=== PATIENT | female | born 1935 | race Caucasian/White ===

== ENCOUNTER 2016-08-22 17:13 | Inpatient (IN) | payer MEDICARE, OTHER ==
[~2016-08-22] VITALS: Ht 157.5 cm; Wt 75.3 kg
[~2016-08-22 17:13] MED LIST: ALBUTEROL SULF8.5 GM INH; ASPIRIN-LOW81 MG ORAL; AZITHROMYCIN250 MG ORAL; AZITHROMYCIN250 MG PO; BETAPACE80 MG PO; CORTISPORIN EAR10 ML RIGHT EAR; DILTIAZEM HCL90 MG PO; DIPHENHYDRAMINE25 M1 ORAL; GLUCOPHAGE500 MG PO; LEVAQUIN500 MG ORAL; LISINOPRIL5 MG ORAL; NEXIUM20 M1 ORAL; NEXIUM40 MG ORAL; NKM; NORCO 5-325 TA1 EACH ORAL; PLAVIX75 MG ORAL; PRAVASTATIN SOD20 M1 ORAL; PREDNISONE20 MG ORAL; TYLENOL325 MG ORAL; WARFARIN SODIUM5 MG PO; XARELTO10 MG ORAL
[2016-08-22 17:30] VITALS: BP 154/99
[2016-08-22] MEDS ORDERED: Morphine Sulfate 2mg/ml Inj IVP ONE (17:45)
[2016-08-22 17:58] LABS: BASOPHILS % (AUTO) 1.1 % (0.0-2.0); EOSINOPHILS % (AUTO) 2.5 % (0.0-3.0); LYMPHOCYTES % (AUTO) 25.2 % (20.0-45.0); MEAN CORPUSCULAR HGB CONC 31.9 G/DL (32.0-36.0); MEAN CORPUSCULAR VOLUME 85 FL (80-99); MEAN PLATELET VOLUME 9.3 FL (6.5-10.1); MONOCYTES % (AUTO) 7.1 % (1.0-10.0); NEUTROPHILS % (AUTO) 64.1 % (45.0-75.0); PLATELET COUNT 188 K/UL (150-450); RED BLOOD COUNT 4.68 M/UL (4.20-5.40); WHITE BLOOD COUNT 9.5 K/UL (4.8-10.8)
[2016-08-22] MEDS ORDERED: Diltiazem 25mg/5ml IV ONE (18:00)
--- NOTE | 2016-08-22 18:08 | Emergency Room Report ---
History of Present Illness General Chief Complaint: Chest Pain Source: Patient, Medical Record Present Illness HPI 80YOF with 1 week of right sided numbness and now with a few days of left sided chest pain, non radiating, sharp, 6/10, no assoc nausea/vomiting, diaphoresis, SOB. Known Atrial Fib - didnt take her meds because "the meds make it go fast. " Denies fever/chills, abd pain, urinary complaints. Denies facial droop. Allergies: Coded Allergies: CODEINE (Verified Allergy, Unknown, 10/23/11) DIAZEPAM (Unverified Allergy, Unknown, 06/20/14) c/o rash after given valium in ED PENICILLINS (Verified Allergy, Unknown, RASH/ITCH, 10/23/11) Patient History Past Medical History: HTN, AFib Past Surgical History: none Pertinent Family History: none Social History: Denies: alcohol use, drug use, smoking Now: No Immunizations: UTD Reviewed Nursing Documentation: PMH: Agreed, PSxH: Agreed Nursing Documentation-PMH Past Medical History: No History, Except For Hx Cardiac Problems: Yes - Unspecified Hx Hypertension: Yes Hx Diabetes: Yes Hx Cancer: No Hx Gastrointestinal Problems: No Hx Neurological Problems: No Review of Systems All Other Systems: negative except mentioned in HPI Physical Exam Vital Signs Date Time Temp Pulse Resp B/P Pulse Ox O2 Delivery O2 Flow Rate FiO2 08/22/16 17:21 98.2 123 20 179/109 98 Room Air Sp02 EP Interpretation: reviewed, abnormal General Appearance: normal inspection, well appearing, no apparent distress, alert, GCS 15, non-toxic, other - Walked into ER. Sitting upright in stretcher Head: normocephalic, atraumatic Eyes: bilateral eye EOMI, bilateral eye PERRL ENT: normal ENT inspection, hearing grossly normal, normal voice Neck: normal inspection, full range of motion, supple, no bony tend Respiratory: normal inspection, lungs clear, normal breath sounds, no respiratory distress, no retraction, no wheezing Cardiovascular #1: no edema, no gallop, no JVD, tachycardia, irregularly irregular Gastrointestinal: normal inspection, normal bowel sounds, non tender, soft, no guarding, no hernia Genitourinary: no CVA tenderness Musculoskeletal: normal inspection, back normal, normal range of motion, Michael' s Sign negative Neurologic: normal inspection, alert, oriented x3, responsive, 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 I attest that this information is true, accurate and complete to the best of my knowledge. I understand that any falsification, omission, or concealment of material fact may subject me to administrative, civil, or criminal liability. This patient warrants hospital admission for extreme of age and has a condition that cannot be treated as outpatient. Diagnostic Impression: Primary Impression: Atrial fibrillation Qualified Codes: I48.2 - Chronic atrial fibrillation Additional Impressions: Atrial fibrillation with RVR Numbness ER Course 80YO F with right sided numbness and chest pain found to be in Afib with RVR to [address] head: no acute CVA Labs: No leuks. H&h stable. Troponin 0. CXR: No acute PNA, pulm congestion Hr down to 120 after IV cardizem Was given her 90mg PO dose as well Asymptomatic Admitted to tele with Dr Medina at 711pm EKG Diagnostic Results Rate: tachycardiac ST Segments: no acute changes ASA given to the pt in ED: No Rhythm Strip Diag. Results EP Interpretation: yes Rate: 168 Rhythm: NSR, no PVC's, no ectopy Chest X-Ray Diagnostic Results EP Interpretation: Yes Findings: no consolidation, no effusion, no pneumothorax, no acute cardiopulmonary disease Number of Views: 1 Last Vital Signs Date Time Temp Pulse Resp B/P Pulse Ox O2 Delivery O2 Flow Rate FiO2 08/22/16 17:30 98.0 154 22 154/99 98 Room Air Status: improved Disposition: ADMITTED INPATIENT Condition: Serious DAYA BENTLEY M.D. Aug 22, 2016 18:08
[2016-08-22 18:23] LABS: ALANINE AMINOTRANSFERASE 14 U/L (3-33); ALBUMIN/GLOBULIN RATIO 1.3 (1.0-2.7); ANION GAP 16 (5-15); ASPARTATE AMINO TRANSFERASE 21 U/L (5-40); CALCIUM 9.3 mg/dL (8.6-10.2); CARBON DIOXIDE 26 mEQ/L (20-30); CHLORIDE 94 mEQ/L (98-107); CREATININE 0.9 mg/dL (0.5-0.9); HEMOLYSIS 16; POTASSIUM 3.7 mEQ/L (3.4-4.9); SODIUM 136 mEQ/L (135-145); TOTAL PROTEIN 7.1 g/dL (6.6-8.7); TROPONIN I < 0.30 ng/mL (<=0.30)
[2016-08-22] MEDS ORDERED: Diltiazem 90mg tab ORAL ONE (18:30)
[2016-08-22 18:34] LABS: CKMB < 1.5 ng/mL (< 3.8)
[2016-08-22 19:00] VITALS: BP 135/88
[2016-08-22 21:00] VITALS: BP 136/72
[2016-08-22 23:13] VITALS: BP 124/64
[2016-08-23 00:33] VITALS: BP 138/84
[2016-08-23 00:56] VITALS: BP 138/84
[2016-08-23] MEDS: Diltiazem 90mg tab ORAL SCH ×4 (01:18→17:43)
--- NOTE | 2016-08-23 02:07 | History & Physical ---
History and Physical History & Physicial H&P dictated [id number] MARIA E GONZALEZ M.D. Aug 23, 2016 02:07
[2016-08-23 04:00] VITALS: BP 112/68
[2016-08-23] MEDS: NovoLOG Insulin Flexpen SUBQ SCH ×4 (06:45→20:48)
[2016-08-23 08:00] VITALS: BP 127/75
[2016-08-23 08:14] LABS: BASOPHILS % (AUTO) 0.9 % (0.0-2.0); EOSINOPHILS % (AUTO) 2.2 % (0.0-3.0); MEAN CORPUSCULAR HGB CONC 31.5 G/DL (32.0-36.0); MEAN CORPUSCULAR VOLUME 86 FL (80-99); MEAN PLATELET VOLUME 9.1 FL (6.5-10.1); MONOCYTES % (AUTO) 7.7 % (1.0-10.0); NEUTROPHILS % (AUTO) 65.3 % (45.0-75.0); PLATELET COUNT 181 K/UL (150-450); RED BLOOD COUNT 4.62 M/UL (4.20-5.40); RED CELL DISTRIBUTION WIDTH 13.2 % (11.6-14.8); WHITE BLOOD COUNT 7.8 K/UL (4.8-10.8)
--- NOTE | 2016-08-23 08:29 | History and Physical Report ---
DATE OF ADMISSION: 08/22/2016 CHIEF COMPLAINT: Chest pain and tachycardia. HISTORY OF PRESENT ILLNESS: This is a 80-year-old female, presents to the emergency room because of tachycardia and chest pain. She states that she had tachycardia last night associated with left-sided chest pain. She could not sleep because of palpitations and tachycardia. She then reports right-sided numbness at the same time along her face and right side of her body, which may have started days ago. She denies any weakness. She does have chest pain, shortness of breath, palpitations, gotten now better. The patient states she takes diltiazem for her atrial fibrillation, however, it is unclear if she took her medications today. She states the pain has resolved since. She denies any focal deficits, facial droop, difficulty speaking, or vision changes. PAST MEDICAL HISTORY: Includes atrial fibrillation, diabetes, and hypertension. PAST SURGICAL HISTORY: None. ALLERGIES: To penicillin and codeine. SOCIAL HISTORY: The patient does not smoke, drink alcohol, or use any drugs. MEDICATIONS: Reviewed in [employer]. FAMILY HISTORY: Noncontributory. REVIEW OF SYSTEMS: The 12-point review of systems is negative except for pertinent positives as mentioned above. PHYSICAL EXAMINATION: VITAL SIGNS: Vital signs emergency room, temperature 98.2 degrees, pulse is 122, respiratory rate 20, blood pressure 179/109, and pulse oximetry is 98% on room air. GENERAL: The patient is in no acute distress. The patient is alert, awake, and oriented. HEENT: Normocephalic and atraumatic. NECK: Supple. No JVD. LUNGS: Clear to auscultation bilaterally. No crackles, rhonchi, or rales. CARDIOVASCULAR: Irregular rhythm and tachycardic. ABDOMEN: Soft, nontender, and nondistended. EXTREMITIES: No clubbing, cyanosis, or edema. PSYCHIATRIC: Appropriate mood and affect. NEUROLOGIC: The patient has no focal deficits on my exam. She has motor 5/5 in all extremities. There is no numbness or sensory loss. LABORATORY AND DIAGNOSTIC DATA: CBC, white count 5.5, hemoglobin 12.6, and platelet count 188,000. BMP with sodium 136, potassium 3.7, chloride is 94, CO2 26, BUN 14, creatinine 0.9, glucose 203, troponin less than 0.30. EKG shows atrial fibrillation with tachycardia 127, no ST changes. Chest x-ray shows no consolidation, effusion, no pneumothorax. CT head shows no acute CVA. ASSESSMENT: 1. Atrial fibrillation with rapid ventricular rate. 2. Chest pain and shortness of breath likely secondary to atrial fibrillation with rapid ventricular rate. 3. Numbness of the left side of the body - unclear etiology. The CT head did not show acute cerebrovascular accident. If this continues, will order MRI of the brain in the morning. 4. History of diabetes. 5. Hypertension. PLAN: 1. Admit patient to telemetry. 2. Diltiazem 90 mg every 6 hours. 3. Home medications including Xarelto, . Cardiology consult in the morning. 4. DVT prophylaxis with heparin. 5. Continue sotalol for atrial fibrillation. 6. Counseled the patient on compliance. Tyson Medina MD DR: MESFIN/new JOB#: [id number] CC:
[2016-08-23 08:30] LABS: ANION GAP 16 (5-15); CARBON DIOXIDE 26 mEQ/L (20-30); CHLORIDE 98 mEQ/L (98-107); CREATININE 0.9 mg/dL (0.5-0.9); HEMOLYSIS 0; POTASSIUM 3.7 mEQ/L (3.4-4.9); SODIUM 140 mEQ/L (135-145)
[2016-08-23] MEDS: Xarelto 10mg tab ORAL SCH (08:51)
[2016-08-23] MEDS: PredniSONE 20mg tab ORAL SCH (08:52)
[2016-08-23] MEDS: metFORMIN 500mg tab ORAL SCH ×2 (08:52→17:43)
[2016-08-23] MEDS: Sotalol 80mg tab ORAL SCH ×2 (08:52→17:44)
[2016-08-23] MEDS ORDERED: Lisinopril 2.5mg tab ORAL SCH (09:00)
[2016-08-23 09:22] LABS: TROPONIN I < 0.30 ng/mL (<=0.30)
--- NOTE | 2016-08-23 12:29 | Diagnostic Imaging Report ---
Indications: Headache and right-sided weakness Technique: Continuous helical CT imaging of the brain was performed with automatic exposure control on a Siemens sensation [address] scanner. Axial and coronal images were reconstructed at 5 mm slice thickness and interval. CTDI volume(s): 70 mGy Total DLP: 1330 mGy-cm Findings: Comparison: 05/14/2015 Chronic microvascular ischemic changes throughout the bilateral cerebral periventricular and deep white matter, diffuse atrophy are unchanged.. No evidence of mass or hemorrhage, other attenuation abnormality, mass effect, midline shift, hydrocephalus or increased intracranial pressure. Bone window images are unremarkable. Visualized paranasal sinuses and mastoid air cells are clear. IMPRESSION: No evidence of acute intracranial pathology, unchanged Stable chronic age-related changes as described. Written preliminary report placed in PACS 08/22/[address] scanner at [facility] is accredited by the [employer] and the scans are performed using protocols designed to limit radiation exposure to as low as reasonably achievable to attain images of sufficient resolution adequate for diagnostic evaluation.
--- NOTE | 2016-08-23 12:29 | Diagnostic Imaging Report ---
Indication: Chest pain Technique: Single portable AP view of the chest. Findings: Comparison: 05/14/2015 Cardiac silhouette remains enlarged. Osteophytes again noted in the thoracic spine. Mild calcification of the aortic arch unchanged. The extra pulmonary soft tissues, remainder of the cardiomediastinal silhouette, pulmonary vasculature and parenchyma, and pleural surfaces remain unremarkable. IMPRESSION: No evidence of acute cardiopulmonary disease, unchanged Stable chronic changes as described.
--- NOTE | 2016-08-23 13:04 | Internal Med Progress Note ---
Subjective Date of Service: Aug 23, 2016 Physician Name Bishnu Clarke Attending Physician Tyson Medina M.D. Current Medications Medications (Trade) Dose Ordered Sig/[place] Route PRN Reason Start Time Stop Time Status Last Admin Dose Admin Clonidine HCl (Catapres) 0.1 mg EVERY 6 HOURS PRN ORAL sbp>160 08/23/16 02:15 09/22/16 02:14 Clopidogrel Bisulfate (Plavix) 75 mg DAILY ORAL 08/23/16 09:00 09/22/16 08:59 08/23/16 08:56 Dextrose (Dextrose 50%) STAT PRN IV Hypoglycemia 08/23/16 02:30 09/22/16 02:29 Dextrose (Dextrose 50%) STAT PRN IV Hypoglycemia 08/22/16 22:15 09/21/16 22:14 Diltiazem HCl (Cardizem) 90 mg Q6HR ORAL 08/23/16 00:00 09/22/16 00:00 08/23/16 12:09 Diphenhydramine HCl (Benadryl) 25 mg Q6H PRN ORAL Itching 08/22/16 22:15 09/21/16 22:14 Insulin Aspart (NovoLOG) BEFORE MEALS AND HS SUBQ 08/23/16 06:30 09/22/16 06:29 08/23/16 12:11 Lisinopril (Zestril) 10 mg DAILY ORAL 08/24/16 09:00 09/22/16 08:59 Metformin HCl (Glucophage) 500 mg BID ORAL 08/23/16 09:00 09/22/16 08:59 08/23/16 08:52 Ondansetron HCl (Zofran) 4 mg Q6H PRN IVP Nausea & Vomiting 08/22/16 22:15 09/21/16 22:14 Pravastatin Sodium (Pravachol) 20 mg BEDTIME ORAL 08/23/16 21:00 09/22/16 20:59 Prednisone (predniSONE) 40 mg DAILY ORAL 08/23/16 09:00 09/22/16 08:59 08/23/16 08:52 Rivaroxaban (Xarelto) 10 mg DAILY ORAL 08/23/16 09:00 09/22/16 08:59 08/23/16 08:51 Sotalol HCl (Betapace) 80 mg BID ORAL 08/23/16 09:00 09/22/16 08:59 08/23/16 08:52 Allergies: Coded Allergies: CODEINE (Verified Allergy, Unknown, 10/23/11) DIAZEPAM (Unverified Allergy, Unknown, 06/20/14) c/o rash after given valium in ED PENICILLINS (Verified Allergy, Unknown, RASH/ITCH, 10/23/11) ROS Limited/Unobtainable: No Constitutional: Reports: no symptoms HEENT: Reports: no symptoms Cardiovascular: Reports: chest pain, palpitations Respiratory: Reports: no symptoms Gastrointestinal/Abdominal: Reports: no symptoms Genitourinary: Reports: no symptoms Neurologic/Psychiatric: Reports: no symptoms Subjective 80 YO F admitted with chest pain and atrial fibrillation with rapid ventricular rate. Cover for Int Med-Dr Flores. Await cardiology consult. Objective Last Vital Signs Date Time Temp Pulse Resp B/P Pulse Ox O2 Delivery O2 Flow Rate FiO2 08/23/16 12:09 79 118/72 08/23/16 08:00 97.2 17 96 Room Air Laboratory Tests Test 08/22/16 17:46 08/23/16 07:25 White Blood Count 9.5 K/UL (4.8-10.8) 7.8 K/UL (4.8-10.8) Red Blood Count 4.68 M/UL (4.20-5.40) 4.62 M/UL (4.20-5.40) Hemoglobin 12.6 G/DL (12.0-16.0) 12.5 G/DL (12.0-16.0) Hematocrit 39.6 % (37.0-47.0) 39.7 % (37.0-47.0) Mean Corpuscular Volume 85 FL (80-99) 86 FL (80-99) Mean Corpuscular Hemoglobin 27.0 PG (27.0-31.0) 27.0 PG (27.0-31.0) Mean Corpuscular Hemoglobin Concent 31.9 G/DL (32.0-36.0) L 31.5 G/DL (32.0-36.0) L Red Cell Distribution Width 13.0 % (11.6-14.8) 13.2 % (11.6-14.8) Platelet Count 188 K/UL (150-450) 181 K/UL (150-450) Mean Platelet Volume 9.3 FL (6.5-10.1) 9.1 FL (6.5-10.1) Neutrophils (%) (Auto) 64.1 % (45.0-75.0) 65.3 % (45.0-75.0) Lymphocytes (%) (Auto) 25.2 % (20.0-45.0) 24.0 % (20.0-45.0) Monocytes (%) (Auto) 7.1 % (1.0-10.0) 7.7 % (1.0-10.0) Eosinophils (%) (Auto) 2.5 % (0.0-3.0) 2.2 % (0.0-3.0) Basophils (%) (Auto) 1.1 % (0.0-2.0) 0.9 % (0.0-2.0) Sodium Level 136 mEQ/L (135-145) 140 mEQ/L (135-145) Potassium Level 3.7 mEQ/L (3.4-4.9) 3.7 mEQ/L (3.4-4.9) Chloride Level 94 mEQ/L (98-107) L 98 mEQ/L (98-107) Carbon Dioxide Level 26 mEQ/L (20-30) 26 mEQ/L (20-30) Anion Gap 16 (5-15) H 16 (5-15) H Blood Urea Nitrogen 14 mg/dL (7-23) 16 mg/dL (7-23) Creatinine 0.9 mg/dL (0.5-0.9) 0.9 mg/dL (0.5-0.9) Estimat Glomerular Filtration Rate mL/min (>60) mL/min (>60) Glucose Level 303 mg/dL (74-106) H 202 mg/dL (74-106) #H Calcium Level 9.3 mg/dL (8.6-10.2) 9.0 mg/dL (8.6-10.2) Total Bilirubin 0.3 mg/dL (0.0-1.2) Aspartate Amino Transf (AST/SGOT) 21 U/L (5-40) Alanine Aminotransferase (ALT/SGPT) 14 U/L (3-33) Alkaline Phosphatase 104 U/L (35-104) Total Creatine Kinase 64 U/L (26-140) Creatine Kinase MB < 1.5 ng/mL (< 3.8) Creatine Kinase MB Relative Index Troponin I < 0.30 ng/mL (<=0.30) < 0.30 ng/mL (<=0.30) Total Protein 7.1 g/dL (6.6-8.7) Albumin 4.1 g/dL (3.5-5.2) Globulin 3.0 g/dL Albumin/Globulin Ratio 1.3 (1.0-2.7) Intake and Output 08/22/16 08/23/16 19:00 07:00 Intake Total 0 ml Balance 0 ml Intake Oral 0 ml # Voids 1 Objective General: alert, cooperative, no distress, appears stated age Head: normocephalic, without obvious abnormality, atraumatic Eyes: conjunctivae/corneas clear. PERRL, EOM's intact Throat: lips, mucosa, and tongue normal. MMM Neck: supple, symmetrical, trachea midline, and no JVD Lungs: clear to auscultation bilaterally Heart: regular rate and rhythm, S1, S2 normal, no murmur, click, rub or gallop Abdomen: soft, non-tender, non-distended, bowel sounds normal; no masses or organomegaly Extremities: extremities normal, atraumatic, no cyanosis or edema Pulses: 2+ and symmetric Skin: skin color, texture, turgor normal; no rashes or lesions Neurologic: grossly normal, no focal deficits Assessment/Plan Problem List: (1) Diabetes mellitus, type II Assessment & Plan: Cont metformin and novolog sliding scale. (2) Chest pain Assessment & Plan: Serial troponin to rule out acute coronary syndrome. Await cardiology consult. (3) Atrial fibrillation with RVR Assessment & Plan: Await caridology consult. Cont xarelto (4) Hypertension Assessment & Plan: Continue lisinopril Status: not improved BISHNU CLARKE Aug 23, 2016 13:04
[2016-08-23] MEDS ORDERED: HydrALAZINE 50mg tab ORAL SCH (17:30)
--- NOTE | 2016-08-23 17:39 | Cardiology Progress Note ---
Subjective Subjective [id number] Objective Last 24 Hour Vital Signs Date Time Temp Pulse Resp B/P Pulse Ox O2 Delivery O2 Flow Rate FiO2 08/23/16 12:09 79 118/72 08/23/16 12:00 68 08/23/16 08:53 127/75 08/23/16 08:52 79 127/75 08/23/16 08:00 97.2 79 17 127/75 96 Room Air 08/23/16 08:00 79 08/23/16 05:50 94 139/88 08/23/16 04:00 84 08/23/16 04:00 97.7 87 21 112/68 99 Room Air 08/23/16 01:18 130 124/81 08/23/16 00:56 98.2 136 20 138/84 94 Room Air 08/23/16 00:15 98.0 125 20 124/64 98 Room Air 08/22/16 23:13 98.0 125 20 124/64 98 Room Air 08/22/16 21:00 98.0 120 20 136/72 98 Room Air 08/22/16 19:00 98.0 154 22 135/88 98 Room Air 08/22/16 19:00 98.0 08/22/16 18:39 120 173/99 08/22/16 18:19 156 193/115 Intake and Output 08/22/16 08/23/16 19:00 07:00 Intake Total 0 ml Balance 0 ml Intake Oral 0 ml # Voids 1 Laboratory Tests Test 08/22/16 17:46 08/23/16 07:25 White Blood Count 9.5 K/UL (4.8-10.8) 7.8 K/UL (4.8-10.8) Red Blood Count 4.68 M/UL (4.20-5.40) 4.62 M/UL (4.20-5.40) Hemoglobin 12.6 G/DL (12.0-16.0) 12.5 G/DL (12.0-16.0) Hematocrit 39.6 % (37.0-47.0) 39.7 % (37.0-47.0) Mean Corpuscular Volume 85 FL (80-99) 86 FL (80-99) Mean Corpuscular Hemoglobin 27.0 PG (27.0-31.0) 27.0 PG (27.0-31.0) Mean Corpuscular Hemoglobin Concent 31.9 G/DL (32.0-36.0) L 31.5 G/DL (32.0-36.0) L Red Cell Distribution Width 13.0 % (11.6-14.8) 13.2 % (11.6-14.8) Platelet Count 188 K/UL (150-450) 181 K/UL (150-450) Mean Platelet Volume 9.3 FL (6.5-10.1) 9.1 FL (6.5-10.1) Neutrophils (%) (Auto) 64.1 % (45.0-75.0) 65.3 % (45.0-75.0) Lymphocytes (%) (Auto) 25.2 % (20.0-45.0) 24.0 % (20.0-45.0) Monocytes (%) (Auto) 7.1 % (1.0-10.0) 7.7 % (1.0-10.0) Eosinophils (%) (Auto) 2.5 % (0.0-3.0) 2.2 % (0.0-3.0) Basophils (%) (Auto) 1.1 % (0.0-2.0) 0.9 % (0.0-2.0) Sodium Level 136 mEQ/L (135-145) 140 mEQ/L (135-145) Potassium Level 3.7 mEQ/L (3.4-4.9) 3.7 mEQ/L (3.4-4.9) Chloride Level 94 mEQ/L (98-107) L 98 mEQ/L (98-107) Carbon Dioxide Level 26 mEQ/L (20-30) 26 mEQ/L (20-30) Anion Gap 16 (5-15) H 16 (5-15) H Blood Urea Nitrogen 14 mg/dL (7-23) 16 mg/dL (7-23) Creatinine 0.9 mg/dL (0.5-0.9) 0.9 mg/dL (0.5-0.9) Estimat Glomerular Filtration Rate mL/min (>60) mL/min (>60) Glucose Level 303 mg/dL (74-106) H 202 mg/dL (74-106) #H Calcium Level 9.3 mg/dL (8.6-10.2) 9.0 mg/dL (8.6-10.2) Total Bilirubin 0.3 mg/dL (0.0-1.2) Aspartate Amino Transf (AST/SGOT) 21 U/L (5-40) Alanine Aminotransferase (ALT/SGPT) 14 U/L (3-33) Alkaline Phosphatase 104 U/L (35-104) Total Creatine Kinase 64 U/L (26-140) Creatine Kinase MB < 1.5 ng/mL (< 3.8) Creatine Kinase MB Relative Index Troponin I < 0.30 ng/mL (<=0.30) < 0.30 ng/mL (<=0.30) Total Protein 7.1 g/dL (6.6-8.7) Albumin 4.1 g/dL (3.5-5.2) Globulin 3.0 g/dL Albumin/Globulin Ratio 1.3 (1.0-2.7) DANIELA MCNEILL Aug 23, 2016 17:39
[2016-08-23] MEDS ORDERED: HydrALAZINE 50mg tab ORAL PRN (17:45)
[2016-08-23 20:00] VITALS: BP 122/71
[2016-08-23] MEDS ORDERED: Norco 5mg/325mg tab ORAL PRN (21:30)
--- NOTE | 2016-08-23 21:48 | Consultation ---
DATE OF CONSULTATION: 08/23/2016 REFERRING PHYSICIAN: Tyson Medina M.D. HISTORY OF PRESENT ILLNESS: The patient came to the emergency department because of palpitation and left-sided discomfort. She has a history of paroxysmal atrial fibrillation in the past. She is taking sotalol and Xarelto, but she did not take sotalol for the last day or maybe two days because she had numbness of the right side of her arm and her face so she decided to skip sotalol. She woke up with palpitations and left-sided discomfort and she came to [facility]. She was here in 2014, but she usually goes to [facility] for cardiac care, but at this time she decided to come here. Right now, she feels totally fine. Her palpitations resolved and she does not have any chest pain. She still has the right-sided face and arm numbness, which she is concerned about that seems it might be a pinched nerve. PAST MEDICAL HISTORY: Significant for diabetes, hypertension, hyperlipidemia, paroxysmal atrial fibrillation and she has a history of colposcopy for abnormal Pap smear and cholecystectomy. ALLERGIES: Not documented. She is allergic to codeine, diazepam and penicillin. HABITS: No history of drinking, smoking, or drug abuse. SOCIAL HISTORY: She lives at home. She is independent. MEDICATIONS: Home medications are all reviewed. She is on albuterol, aspirin, erythromycin, clopidogrel, diltiazem, omeprazole, hydrocodone, levofloxacin, Xarelto and actually pravastatin. This list of medications is not the list what she has in her bag because I reviewed all the medication in her back and there she had only sotalol, metformin, Xarelto, and hydralazine. She is not taking the rest of the medications. REVIEW OF SYSTEMS: Review of systems was done in detail significant for moderate dyspnea and moderate knee pain. Otherwise unremarkable. PHYSICAL EXAMINATION: GENERAL: This is a pleasant female, not in acute distress. VITAL SIGNS: Blood pressure 130/70, heart rate 80, oxygen saturation 96% on room air, and temperature 97.2 degrees. HEENT: PERRLA. EOMI. NECK: Supple. She has good carotid upstroke bilaterally normal without bruit. No thyromegaly. LUNGS: She has few crackles only scattered posteriorly at the bases. Otherwise clear. BREASTS: No masses. HEART: Regular. PMI is not palpable. There is slightly diminished S1 and accented A2. ABDOMEN: Soft, distended, and nontender. Bowel sounds are present. There is no bruit. EXTREMITIES: Lower extremity, no edema. Distal pulses palpable. NEUROLOGICAL: She has numbness in the right arm, but good muscle tone. LABORATORY AND DIAGNOSTIC DATA: EKG upon admission shows atrial fibrillation with rate of 168 beats per minute and LVH with some mild ST changes. Her subsequent EKG is pending, but the rhythm strip now shows sinus rhythm. Chest x-ray is unremarkable. Her laboratories that were reviewed, troponin was negative. CBC was negative. Glucose was elevated at 202. Chest x-ray unremarkable. IMPRESSION AND RECOMMENDATION: Paroxysmal atrial fibrillation. The patient converted spontaneously. She said that yesterday she was not taking sotalol and that I think what caused paroxysmal atrial fibrillation. I would recommend just to continue this regimen for her and hopefully she is going to stay in sinus rhythm and be compliant with anticoagulation as well and blood pressure control. She is currently taking hydralazine according to review I did for her medications in her bag. I discussed this with her and patient understands and agrees and I would suggest also to consider Neurology consult, although her neurologic symptoms are not compatible of what stroke but it is still of concern. Thank you very much for your consultation and from cardiac standpoint, this patient can be discharged. I do not believe she needs to have ischemia workup as inpatient. We need to get the records from [facility] and it was recently done that will be sufficient. I am pretty sure her symptoms most likely are due to her atrial fibrillation and not angina. Nissa Lara M.D. DR: MARGO JOB#: [id number] CC:
[2016-08-24] VITALS: BP 111/71
[2016-08-24] MEDS: Diltiazem 90mg tab ORAL SCH ×5 (00:11→23:52)
[2016-08-24 04:00] VITALS: BP 106/66
[2016-08-24] MEDS: NovoLOG Insulin Flexpen SUBQ SCH ×4 (06:21→20:55)
[2016-08-24 08:06] LABS: BASOPHILS % (AUTO) 0.4 % (0.0-2.0); EOSINOPHILS % (AUTO) 0.2 % (0.0-3.0); LYMPHOCYTES % (AUTO) 17.3 % (20.0-45.0); MEAN CORPUSCULAR HEMOGLOBIN 27.5 PG (27.0-31.0); MEAN CORPUSCULAR HGB CONC 32.3 G/DL (32.0-36.0); MEAN CORPUSCULAR VOLUME 85 FL (80-99); MEAN PLATELET VOLUME 10.3 FL (6.5-10.1); MONOCYTES % (AUTO) 6.4 % (1.0-10.0); NEUTROPHILS % (AUTO) 75.6 % (45.0-75.0); PLATELET COUNT 180 K/UL (150-450); RED BLOOD COUNT 4.16 M/UL (4.20-5.40); RED CELL DISTRIBUTION WIDTH 12.7 % (11.6-14.8); WHITE BLOOD COUNT 12.5 K/UL (4.8-10.8)
[2016-08-24 08:12] LABS: TROPONIN I < 0.30 ng/mL (<=0.30)
[2016-08-24 08:36] VITALS: BP 121/96
[2016-08-24 08:44] LABS: ANION GAP 14 (5-15); CALCIUM 9.1 mg/dL (8.6-10.2); CARBON DIOXIDE 25 mEQ/L (20-30); CHLORIDE 97 mEQ/L (98-107); CREATININE 0.8 mg/dL (0.5-0.9); HEMOLYSIS 6; POTASSIUM 3.8 mEQ/L (3.4-4.9); SODIUM 136 mEQ/L (135-145)
[2016-08-24] MEDS: Lisinopril 10mg tab ORAL SCH (09:10)
[2016-08-24] MEDS: Xarelto 10mg tab ORAL SCH (09:10)
[2016-08-24] MEDS: metFORMIN 500mg tab ORAL SCH ×2 (09:10→18:00)
[2016-08-24] MEDS: Sotalol 80mg tab ORAL SCH ×2 (09:11→18:00)
[2016-08-24] MEDS: PredniSONE 20mg tab ORAL SCH (09:11)
--- NOTE | 2016-08-24 10:45 | Cardiology Progress Note ---
Assessment/Plan Assessment/Plan 1. Atrial fibrillation with rapid ventricular rate.\ proxysmal 2. Chest pain and shortness of breath likely secondary to atrial fibrillation with rapid ventricular rate. 3. Numbness of the right side of the body 4. History of diabetes. 5. Hypertension. 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 all trop neg it is likely that she has had myocardial perfusion with her franchise sales manager in [facility] further non cardai chamorro as per dr b[place] Subjective Cardiovascular: Denies: chest pain, lightheadedness, palpitations Respiratory: Reports: SOB with excertion - chronic Gastrointestinal/Abdominal: Denies: abdominal pain Genitourinary: Denies: burning Objective Last 24 Hour Vital Signs Date Time Temp Pulse Resp B/P Pulse Ox O2 Delivery O2 Flow Rate FiO2 08/24/16 09:11 70 121/96 08/24/16 09:10 121/96 08/24/16 08:36 98.4 70 18 121/96 98 Room Air 08/24/16 06:00 66 106/66 08/24/16 04:00 97.5 70 19 106/66 99 Room Air 08/24/16 04:00 66 08/24/16 00:11 70 111/71 08/24/16 00:00 97.9 70 20 111/71 96 Room Air 08/24/16 00:00 80 08/23/16 20:00 97.9 71 20 122/71 97 Room Air 08/23/16 20:00 80 08/23/16 17:44 77 127/58 08/23/16 17:43 77 127/58 08/23/16 16:00 77 08/23/16 12:09 79 118/72 08/23/16 12:00 68 General Appearance: no apparent distress, alert Cardiovascular: normal rate, regular rhythm Respiratory/Chest: lungs clear, normal breath sounds Abdomen: normal bowel sounds, non tender, soft Extremities: no swelling Intake and Output 08/23/16 08/24/16 19:00 07:00 Intake Total 240 ml Balance 240 ml Intake Oral 240 ml # Voids 3 2 Laboratory Tests Test 08/24/16 07:15 White Blood Count 12.5 K/UL (4.8-10.8) #H Red Blood Count 4.16 M/UL (4.20-5.40) L Hemoglobin 11.4 G/DL (12.0-16.0) L Hematocrit 35.4 % (37.0-47.0) L Mean Corpuscular Volume 85 FL (80-99) Mean Corpuscular Hemoglobin 27.5 PG (27.0-31.0) Mean Corpuscular Hemoglobin Concent 32.3 G/DL (32.0-36.0) Red Cell Distribution Width 12.7 % (11.6-14.8) Platelet Count 180 K/UL (150-450) Mean Platelet Volume 10.3 FL (6.5-10.1) H Neutrophils (%) (Auto) 75.6 % (45.0-75.0) H Lymphocytes (%) (Auto) 17.3 % (20.0-45.0) L Monocytes (%) (Auto) 6.4 % (1.0-10.0) Eosinophils (%) (Auto) 0.2 % (0.0-3.0) Basophils (%) (Auto) 0.4 % (0.0-2.0) Sodium Level 136 mEQ/L (135-145) Potassium Level 3.8 mEQ/L (3.4-4.9) Chloride Level 97 mEQ/L (98-107) L Carbon Dioxide Level 25 mEQ/L (20-30) Anion Gap 14 (5-15) Blood Urea Nitrogen 18 mg/dL (7-23) Creatinine 0.8 mg/dL (0.5-0.9) Estimat Glomerular Filtration Rate mL/min (>60) Glucose Level 160 mg/dL (74-106) H Calcium Level 9.1 mg/dL (8.6-10.2) Troponin I < 0.30 ng/mL (<=0.30) ANDREW YANEZ Aug 24, 2016 10:45
[2016-08-24 12:10] VITALS: BP 134/81
--- NOTE | 2016-08-24 14:49 | Internal Med Progress Note ---
Subjective Date of Service: Aug 24, 2016 Physician Name Bishnu Clarke Attending Physician Tyson Medina M.D. Current Medications Medications (Trade) Dose Ordered Sig/[place] Route PRN Reason Start Time Stop Time Status Last Admin Dose Admin Acetaminophen/ Hydrocodone Bitart ([place] 5/325) 1 tab Q6H PRN ORAL Moderate Pain (Pain Scale 4-6) 08/23/16 21:30 08/30/16 21:29 08/23/16 22:07 Dextrose (Dextrose 50%) STAT PRN IV Hypoglycemia 08/23/16 02:30 09/22/16 02:29 Diltiazem HCl (Cardizem) 90 mg Q6HR ORAL 08/23/16 00:00 09/22/16 00:00 08/24/16 12:27 Diphenhydramine HCl (Benadryl) 25 mg Q6H PRN ORAL Itching 08/22/16 22:15 09/21/16 22:14 Hydralazine HCl (Apresoline) 100 mg EVERY 8 HOURS PRN ORAL SBP above 160 08/23/16 17:45 09/22/16 17:44 Insulin Aspart (NovoLOG) BEFORE MEALS AND HS SUBQ 08/23/16 06:30 09/22/16 06:29 08/24/16 12:34 Lisinopril (Zestril) 10 mg DAILY ORAL 08/24/16 09:00 09/22/16 08:59 08/24/16 09:10 Metformin HCl (Glucophage) 500 mg BID ORAL 08/23/16 09:00 09/22/16 08:59 08/24/16 09:10 Ondansetron HCl (Zofran) 4 mg Q6H PRN IVP Nausea & Vomiting 08/22/16 22:15 09/21/16 22:14 Pravastatin Sodium (Pravachol) 20 mg BEDTIME ORAL 08/23/16 21:00 09/22/16 20:59 08/23/16 20:43 Prednisone (predniSONE) 40 mg DAILY ORAL 08/23/16 09:00 09/22/16 08:59 08/24/16 09:11 Rivaroxaban (Xarelto) 10 mg DAILY ORAL 08/23/16 09:00 09/22/16 08:59 08/24/16 09:10 Sotalol HCl (Betapace) 80 mg BID ORAL 08/23/16 09:00 09/22/16 08:59 08/24/16 09:11 Allergies: Coded Allergies: CODEINE (Verified Allergy, Unknown, 10/23/11) DIAZEPAM (Unverified Allergy, Unknown, c/o rash after given valium in ED, 08/23/16) PENICILLINS (Verified Allergy, Unknown, RASH/ITCH, 10/23/11) ROS Limited/Unobtainable: No Constitutional: Reports: no symptoms HEENT: Reports: no symptoms Cardiovascular: Reports: chest pain, palpitations Respiratory: Reports: no symptoms Gastrointestinal/Abdominal: Reports: no symptoms Genitourinary: Reports: no symptoms Neurologic/Psychiatric: Reports: no symptoms Subjective 80 YO F admitted with chest pain and atrial fibrillation with rapid ventricular rate. Cover for Int Med-Dr Medina. Now Sinus rhythm. Objective Last Vital Signs Date Time Temp Pulse Resp B/P Pulse Ox O2 Delivery O2 Flow Rate FiO2 08/24/16 12:27 88 134/81 08/24/16 12:10 98.1 18 97 Room Air Laboratory Tests Test 08/24/16 07:15 White Blood Count 12.5 K/UL (4.8-10.8) #H Red Blood Count 4.16 M/UL (4.20-5.40) L Hemoglobin 11.4 G/DL (12.0-16.0) L Hematocrit 35.4 % (37.0-47.0) L Mean Corpuscular Volume 85 FL (80-99) Mean Corpuscular Hemoglobin 27.5 PG (27.0-31.0) Mean Corpuscular Hemoglobin Concent 32.3 G/DL (32.0-36.0) Red Cell Distribution Width 12.7 % (11.6-14.8) Platelet Count 180 K/UL (150-450) Mean Platelet Volume 10.3 FL (6.5-10.1) H Neutrophils (%) (Auto) 75.6 % (45.0-75.0) H Lymphocytes (%) (Auto) 17.3 % (20.0-45.0) L Monocytes (%) (Auto) 6.4 % (1.0-10.0) Eosinophils (%) (Auto) 0.2 % (0.0-3.0) Basophils (%) (Auto) 0.4 % (0.0-2.0) Sodium Level 136 mEQ/L (135-145) Potassium Level 3.8 mEQ/L (3.4-4.9) Chloride Level 97 mEQ/L (98-107) L Carbon Dioxide Level 25 mEQ/L (20-30) Anion Gap 14 (5-15) Blood Urea Nitrogen 18 mg/dL (7-23) Creatinine 0.8 mg/dL (0.5-0.9) Estimat Glomerular Filtration Rate mL/min (>60) Glucose Level 160 mg/dL (74-106) H Calcium Level 9.1 mg/dL (8.6-10.2) Troponin I < 0.30 ng/mL (<=0.30) Intake and Output 08/23/16 08/24/16 19:00 07:00 Intake Total 240 ml Balance 240 ml Intake Oral 240 ml # Voids 3 2 Objective General: alert, cooperative, no distress, appears stated age Head: normocephalic, without obvious abnormality, atraumatic Eyes: conjunctivae/corneas clear. PERRL, EOM's intact Throat: lips, mucosa, and tongue normal. MMM Neck: supple, symmetrical, trachea midline, and no JVD Lungs: clear to auscultation bilaterally Heart: regular rate and rhythm, S1, S2 normal, no murmur, click, rub or gallop Abdomen: soft, non-tender, non-distended, bowel sounds normal; no masses or organomegaly Extremities: extremities normal, atraumatic, no cyanosis or edema Pulses: 2+ and symmetric Skin: skin color, texture, turgor normal; no rashes or lesions Neurologic: grossly normal, no focal deficits Assessment/Plan Problem List: (1) Diabetes mellitus, type II Assessment & Plan: Cont metformin and novolog sliding scale. (2) Chest pain Assessment & Plan: Serial troponin to rule out acute coronary syndrome. See cardiology consult. (3) Atrial fibrillation with RVR Assessment & Plan: See caridology consult. Cont xarelto (4) Hypertension Assessment & Plan: Continue lisinopril Status: unchanged Assessment/Plan Discharge planning. BISHNU CLARKE Aug 24, 2016 14:49
[2016-08-24 16:03] VITALS: BP 113/67
--- NOTE | 2016-08-24 16:26 | Cardiology Report ---
APPROVED REPORT EXAM: Two-dimensional and M-mode echocardiogram with Doppler and color Doppler. INDICATION Atrial Fibrillation M-Mode DIMENSIONS IVSd1.0 (0.7-1.1cm)Left Atrium (MM)3.1 (1.6-4.0cm) LVDd5.4 (3.5-5.6cm)Aortic Root2.5 (2.0-3.7cm) PWd0.9 (0.7-1.1cm)Aortic Cusp Exc.1.6 (1.5-2.0cm) LVDs3.3 (2.5-4.0cm) PWs1.4 cm Technically difficult study due to poor acoustic windows Normal left ventricular chamber size, systolic function and wall motion. Left ventricular ejection fraction estimated to be 60-65 %. Moderate left ventricular hypertrophy by 2-D. Anterior Echo-free space, may be due to pericardial fat or effusion. Mild left atrial enlargement. Right cardiac chamber sizes are within normal limits. Mild focal aortic valve sclerosis with adequate cusp excursion Mild thickened mitral valve leaflets with normal excursion. Mild mitral annulus and aortic root calcification. Pulmonic valve not well visualized. Normal tricuspid valve structure. IVC dilated at 2.2cm with slight physiologic collapse. A color flow and spectral Doppler study was performed and revealed: Trace aortic regurgitation. Moderate mitral regurgitation. diastolic dysfunction. Mild to moderate tricuspid regurgitation. Tricuspid systolic velocities suggests peak right ventricular systolic pressure of 44 mmHg, consistent with mild to moderate pulmonary hypertension. Mild pulmonic regurgitation present.
[2016-08-24 20:00] VITALS: BP 115/70
[2016-08-25] VITALS (8 sets, daily range): BP systolic 101–157; BP diastolic 51–86
[2016-08-25] MEDS: Diltiazem 90mg tab ORAL SCH ×4 (06:01→23:53)
[2016-08-25] MEDS: NovoLOG Insulin Flexpen SUBQ SCH ×4 (06:02→20:37)
[2016-08-25 07:20] LABS: TROPONIN I < 0.30 ng/mL (<=0.30)
[2016-08-25 07:23] LABS: BASOPHILS % (AUTO) 0.2 % (0.0-2.0); EOSINOPHILS % (AUTO) 0.1 % (0.0-3.0); LYMPHOCYTES % (AUTO) 18.3 % (20.0-45.0); MEAN CORPUSCULAR HGB CONC 31.5 G/DL (32.0-36.0); MEAN CORPUSCULAR VOLUME 86 FL (80-99); MEAN PLATELET VOLUME 9.3 FL (6.5-10.1); MONOCYTES % (AUTO) 5.7 % (1.0-10.0); NEUTROPHILS % (AUTO) 75.6 % (45.0-75.0); PLATELET COUNT 177 K/UL (150-450); RED BLOOD COUNT 4.41 M/UL (4.20-5.40); RED CELL DISTRIBUTION WIDTH 13.2 % (11.6-14.8); WHITE BLOOD COUNT 11.5 K/UL (4.8-10.8)
[2016-08-25 07:25] LABS: ANION GAP 12 (5-15); CALCIUM 9.3 mg/dL (8.6-10.2); CARBON DIOXIDE 27 mEQ/L (20-30); CHLORIDE 101 mEQ/L (98-107); CREATININE 0.8 mg/dL (0.5-0.9); HEMOLYSIS 1; POTASSIUM 3.9 mEQ/L (3.4-4.9); SODIUM 140 mEQ/L (135-145)
[2016-08-25] MEDS: metFORMIN 500mg tab ORAL SCH ×2 (08:36→17:39)
[2016-08-25] MEDS: Xarelto 10mg tab ORAL SCH (08:36)
[2016-08-25] MEDS: PredniSONE 20mg tab ORAL SCH (08:37)
[2016-08-25] MEDS: Lisinopril 10mg tab ORAL SCH (08:37)
[2016-08-25] MEDS: Sotalol 80mg tab ORAL SCH ×2 (08:37→21:47)
--- NOTE | 2016-08-25 11:21 | Internal Med Progress Note ---
Subjective Date of Service: Aug 25, 2016 Physician Name Bishnu Clarke Attending Physician Tyson Medina M.D. Current Medications Medications (Trade) Dose Ordered Sig/[place] Route PRN Reason Start Time Stop Time Status Last Admin Dose Admin Acetaminophen/ Hydrocodone Bitart ([place] 5/325) 1 tab Q6H PRN ORAL Moderate Pain (Pain Scale 4-6) 08/23/16 21:30 08/30/16 21:29 08/23/16 22:07 Dextrose (Dextrose 50%) STAT PRN IV Hypoglycemia 08/23/16 02:30 09/22/16 02:29 Diltiazem HCl (Cardizem) 90 mg Q6HR ORAL 08/23/16 00:00 09/22/16 00:00 08/25/16 06:01 Diphenhydramine HCl (Benadryl) 25 mg Q6H PRN ORAL Itching 08/22/16 22:15 09/21/16 22:14 Hydralazine HCl (Apresoline) 100 mg EVERY 8 HOURS PRN ORAL SBP above 160 08/23/16 17:45 09/22/16 17:44 Insulin Aspart (NovoLOG) BEFORE MEALS AND HS SUBQ 08/23/16 06:30 09/22/16 06:29 08/25/16 06:02 Lisinopril (Zestril) 10 mg DAILY ORAL 08/24/16 09:00 09/22/16 08:59 08/25/16 08:37 Metformin HCl (Glucophage) 500 mg BID ORAL 08/23/16 09:00 09/22/16 08:59 08/25/16 08:36 Ondansetron HCl (Zofran) 4 mg Q6H PRN IVP Nausea & Vomiting 08/22/16 22:15 09/21/16 22:14 Pravastatin Sodium (Pravachol) 20 mg BEDTIME ORAL 08/23/16 21:00 09/22/16 20:59 08/24/16 20:53 Prednisone (predniSONE) 40 mg DAILY ORAL 08/23/16 09:00 09/22/16 08:59 08/25/16 08:37 Rivaroxaban (Xarelto) 10 mg DAILY ORAL 08/23/16 09:00 09/22/16 08:59 08/25/16 08:36 Sotalol HCl (Betapace) 80 mg BID ORAL 08/23/16 09:00 09/22/16 08:59 08/25/16 08:37 Allergies: Coded Allergies: CODEINE (Verified Allergy, Unknown, 10/23/11) DIAZEPAM (Unverified Allergy, Unknown, c/o rash after given valium in ED, 08/23/16) PENICILLINS (Verified Allergy, Unknown, RASH/ITCH, 10/23/11) ROS Limited/Unobtainable: No Constitutional: Reports: no symptoms HEENT: Reports: no symptoms Cardiovascular: Reports: no symptoms Respiratory: Reports: no symptoms Gastrointestinal/Abdominal: Reports: diarrhea Genitourinary: Reports: hematuria Neurologic/Psychiatric: Reports: no symptoms Subjective 80 YO F admitted with chest pain and atrial fibrillation with rapid ventricular rate. Cover for Int Med-Dr Medina. Now Sinus rhythm. C/O Diarrhea X5 this am. C/O hematuria. Objective Last Vital Signs Date Time Temp Pulse Resp B/P Pulse Ox O2 Delivery O2 Flow Rate FiO2 08/25/16 08:37 116/66 08/25/16 08:37 68 08/25/16 07:54 97.9 18 96 Room Air Laboratory Tests Test 08/25/16 05:40 White Blood Count 11.5 K/UL (4.8-10.8) H Red Blood Count 4.41 M/UL (4.20-5.40) Hemoglobin 11.9 G/DL (12.0-16.0) L Hematocrit 37.8 % (37.0-47.0) Mean Corpuscular Volume 86 FL (80-99) Mean Corpuscular Hemoglobin 27.0 PG (27.0-31.0) Mean Corpuscular Hemoglobin Concent 31.5 G/DL (32.0-36.0) L Red Cell Distribution Width 13.2 % (11.6-14.8) Platelet Count 177 K/UL (150-450) Mean Platelet Volume 9.3 FL (6.5-10.1) Neutrophils (%) (Auto) 75.6 % (45.0-75.0) H Lymphocytes (%) (Auto) 18.3 % (20.0-45.0) L Monocytes (%) (Auto) 5.7 % (1.0-10.0) Eosinophils (%) (Auto) 0.1 % (0.0-3.0) Basophils (%) (Auto) 0.2 % (0.0-2.0) Sodium Level 140 mEQ/L (135-145) Potassium Level 3.9 mEQ/L (3.4-4.9) Chloride Level 101 mEQ/L (98-107) Carbon Dioxide Level 27 mEQ/L (20-30) Anion Gap 12 (5-15) Blood Urea Nitrogen 18 mg/dL (7-23) Creatinine 0.8 mg/dL (0.5-0.9) Estimat Glomerular Filtration Rate mL/min (>60) Glucose Level 144 mg/dL (74-106) H Calcium Level 9.3 mg/dL (8.6-10.2) Troponin I < 0.30 ng/mL (<=0.30) Intake and Output 08/24/16 08/25/16 18:59 06:59 Intake Total 840 ml 220 ml Balance 840 ml 220 ml Intake Oral 840 ml 220 ml # Voids 5 2 # Bowel Movements 1 Objective General: alert, cooperative, no distress, appears stated age Head: normocephalic, without obvious abnormality, atraumatic Eyes: conjunctivae/corneas clear. PERRL, EOM's intact Throat: lips, mucosa, and tongue normal. MMM Neck: supple, symmetrical, trachea midline, and no JVD Lungs: clear to auscultation bilaterally Heart: regular rate and rhythm, S1, S2 normal, no murmur, click, rub or gallop Abdomen: soft, non-tender, non-distended, bowel sounds normal; no masses or organomegaly Extremities: extremities normal, atraumatic, no cyanosis or edema Pulses: 2+ and symmetric Skin: skin color, texture, turgor normal; no rashes or lesions Neurologic: grossly normal, no focal deficits Assessment/Plan Problem List: (1) Diabetes mellitus, type II Assessment & Plan: Cont metformin and novolog sliding scale. (2) Chest pain Assessment & Plan: Serial troponin to rule out acute coronary syndrome. See cardiology consult. (3) Atrial fibrillation with RVR Assessment & Plan: See caridology consult. Cont xarelto (4) Hypertension Assessment & Plan: Continue lisinopril (5) Hematuria Assessment & Plan: Send urine for culture. (6) Diarrhea Assessment & Plan: Send stool for C. Diff and culture. Assessment/Plan Discharge planning: Home with home health BISHNU CLARKE Aug 25, 2016 11:21
--- NOTE | 2016-08-25 15:48 | Cardiology Report ---
APPROVED REPORT EKG Measurement Heart [id number] Normal sinus rhythm Nonspecific T wave abnormality Abnormal ECG
[2016-08-25] MEDS ORDERED: Pneumococcal Vaccine 25mcg/0.5ml IM ONE ×2 (17:00)
[2016-08-25] MEDS ORDERED: Norco 5mg/325mg tab ORAL PRN (17:00)
--- NOTE | 2016-08-25 20:31 | Cardiology Progress Note ---
Assessment/Plan Assessment/Plan 1. Atrial fibrillation with rapid ventricular rate.\ proxysmal 2. Chest pain and shortness of breath likely secondary to atrial fibrillation with rapid ventricular rate. 3. Numbness of the right side of the body 4. History of diabetes. 5. Hypertension. 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 all trop neg it is likely that she has had myocardial perfusion with her strategic business development in [facility] [place] Subjective Cardiovascular: Denies: chest pain Respiratory: Denies: shortness of breath Gastrointestinal/Abdominal: Reports: diarrhea, Denies: abdominal pain Genitourinary: Denies: burning Objective Last 24 Hour Vital Signs Date Time Temp Pulse Resp B/P Pulse Ox O2 Delivery O2 Flow Rate FiO2 08/25/16 17:39 73 145/74 08/25/16 16:42 97.6 73 20 145/74 97 Room Air 08/25/16 15:24 98.1 76 18 119/58 97 Room Air 08/25/16 15:04 72 08/25/16 11:44 70 148/86 08/25/16 11:29 97.7 70 18 148/86 97 Room Air 08/25/16 11:28 71 08/25/16 08:37 116/66 08/25/16 08:37 68 116/66 08/25/16 07:54 97.9 68 18 116/66 96 Room Air 08/25/16 07:23 66 08/25/16 06:01 81 135/81 08/25/16 04:00 97.8 74 18 135/81 97 Room Air 08/25/16 04:00 81 08/25/16 00:00 98.1 74 18 114/79 96 Room Air 71 08/25/16 00:00 79 08/24/16 23:52 76 114/79 General Appearance: no apparent distress, alert Neck: supple Cardiovascular: normal rate, regular rhythm Respiratory/Chest: lungs clear, normal breath sounds Abdomen: non tender, soft Extremities: no swelling Intake and Output 08/24/16 08/25/16 19:00 07:00 Intake Total 840 ml 220 ml Balance 840 ml 220 ml Intake Oral 840 ml 220 ml # Voids 5 2 # Bowel Movements 1 Laboratory Tests Test 08/25/16 05:40 White Blood Count 11.5 K/UL (4.8-10.8) H Red Blood Count 4.41 M/UL (4.20-5.40) Hemoglobin 11.9 G/DL (12.0-16.0) L Hematocrit 37.8 % (37.0-47.0) Mean Corpuscular Volume 86 FL (80-99) Mean Corpuscular Hemoglobin 27.0 PG (27.0-31.0) Mean Corpuscular Hemoglobin Concent 31.5 G/DL (32.0-36.0) L Red Cell Distribution Width 13.2 % (11.6-14.8) Platelet Count 177 K/UL (150-450) Mean Platelet Volume 9.3 FL (6.5-10.1) Neutrophils (%) (Auto) 75.6 % (45.0-75.0) H Lymphocytes (%) (Auto) 18.3 % (20.0-45.0) L Monocytes (%) (Auto) 5.7 % (1.0-10.0) Eosinophils (%) (Auto) 0.1 % (0.0-3.0) Basophils (%) (Auto) 0.2 % (0.0-2.0) Sodium Level 140 mEQ/L (135-145) Potassium Level 3.9 mEQ/L (3.4-4.9) Chloride Level 101 mEQ/L (98-107) Carbon Dioxide Level 27 mEQ/L (20-30) Anion Gap 12 (5-15) Blood Urea Nitrogen 18 mg/dL (7-23) Creatinine 0.8 mg/dL (0.5-0.9) Estimat Glomerular Filtration Rate mL/min (>60) Glucose Level 144 mg/dL (74-106) H Calcium Level 9.3 mg/dL (8.6-10.2) Troponin I < 0.30 ng/mL (<=0.30) ANDREW YANEZ Aug 25, 2016 20:31
[2016-08-25] MEDS ORDERED: HydrALAZINE 50mg tab ORAL PRN (22:00)
[2016-08-26] VITALS: BP 101/51
[2016-08-26 04:00] VITALS: BP 127/81
[2016-08-26] MEDS: Diltiazem 90mg tab ORAL SCH ×3 (06:09→17:51)
[2016-08-26] MEDS: NovoLOG Insulin Flexpen SUBQ SCH ×3 (06:19→17:12)
[2016-08-26 07:19] LABS: BASOPHILS % (AUTO) 0.5 % (0.0-2.0); EOSINOPHILS % (AUTO) 0.1 % (0.0-3.0); LYMPHOCYTES % (AUTO) 22.1 % (20.0-45.0); MEAN CORPUSCULAR HEMOGLOBIN 26.9 PG (27.0-31.0); MEAN CORPUSCULAR HGB CONC 31.6 G/DL (32.0-36.0); MEAN CORPUSCULAR VOLUME 85 FL (80-99); MEAN PLATELET VOLUME 9.6 FL (6.5-10.1); NEUTROPHILS % (AUTO) 70.4 % (45.0-75.0); PLATELET COUNT 194 K/UL (150-450); RED BLOOD COUNT 4.31 M/UL (4.20-5.40); RED CELL DISTRIBUTION WIDTH 13.3 % (11.6-14.8); WHITE BLOOD COUNT 12.2 K/UL (4.8-10.8)
[2016-08-26 07:27] LABS: ANION GAP 13 (5-15); CALCIUM 9.3 mg/dL (8.6-10.2); CARBON DIOXIDE 26 mEQ/L (20-30); CHLORIDE 101 mEQ/L (98-107); CREATININE 0.9 mg/dL (0.5-0.9); HEMOLYSIS 2; POTASSIUM 3.7 mEQ/L (3.4-4.9); SODIUM 140 mEQ/L (135-145)
[2016-08-26 07:50] VITALS: BP 133/75
[2016-08-26] MEDS ORDERED: Lisinopril 10mg tab ORAL SCH (09:00)
[2016-08-26] MEDS ORDERED: Xarelto 10mg tab ORAL SCH (09:00)
[2016-08-26] MEDS ORDERED: PredniSONE 20mg tab ORAL SCH (09:00)
[2016-08-26] MEDS: Sotalol 80mg tab ORAL SCH (09:14)
[2016-08-26] MEDS: metFORMIN 500mg tab ORAL SCH ×2 (09:14→17:51)
[2016-08-26 12:00] VITALS: BP 140/75
[2016-08-26 16:00] VITALS: BP 132/73
--- NOTE | 2016-08-26 16:56 | Internal Med Progress Note ---
Subjective Date of Service: Aug 26, 2016 Physician Name Bishnu Clarke Attending Physician Tyson Medina M.D. Current Medications Medications (Trade) Dose Ordered Sig/[place] Route PRN Reason Start Time Stop Time Status Last Admin Dose Admin Acetaminophen/ Hydrocodone Bitart ([place] 5/325) 1 tab Q6H PRN ORAL Moderate Pain (Pain Scale 4-6) 08/25/16 17:00 09/01/16 16:59 08/25/16 20:31 Dextrose (Dextrose 50%) STAT PRN IV Hypoglycemia 08/25/16 17:00 09/24/16 16:59 Diltiazem HCl (Cardizem) 90 mg Q6HR ORAL 08/25/16 18:00 09/24/16 17:59 08/26/16 13:14 Diphenhydramine HCl (Benadryl) 25 mg Q6H PRN ORAL Itching 08/25/16 17:00 09/24/16 16:59 Hydralazine HCl (Apresoline) 100 mg EVERY 8 HOURS PRN ORAL SBP above 160 08/25/16 22:00 09/24/16 21:59 08/25/16 20:31 Insulin Aspart (NovoLOG) BEFORE MEALS AND HS SUBQ 08/25/16 21:00 09/24/16 20:59 08/26/16 12:08 Lisinopril (Zestril) 10 mg DAILY ORAL 08/26/16 09:00 09/25/16 08:59 08/26/16 09:15 Metformin HCl (Glucophage) 500 mg BID ORAL 08/25/16 18:00 09/24/16 17:59 08/26/16 09:14 Ondansetron HCl (Zofran) 4 mg Q6H PRN IVP Nausea & Vomiting 08/25/16 17:00 09/24/16 16:59 Pravastatin Sodium (Pravachol) 20 mg BEDTIME ORAL 08/25/16 21:00 09/24/16 20:59 08/25/16 20:32 Prednisone (predniSONE) 40 mg DAILY ORAL 08/26/16 09:00 09/25/16 08:59 08/26/16 09:15 Rivaroxaban (Xarelto) 10 mg DAILY ORAL 08/26/16 09:00 09/25/16 08:59 08/26/16 09:15 Sotalol HCl (Betapace) 80 mg Q12HR ORAL 08/25/16 21:00 09/24/16 20:59 08/26/16 09:14 Allergies: Coded Allergies: CODEINE (Verified Allergy, Unknown, 10/23/11) DIAZEPAM (Unverified Allergy, Unknown, c/o rash after given valium in ED, 08/23/16) PENICILLINS (Verified Allergy, Unknown, RASH/ITCH, 10/23/11) Subjective 80 YO F admitted with chest pain and atrial fibrillation with rapid ventricular rate. Cover for Int Med-Dr Medina. Now Sinus rhythm. C/O Diarrhea X5 this am. C/O hematuria. Await discharge home today with home health. Objective Last Vital Signs Date Time Temp Pulse Resp B/P Pulse Ox O2 Delivery O2 Flow Rate FiO2 08/26/16 16:00 97.7 78 20 132/73 96 Room Air Laboratory Tests Test 08/26/16 04:50 White Blood Count 12.2 K/UL (4.8-10.8) H Red Blood Count 4.31 M/UL (4.20-5.40) Hemoglobin 11.6 G/DL (12.0-16.0) L Hematocrit 36.6 % (37.0-47.0) L Mean Corpuscular Volume 85 FL (80-99) Mean Corpuscular Hemoglobin 26.9 PG (27.0-31.0) L Mean Corpuscular Hemoglobin Concent 31.6 G/DL (32.0-36.0) L Red Cell Distribution Width 13.3 % (11.6-14.8) Platelet Count 194 K/UL (150-450) Mean Platelet Volume 9.6 FL (6.5-10.1) Neutrophils (%) (Auto) 70.4 % (45.0-75.0) Lymphocytes (%) (Auto) 22.1 % (20.0-45.0) Monocytes (%) (Auto) 7.0 % (1.0-10.0) Eosinophils (%) (Auto) 0.1 % (0.0-3.0) Basophils (%) (Auto) 0.5 % (0.0-2.0) Sodium Level 140 mEQ/L (135-145) Potassium Level 3.7 mEQ/L (3.4-4.9) Chloride Level 101 mEQ/L (98-107) Carbon Dioxide Level 26 mEQ/L (20-30) Anion Gap 13 (5-15) Blood Urea Nitrogen 20 mg/dL (7-23) Creatinine 0.9 mg/dL (0.5-0.9) Estimat Glomerular Filtration Rate mL/min (>60) Glucose Level 120 mg/dL (74-106) H Calcium Level 9.3 mg/dL (8.6-10.2) Microbiology Date/Time Source Procedure Growth Status 08/25/16 16:40 Stool Clostridium difficile Toxin Assay - Final Complete 08/25/16 21:49 Urine,Clean Catch Urine Culture - Preliminary NO GROWTH Resulted Intake and Output 08/25/16 08/26/16 19:00 07:00 Intake Total 730 ml Balance 730 ml Intake Oral 730 ml # Voids 8 # Bowel Movements 9 5 Objective General: alert, cooperative, no distress, appears stated age Head: normocephalic, without obvious abnormality, atraumatic Eyes: conjunctivae/corneas clear. PERRL, EOM's intact Throat: lips, mucosa, and tongue normal. MMM Neck: supple, symmetrical, trachea midline, and no JVD Lungs: clear to auscultation bilaterally Heart: regular rate and rhythm, S1, S2 normal, no murmur, click, rub or gallop Abdomen: soft, non-tender, non-distended, bowel sounds normal; no masses or organomegaly Extremities: extremities normal, atraumatic, no cyanosis or edema Pulses: 2+ and symmetric Skin: skin color, texture, turgor normal; no rashes or lesions Neurologic: grossly normal, no focal deficits Assessment/Plan Problem List: (1) Diabetes mellitus, type II Assessment & Plan: Cont metformin and novolog sliding scale. (2) Chest pain Assessment & Plan: Serial troponin to rule out acute coronary syndrome. See cardiology consult. (3) Atrial fibrillation with RVR Assessment & Plan: See caridology consult. Cont xarelto (4) Hypertension Assessment & Plan: Continue lisinopril (5) Hematuria Assessment & Plan: Urine culture neg. (6) Diarrhea Assessment & Plan: Stool for C. Diff and culture neg. Status: stable Assessment/Plan Discharge home with Home with home health today. BISHNU CLARKE Aug 26, 2016 16:56
[2016-08-26] MEDS ORDERED: Loperamide 2mg cap ORAL PRN (17:00)
[2016-08-26 17:51] VITALS: BP 132/73
[2016-08-26] MEDS ORDERED: Tubing IV Secondary IV ONE (19:44)
--- NOTE | 2016-08-27 22:48 | Discharge Summary 2 SIG ---
DATE OF ADMISSION: 08/22/2016 DATE OF DISCHARGE: 08/26/2016 ATTENDING DOCTOR: Tyson Medina M.D. AUTOMOTIVE PRODUCT SPECIALIST: Elías Morton M.D. BRIEF HOSPITAL COURSE: The patient is a 80-year-old female, who presented to emergency room because of tachycardia and chest pain and reported right-sided numbness on the right face and right side of the body that started two days ago. She complained of chest pain, shortness of breath, palpitations, and has atrial fibrillation for which she takes xarelto. On evaluation at ED, CT of the head was negative for acute CVA. Troponin was negative. Chest x-ray showed no acute pneumonia or pulmonary congestion. She came in with atrial fibrillation with rapid ventricular rate of 180s and was given IV push of Cardizem. She was admitted to telemetry and was followed by Cardiology service. The patient has paroxysmal atrial fibrillation and admitted not taking sotalol, hich might have caused paroxysmal atrial fibrillation. She converted spontaneously. Stressed the importance of taking medications, compliance was discussed. Echocardiogram done showed normal wall motion with moderate mitral regurgitation and tricuspid regurgitation. All troponins have been negative. She presented with diarrhea. Stool C. difficile and culture were negative. Urine culture was likewise negative. She was eventually discharged home with home health. FINAL DIAGNOSES: 1. Atrial fibrillation with rapid ventricular response. 2. Paroxysmal atrial fibrillation. 3. Chest pain and shortness of breath likely secondary to atrial fibrillation with rapid ventricular response. 4. Diabetes mellitus type 2. 5. Hypertension. 6. Diarrhea, stool Clostridium difficile and culture negative. Bishnu Ferrera M.D. I have been assigned to dictate discharge summary on this account and I was not involved in the patient's management. Agustina Petty N.P. DR: HILDA JOB#: [id number] CC: [email or web address]
== END 2016-08-26 19:45 | disposition home health service (06) | DRG 310 ==
LOC: ENRESERVTM → ENRESERVDT → EMR 17:52 → 2E 18:35 → EDBEDREQ 23:40 → 4E 08-25 16:38
DX: I48.0 Paroxysmal atrial fibrillation (principal); E11.8 Type 2 diabetes mellitus with unspecified complications; I10 Essential (primary) hypertension; R07.89 Other chest pain; Z79.01 Long term (current) use of anticoagulants; Z88.6 Allergy status to analgesic agent; Z88.0 Allergy status to penicillin; R20.0 Anesthesia of skin; R19.7 Diarrhea, unspecified; I08.1 Rheumatic disorders of both mitral and tricuspid valves; E78.5 Hyperlipidemia, unspecified; Z23 Encounter for immunization
CPT/HCPCS: 36415; 70450; 71010; 80048; 80053; 82550; 82553; 82962; 84484; 85025; 87086; 87324; 90732; 93005; 93306; J1815

== ENCOUNTER 2016-09-28 19:07 | Inpatient (IN) | payer MEDICARE, OTHER ==
[~2016-09-28] VITALS: Ht 157.5 cm; Wt 77.6 kg
[2016-09-28 19:31] VITALS: BP 138/78
[2016-09-28] MEDS ORDERED: Diltiazem 25mg/5ml IV ONE ×2 (20:15→21:00)
[2016-09-28 20:22] LABS: BASOPHILS % (AUTO) 1.1 % (0.0-2.0); EOSINOPHILS % (AUTO) 2.2 % (0.0-3.0); MEAN CORPUSCULAR HEMOGLOBIN 29.6 PG (27.0-31.0); MEAN CORPUSCULAR HGB CONC 34.2 G/DL (32.0-36.0); MEAN CORPUSCULAR VOLUME 87 FL (80-99); MEAN PLATELET VOLUME 9.6 FL (6.5-10.1); MONOCYTES % (AUTO) 8.2 % (1.0-10.0); NEUTROPHILS % (AUTO) 61.5 % (45.0-75.0); PLATELET COUNT 196 K/UL (150-450); RED CELL DISTRIBUTION WIDTH 13.9 % (11.6-14.8); WHITE BLOOD COUNT 8.9 K/UL (4.8-10.8)
[2016-09-28 20:24] LABS: INR 1.1 (0.9-1.1); PROTHROMBIN TIME 10.7 SEC (9.30-11.50)
[2016-09-28 20:37] LABS: TROPONIN I < 0.30 ng/mL (<=0.30)
[2016-09-28 20:39] LABS: ANION GAP 14 (5-15); CALCIUM 9.7 mg/dL (8.6-10.2); CARBON DIOXIDE 27 mEQ/L (20-30); CHLORIDE 93 mEQ/L (98-107); CREATININE 1.2 mg/dL (0.5-0.9); HEMOLYSIS 80; LIPASE 41 U/L (< 60); POTASSIUM 4.6 mEQ/L (3.4-4.9); SODIUM 134 mEQ/L (135-145); TOTAL PROTEIN 7.5 g/dL (6.6-8.7)
[2016-09-28 20:50] LABS: CKMB 3.6 ng/mL (< 3.8)
--- NOTE | 2016-09-28 20:50 | Emergency Room Report ---
History of Present Illness General Chief Complaint: Skin Rash/Abscess Source: Patient Present Illness HPI Patient initially presented for complaints of rash to both of her feet However upon further discussion the patient reports that she's had exertional dyspnea over the past several days She also feels palpitations and tachycardia Denies any chest pain denies any back or flank pain denies any dysuria frequency She has been putting in ointment on her feet for the past 2 days However it does not seem to be working Allergies: Coded Allergies: CODEINE (Verified Allergy, Unknown, 10/23/11) DIAZEPAM (Unverified Allergy, Unknown, c/o rash after given valium in ED, 08/23/16) PENICILLINS (Verified Allergy, Unknown, RASH/ITCH, 10/23/11) Patient History Past Medical History: see triage record Pertinent Family History: none Reviewed Nursing Documentation: PMH: Agreed, PSxH: Agreed Nursing Documentation-PMH Hx Cardiac Problems: Yes Hx Hypertension: Yes Hx Diabetes: Yes Hx Cancer: No Hx Gastrointestinal Problems: No Hx Neurological Problems: No Review of Systems All Other Systems: negative except mentioned in HPI Physical Exam Vital Signs Date Time Temp Pulse Resp B/P Pulse Ox O2 Delivery O2 Flow Rate FiO2 09/28/16 19:21 98.1 124 16 132/71 97 Room Air Sp02 EP Interpretation: reviewed, normal General Appearance: well appearing, no apparent distress Head: normocephalic, atraumatic Eyes: bilateral eye EOMI, bilateral eye PERRL ENT: hearing grossly normal, normal pharynx, TMs + canals normal, uvula midline Neck: full range of motion, supple, no meningismus, no bony tend Respiratory: lungs clear, normal breath sounds, no rhonchi, no respiratory distress, no retraction, no accessory muscle use Cardiovascular #1: no edema, no gallop, no JVD, no murmur, tachycardia, irregularly irregular Gastrointestinal: normal bowel sounds, non tender, soft, no mass, no organomegaly, non-distended, no guarding, no hernia, no pulsatile mass, no rebound Musculoskeletal: normal inspection Neurologic: oriented x3, responsive, catering assistant III-XII nml as tested, motor strength/ tone normal, sensory intact Psychiatric: mood/affect normal Skin: other - Fine erythematous margret with plaque on both feet, there are several areas of petechiae appearance as well Lymphatic: normal inspection, no adenopathy Medical Decision Making Diagnostic Impression: Primary Impression: Atrial fibrillation with RVR Additional Impressions: Dyspnea Rash and other nonspecific skin eruption ER Course Patient is a fairly complex patient with multiple differential to consideration including but not limited to cardiac cardiopulmonary and vascular emergencies Patient initially presents for concerns of rash However patient was found to be tachycardic atrial fibrillation with RVR This required acute intervention intravenously Patient also provides input of exertional dyspnea And requires admission for further care Labs Test 09/28/16 19:40 09/28/16 21:26 09/29/16 05:40 White Blood Count 8.9 K/UL (4.8-10.8) 7.1 K/UL (4.8-10.8) Red Blood Count 4.70 M/UL (4.20-5.40) 4.27 M/UL (4.20-5.40) Hemoglobin 13.9 G/DL (12.0-16.0) 11.6 G/DL (12.0-16.0) Hematocrit 40.7 % (37.0-47.0) 36.9 % (37.0-47.0) Mean Corpuscular Volume 87 FL (80-99) 86 FL (80-99) Mean Corpuscular Hemoglobin 29.6 PG (27.0-31.0) 27.2 PG (27.0-31.0) Mean Corpuscular Hemoglobin Concent 34.2 G/DL (32.0-36.0) 31.5 G/DL (32.0-36.0) Red Cell Distribution Width 13.9 % (11.6-14.8) 13.7 % (11.6-14.8) Platelet Count 196 K/UL (150-450) 168 K/UL (150-450) Mean Platelet Volume 9.6 FL (6.5-10.1) 10.0 FL (6.5-10.1) Neutrophils (%) (Auto) 61.5 % (45.0-75.0) 55.3 % (45.0-75.0) Lymphocytes (%) (Auto) 27.0 % (20.0-45.0) 31.5 % (20.0-45.0) Monocytes (%) (Auto) 8.2 % (1.0-10.0) 9.4 % (1.0-10.0) Eosinophils (%) (Auto) 2.2 % (0.0-3.0) 2.8 % (0.0-3.0) Basophils (%) (Auto) 1.1 % (0.0-2.0) 1.1 % (0.0-2.0) Prothrombin Time 10.7 SEC (9.30-11.50) Prothromb Time International Ratio 1.1 (0.9-1.1) Activated Partial Thromboplast Time 30 SEC (23-33) Sodium Level 134 mEQ/L (135-145) 137 mEQ/L (135-145) Potassium Level 4.6 mEQ/L (3.4-4.9) 4.4 mEQ/L (3.4-4.9) Chloride Level 93 mEQ/L (98-107) 99 mEQ/L (98-107) Carbon Dioxide Level 27 mEQ/L (20-30) 26 mEQ/L (20-30) Anion Gap 14 (5-15) 12 (5-15) Blood Urea Nitrogen 14 mg/dL (7-23) 20 mg/dL (7-23) Creatinine 1.2 mg/dL (0.5-0.9) 0.9 mg/dL (0.5-0.9) Estimat Glomerular Filtration Rate mL/min (>60) mL/min (>60) Glucose Level 366 mg/dL (74-106) 227 mg/dL (74-106) Calcium Level 9.7 mg/dL (8.6-10.2) 9.2 mg/dL (8.6-10.2) Total Bilirubin 0.3 mg/dL (0.0-1.2) Aspartate Amino Transf (AST/SGOT) < 5 U/L (5-40) Alanine Aminotransferase (ALT/SGPT) U/L (3-33) Alkaline Phosphatase 122 U/L (35-104) Total Creatine Kinase 152 U/L (26-140) Creatine Kinase MB 3.6 ng/mL (< 3.8) Creatine Kinase MB Relative Index 2.3 Troponin I < 0.30 ng/mL (<=0.30) Pro-B-Type Natriuretic Peptide 69 pg/mL (0-450) Total Protein 7.5 g/dL (6.6-8.7) Albumin 3.9 g/dL (3.5-5.2) Globulin 3.6 g/dL Albumin/Globulin Ratio 1.0 (1.0-2.7) Lipase 41 U/L (< 60) Urine Color Pale yellow Urine Appearance Clear Urine pH 7 (4.5-8.0) Urine Specific [place] 1.010 (1.005-1.035) Urine Protein Negative (NEGATIVE) Urine Glucose (UA) 4+ (NEGATIVE) Urine Ketones Negative (NEGATIVE) Urine Occult Blood 1+ (NEGATIVE) Urine Nitrite Negative (NEGATIVE) Urine Bilirubin Negative (NEGATIVE) Urine Urobilinogen Normal MG/DL (0.0-1.0) Urine Leukocyte Esterase Negative (NEGATIVE) Urine RBC 0-2 /HPF (0 - 2) Urine WBC 0-2 /HPF (0 - 2) Urine Squamous Epithelial Cells Few /LPF (NONE/OCC) Urine Bacteria Few /HPF (NONE) Thyroid Stimulating Hormone (TSH) 2.200 uIU/mL (0.300-4.500) EKG Diagnostic Results Rate: tachycardiac Rhythm: other - a fib ST Segments: other - Nonspecific ST and T-wave changes Rhythm Strip Diag. Results EP Interpretation: yes Rate: 115 Rhythm: no PVC's, no ectopy, other - Irregularly irregular tachycardic Chest X-Ray Diagnostic Results EP Interpretation: Yes Findings: no consolidation, no effusion, no pneumothorax Number of Views: 1 Last Vital Signs Date Time Temp Pulse Resp B/P Pulse Ox O2 Delivery O2 Flow Rate FiO2 09/28/16 20:28 117 138/78 09/28/16 19:31 98.1 16 97 Room Air Status: improved Disposition: ADMITTED INPATIENT Condition: Serious Referrals: NON PHYSICIAN (PCP) MONTSERRAT GR D.O. September 28, 2016 20:50
[2016-09-28 21:01] LABS: ASPARTATE AMINO TRANSFERASE < 5 U/L (5-40)
[2016-09-28] MEDS ORDERED: ADVIL PM CAPLE1 EAC1 ORAL (21:52)
[2016-09-28] MEDS ORDERED: TYLENOL PO (21:52)
[2016-09-28] MEDS ORDERED: SYSTANE LIQUID15 ML OP (21:52)
[2016-09-28 21:58] LABS: APPEARANCE,URINE CLEAR; KETONES,URINE NEGATIVE (NEGATIVE); LEUKOCYTE ESTERASE ,URINE NEGATIVE (NEGATIVE); NITRITE,URINE NEGATIVE (NEGATIVE); PH,URINE 7 (4.5-8.0); PROTEIN,URINE NEGATIVE (NEGATIVE); UROBILINOGEN,URINE NORMAL MG/DL (0.0-1.0)
[2016-09-28 22:04] VITALS: BP 123/77
[2016-09-28 22:11] LABS: BACTERIA,URINE FEW /HPF; RBC,URINE 0-2 /HPF (0 - 2); SQUAMOUS EPITHELIAL CELL,UR FEW /LPF (NONE/OCC); WBC,URINE 0-2 /HPF (0 - 2)
[2016-09-29] VITALS: BP 154/86
[2016-09-29] MEDS ORDERED: Metoprolol 5mg/5ml Inj IVP PRN (00:30)
[2016-09-29] MEDS ORDERED: Norco 5mg/325mg tab ORAL PRN (00:45)
[2016-09-29 04:00] VITALS: BP 145/93
[2016-09-29 06:30] LABS: BASOPHILS % (AUTO) 1.1 % (0.0-2.0); EOSINOPHILS % (AUTO) 2.8 % (0.0-3.0); LYMPHOCYTES % (AUTO) 31.5 % (20.0-45.0); MEAN CORPUSCULAR HEMOGLOBIN 27.2 PG (27.0-31.0); MEAN CORPUSCULAR HGB CONC 31.5 G/DL (32.0-36.0); MEAN CORPUSCULAR VOLUME 86 FL (80-99); MONOCYTES % (AUTO) 9.4 % (1.0-10.0); NEUTROPHILS % (AUTO) 55.3 % (45.0-75.0); PLATELET COUNT 168 K/UL (150-450); RED BLOOD COUNT 4.27 M/UL (4.20-5.40); RED CELL DISTRIBUTION WIDTH 13.7 % (11.6-14.8); WHITE BLOOD COUNT 7.1 K/UL (4.8-10.8)
[2016-09-29] MEDS: Norco 5mg/325mg tab ORAL PRN ×2 (06:37→20:38)
[2016-09-29 06:44] LABS: ANION GAP 12 (5-15); CALCIUM 9.2 mg/dL (8.6-10.2); CARBON DIOXIDE 26 mEQ/L (20-30); CHLORIDE 99 mEQ/L (98-107); CREATININE 0.9 mg/dL (0.5-0.9); HEMOLYSIS 2; POTASSIUM 4.4 mEQ/L (3.4-4.9); SODIUM 137 mEQ/L (135-145)
[2016-09-29] MEDS: NovoLOG Insulin Flexpen SUBQ SCH ×4 (07:34→21:32)
[2016-09-29 08:05] VITALS: BP 139/83
[2016-09-29] MEDS ORDERED: Artificial Tears 1.4% Op Soln BOTH EYES PRN (08:15)
--- NOTE | 2016-09-29 09:17 | History and Physical ---
History of Present Illness General Date patient seen: September 29, 2016 Time patient seen: 09:17 Reason for Hospitalization: PARHAM, palpitations, Afib with RVR Present Illness HPI 81y/o female with pmh of HTN, HLD, Afib who presents with BLE rash and PARHAM. Pt noted pruritic rash to BLE which is not painful. Pt also noted to be c/o dyspnea on exertion for the past few weeks as well as palpitations. Denies f/c, n/v, d/c, chest pain, dysuria. C/o some dizziness/lightheadedness on standing. Denies syncope, LOC. In ED, pt noted to be in Afib w/ RVR. Pt was given diltiazem IV w/ some improvement in rate. Allergies: Coded Allergies: CODEINE (Verified Allergy, Unknown, 10/23/11) DIAZEPAM (Unverified Allergy, Unknown, c/o rash after given valium in ED, 08/23/16) PENICILLINS (Verified Allergy, Unknown, RASH/ITCH, 10/23/11) Medication History Scheduled Aspirin (Aspirin EC), 81 MG ORAL DAILY, (Reported) Clopidogrel Bisulfate* (Plavix*), 75 MG ORAL DAILY, (Reported) Clotrimazole* (Lotrimin*), 1 APPLIC TOPIC EVERY 12 HOURS Diltiazem Hcl (Diltiazem Hcl), 90 MG PO DAILY, (Reported) Esomeprazole Magnesium (Nexium), 40 MG ORAL DAILY, (Reported) Furosemide* (Lasix*), 20 MG ORAL THREE TIMES A WEEK Lisinopril (Lisinopril*), 10 MG ORAL DAILY, (Reported) Pravastatin Sod* (Pravastatin Sod*), 20 MG ORAL BEDTIME, (Reported) Rivaroxaban (Xarelto*), 20 MG ORAL DAILY, (Reported) Sotalol Hcl* (Betapace*), 80 MG PO TID, (Reported) Scheduled PRN Propylene Glycol/Peg 400 (Systane Liquid Gel Eye Drops), 15 ML OP EVERY 8 HOURS PRN for Dry Eyes, (Reported) [Tylenol], 650 MG PO EVERY 4 HOURS PRN for For Pain, (Reported) Patient History History Provided By: Patient, Medical Record Healthcare decision maker Resuscitation status Full Code Advanced Directive on File Past Medical/Surgical History Past Medical/Surgical History: (1) Atrial fibrillation (2) Hypertension (3) Diabetes mellitus, type II Family History Family History: Patient reports no known family medical history. Social History Social History: (1) No significant social history Review of Systems Constitutional: Reports: no symptoms Eye: Reports: no symptoms ENT: Reports: no symptoms Respiratory: Reports: shortness of breath Cardiovascular: Reports: palpitations Gastrointestinal: Reports: no symptoms Genitourinary: Reports: no symptoms Musculoskeletal: Reports: no symptoms Skin: Reports: rash Psychiatric: Reports: no symptoms Neurological: Reports: no symptoms Endocrine: Reports: no symptoms Hematologic/Lymphatic: Reports: no symptoms Physical Exam Physical Exam Narrative General: alert, cooperative, no distress, appears stated age Head: normocephalic, without obvious abnormality, atraumatic Eyes: conjunctivae/corneas clear. PERRL, EOM's intact Throat: lips, mucosa, and tongue normal. MMM Neck: supple, symmetrical, trachea midline, and no JVD Lungs: clear to auscultation bilaterally Heart: irregularly irregular rhythm, S1, S2 normal, no murmur, click, rub or gallop Abdomen: soft, non-tender, non-distended, bowel sounds normal; no masses or organomegaly Extremities: extremities normal, atraumatic, no cyanosis or edema Pulses: 2+ and symmetric Skin: skin color, texture, turgor normal; no rashes or lesions Neurologic: grossly normal, no focal deficits Last 24 Hour Vital Signs Date Time Temp Pulse Resp B/P Pulse Ox O2 Delivery O2 Flow Rate FiO2 09/29/16 08:05 98.2 84 20 139/83 96 Room Air 09/29/16 04:00 115 09/29/16 04:00 97.9 110 21 145/93 97 Room Air 09/29/16 00:00 115 09/29/16 00:00 97.7 111 20 154/86 97 Room Air 09/28/16 23:01 98.1 110 16 123/77 97 Room Air 09/28/16 22:04 98.1 110 16 123/77 97 Room Air 09/28/16 21:04 116 135/85 09/28/16 20:28 117 138/78 09/28/16 19:31 98.1 117 16 138/78 97 Room Air 09/28/16 19:21 98.1 124 16 132/71 97 Room Air Intake and Output 09/28/16 09/29/16 19:00 07:00 Intake Total 510 ml Balance 510 ml Intake Oral 10 ml IV Total 500 ml # Voids 1 Laboratory Tests Test 09/28/16 19:40 09/28/16 21:26 09/29/16 05:40 White Blood Count 8.9 K/UL (4.8-10.8) 7.1 K/UL (4.8-10.8) Red Blood Count 4.70 M/UL (4.20-5.40) 4.27 M/UL (4.20-5.40) Hemoglobin 13.9 G/DL (12.0-16.0) 11.6 G/DL (12.0-16.0) L Hematocrit 40.7 % (37.0-47.0) 36.9 % (37.0-47.0) L Mean Corpuscular Volume 87 FL (80-99) 86 FL (80-99) Mean Corpuscular Hemoglobin 29.6 PG (27.0-31.0) 27.2 PG (27.0-31.0) Mean Corpuscular Hemoglobin Concent 34.2 G/DL (32.0-36.0) 31.5 G/DL (32.0-36.0) L Red Cell Distribution Width 13.9 % (11.6-14.8) 13.7 % (11.6-14.8) Platelet Count 196 K/UL (150-450) 168 K/UL (150-450) Mean Platelet Volume 9.6 FL (6.5-10.1) 10.0 FL (6.5-10.1) Neutrophils (%) (Auto) 61.5 % (45.0-75.0) 55.3 % (45.0-75.0) Lymphocytes (%) (Auto) 27.0 % (20.0-45.0) 31.5 % (20.0-45.0) Monocytes (%) (Auto) 8.2 % (1.0-10.0) 9.4 % (1.0-10.0) Eosinophils (%) (Auto) 2.2 % (0.0-3.0) 2.8 % (0.0-3.0) Basophils (%) (Auto) 1.1 % (0.0-2.0) 1.1 % (0.0-2.0) Prothrombin Time 10.7 SEC (9.30-11.50) Prothromb Time International Ratio 1.1 (0.9-1.1) Activated Partial Thromboplast Time 30 SEC (23-33) Sodium Level 134 mEQ/L (135-145) L 137 mEQ/L (135-145) Potassium Level 4.6 mEQ/L (3.4-4.9) 4.4 mEQ/L (3.4-4.9) Chloride Level 93 mEQ/L (98-107) L 99 mEQ/L (98-107) Carbon Dioxide Level 27 mEQ/L (20-30) 26 mEQ/L (20-30) Anion Gap 14 (5-15) 12 (5-15) Blood Urea Nitrogen 14 mg/dL (7-23) 20 mg/dL (7-23) Creatinine 1.2 mg/dL (0.5-0.9) H 0.9 mg/dL (0.5-0.9) Estimat Glomerular Filtration Rate mL/min (>60) mL/min (>60) Glucose Level 366 mg/dL (74-106) H 227 mg/dL (74-106) #H Calcium Level 9.7 mg/dL (8.6-10.2) 9.2 mg/dL (8.6-10.2) Total Bilirubin 0.3 mg/dL (0.0-1.2) Aspartate Amino Transf (AST/SGOT) < 5 U/L (5-40) L Alanine Aminotransferase (ALT/SGPT) U/L (3-33) Alkaline Phosphatase 122 U/L (35-104) H Total Creatine Kinase 152 U/L (26-140) H Creatine Kinase MB 3.6 ng/mL (< 3.8) Creatine Kinase MB Relative Index 2.3 Troponin I < 0.30 ng/mL (<=0.30) Pro-B-Type Natriuretic Peptide 69 pg/mL (0-450) Total Protein 7.5 g/dL (6.6-8.7) Albumin 3.9 g/dL (3.5-5.2) Globulin 3.6 g/dL Albumin/Globulin Ratio 1.0 (1.0-2.7) Lipase 41 U/L (< 60) Urine Color Pale yellow Urine Appearance Clear Urine pH 7 (4.5-8.0) Urine Specific [place] 1.010 (1.005-1.035) Urine Protein Negative (NEGATIVE) Urine Glucose (UA) 4+ (NEGATIVE) H Urine Ketones Negative (NEGATIVE) Urine Occult Blood 1+ (NEGATIVE) H Urine Nitrite Negative (NEGATIVE) Urine Bilirubin Negative (NEGATIVE) Urine Urobilinogen Normal MG/DL (0.0-1.0) Urine Leukocyte Esterase Negative (NEGATIVE) Urine RBC 0-2 /HPF (0 - 2) Urine WBC 0-2 /HPF (0 - 2) Urine Squamous Epithelial Cells Few /LPF (NONE/OCC) Urine Bacteria Few /HPF (NONE) Thyroid Stimulating Hormone (TSH) 2.200 uIU/mL (0.300-4.500) Height (Feet): 5 Height (Inches): 2.00 Weight (Pounds): 171 Medications Current Medications Medications (Trade) Dose Ordered Sig/[place] Route PRN Reason Start Time Stop Time Status Last Admin Dose Admin Acetaminophen (Tylenol) 650 mg Q6H PRN ORAL Mild Pain/Temp > 100.5 09/29/16 00:30 10/29/16 00:29 Acetaminophen/ Hydrocodone Bitart ([place] 5/325) 1 tab Q6H PRN ORAL For Pain 09/29/16 06:45 10/06/16 06:44 09/29/16 06:37 Artificial Tears ([place]-Tears) 1 drop Q8H PRN BOTH EYES DRY EYES 09/29/16 08:15 10/29/16 08:14 Aspirin (Ecotrin) 81 mg DAILY ORAL 09/29/16 09:00 10/29/16 08:59 Clopidogrel Bisulfate (Plavix) 75 mg DAILY ORAL 09/29/16 09:00 10/29/16 08:59 Dextrose (Dextrose 50%) STAT PRN IV Hypoglycemia 09/29/16 00:30 10/29/16 00:29 Diltiazem HCl (Cardizem) 90 mg DAILY ORAL 09/29/16 09:00 10/29/16 08:59 Insulin Aspart (NovoLOG) BEFORE MEALS AND HS SUBQ 09/29/16 06:30 10/29/16 06:29 09/29/16 07:34 Lisinopril (Zestril) 10 mg DAILY ORAL 09/29/16 09:00 10/29/16 08:59 Metoprolol Tartrate (Lopressor) 5 mg Q5MIN X 3 PRN IVP HR > 130 09/29/16 00:30 10/29/16 00:29 Pantoprazole (Protonix) 40 mg DAILY ORAL 09/29/16 09:00 10/29/16 08:59 Pneumococcal Polyvalent Vaccine (Pneumovax) 0.5 ml ONCE ONCE IM 09/29/16 10:00 09/29/16 10:01 Pravastatin Sodium (Pravachol) 20 mg BEDTIME ORAL 09/29/16 21:00 10/29/16 20:59 Sotalol HCl (Betapace) 80 mg TID ORAL 09/29/16 09:00 10/29/16 08:59 Assessment/Plan Problem List: (1) Atrial fibrillation with RVR ICD Codes: I48.91 - Unspecified atrial fibrillation SNOMED: 483171651019475 (2) Acute diastolic (congestive) heart failure ICD Codes: I50.31 - Acute diastolic (congestive) heart failure SNOMED: 29619817, 316438051 (3) HTN (hypertension) ICD Codes: I10 - Essential (primary) hypertension SNOMED: 15376398 (4) Rash ICD Codes: R21 - Rash and other nonspecific skin eruption SNOMED: 641465010, 628608344 (5) Diabetes mellitus, type II ICD Codes: E11.9 - Type 2 diabetes mellitus without complications SNOMED: 44547032 Status: stable Assessment/Plan Admit inpt Monitor on tele Trend trop/EKG Cardiology consult Cont sotalol, ASA, xarelot, lisinopril Trial of lasix and assess response Strict I/O's, daily weights Trend lytes, Cr closely Wound care consult for BLE rash DVT Prophylaxis: xarelto Code Status: Full Hospital Classification Declaration: Based on this initial evaluation, and depending on the patient's clinical course, I anticipate that this patient will require hospitalization for 2-3 days for CHF, Afib w/ RVR, and close respiratory /hemodynamic monitoring. Disposition: Once the patient is stable to leave the hospital, I anticipate the patient will likely be discharged to the following environment: home with HH vs SNF I spent 70 minutes on this patient's case, and 39 minutes were dedicated to counseling and/or care coordination. Discussed with patient/family, nursing staff, SW/CM, cardiology regarding clinical status, treatment course, and disposition planning. Time of note may not reflect time of encounter. Jose Daniel Watts M.D. September 29, 2016 09:17
[2016-09-29] MEDS: Aspirin EC 81mg tab ORAL SCH (09:29)
[2016-09-29] MEDS: Sotalol 80mg tab ORAL SCH ×3 (09:29→17:19)
[2016-09-29] MEDS: Diltiazem 90mg tab ORAL SCH (09:29)
[2016-09-29] MEDS: Lisinopril 10mg tab ORAL SCH (09:29)
[2016-09-29] MEDS ORDERED: Pneumococcal Vaccine 25mcg/0.5ml IM ONE (10:00)
--- NOTE | 2016-09-29 11:14 | Diagnostic Imaging Report ---
Indication: Dyspnea Comparison: 08/22/16 A single view chest radiograph was obtained. Findings: No definite infiltrate or pulmonary vascular congestion identified. The heart is enlarged. The aorta is mildly enlarged consistent with atherosclerotic vascular disease. The bones are osteopenic. Impression: No acute disease
[2016-09-29 11:55] VITALS: BP 149/82
[2016-09-29] MEDS ORDERED: HydrOXYzine 25mg tab ORAL PRN (15:15)
[2016-09-29 16:08] VITALS: BP 112/62
--- NOTE | 2016-09-29 18:00 | Cardiology Progress Note ---
Assessment/Plan Assessment/Plan dhf paf htn dm dirutic xarelto sotolol trop in am lasb in am thank you [id number] Objective Last 24 Hour Vital Signs Date Time Temp Pulse Resp B/P Pulse Ox O2 Delivery O2 Flow Rate FiO2 09/29/16 17:19 66 112/62 09/29/16 16:08 97.7 66 20 112/62 97 Room Air 09/29/16 12:31 73 149/82 09/29/16 12:00 70 09/29/16 11:55 98.0 73 20 149/82 98 Room Air 09/29/16 09:29 84 139/83 09/29/16 09:29 139/83 09/29/16 09:29 84 139/83 09/29/16 08:05 98.2 84 20 139/83 96 Room Air 09/29/16 08:00 78 09/29/16 04:00 115 09/29/16 04:00 97.9 110 21 145/93 97 Room Air 09/29/16 00:00 115 09/29/16 00:00 97.7 111 20 154/86 97 Room Air 09/28/16 23:01 98.1 110 16 123/77 97 Room Air 09/28/16 22:04 98.1 110 16 123/77 97 Room Air 09/28/16 21:04 116 135/85 09/28/16 20:28 117 138/78 09/28/16 19:31 98.1 117 16 138/78 97 Room Air 09/28/16 19:21 98.1 124 16 132/71 97 Room Air Intake and Output 09/28/16 09/29/16 19:00 07:00 Intake Total 510 ml Balance 510 ml Intake Oral 10 ml IV Total 500 ml # Voids 1 Laboratory Tests Test 09/28/16 19:40 09/28/16 21:26 09/29/16 05:40 White Blood Count 8.9 K/UL (4.8-10.8) 7.1 K/UL (4.8-10.8) Red Blood Count 4.70 M/UL (4.20-5.40) 4.27 M/UL (4.20-5.40) Hemoglobin 13.9 G/DL (12.0-16.0) 11.6 G/DL (12.0-16.0) L Hematocrit 40.7 % (37.0-47.0) 36.9 % (37.0-47.0) L Mean Corpuscular Volume 87 FL (80-99) 86 FL (80-99) Mean Corpuscular Hemoglobin 29.6 PG (27.0-31.0) 27.2 PG (27.0-31.0) Mean Corpuscular Hemoglobin Concent 34.2 G/DL (32.0-36.0) 31.5 G/DL (32.0-36.0) L Red Cell Distribution Width 13.9 % (11.6-14.8) 13.7 % (11.6-14.8) Platelet Count 196 K/UL (150-450) 168 K/UL (150-450) Mean Platelet Volume 9.6 FL (6.5-10.1) 10.0 FL (6.5-10.1) Neutrophils (%) (Auto) 61.5 % (45.0-75.0) 55.3 % (45.0-75.0) Lymphocytes (%) (Auto) 27.0 % (20.0-45.0) 31.5 % (20.0-45.0) Monocytes (%) (Auto) 8.2 % (1.0-10.0) 9.4 % (1.0-10.0) Eosinophils (%) (Auto) 2.2 % (0.0-3.0) 2.8 % (0.0-3.0) Basophils (%) (Auto) 1.1 % (0.0-2.0) 1.1 % (0.0-2.0) Prothrombin Time 10.7 SEC (9.30-11.50) Prothromb Time International Ratio 1.1 (0.9-1.1) Activated Partial Thromboplast Time 30 SEC (23-33) Sodium Level 134 mEQ/L (135-145) L 137 mEQ/L (135-145) Potassium Level 4.6 mEQ/L (3.4-4.9) 4.4 mEQ/L (3.4-4.9) Chloride Level 93 mEQ/L (98-107) L 99 mEQ/L (98-107) Carbon Dioxide Level 27 mEQ/L (20-30) 26 mEQ/L (20-30) Anion Gap 14 (5-15) 12 (5-15) Blood Urea Nitrogen 14 mg/dL (7-23) 20 mg/dL (7-23) Creatinine 1.2 mg/dL (0.5-0.9) H 0.9 mg/dL (0.5-0.9) Estimat Glomerular Filtration Rate mL/min (>60) mL/min (>60) Glucose Level 366 mg/dL (74-106) H 227 mg/dL (74-106) #H Calcium Level 9.7 mg/dL (8.6-10.2) 9.2 mg/dL (8.6-10.2) Total Bilirubin 0.3 mg/dL (0.0-1.2) Aspartate Amino Transf (AST/SGOT) < 5 U/L (5-40) L Alanine Aminotransferase (ALT/SGPT) U/L (3-33) Alkaline Phosphatase 122 U/L (35-104) H Total Creatine Kinase 152 U/L (26-140) H Creatine Kinase MB 3.6 ng/mL (< 3.8) Creatine Kinase MB Relative Index 2.3 Troponin I < 0.30 ng/mL (<=0.30) Pro-B-Type Natriuretic Peptide 69 pg/mL (0-450) Total Protein 7.5 g/dL (6.6-8.7) Albumin 3.9 g/dL (3.5-5.2) Globulin 3.6 g/dL Albumin/Globulin Ratio 1.0 (1.0-2.7) Lipase 41 U/L (< 60) Urine Color Pale yellow Urine Appearance Clear Urine pH 7 (4.5-8.0) Urine Specific [place] 1.010 (1.005-1.035) Urine Protein Negative (NEGATIVE) Urine Glucose (UA) 4+ (NEGATIVE) H Urine Ketones Negative (NEGATIVE) Urine Occult Blood 1+ (NEGATIVE) H Urine Nitrite Negative (NEGATIVE) Urine Bilirubin Negative (NEGATIVE) Urine Urobilinogen Normal MG/DL (0.0-1.0) Urine Leukocyte Esterase Negative (NEGATIVE) Urine RBC 0-2 /HPF (0 - 2) Urine WBC 0-2 /HPF (0 - 2) Urine Squamous Epithelial Cells Few /LPF (NONE/OCC) Urine Bacteria Few /HPF (NONE) Thyroid Stimulating Hormone (TSH) 2.200 uIU/mL (0.300-4.500) ANDREW YANEZ September 29, 2016 18:00
[2016-09-29] MEDS: Xarelto 10mg tab ORAL SCH (18:45)
[2016-09-29 20:09] VITALS: BP 112/73
[2016-09-30] VITALS: BP 111/66
--- NOTE | 2016-09-30 04:21 | Consultation ---
DATE OF CONSULTATION: 09/29/2016 CARDIOLOGY CONSULTATION: REFERRING PHYSICIAN: Nicole Jose M.D. REASON FOR REFERRAL: Shortness of breath and atrial fibrillation with rapid ventricular response. HISTORY OF PRESENT ILLNESS: This is an elderly female, who presented to the hospital because of her rash. On questioning the family, she had complaints of shortness of breath, was noted to be in atrial fibrillation with rapid ventricular response. She was admitted. This consultation had been subsequently requested. 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 She has an irregular heart rhythm for which she is on anticoagulation for. Her boy's adviser [facility] She has had increasing shortness breath for the past two weeks. She is not able to lie down flat because of dizziness and shortness of breath. She has dyspnea on exertion walking around the room and she has no episodes of PND. She had no pain, pressure, tightness, or heaviness in her chest. She does have palpitations and she occasionally has dizziness and lightheadedness on standing. PAST MEDICAL HISTORY: Positive for history of knee pain, cough, depression, incontinence, high blood pressure, arthritis, possible atrial fibrillation, diabetes mellitus, kidney stones and arthritis of the knee. No history of cancer. No stroke. No hepatitis or tuberculosis. No asthma or emphysema. Possibly some ulcers. No kidney or liver problems or thyroid problems. MEDICATIONS: Her medications at home includes Xarelto 20 mg, sotalol 80 mg three times a day, lisinopril 10 mg daily, aspirin 81 mg, metformin 500 mg twice daily, Nexium 40 mg, Advair Diskus, and Systane eye drops on a p.r.n. basis. ALLERGIES: She is allergic to penicillin as well as codeine. SOCIAL HISTORY: She never smoked. Does not drink alcoholic beverages. She lives at home with her . She is . REVIEW OF SYSTEMS: Gastrointestinal: She has constipation and diarrhea intermittently. No nausea or vomiting. No bloody or black stool. Genitourinary: She denies. Pulmonary: She does have some coughing. Constitutional: She denies. Neurologic: She denies at this time. PHYSICAL EXAMINATION: GENERAL: Shows to be an obese and elderly female, in no apparent distress. She is lying down approximately with 20-30 degrees head of bed elevation. NECK: Supple. No jugular venous distention. LUNGS: Appear to be clear to auscultation and percussion for the most part. CARDIAC: Regular rate and rhythm at this time. ABDOMEN: Soft and nontender. Positive bowel sounds. EXTREMITIES: There is no clubbing, cyanosis, nor is there any edema. NEUROLOGIC: She is awake, alert, responsive, and she moves all four extremities. LABORATORY AND DIAGNOSTIC DATA: Her telemetry data shows atrial fibrillation, ventricular response appears to be controlled at least with the strips that are available here. Her labs, white count 7.1, hemoglobin 11.6, and platelet count of 168,000. Sodium is 137, potassium 4.4, chloride 99, bicarbonate 26, BUN 20, creatinine 0.9, and glucose of 227. Calcium is 9.2. Troponin first set negative at less than 0.3. TSH of 2.2. Coags, INR 1.1 and PTT of 30. Urinalysis is 4+ glucose. A chest x-ray performed in the emergency room shows no acute disease and her venous duplex of the lower extremities shows no evidence of thrombus within the femoral, popliteal and tibial segments and her EKG again shows sinus rhythm with sinus tachycardia. No significant ST abnormalities. She does have some T-wave inversions. An echocardiogram has been performed, the preliminary report shows ejection fraction 50%, technically difficult study and no significant valvular regurgitations, grade 1 diastolic dysfunction. Pulmonary systolic pressures in the 40s. ASSESSMENT AND PLAN: 1. Paroxysmal episodes of atrial fibrillation. 2. Possibility of diastolic failure. 3. Obesity. 4. Diabetes mellitus. 5. Hypertension. 6. Possible hyperlipidemia. Dr. Jose, this patient was seen in cardiac consultation. The patient does report some shortness of breath over the past two weeks. I think she should probably be treated for possibility of congestive heart failure diastolic in origin. Low-dose diuretics to be administered. She is on sotalol, to be continued. She is on anticoagulation, this is also to be continued, and as her blood pressure allows, she should be on antihypertensive lisinopril. I will follow the patient along with you as long as she needs to be in the hospital and if she wishes afterwards. Elías Morton M.D. DR: Stewart JOB#: [id number] CC:
[2016-09-30 05:24] VITALS: BP 103/66
[2016-09-30] MEDS: NovoLOG Insulin Flexpen SUBQ SCH ×4 (06:42→20:51)
[2016-09-30 07:40] VITALS: BP 126/76
[2016-09-30 08:16] LABS: TROPONIN I < 0.30 ng/mL (<=0.30)
[2016-09-30 08:21] LABS: ANION GAP 15 (5-15); CALCIUM 9.4 mg/dL (8.6-10.2); CARBON DIOXIDE 26 mEQ/L (20-30); CHLORIDE 96 mEQ/L (98-107); CREATININE 0.9 mg/dL (0.5-0.9); HEMOLYSIS 4; MAGNESIUM 1.9 mg/dL (1.7-2.5); POTASSIUM 4.1 mEQ/L (3.4-4.9); SODIUM 137 mEQ/L (135-145)
[2016-09-30] MEDS: Aspirin EC 81mg tab ORAL SCH (08:49)
[2016-09-30] MEDS: Sotalol 80mg tab ORAL SCH ×3 (08:50→17:11)
[2016-09-30] MEDS: Lisinopril 10mg tab ORAL SCH (08:50)
[2016-09-30] MEDS: Diltiazem 90mg tab ORAL SCH (08:50)
--- NOTE | 2016-09-30 11:02 | Wound Care Consultation ---
Wound Assessment Wound Assessment : Wound Present on Admission: Yes New Wound: No Status Change of Wound: No Wound Location Body Site Modif: left, right, lower Wound Location Body Site: leg - and feet Wound Type: rash Suze Test: Does not Suze Percent of Wound [place]/Red: 100 Wound Drainage Amount: None Wound Drainage Odor: None/Absent Tissue Surrounding Wound: Intact Wound General Appearance: Reddened Wound Comment #1 Both lower leg and feet rashes Recommendation -Keep clean and dry -Turn and reposition -Local treatment for rash per protocol -Assess and f/u accordingly for any changes YOUSIF SIMMS RN September 30, 2016 11:02
[2016-09-30 11:16] VITALS: BP 113/86
[2016-09-30] MEDS: DiphenhydrAMINE & Zinc 28g Cream TOPIC PRN ×2 (12:48→13:17)
[2016-09-30 15:48] VITALS: BP 120/49
--- NOTE | 2016-09-30 17:04 | General Progress Note ---
Assessment/Plan Problem List: (1) Acute diastolic (congestive) heart failure ICD Codes: I50.31 - Acute diastolic (congestive) heart failure SNOMED: 63141842, 339321022 (2) Atrial fibrillation with RVR ICD Codes: I48.91 - Unspecified atrial fibrillation SNOMED: 529426218158431 (3) HTN (hypertension) ICD Codes: I10 - Essential (primary) hypertension SNOMED: 86564660 (4) Diabetes mellitus, type II ICD Codes: E11.9 - Type 2 diabetes mellitus without complications SNOMED: 11379332 (5) Rash ICD Codes: R21 - Rash and other nonspecific skin eruption SNOMED: 476575503, 062172985 Status: stable Assessment/Plan Monitor on tele Appreciate cardiology rec's Cont sotalol, ASA, xarelto, lisinopril Trial of lasix and assess response Strict I/O's, daily weights Trend lytes, Cr closely Wound care consult for BLE rash--ointment ordered Ambulate DVT Prophylaxis: xarelto Code Status: Full Hospital Classification Declaration: Based on this initial evaluation, and depending on the patient's clinical course, I anticipate that this patient will require hospitalization for 1-2 days for CHF, Afib w/ RVR, and close respiratory /hemodynamic monitoring. Disposition: Once the patient is stable to leave the hospital, I anticipate the patient will likely be discharged to the following environment: home with HH vs SNF I spent 40 minutes on this patient's case, and 22 minutes were dedicated to counseling and/or care coordination. Discussed with patient/family, nursing staff, SW/CM, cardiology regarding clinical status, treatment course, and disposition planning. Time of note may not reflect time of encounter. Subjective Date patient seen: September 30, 2016 Time patient seen: 17:04 ROS Limited/Unobtainable: No Constitutional: Reports: no symptoms HEENT: Reports: no symptoms Cardiovascular: Reports: palpitations Respiratory: Reports: shortness of breath Gastrointestinal/Abdominal: Reports: no symptoms Genitourinary: Reports: no symptoms Neurologic/Psychiatric: Reports: no symptoms Endocrine: Reports: no symptoms Hematologic/Lymphatic: Reports: no symptoms Allergies: Coded Allergies: CODEINE (Verified Allergy, Unknown, 10/23/11) DIAZEPAM (Unverified Allergy, Unknown, c/o rash after given valium in ED, 08/23/16) PENICILLINS (Verified Allergy, Unknown, RASH/ITCH, 10/23/11) All Systems: reviewed and negative except above Subjective Doing well Still w/ some SOB Has not ambulated much yet Rash improving w/ ointment Denies f/c, n/v, d/c, chest pain Objective Last 24 Hour Vital Signs Date Time Temp Pulse Resp B/P Pulse Ox O2 Delivery O2 Flow Rate FiO2 09/30/16 15:48 98.1 68 18 120/49 97 Room Air 09/30/16 12:48 74 113/86 09/30/16 11:43 68 09/30/16 11:16 97.7 73 18 113/86 96 Room Air 09/30/16 08:50 77 126/76 09/30/16 08:50 126/76 09/30/16 08:50 77 126/76 09/30/16 07:40 97.7 76 18 126/76 97 Room Air 09/30/16 07:34 81 09/30/16 05:24 97.9 71 20 103/66 95 Room Air 09/30/16 04:00 75 09/30/16 00:00 98.4 80 20 111/66 95 Room Air 09/30/16 00:00 78 09/29/16 20:09 97.9 70 20 112/73 98 Room Air 09/29/16 20:00 71 09/29/16 17:19 66 112/62 Intake and Output 09/29/16 09/30/16 19:00 07:00 Intake Total 360 ml Balance 360 ml Intake Oral 360 ml # Voids 5 Laboratory Tests 09/30/16 06:50: Sodium Level 137, Potassium Level 4.1, Chloride Level 96L, Carbon Dioxide Level 26, Anion Gap 15, Blood Urea Nitrogen 20, Creatinine 0.9, Estimat Glomerular Filtration Rate , Glucose Level 214H, Calcium Level 9.4, Magnesium Level 1.9, Troponin I < 0.30, Pro-B-Type Natriuretic Peptide 61 Height (Feet): 5 Height (Inches): 2.00 Weight (Pounds): 171 Objective General: alert, cooperative, no distress, appears stated age Head: normocephalic, without obvious abnormality, atraumatic Eyes: conjunctivae/corneas clear. PERRL, EOM's intact Throat: lips, mucosa, and tongue normal. MMM Neck: supple, symmetrical, trachea midline, and no JVD Lungs: clear to auscultation bilaterally Heart: irregularly irregular rate and rhythm, S1, S2 normal, no murmur, click, rub or gallop Abdomen: soft, non-tender, non-distended, bowel sounds normal; no masses or organomegaly Extremities: extremities normal, atraumatic, no cyanosis or edema Pulses: 2+ and symmetric Skin: skin color, texture, turgor normal; no rashes or lesions Neurologic: grossly normal, no focal deficits Jose Daniel Watts M.D. September 30, 2016 17:04
[2016-09-30] MEDS: Xarelto 10mg tab ORAL SCH (17:11)
[2016-09-30] MEDS ORDERED: CLOTRIMAZOLE15 GM TOPIC (17:12)
--- NOTE | 2016-09-30 17:35 | Cardiology Report ---
APPROVED REPORT EKG Measurement Heart [id number] SD 158P17 [id number] Sinus tachycardia Low voltage QRS Cannot rule out Anterior infarct, age undetermined Abnormal ECG
[2016-09-30] MEDS ORDERED: FUROSEMIDE40 MG ORAL (18:41)
[2016-09-30 20:00] VITALS: BP 111/65
[2016-09-30] MEDS: Norco 5mg/325mg tab ORAL PRN (20:48)
[2016-10-01 00:08] VITALS: BP 101/61
[2016-10-01 04:29] VITALS: BP 112/60
[2016-10-01] MEDS: NovoLOG Insulin Flexpen SUBQ SCH ×2 (05:59→12:16)
[2016-10-01 08:00] VITALS: BP 114/67
[2016-10-01] MEDS: Lisinopril 10mg tab ORAL SCH (08:35)
[2016-10-01] MEDS: Diltiazem 90mg tab ORAL SCH (08:35)
[2016-10-01] MEDS: Aspirin EC 81mg tab ORAL SCH (08:36)
[2016-10-01] MEDS: Sotalol 80mg tab ORAL SCH ×2 (08:36→12:18)
[2016-10-01] MEDS: Norco 5mg/325mg tab ORAL PRN (08:45)
[2016-10-01] MEDS ORDERED: Tubing IV Secondary IV ONE (09:30)
[2016-10-01] MEDS ORDERED: NS 275ml ONE (09:30)
--- NOTE | 2016-10-01 11:28 | Cardiology Report ---
APPROVED REPORT EXAM: Two-dimensional and M-mode echocardiogram with Doppler and color Doppler. INDICATION Atrial Fibrillation M-Mode DIMENSIONS IVSd0.9 (0.7-1.1cm)Left Atrium (MM)3.7 (1.6-4.0cm) LVDd4.1 (3.5-5.6cm)Aortic Root2.2 (2.0-3.7cm) PWd0.9 (0.7-1.1cm)Aortic Cusp Exc.1.5 (1.5-2.0cm) LVDs2.5 (2.5-4.0cm) PWs1.2 cm Technically difficult study due to poor acoustic windows. Study quality precludes accurate assessment of regional wall motion. Normal left ventricular chamber size, systolic function and wall motion. Left ventricular ejection fraction estimated to be 55 %. No evidence of ventricular hypertrophy. Anterior Echo-free space, may be due to pericardial fat or effusion. All other cardiac chamber sizes are within normal limits. Mild focal aortic valve sclerosis with adequate cusp excursion. Mildly thickened mitral valve leaflets with normal excursion. Mild mitral annulus and aortic root calcification. Pulmonic valve not well visualized. Normal tricuspid valve structure. IVC dilated at 2.4 cm without physiologic collapse, estimated RAP is 15 mmHg. A color flow and spectral Doppler study was performed and revealed: No aortic regurgitation. Trace mitral regurgitation. Mitral diastolic velocities suggest reduced left ventricular relaxation (Grade I). Mild tricuspid regurgitation. Tricuspid systolic velocities suggests peak right ventricular systolic pressure of 47 mmHg, consistent with moderate pulmonary hypertension. Mild pulmonic regurgitation present.
[2016-10-01 12:10] VITALS: BP 118/64
[2016-10-01 12:18] VITALS: BP 118/64
--- NOTE | 2016-10-01 12:42 | Cardiology Progress Note ---
Assessment/Plan Assessment/Plan dhf paf htn dm xarelto sotolol tele sinus personlly reviewed diuretic 3 tiem per weeks hodl if dizzy pt under stook d/w dr zaman yest Subjective Cardiovascular: Denies: chest pain, lightheadedness Respiratory: Denies: shortness of breath Gastrointestinal/Abdominal: Denies: abdominal pain Genitourinary: Denies: burning Objective Last 24 Hour Vital Signs Date Time Temp Pulse Resp B/P Pulse Ox O2 Delivery O2 Flow Rate FiO2 10/01/16 12:18 62 118/64 10/01/16 12:10 97.4 62 20 118/64 95 Room Air 10/01/16 09:44 97.7 10/01/16 08:36 68 114/67 10/01/16 08:35 114/67 10/01/16 08:35 68 114/67 10/01/16 08:02 67 10/01/16 08:00 97.7 68 20 114/67 98 Room Air 10/01/16 04:29 98.4 62 18 112/60 95 Room Air 10/01/16 04:00 63 10/01/16 00:08 98.6 64 19 101/61 97 Room Air 10/01/16 00:00 63 09/30/16 20:00 61 09/30/16 20:00 98.1 62 18 111/65 97 Room Air 09/30/16 17:11 65 126/57 09/30/16 15:48 98.1 68 18 120/49 97 Room Air 09/30/16 15:42 70 09/30/16 12:48 74 113/86 General Appearance: no apparent distress, alert Neck: supple Cardiovascular: normal rate, regular rhythm Respiratory/Chest: lungs clear Abdomen: normal bowel sounds, non tender, soft Extremities: no swelling Intake and Output 09/30/16 10/01/16 19:00 07:00 Intake Total 700 ml 600 ml Balance 700 ml 600 ml Intake Oral 600 ml IV Total 100 ml Other 600 ml # Voids 3 2 # Bowel Movements 1 ANDREW YANEZ October 01, 2016 12:42
--- NOTE | 2016-10-04 19:11 | Cardiology Report ---
APPROVED REPORT EKG Measurement Heart [id number] IL 152P26 [id number] Normal sinus rhythm Low voltage QRS Cannot rule out Anterior infarct, age undetermined Abnormal ECG
--- NOTE | 2016-10-06 18:29 | Diagnostic Imaging Report ---
APPROVED REPORT CPT Code: 02420 Present Symptoms Comments: R/O DVT BILATERAL: Imaging reveals a patent deep venous system bilaterally. There is no evidence of thrombus within the femoral, popliteal or tibial segments. The greater saphenous veins are also within normal limits. Doppler indicates normal spontaneous flow within these segments.
--- NOTE | 2016-10-08 19:40 | Discharge Summary ---
Discharge Summary Hospital Course Date of Admission September 28, 2016 at 21:09 Date of Discharge October 01, 2016 at 15:35 Admitting Diagnosis afib RVR Reason for Hospitalization: Afib with RVR, PARHAM HPI 81y/o female with pmh of HTN, HLD, Afib who presents with BLE rash and PARHAM. Pt noted pruritic rash to BLE which is not painful. Pt also noted to be c/o dyspnea on exertion for the past few weeks as well as palpitations. Denies f/c, n/v, d/c, chest pain, dysuria. C/o some dizziness/lightheadedness on standing. Denies syncope, LOC. In ED, pt noted to be in Afib w/ RVR. Pt was given diltiazem IV w/ some improvement in rate. Consultations Cardiology Hospital Course Pt was admitted and monitor on tele. She was ruled out for ACS with serial trop/ EKG. TTE done showed normal EF but diastolic dysfunction with evidence of elevated right atrial pressures. Pt was seen by cardiology. She was started on low dose lasix with good response. Prior to d/c pt was HD stable, tolerating PO and ambulating w/o assistance. Discharge Medications New Medications: Furosemide* (Lasix*) 40 Mg Tablet 20 MG ORAL THREE TIMES A WEEK, #30 TAB Clotrimazole* (Lotrimin*) 15 Gm Cream..g. 1 APPLIC TOPIC EVERY 12 HOURS for 30 Days, GM Continued Medications: Aspirin (Aspirin EC) 81 Mg Tabec 81 MG ORAL DAILY, TAB Clopidogrel Bisulfate* (Plavix*) 75 Mg Tablet 75 MG ORAL DAILY, TAB Diltiazem Hcl (Diltiazem Hcl) 90 Mg Tablet 90 MG PO DAILY Esomeprazole Magnesium (Nexium) 40 Mg Capsule.dr 40 MG ORAL DAILY, CAP Lisinopril (Lisinopril*) 5 Mg Tablet 10 MG ORAL DAILY, TAB Pravastatin Sod* (Pravastatin Sod*) 20 Mg Tablet 20 MG ORAL BEDTIME, TAB Propylene Glycol/Peg 400 (Systane Liquid Gel Eye Drops) 15 Ml Drp.lq.gel 15 ML OP EVERY 8 HOURS PRN for Dry Eyes Rivaroxaban (Xarelto*) 10 Mg Tablet 20 MG ORAL DAILY, #30 TAB 0 Refills Sotalol Hcl* (Betapace*) 80 Mg Tablet 80 MG PO TID [Tylenol] () 650 MG PO EVERY 4 HOURS PRN for For Pain Discharge Condition Upon Discharge: stable Discharge Disposition Patient was discharged to Home (01) Discharge Diagnoses: (1) Atrial fibrillation with RVR (2) Acute diastolic (congestive) heart failure Jose Daniel Watts M.D. October 08, 2016 19:40
== END 2016-10-01 15:35 | disposition home or self-care (01) | DRG 308 ==
LOC: EMR 19:42 → 2E 21:09 → EDBEDREQ 22:16
DX: I48.0 Paroxysmal atrial fibrillation (principal); I50.31 Acute diastolic (congestive) heart failure; E11.9 Type 2 diabetes mellitus without complications; I10 Essential (primary) hypertension; E66.9 Obesity, unspecified; E78.5 Hyperlipidemia, unspecified; R21 Rash and other nonspecific skin eruption; Z88.6 Allergy status to analgesic agent; Z88.0 Allergy status to penicillin; Z88.8 Allergy status to other drugs, medicaments and biological substances; Z79.01 Long term (current) use of anticoagulants
CPT/HCPCS: 36415; 71010; 80048; 80053; 81003; 82550; 82553; 82962; 83690; 83735; 83880; 84443; 84484; 85025; 85610; 85730; 90732; 93005; 93306; 93970; J1815; J2405

== ENCOUNTER 2016-11-11 17:21 | Inpatient (IN) | payer MEDICARE, OTHER ==
[~2016-11-11] VITALS: Ht 162.6 cm; Wt 74.4 kg
[~2016-11-11 17:21] MED LIST changes: +ADVIL PM CAPLE1 EAC1 ORAL; +CLOTRIMAZOLE15 GM TOPIC; +FUROSEMIDE40 MG ORAL; +SYSTANE LIQUID15 ML OP; +TYLENOL PO
[2016-11-11 17:34] VITALS: BP 154/90
--- NOTE | 2016-11-11 17:37 | Emergency Room Report ---
History of Present Illness General Chief Complaint: Palpitations Source: Patient, Medical Record Present Illness HPI 81YOF walk-in with palpitations and SOB today. Denies javier chest pain, fever/ chills, cough History of PAF on AC, diastolic CHF, HTN, DM EF on last admission was 60% Compliant with meds. Allergies: Coded Allergies: CODEINE (Verified Allergy, Unknown, 10/23/11) DIAZEPAM (Unverified Allergy, Unknown, c/o rash after given valium in ED, 08/23/16) PENICILLINS (Verified Allergy, Unknown, RASH/ITCH, 10/23/11) Patient History Past Medical History: DM, HTN, AFib Past Surgical History: none Pertinent Family History: none Social History: Denies: alcohol use, drug use, smoking Now: No Immunizations: UTD Reviewed Nursing Documentation: PMH: Agreed, PSxH: Agreed Nursing Documentation-PMH Past Medical History: No History, Except For Hx Cardiac Problems: Yes Hx Hypertension: Yes Hx Diabetes: Yes Hx Cancer: No Hx Gastrointestinal Problems: No Hx Neurological Problems: No Hx Vertigo: Yes Hx Dizziness: Yes Hx Weakness: Yes Review of Systems All Other Systems: negative except mentioned in HPI Physical Exam Vital Signs Date Time Temp Pulse Resp B/P Pulse Ox O2 Delivery O2 Flow Rate FiO2 11/11/16 17:25 97.9 78 18 154/90 98 Room Air Sp02 EP Interpretation: reviewed, normal General Appearance: normal inspection, well appearing, no apparent distress, alert, GCS 15, non-toxic Head: normocephalic, atraumatic Eyes: bilateral eye EOMI, bilateral eye PERRL ENT: normal ENT inspection, hearing grossly normal, normal voice Neck: normal inspection, full range of motion, supple, no bony tend Respiratory: normal inspection, lungs clear, normal breath sounds, no respiratory distress, no retraction, no wheezing Cardiovascular #1: regular rate, rhythm, no edema Gastrointestinal: normal inspection, normal bowel sounds, non tender, soft, no guarding, no hernia Genitourinary: no CVA tenderness Musculoskeletal: normal inspection, back normal, normal range of motion, Imchael' s Sign negative Neurologic: normal inspection, alert, oriented x3, responsive, tank refinisher III-XII nml as tested, motor strength/tone normal, speech normal Psychiatric: normal inspection, judgement/insight normal, mood/affect normal Skin: normal inspection, normal color, no rash Medical Decision Making Medicare Attestation I Wilian Bentley MD hereby attest that the medical record entry for date of service, 04/19/16 accurately reflects signatures/notations that I made in my capacity as MD when I treated/diagnosed the above listed Medicare beneficiary. I attest that this information is true, accurate and complete to the best of my knowledge. I understand that any falsification, omission, or concealment of material fact may subject me to administrative, civil, or criminal liability. This patient warrants hospital admission for extreme of age and has a condition that cannot be treated as outpatient. Diagnostic Impression: Primary Impression: Palpitations Additional Impressions: ANDRES (acute kidney injury) Acute diastolic (congestive) heart failure ER Course Palpitations and SOB - VSS. Afebrile - Not in PAF currently - Leuks normal. H&h stable. Troponin 0. Mild acute ANDERS. BNP 1100. Not in florrid CHF currently. - CXR: Cardiomegaly. No CHF or PNA. - ECG is NSR. TWI in V4-6. Not reported on previous September admission ECGs. Assume new. - ASA given in ED - Endorsed to Dr Jose at 712pm for tele admit for ACS rule out EKG Diagnostic Results Rate: normal Rhythm: NSR ST Segments: other - TWI in V4-5 ASA given to the pt in ED: No Rhythm Strip Diag. Results EP Interpretation: yes Rate: 76 Rhythm: NSR, no PVC's, no ectopy Chest X-Ray Diagnostic Results Chest X-Ray Diagnostic Results : Chest X-Ray Ordered: Yes # of Views/Limited/Complete: 1 View EP Interpretation: Yes Interpretation: no consolidation, no effusion, no pneumothorax, no acute cardiopulmonary disease Indication: Chest Pain Impression: No acute disease Interpreting ER Provider: Electronic interpretation by Dr Bentley Last Vital Signs Date Time Temp Pulse Resp B/P Pulse Ox O2 Delivery O2 Flow Rate FiO2 11/11/16 17:34 97.9 18 154/90 98 Room Air 11/11/16 17:25 78 Status: improved Disposition: ADMITTED INPATIENT Condition: Serious WILIAN BENTLEY M.D. Nov 11, 2016 17:37
[2016-11-11 18:12] LABS: BASOPHILS % (AUTO) 1.4 % (0.0-2.0); EOSINOPHILS % (AUTO) 3.8 % (0.0-3.0); LYMPHOCYTES % (AUTO) 34.2 % (20.0-45.0); MEAN CORPUSCULAR HEMOGLOBIN 27.7 PG (27.0-31.0); MEAN CORPUSCULAR HGB CONC 32.5 G/DL (32.0-36.0); MEAN CORPUSCULAR VOLUME 85 FL (80-99); MEAN PLATELET VOLUME 9.3 FL (6.5-10.1); MONOCYTES % (AUTO) 8.1 % (1.0-10.0); NEUTROPHILS % (AUTO) 52.5 % (45.0-75.0); PLATELET COUNT 219 K/UL (150-450); RED BLOOD COUNT 4.97 M/UL (4.20-5.40); RED CELL DISTRIBUTION WIDTH 13.3 % (11.6-14.8); WHITE BLOOD COUNT 8.3 K/UL (4.8-10.8)
[2016-11-11 18:19] LABS: ALANINE AMINOTRANSFERASE 11 U/L (3-33); ALBUMIN/GLOBULIN RATIO 1.2 (1.0-2.7); ANION GAP 15 (5-15); ASPARTATE AMINO TRANSFERASE 17 U/L (5-40); CALCIUM 9.7 mg/dL (8.6-10.2); CARBON DIOXIDE 27 mEQ/L (20-30); CHLORIDE 95 mEQ/L (98-107); HEMOLYSIS 15; POTASSIUM 4.1 mEQ/L (3.4-4.9); SODIUM 137 mEQ/L (135-145); TOTAL PROTEIN 7.1 g/dL (6.6-8.7)
[2016-11-11 18:25] LABS: TROPONIN I < 0.30 ng/mL (<=0.30)
[2016-11-11 18:46] LABS: CKMB < 1.5 ng/mL (< 3.8)
[2016-11-11 19:04] VITALS: BP 120/88
[2016-11-11] MEDS ORDERED: GABAPENTIN100 MG PO (19:42)
[2016-11-11] MEDS ORDERED: HYDRALAZINE HC100 MG ORAL (19:42)
[2016-11-11] MEDS ORDERED: METFORMIN HCL500 M1 ORAL (19:42)
[2016-11-11] MEDS ORDERED: BREO ELLIPTA 11 EACH IH (19:44)
[2016-11-11 20:00] VITALS: BP 153/82
[2016-11-11 23:33] LABS: TROPONIN I < 0.30 ng/mL (<=0.30)
[2016-11-12] VITALS (7 sets, daily range): BP systolic 108–137; BP diastolic 64–90
[2016-11-12] MEDS: HydrALAZINE 50mg tab ORAL SCH ×3 (07:14→21:24)
[2016-11-12 08:33] LABS: BASOPHILS % (AUTO) 1.3 % (0.0-2.0); EOSINOPHILS % (AUTO) 4.2 % (0.0-3.0); LYMPHOCYTES % (AUTO) 33.6 % (20.0-45.0); MEAN CORPUSCULAR HEMOGLOBIN 27.6 PG (27.0-31.0); MEAN CORPUSCULAR HGB CONC 31.6 G/DL (32.0-36.0); MEAN CORPUSCULAR VOLUME 87 FL (80-99); MEAN PLATELET VOLUME 9.8 FL (6.5-10.1); MONOCYTES % (AUTO) 7.8 % (1.0-10.0); NEUTROPHILS % (AUTO) 53.1 % (45.0-75.0); PLATELET COUNT 193 K/UL (150-450); RED CELL DISTRIBUTION WIDTH 12.9 % (11.6-14.8); WHITE BLOOD COUNT 6.3 K/UL (4.8-10.8)
[2016-11-12 08:45] LABS: TROPONIN I < 0.30 ng/mL (<=0.30)
[2016-11-12 08:58] LABS: ANION GAP 16 (5-15); CALCIUM 9.1 mg/dL (8.6-10.2); CARBON DIOXIDE 25 mEQ/L (20-30); CHLORIDE 98 mEQ/L (98-107); CREATININE 0.9 mg/dL (0.5-0.9); HEMOLYSIS 4; POTASSIUM 3.9 mEQ/L (3.4-4.9); SODIUM 139 mEQ/L (135-145)
[2016-11-12] MEDS: Sotalol 80mg tab ORAL SCH ×3 (09:10→18:17)
[2016-11-12] MEDS: metFORMIN 500mg tab ORAL SCH ×2 (09:10→18:17)
--- NOTE | 2016-11-12 10:27 | Diagnostic Imaging Report ---
Indication: Chest pain Technique: One view of the chest Comparison: 09/28/2016 Findings: The heart is mildly enlarged. The lungs and pleural spaces remain clear. There are degenerative changes of the thoracic spine. No significant change Impression: No acute process
--- NOTE | 2016-11-12 11:15 | Cardiology Progress Note ---
Assessment/Plan Assessment/Plan dhf paf dm autmunueami castilloto keep on sotalol diurertic iv no abn on torp ekg leticia lbe repeated denies any cp only sob whcih is recurrent i donto see nancy on her meds not sure if she is takign as she says she is!! [id number] Objective Last 24 Hour Vital Signs Date Time Temp Pulse Resp B/P Pulse Ox O2 Delivery O2 Flow Rate FiO2 11/12/16 09:10 75 130/68 11/12/16 08:00 97.8 75 18 130/68 95 Room Air 11/12/16 07:14 126/76 11/12/16 04:00 97.9 73 20 126/76 95 11/12/16 04:00 75 11/12/16 00:00 97.7 78 20 121/69 Room Air 11/12/16 00:00 76 11/11/16 20:00 97.7 75 24 153/82 98 Room Air 11/11/16 19:23 97.9 78 22 120/88 98 Room Air 11/11/16 19:04 97.9 78 22 120/88 98 Room Air 11/11/16 17:34 97.9 18 154/90 98 Room Air 11/11/16 17:25 97.9 78 18 154/90 98 Room Air Intake and Output 11/11/16 11/12/16 19:00 07:00 Intake Total 0 ml 0 ml Balance 0 ml 0 ml Intake Oral 0 ml 0 ml # Bowel Movements 1 Laboratory Tests Test 11/11/16 17:40 11/11/16 23:00 11/12/16 08:00 White Blood Count 8.3 K/UL (4.8-10.8) 6.3 K/UL (4.8-10.8) Red Blood Count 4.97 M/UL (4.20-5.40) 4.50 M/UL (4.20-5.40) Hemoglobin 13.8 G/DL (12.0-16.0) 12.4 G/DL (12.0-16.0) Hematocrit 42.5 % (37.0-47.0) 39.3 % (37.0-47.0) Mean Corpuscular Volume 85 FL (80-99) 87 FL (80-99) Mean Corpuscular Hemoglobin 27.7 PG (27.0-31.0) 27.6 PG (27.0-31.0) Mean Corpuscular Hemoglobin Concent 32.5 G/DL (32.0-36.0) 31.6 G/DL (32.0-36.0) L Red Cell Distribution Width 13.3 % (11.6-14.8) 12.9 % (11.6-14.8) Platelet Count 219 K/UL (150-450) 193 K/UL (150-450) Mean Platelet Volume 9.3 FL (6.5-10.1) 9.8 FL (6.5-10.1) Neutrophils (%) (Auto) 52.5 % (45.0-75.0) 53.1 % (45.0-75.0) Lymphocytes (%) (Auto) 34.2 % (20.0-45.0) 33.6 % (20.0-45.0) Monocytes (%) (Auto) 8.1 % (1.0-10.0) 7.8 % (1.0-10.0) Eosinophils (%) (Auto) 3.8 % (0.0-3.0) H 4.2 % (0.0-3.0) H Basophils (%) (Auto) 1.4 % (0.0-2.0) 1.3 % (0.0-2.0) Sodium Level 137 mEQ/L (135-145) 139 mEQ/L (135-145) Potassium Level 4.1 mEQ/L (3.4-4.9) 3.9 mEQ/L (3.4-4.9) Chloride Level 95 mEQ/L (98-107) L 98 mEQ/L (98-107) Carbon Dioxide Level 27 mEQ/L (20-30) 25 mEQ/L (20-30) Anion Gap 15 (5-15) 16 (5-15) H Blood Urea Nitrogen 13 mg/dL (7-23) 15 mg/dL (7-23) Creatinine 1.0 mg/dL (0.5-0.9) H 0.9 mg/dL (0.5-0.9) Estimat Glomerular Filtration Rate mL/min (>60) mL/min (>60) Glucose Level 219 mg/dL (74-106) H 231 mg/dL (74-106) H Calcium Level 9.7 mg/dL (8.6-10.2) 9.1 mg/dL (8.6-10.2) Total Bilirubin 0.4 mg/dL (0.0-1.2) Aspartate Amino Transf (AST/SGOT) 17 U/L (5-40) Alanine Aminotransferase (ALT/SGPT) 11 U/L (3-33) Alkaline Phosphatase 116 U/L (35-104) H Total Creatine Kinase 56 U/L (26-140) Creatine Kinase MB < 1.5 ng/mL (< 3.8) Creatine Kinase MB Relative Index Troponin I < 0.30 ng/mL (<=0.30) < 0.30 ng/mL (<=0.30) < 0.30 ng/mL (<=0.30) Pro-B-Type Natriuretic Peptide 1198 pg/mL (0-450) H Total Protein 7.1 g/dL (6.6-8.7) Albumin 3.9 g/dL (3.5-5.2) Globulin 3.2 g/dL Albumin/Globulin Ratio 1.2 (1.0-2.7) ANDREW YANEZ Nov 12, 2016 11:15
[2016-11-12] MEDS: Xarelto 10mg tab ORAL SCH (12:57)
--- NOTE | 2016-11-12 14:01 | Consultation ---
DATE OF CONSULTATION: 11/12/2016 CARDIOLOGY CONSULTATION CONSULTING PHYSICIAN: Elías Morton M.D. REFERRING PHYSICIAN: 1. Nicole Jose M.D. 2. Jose Daniel Watts M.D. REASON FOR EVALUATION: Shortness of breath. HISTORY OF PRESENT ILLNESS: This is an 81-year-old female, who is known to me from prior evaluation here approximately one and half month ago. She presented to the hospital indicating that she went for breathing test with a doctor and her breathing tests fast. She has had intermittent palpitations, but she has been more short of breath than usual. She has shortness of breath with activities. There is no PND, uses two pillows. There is no pain, pressure, tightness, heaviness or chest discomfort of any kind she states. At this time, just shortness of breath. When she sits up or stands up, she does not have any dizziness or lightheadedness. PAST MEDICAL HISTORY: Hospitalization here for diastolic heart failure back in september 2018. Paroxysmal episodes of atrial fibrillation, history of diabetes mellitus, and hypertension. She sotalol from prior evaluations. She also has history of depression, incontinence, high blood pressure, arthritis, and kidney stones as well. ALLERGIES: She is allergic to penicillin and codeine. SOCIAL HISTORY: Never smoked. Does not drink alcoholic beverages. She lives at home with her . REVIEW OF SYSTEMS: Gastrointestinal: She has diarrhea almost every day she says. Genitourinary: She does not have any discomfort. Pulmonary: Does not have any coughing or wheezing. Constitutional: Negative. Neurologic: Left arm tingling sensation for some time now as well. PHYSICAL EXAMINATION: GENERAL: Shows to be elderly female in no respiratory distress. VITAL SIGNS: Temperature 97.8, heart rate 75, and blood pressure 130/68. HEENT: Unremarkable. NECK: Supple. No jugular venous distention. No abdominojugular reflux noted. LUNGS: Appear to be clear to auscultation and percussion. CARDIAC: S1 is normal. S2 is normal. Regular rate and rhythm. No heaves, thrills, gallops, or rubs are noted. ABDOMEN: Soft and obese. Positive bowel sounds. EXTREMITIES: There is no clubbing, cyanosis, nor is there any edema. NEUROLOGICAL: She is awake, alert, responsive, in no apparent respiratory distress. LABORATORY AND DIAGNOSTIC DATA: White count 6.3, hemoglobin 12.4, and a platelet count of 193,000. Sodium is 139, potassium 3.9, chloride 98, bicarbonate 25, BUN of 15, creatinine 0.9, and glucose of 231. Calcium is 9.1. Troponin is less than 0.03 on three separate occasions. Her proBNP was 1198. Direct comparison with the prior level at the time of discharge was only 61 and a chest x-ray, done 20 minute yesterday shows no acute processes. Her prior testing includes an echocardiogram that was performed on 09/29/2016 showed technically difficult study. Ejection fraction 55%. IVC was dilated at 2.4. At that time, mild diastolic relaxation abnormalities, moderate pulmonary hypertension at 47. During last hospitalization she also has a venous duplex study before that was negative. EKG shows a normal sinus rhythm, normal QRS axis, no ST or T-wave abnormalities of significant degree as of EKG that was performed yesterday. ASSESSMENT AND PLAN: 1. Diastolic heart failure. 2. Paroxysmal episodes of atrial fibrillation. 3. Diabetes mellitus. 4. Hypertension. This patient was seen in cardiac consultation. The patient does not have any pain or pressure at this time. Her electrocardiograms at least the first one was on multiple cardiac enzymes are negative. She does have some evidence of diastolic heart failure. She should be on some diuretics and that she says she has been taking at home. Although it is not clear to me that she has any on the list of medications. She should also be on Xarelto which she admits to being taking, but not appearing on list of medications for that is provided by the nursing staff in the hospital. Although start her on some diuretics at this time intravenously for one or 2 doses and I have switch her back to the oral dosage and started back on her Xarelto as well. creatinine seems to be normal. Therefore two doses altered. She should be continued on sotalol and EKG will be ordered. Her last echocardiogram was don one and half months ago. I do not think that needs to be repeated. Hopefully, she will be ready to go hospital later soon, in the next one or two days. Elías Morton M.D. DR: KAY JOB#: [id number] CC:
[2016-11-12] MEDS ORDERED: Acetaminophen 500mg (ES) tab ORAL PRN (14:15)
--- NOTE | 2016-11-12 15:16 | History and Physical ---
History of Present Illness General Date patient seen: Nov 12, 2016 Time patient seen: 15:15 Reason for Hospitalization: SOB, palpitations Present Illness HPI 81y/o female with pmh of DM2, HTN, HLD, pAfib, diastolic heart faiure, cLBP who presents with SOB and palpitations. Pt c/o SOB with exertion for the past few days. Also w/ intermittent palpitations. Denies f/c, n/v, d/c, chest pain, dysuria, lightheadedness, orthopnea, PND, BLE swelling. States she is compliant with medications including lasix. Allergies: Coded Allergies: CODEINE (Verified Allergy, Unknown, 10/23/11) DIAZEPAM (Unverified Allergy, Unknown, c/o rash after given valium in ED, 08/23/16) PENICILLINS (Verified Allergy, Unknown, RASH/ITCH, 10/23/11) Medication History Scheduled Gabapentin* (Gabapentin*), 100 MG PO BEDTIME, (Reported) Hydralazine Hcl* (Hydralazine Hcl*), 100 MG ORAL EVERY 8 HOURS, (Reported) Metformin Hcl* (Metformin Hcl*), 500 MG ORAL TWICE A DAY, (Reported) Pravastatin Sod* (Pravastatin Sod*), 20 MG ORAL BEDTIME, (Reported) Sotalol Hcl* (Betapace*), 80 MG PO TID, (Reported) Discontinued Medications Aspirin (Aspirin EC), 81 MG ORAL DAILY, (Reported) Discontinued Reason: Pt stopped taking med Clopidogrel Bisulfate* (Plavix*), 75 MG ORAL DAILY, (Reported) Discontinued Reason: Pt stopped taking med Clotrimazole* (Lotrimin*), 1 APPLIC TOPIC EVERY 12 HOURS Discontinued Reason: Pt stopped taking med Diltiazem Hcl (Diltiazem Hcl), 90 MG PO DAILY, (Reported) Discontinued Reason: MD discontinued med Esomeprazole Magnesium (Nexium), 40 MG ORAL DAILY, (Reported) Discontinued Reason: Pt stopped taking med Fluticasone/Vilanterol (Breo Ellipta 100-25 Mcg INH), 1 EACH IH, (Reported) Discontinued Reason: Pt stopped taking med Furosemide* (Lasix*), 20 MG ORAL THREE TIMES A WEEK Discontinued Reason: Pt stopped taking med Lisinopril (Lisinopril*), 10 MG ORAL DAILY, (Reported) Discontinued Reason: Pt stopped taking med Propylene Glycol/Peg 400 (Systane Liquid Gel Eye Drops), 15 ML OP EVERY 8 HOURS PRN for Dry Eyes, (Reported) Discontinued Reason: Pt stopped taking med Rivaroxaban (Xarelto*), 20 MG ORAL DAILY, (Reported) Discontinued Reason: Pt stopped taking med [Tylenol], 650 MG PO EVERY 4 HOURS PRN for For Pain, (Reported) Discontinued Reason: Pt stopped taking med Patient History History Provided By: Patient, Medical Record, PMD Healthcare decision maker UNKNOWN Resuscitation status Full Code Advanced Directive on File No Family History Family History: Patient reports no known family medical history. Social History Social History: (1) No significant social history Review of Systems Constitutional: Reports: no symptoms Eye: Reports: no symptoms ENT: Reports: no symptoms Respiratory: Reports: shortness of breath Cardiovascular: Reports: palpitations Gastrointestinal: Reports: no symptoms Genitourinary: Reports: no symptoms Musculoskeletal: Reports: no symptoms Skin: Reports: no symptoms Neurological: Reports: no symptoms Endocrine: Reports: no symptoms Hematologic/Lymphatic: Reports: no symptoms Physical Exam Physical Exam Narrative General: alert, cooperative, no distress, appears stated age Head: normocephalic, without obvious abnormality, atraumatic Eyes: conjunctivae/corneas clear. PERRL, EOM's intact Throat: lips, mucosa, and tongue normal. MMM Neck: supple, symmetrical, trachea midline, and +JVD Lungs: +bibasilar cracles Heart: regular rate and rhythm, S1, S2 normal, no murmur, click, rub or gallop Abdomen: soft, non-tender, non-distended, bowel sounds normal; no masses or organomegaly Extremities: extremities normal, atraumatic, no cyanosis or edema Pulses: 2+ and symmetric Skin: skin color, texture, turgor normal; no rashes or lesions Neurologic: grossly normal, no focal deficits Last 24 Hour Vital Signs Date Time Temp Pulse Resp B/P Pulse Ox O2 Delivery O2 Flow Rate FiO2 11/12/16 14:00 108/64 11/12/16 13:00 80 108/64 11/12/16 12:03 98.1 80 17 108/64 99 Room Air 11/12/16 12:00 74 11/12/16 09:10 75 130/68 11/12/16 08:00 97.8 75 18 130/68 95 Room Air 11/12/16 08:00 84 11/12/16 07:14 126/76 11/12/16 04:00 97.9 73 20 126/76 95 11/12/16 04:00 75 11/12/16 00:00 97.7 78 20 121/69 Room Air 11/12/16 00:00 76 11/11/16 20:00 97.7 75 24 153/82 98 Room Air 11/11/16 19:23 97.9 78 22 120/88 98 Room Air 11/11/16 19:04 97.9 78 22 120/88 98 Room Air 11/11/16 17:34 97.9 18 154/90 98 Room Air 11/11/16 17:25 97.9 78 18 154/90 98 Room Air Intake and Output 11/11/16 11/12/16 19:00 07:00 Intake Total 0 ml 0 ml Balance 0 ml 0 ml Intake Oral 0 ml 0 ml # Bowel Movements 1 Laboratory Tests Test 11/11/16 17:40 11/11/16 23:00 11/12/16 08:00 White Blood Count 8.3 K/UL (4.8-10.8) 6.3 K/UL (4.8-10.8) Red Blood Count 4.97 M/UL (4.20-5.40) 4.50 M/UL (4.20-5.40) Hemoglobin 13.8 G/DL (12.0-16.0) 12.4 G/DL (12.0-16.0) Hematocrit 42.5 % (37.0-47.0) 39.3 % (37.0-47.0) Mean Corpuscular Volume 85 FL (80-99) 87 FL (80-99) Mean Corpuscular Hemoglobin 27.7 PG (27.0-31.0) 27.6 PG (27.0-31.0) Mean Corpuscular Hemoglobin Concent 32.5 G/DL (32.0-36.0) 31.6 G/DL (32.0-36.0) L Red Cell Distribution Width 13.3 % (11.6-14.8) 12.9 % (11.6-14.8) Platelet Count 219 K/UL (150-450) 193 K/UL (150-450) Mean Platelet Volume 9.3 FL (6.5-10.1) 9.8 FL (6.5-10.1) Neutrophils (%) (Auto) 52.5 % (45.0-75.0) 53.1 % (45.0-75.0) Lymphocytes (%) (Auto) 34.2 % (20.0-45.0) 33.6 % (20.0-45.0) Monocytes (%) (Auto) 8.1 % (1.0-10.0) 7.8 % (1.0-10.0) Eosinophils (%) (Auto) 3.8 % (0.0-3.0) H 4.2 % (0.0-3.0) H Basophils (%) (Auto) 1.4 % (0.0-2.0) 1.3 % (0.0-2.0) Sodium Level 137 mEQ/L (135-145) 139 mEQ/L (135-145) Potassium Level 4.1 mEQ/L (3.4-4.9) 3.9 mEQ/L (3.4-4.9) Chloride Level 95 mEQ/L (98-107) L 98 mEQ/L (98-107) Carbon Dioxide Level 27 mEQ/L (20-30) 25 mEQ/L (20-30) Anion Gap 15 (5-15) 16 (5-15) H Blood Urea Nitrogen 13 mg/dL (7-23) 15 mg/dL (7-23) Creatinine 1.0 mg/dL (0.5-0.9) H 0.9 mg/dL (0.5-0.9) Estimat Glomerular Filtration Rate mL/min (>60) mL/min (>60) Glucose Level 219 mg/dL (74-106) H 231 mg/dL (74-106) H Calcium Level 9.7 mg/dL (8.6-10.2) 9.1 mg/dL (8.6-10.2) Total Bilirubin 0.4 mg/dL (0.0-1.2) Aspartate Amino Transf (AST/SGOT) 17 U/L (5-40) Alanine Aminotransferase (ALT/SGPT) 11 U/L (3-33) Alkaline Phosphatase 116 U/L (35-104) H Total Creatine Kinase 56 U/L (26-140) Creatine Kinase MB < 1.5 ng/mL (< 3.8) Creatine Kinase MB Relative Index Troponin I < 0.30 ng/mL (<=0.30) < 0.30 ng/mL (<=0.30) < 0.30 ng/mL (<=0.30) Pro-B-Type Natriuretic Peptide 1198 pg/mL (0-450) H Total Protein 7.1 g/dL (6.6-8.7) Albumin 3.9 g/dL (3.5-5.2) Globulin 3.2 g/dL Albumin/Globulin Ratio 1.2 (1.0-2.7) Height (Feet): 5 Height (Inches): 4.00 Weight (Pounds): 164 Medications Current Medications Medications (Trade) Dose Ordered Sig/[place] Route PRN Reason Start Time Stop Time Status Last Admin Dose Admin Acetaminophen (Tylenol) 1,000 mg Q3H PRN ORAL Mild Pain/Temp > 100.5 11/12/16 14:15 12/12/16 14:14 11/12/16 15:06 Furosemide (Lasix) 20 mg DAILY IV 11/12/16 11:45 12/12/16 11:44 11/12/16 12:57 Gabapentin (Neurontin) 100 mg BEDTIME ORAL 11/12/16 21:00 12/12/16 20:59 Hydralazine HCl (Apresoline) 100 mg Q8HR ORAL 11/12/16 06:00 12/12/16 05:59 11/12/16 07:14 Metformin HCl (Glucophage) 500 mg TWICE A DAY ORAL 11/12/16 09:00 12/12/16 08:59 11/12/16 09:10 Pantoprazole (Protonix) 40 mg ACBREAKFAST ORAL 11/13/16 06:30 12/12/16 13:44 Pravastatin Sodium (Pravachol) 20 mg BEDTIME ORAL 11/12/16 21:00 12/12/16 20:59 Ranitidine HCl (Zantac) 150 mg TWICE A DAY PRN ORAL heart burn 11/12/16 13:45 12/12/16 13:44 11/12/16 14:11 Rivaroxaban (Xarelto) 20 mg DAILY ORAL 11/12/16 11:15 12/12/16 11:14 11/12/16 12:57 Sotalol HCl (Betapace) 80 mg TID ORAL 11/12/16 09:00 12/12/16 08:59 11/12/16 09:10 Assessment/Plan Problem List: (1) Acute on chronic diastolic (congestive) heart failure ICD Codes: I50.33 - Acute on chronic diastolic (congestive) heart failure SNOMED: 06048489, 918775555 (2) Paroxysmal atrial fibrillation ICD Codes: I48.0 - Paroxysmal atrial fibrillation SNOMED: 865340564 (3) HTN (hypertension) ICD Codes: I10 - Essential (primary) hypertension SNOMED: 13307955 (4) Diabetes mellitus, type II ICD Codes: E11.9 - Type 2 diabetes mellitus without complications SNOMED: 08174035 Status: stable Assessment/Plan Admit inpt Cardiology consulted Trend trop/EKG Diurese with lasix 20mg IV Trend BNP, weights Strict I/O's Monitor lyes and SCr closely Cont home meds: Sotalol, Hydralazine, Eliquis, MTF DVT Prophylaxis: SCD, Eliquis Code Status: Full Hospital Classification Declaration: Based on this initial evaluation, and depending on the patient's clinical course, I anticipate that this patient will require hospitalization for 2-3 days for CHF and close respiratory/hemodynamic monitoring. Disposition: Once the patient is stable to leave the hospital, I anticipate the patient will likely be discharged to the following environment: home with HH vs SNF I spent 70 minutes on this patient's case, and 39 minutes were dedicated to counseling and/or care coordination. Discussed with patient/family, nursing staff, SW/ELVA, cardiology regarding clinical status, treatment course, and disposition planning. Time of note may not reflect time of encounter. Jose Daniel Watts M.D. Nov 12, 2016 15:15
--- NOTE | 2016-11-12 18:44 | Cardiology Report ---
APPROVED REPORT EKG Measurement Heart [id number] [place] [id number] Normal sinus rhythm Low voltage QRS Nonspecific T wave abnormality Abnormal ECG
[2016-11-12] MEDS: traMADol 50mg tab ORAL PRN (20:10)
[2016-11-13] VITALS: BP 132/76
[2016-11-13] MEDS: traMADol 50mg tab ORAL PRN (02:58)
[2016-11-13 04:00] VITALS: BP 102/63
[2016-11-13] MEDS: HydrALAZINE 50mg tab ORAL SCH ×3 (06:00→21:36)
[2016-11-13 06:45] LABS: ANION GAP 12 (5-15); CALCIUM 9.1 mg/dL (8.6-10.2); CARBON DIOXIDE 25 mEQ/L (20-30); CHLORIDE 98 mEQ/L (98-107); HEMOLYSIS 3; MAGNESIUM 1.8 mg/dL (1.7-2.5); SODIUM 135 mEQ/L (135-145)
[2016-11-13 07:55] VITALS: BP 142/75
--- NOTE | 2016-11-13 08:49 | Cardiology Progress Note ---
Assessment/Plan Assessment/Plan dhf resolved paf dm on xarelto keep on sotalol diuretic switch to po no abn on torp ekg will be repeated has vomiting when stands up will check orthostatic vitals dc iv lasix d/w rn bnp now normal compared to 2 days ago will resume po lasix by tomorrow if not orthosttic today Subjective Cardiovascular: Reports: lightheadedness, Denies: chest pain, palpitations Respiratory: Denies: shortness of breath Gastrointestinal/Abdominal: Reports: nausea, vomiting, Denies: abdominal pain, diarrhea Genitourinary: Denies: burning Objective Last 24 Hour Vital Signs Date Time Temp Pulse Resp B/P Pulse Ox O2 Delivery O2 Flow Rate FiO2 11/13/16 07:55 97.0 81 18 142/75 97 Room Air 11/13/16 06:00 137/84 11/13/16 04:00 97.3 18 102/63 96 Room Air 11/13/16 04:00 75 11/13/16 00:00 102 11/13/16 00:00 97.3 102 18 132/76 96 Room Air 11/12/16 21:24 137/90 11/12/16 20:00 74 11/12/16 20:00 97.7 73 18 137/90 96 Room Air 11/12/16 18:17 74 127/84 11/12/16 18:15 74 18 127/84 96 Room Air 11/12/16 16:11 98.0 81 17 127/82 98 Room Air 11/12/16 16:00 78 11/12/16 14:00 108/64 11/12/16 13:00 80 108/64 11/12/16 12:03 98.1 80 17 108/64 99 Room Air 11/12/16 12:00 74 11/12/16 09:10 75 130/68 General Appearance: no apparent distress, alert Cardiovascular: normal rate, regular rhythm Respiratory/Chest: lungs clear Abdomen: normal bowel sounds, non tender, soft Extremities: no swelling Intake and Output 11/12/16 11/13/16 19:00 07:00 Intake Total 770 ml 340 ml Output Total 300 ml Balance 770 ml 40 ml Intake Oral 770 ml 340 ml Output Urine Total 300 ml # Voids 2 2 # Bowel Movements 1 Laboratory Tests Test 11/13/16 05:50 Sodium Level 135 mEQ/L (135-145) Potassium Level 4.0 mEQ/L (3.4-4.9) Chloride Level 98 mEQ/L (98-107) Carbon Dioxide Level 25 mEQ/L (20-30) Anion Gap 12 (5-15) Blood Urea Nitrogen 22 mg/dL (7-23) Creatinine 1.0 mg/dL (0.5-0.9) H Estimat Glomerular Filtration Rate mL/min (>60) Glucose Level 239 mg/dL (74-106) H Calcium Level 9.1 mg/dL (8.6-10.2) Magnesium Level 1.8 mg/dL (1.7-2.5) Pro-B-Type Natriuretic Peptide 99 pg/mL (0-450) ANDREW YANEZ Nov 13, 2016 08:49
[2016-11-13] MEDS: Sotalol 80mg tab ORAL SCH ×3 (08:52→17:19)
[2016-11-13] MEDS: Xarelto 10mg tab ORAL SCH (08:52)
[2016-11-13] MEDS: metFORMIN 500mg tab ORAL SCH ×2 (08:52→17:18)
[2016-11-13 10:05] LABS: BASOPHILS % (AUTO) 0.5 % (0.0-2.0); EOSINOPHILS % (AUTO) 1.3 % (0.0-3.0); LYMPHOCYTES % (AUTO) 18.9 % (20.0-45.0); MEAN CORPUSCULAR HEMOGLOBIN 27.4 PG (27.0-31.0); MEAN CORPUSCULAR HGB CONC 31.3 G/DL (32.0-36.0); MEAN CORPUSCULAR VOLUME 87 FL (80-99); MEAN PLATELET VOLUME 8.9 FL (6.5-10.1); MONOCYTES % (AUTO) 3.6 % (1.0-10.0); NEUTROPHILS % (AUTO) 75.7 % (45.0-75.0); PLATELET COUNT 201 K/UL (150-450); RED BLOOD COUNT 4.52 M/UL (4.20-5.40); WHITE BLOOD COUNT 9.5 K/UL (4.8-10.8)
[2016-11-13 10:11] LABS: ANION GAP 14 (5-15); CARBON DIOXIDE 23 mEQ/L (20-30); CHLORIDE 97 mEQ/L (98-107); CREATININE 0.9 mg/dL (0.5-0.9); HEMOLYSIS 3; MAGNESIUM 1.9 mg/dL (1.7-2.5); POTASSIUM 4.1 mEQ/L (3.4-4.9); SODIUM 134 mEQ/L (135-145)
[2016-11-13 11:50] VITALS: BP 133/76
--- NOTE | 2016-11-13 14:30 | General Progress Note ---
Assessment/Plan Problem List: (1) Acute on chronic diastolic (congestive) heart failure ICD Codes: I50.33 - Acute on chronic diastolic (congestive) heart failure SNOMED: 13989172, 790037371 (2) Paroxysmal atrial fibrillation ICD Codes: I48.0 - Paroxysmal atrial fibrillation SNOMED: 043976186 (3) HTN (hypertension) ICD Codes: I10 - Essential (primary) hypertension SNOMED: 45605983 (4) Diabetes mellitus, type II ICD Codes: E11.9 - Type 2 diabetes mellitus without complications SNOMED: 96476503 Status: stable Assessment/Plan Cardiology consulted last TTE 09/2016 showed EF 55%, diastolic dysfuction Trop neg x 3 Diurese with lasix 20mg IV Trend BNP--downtrending Strict I/O's, daily weights Monitor lyes and SCr closely Cont home meds: Sotalol, Hydralazine, Eliquis, MTF CHF education DVT Prophylaxis: SCD, Eliquis Code Status: Full Hospital Classification Declaration: Based on this initial evaluation, and depending on the patient's clinical course, I anticipate that this patient will require hospitalization for 1-2 days for CHF and close respiratory/hemodynamic monitoring. Disposition: Once the patient is stable to leave the hospital, I anticipate the patient will likely be discharged to the following environment: home with HH vs SNF I spent 39 minutes on this patient's case, and 24 minutes were dedicated to counseling and/or care coordination. Discussed with patient/family, nursing staff, SW/CM, cardiology regarding clinical status, treatment course, and disposition planning. D/w cardiology re diuresis Time of note may not reflect time of encounter. Subjective Date patient seen: Nov 13, 2016 Time patient seen: 14:30 ROS Limited/Unobtainable: No Constitutional: Reports: no symptoms HEENT: Reports: no symptoms Cardiovascular: Reports: no symptoms Respiratory: Reports: shortness of breath Gastrointestinal/Abdominal: Reports: no symptoms Genitourinary: Reports: no symptoms Neurologic/Psychiatric: Reports: no symptoms Endocrine: Reports: no symptoms Hematologic/Lymphatic: Reports: no symptoms Allergies: Coded Allergies: CODEINE (Verified Allergy, Unknown, 10/23/11) DIAZEPAM (Unverified Allergy, Unknown, c/o rash after given valium in ED, 08/23/16) PENICILLINS (Verified Allergy, Unknown, RASH/ITCH, 10/23/11) All Systems: reviewed and negative except above Subjective Pt doing well. SOB and palpitations improving. Denies f/c, n/v, d/c, chest pain. Had a headache earlier, but now improved Objective Last 24 Hour Vital Signs Date Time Temp Pulse Resp B/P Pulse Ox O2 Delivery O2 Flow Rate FiO2 11/13/16 13:12 133/76 11/13/16 13:12 85 133/76 11/13/16 12:00 85 11/13/16 11:50 97.3 85 18 133/76 97 Room Air 11/13/16 09:10 99 11/13/16 09:05 88 11/13/16 09:00 85 11/13/16 08:52 81 142/75 11/13/16 08:00 74 11/13/16 07:55 97.0 81 18 142/75 97 Room Air 11/13/16 06:00 137/84 11/13/16 04:00 97.3 18 102/63 96 Room Air 11/13/16 04:00 75 11/13/16 00:00 102 11/13/16 00:00 97.3 102 18 132/76 96 Room Air 11/12/16 21:24 137/90 11/12/16 20:00 74 11/12/16 20:00 97.7 73 18 137/90 96 Room Air 11/12/16 18:17 74 127/84 11/12/16 18:15 74 18 127/84 96 Room Air 11/12/16 16:11 98.0 81 17 127/82 98 Room Air 11/12/16 16:00 78 Intake and Output 11/12/16 11/13/16 19:00 07:00 Intake Total 770 ml 340 ml Output Total 300 ml Balance 770 ml 40 ml Intake Oral 770 ml 340 ml Output Urine Total 300 ml # Voids 2 2 # Bowel Movements 1 Laboratory Tests 11/13/16 05:30: White Blood Count 9.5#, Red Blood Count 4.52, Hemoglobin 12.4, Hematocrit 39.5, Mean Corpuscular Volume 87, Mean Corpuscular Hemoglobin 27.4, Mean Corpuscular Hemoglobin Concent 31.3L, Red Cell Distribution Width 13.0, Platelet Count 201, Mean Platelet Volume 8.9, Neutrophils (%) (Auto) 75.7H, Lymphocytes (%) (Auto) 18.9L, Monocytes (%) (Auto) 3.6, Eosinophils (%) (Auto) 1.3, Basophils (%) (Auto ) 0.5, Sodium Level 134L, Potassium Level 4.1, Chloride Level 97L, Carbon Dioxide Level 23, Anion Gap 14, Blood Urea Nitrogen 22, Creatinine 0.9, Estimat Glomerular Filtration Rate , Glucose Level 235H, Calcium Level 9.0, Magnesium Level 1.9 11/13/16 05:50: Sodium Level 135, Potassium Level 4.0, Chloride Level 98, Carbon Dioxide Level 25, Anion Gap 12, Blood Urea Nitrogen 22, Creatinine 1.0H, Estimat Glomerular Filtration Rate , Glucose Level 239H, Calcium Level 9.1, Magnesium Level 1.8, Pro-B-Type Natriuretic Peptide 99 Height (Feet): 5 Height (Inches): 4.00 Weight (Pounds): 162 Objective General: alert, cooperative, no distress, appears stated age Head: normocephalic, without obvious abnormality, atraumatic Eyes: conjunctivae/corneas clear. PERRL, EOM's intact Throat: lips, mucosa, and tongue normal. MMM Neck: supple, symmetrical, trachea midline, and +JVD Lungs: +mild bibasilar cracles Heart: regular rate and rhythm, S1, S2 normal, no murmur, click, rub or gallop Abdomen: soft, non-tender, non-distended, bowel sounds normal; no masses or organomegaly Extremities: extremities normal, atraumatic, no cyanosis or edema Pulses: 2+ and symmetric Skin: skin color, texture, turgor normal; no rashes or lesions Neurologic: grossly normal, no focal deficits Jose Daniel Watts M.D. Nov 13, 2016 14:30
[2016-11-13 16:02] VITALS: BP 99/62
[2016-11-13] MEDS: Acetaminophen 500mg (ES) tab ORAL SCH (17:18)
[2016-11-13 20:00] VITALS: BP 106/69
[2016-11-14] VITALS (9 sets, daily range): BP systolic 104–125; BP diastolic 55–78
[2016-11-14] MEDS: HydrALAZINE 50mg tab ORAL SCH ×3 (05:58→21:29)
[2016-11-14 07:27] LABS: BASOPHILS % (AUTO) 0.5 % (0.0-2.0); EOSINOPHILS % (AUTO) 0.3 % (0.0-3.0); LYMPHOCYTES % (AUTO) 18.5 % (20.0-45.0); MEAN CORPUSCULAR HEMOGLOBIN 28.4 PG (27.0-31.0); MEAN CORPUSCULAR HGB CONC 32.6 G/DL (32.0-36.0); MEAN CORPUSCULAR VOLUME 87 FL (80-99); MEAN PLATELET VOLUME 9.9 FL (6.5-10.1); MONOCYTES % (AUTO) 5.7 % (1.0-10.0); PLATELET COUNT 220 K/UL (150-450); RED BLOOD COUNT 4.51 M/UL (4.20-5.40); WHITE BLOOD COUNT 9.1 K/UL (4.8-10.8)
[2016-11-14 08:07] LABS: ALANINE AMINOTRANSFERASE 10 U/L (3-33); ALBUMIN/GLOBULIN RATIO 1.3 (1.0-2.7); ANION GAP 14 (5-15); ASPARTATE AMINO TRANSFERASE 14 U/L (5-40); CALCIUM 9.2 mg/dL (8.6-10.2); CARBON DIOXIDE 24 mEQ/L (20-30); CHLORIDE 97 mEQ/L (98-107); CREATININE 1.3 mg/dL (0.5-0.9); HEMOLYSIS 5; POTASSIUM 3.9 mEQ/L (3.4-4.9); SODIUM 135 mEQ/L (135-145); TOTAL PROTEIN 6.9 g/dL (6.6-8.7)
[2016-11-14] MEDS: Sotalol 80mg tab ORAL SCH ×3 (08:35→17:21)
[2016-11-14] MEDS: metFORMIN 500mg tab ORAL SCH ×2 (08:35→17:21)
[2016-11-14] MEDS: Acetaminophen 500mg (ES) tab ORAL SCH ×3 (08:37→17:57)
[2016-11-14] MEDS: Xarelto 10mg tab ORAL SCH (08:39)
[2016-11-14] MEDS: traMADol 50mg tab ORAL PRN (11:52)
--- NOTE | 2016-11-14 12:13 | Cardiology Progress Note ---
Assessment/Plan Assessment/Plan dhf resolved paf dm diarrhea on xarelto keep on sotalol hold diurtic to day in light of diarrhea no abn on torp ekgnoted tele reviewed now has diarrhea neg orthostatic vitals today d/w rn bnp now yest d/w dtr or the phone cr increased will given low dose of ivf Subjective Cardiovascular: Denies: chest pain, lightheadedness Respiratory: Denies: shortness of breath Gastrointestinal/Abdominal: Reports: diarrhea, nausea Genitourinary: Denies: burning Objective Last 24 Hour Vital Signs Date Time Temp Pulse Resp B/P Pulse Ox O2 Delivery O2 Flow Rate FiO2 11/14/16 11:31 97.7 77 18 125/65 96 Room Air 11/14/16 09:36 97.7 11/14/16 09:10 75 11/14/16 09:05 74 11/14/16 09:00 72 11/14/16 08:35 80 120/66 11/14/16 08:00 77 11/14/16 07:54 97.7 81 18 123/65 96 Room Air 11/14/16 05:58 126/74 11/14/16 04:00 97.7 70 20 119/64 96 Room Air 11/14/16 03:43 70 11/14/16 00:00 97.3 76 20 107/71 97 Room Air 11/13/16 23:50 76 11/13/16 21:36 128/71 11/13/16 21:10 97 11/13/16 21:05 85 11/13/16 21:00 80 11/13/16 20:00 71 11/13/16 20:00 97.0 71 20 106/69 97 Room Air 11/13/16 19:38 97 Room Air 11/13/16 19:38 70 18 Room Air 11/13/16 17:19 70 139/75 11/13/16 16:02 97.3 71 18 99/62 95 Room Air 11/13/16 16:00 72 11/13/16 13:12 133/76 11/13/16 13:12 85 133/76 General Appearance: no apparent distress, alert Cardiovascular: normal rate, regular rhythm Respiratory/Chest: lungs clear, normal breath sounds Abdomen: normal bowel sounds, non tender, soft Extremities: no swelling Intake and Output 11/13/16 11/14/16 19:00 07:00 # Voids 1 1 Laboratory Tests Test 11/14/16 05:05 White Blood Count 9.1 K/UL (4.8-10.8) Red Blood Count 4.51 M/UL (4.20-5.40) Hemoglobin 12.8 G/DL (12.0-16.0) Hematocrit 39.3 % (37.0-47.0) Mean Corpuscular Volume 87 FL (80-99) Mean Corpuscular Hemoglobin 28.4 PG (27.0-31.0) Mean Corpuscular Hemoglobin Concent 32.6 G/DL (32.0-36.0) Red Cell Distribution Width 13.0 % (11.6-14.8) Platelet Count 220 K/UL (150-450) Mean Platelet Volume 9.9 FL (6.5-10.1) Neutrophils (%) (Auto) 75.0 % (45.0-75.0) Lymphocytes (%) (Auto) 18.5 % (20.0-45.0) L Monocytes (%) (Auto) 5.7 % (1.0-10.0) Eosinophils (%) (Auto) 0.3 % (0.0-3.0) Basophils (%) (Auto) 0.5 % (0.0-2.0) Sodium Level 135 mEQ/L (135-145) Potassium Level 3.9 mEQ/L (3.4-4.9) Chloride Level 97 mEQ/L (98-107) L Carbon Dioxide Level 24 mEQ/L (20-30) Anion Gap 14 (5-15) Blood Urea Nitrogen 30 mg/dL (7-23) H Creatinine 1.3 mg/dL (0.5-0.9) H Estimat Glomerular Filtration Rate mL/min (>60) Glucose Level 205 mg/dL (74-106) H Calcium Level 9.2 mg/dL (8.6-10.2) Total Bilirubin 0.8 mg/dL (0.0-1.2) Aspartate Amino Transf (AST/SGOT) 14 U/L (5-40) Alanine Aminotransferase (ALT/SGPT) 10 U/L (3-33) Alkaline Phosphatase 108 U/L (35-104) H Total Protein 6.9 g/dL (6.6-8.7) Albumin 3.9 g/dL (3.5-5.2) Globulin 3.0 g/dL Albumin/Globulin Ratio 1.3 (1.0-2.7) ANDREW YANEZ Nov 14, 2016 12:13
[2016-11-14] MEDS ORDERED: traMADol 50mg tab ORAL PRN ×2 (12:30→13:00)
[2016-11-14] MEDS: Sodium Chloride 550 ML IV SCH (13:40)
--- NOTE | 2016-11-14 16:00 | General Progress Note ---
Assessment/Plan Problem List: (1) Acute on chronic diastolic (congestive) heart failure ICD Codes: I50.33 - Acute on chronic diastolic (congestive) heart failure SNOMED: 02960395, 461601970 (2) ANDRES (acute kidney injury) ICD Codes: N17.9 - Acute kidney failure, unspecified SNOMED: 30366274 (3) Paroxysmal atrial fibrillation ICD Codes: I48.0 - Paroxysmal atrial fibrillation SNOMED: 841100835 (4) HTN (hypertension) ICD Codes: I10 - Essential (primary) hypertension SNOMED: 18957168 (5) Diabetes mellitus, type II ICD Codes: E11.9 - Type 2 diabetes mellitus without complications SNOMED: 09734643 (6) Diarrhea ICD Codes: R19.7 - Diarrhea, unspecified SNOMED: 26146797 (7) Nausea & vomiting ICD Codes: R11.2 - Nausea with vomiting, unspecified SNOMED: 08092257 (8) Headache ICD Codes: R51 - Headache SNOMED: 90049731 (9) Atrial fibrillation with RVR ICD Codes: I48.91 - Unspecified atrial fibrillation SNOMED: 917311396443426 Status: stable Assessment/Plan ANDRES likely setting to overdiuresis and in setting of diarrhea Cardiology consulted last TTE 09/2016 showed EF 55%, diastolic dysfuction Trop neg x 3 Hold lasix Cautious IVFs per cardiology give ANDRSE and diarrhea Trend BNP--downtrending Strict I/O's, daily weights Monitor lyes and SCr closely Cont home meds: Sotalol, Hydralazine, Eliquis, MTF CHF education Check C. diff Consider brain imaging given headache DVT Prophylaxis: SCD, Eliquis Code Status: Full Hospital Classification Declaration: Based on this initial evaluation, and depending on the patient's clinical course, I anticipate that this patient will require hospitalization for 1-2 days for CHF and close respiratory/hemodynamic monitoring. Disposition: Once the patient is stable to leave the hospital, I anticipate the patient will likely be discharged to the following environment: home with HH vs SNF I spent 39 minutes on this patient's case, and 24 minutes were dedicated to counseling and/or care coordination. Discussed with patient/family, nursing staff, SW/CM, cardiology regarding clinical status, treatment course, and disposition planning. D/w cardiology re IVFs Time of note may not reflect time of encounter. Subjective Date patient seen: Nov 14, 2016 Time patient seen: 12:00 ROS Limited/Unobtainable: No Constitutional: Reports: no symptoms HEENT: Reports: no symptoms Cardiovascular: Reports: no symptoms Respiratory: Reports: no symptoms Gastrointestinal/Abdominal: Reports: diarrhea, nausea Genitourinary: Reports: no symptoms Neurologic/Psychiatric: Reports: no symptoms Endocrine: Reports: no symptoms Hematologic/Lymphatic: Reports: no symptoms Allergies: Coded Allergies: CODEINE (Verified Allergy, Unknown, 10/23/11) DIAZEPAM (Unverified Allergy, Unknown, c/o rash after given valium in ED, 08/23/16) PENICILLINS (Verified Allergy, Unknown, RASH/ITCH, 10/23/11) Subjective Pt had episode of nausea w/ emesis yesterday. During emesis, pt noted to go into Afib with RVR which spontaneously converted back to sinus. Pt cont to complaint of nausea, poor PO intake. Also w/ diarrhea. SOB and palpitations improved. Also c/o persistent headache, bitemporal. SCr uptrending to 1.3 Objective Last 24 Hour Vital Signs Date Time Temp Pulse Resp B/P Pulse Ox O2 Delivery O2 Flow Rate FiO2 11/14/16 15:42 96.3 69 18 104/55 96 Room Air 11/14/16 14:24 97.7 11/14/16 13:24 124/66 11/14/16 13:24 70 124/66 11/14/16 13:23 124/66 11/14/16 12:00 74 11/14/16 11:31 97.7 77 18 125/65 96 Room Air 11/14/16 09:10 75 11/14/16 09:05 74 11/14/16 09:00 72 11/14/16 08:35 80 120/66 11/14/16 08:00 77 11/14/16 07:54 97.7 81 18 123/65 96 Room Air 11/14/16 05:58 126/74 11/14/16 04:00 97.7 70 20 119/64 96 Room Air 11/14/16 03:43 70 11/14/16 00:00 97.3 76 20 107/71 97 Room Air 11/13/16 23:50 76 11/13/16 21:36 128/71 11/13/16 21:10 97 11/13/16 21:05 85 11/13/16 21:00 80 11/13/16 20:00 71 11/13/16 20:00 97.0 71 20 106/69 97 Room Air 11/13/16 19:38 97 Room Air 11/13/16 19:38 70 18 Room Air 11/13/16 17:19 70 139/75 11/13/16 16:02 97.3 71 18 99/62 95 Room Air 11/13/16 16:00 72 Intake and Output 11/13/16 11/14/16 19:00 07:00 # Voids 1 1 Laboratory Tests 11/14/16 05:05: White Blood Count 9.1, Red Blood Count 4.51, Hemoglobin 12.8, Hematocrit 39.3, Mean Corpuscular Volume 87, Mean Corpuscular Hemoglobin 28.4, Mean Corpuscular Hemoglobin Concent 32.6, Red Cell Distribution Width 13.0, Platelet Count 220, Mean Platelet Volume 9.9, Neutrophils (%) (Auto) 75.0, Lymphocytes (%) (Auto) 18.5L, Monocytes (%) (Auto) 5.7, Eosinophils (%) (Auto) 0.3, Basophils (%) (Auto ) 0.5, Sodium Level 135, Potassium Level 3.9, Chloride Level 97L, Carbon Dioxide Level 24, Anion Gap 14, Blood Urea Nitrogen 30H, Creatinine 1.3H, Estimat Glomerular Filtration Rate , Glucose Level 205H, Calcium Level 9.2, Total Bilirubin 0.8, Aspartate Amino Transf (AST/SGOT) 14, Alanine Aminotransferase (ALT/SGPT) 10, Alkaline Phosphatase 108H, Total Protein 6.9, Albumin 3.9, Globulin 3.0, Albumin/Globulin Ratio 1.3 Height (Feet): 5 Height (Inches): 4.00 Weight (Pounds): 163 Objective General: alert, cooperative, no distress, appears stated age Head: normocephalic, without obvious abnormality, atraumatic Eyes: conjunctivae/corneas clear. PERRL, EOM's intact Throat: lips, mucosa, and tongue normal. MMM Neck: supple, symmetrical, trachea midline, andJVD Lungs: CTAB Heart: regular rate and rhythm, S1, S2 normal, no murmur, click, rub or gallop Abdomen: soft, non-tender, non-distended, bowel sounds normal; no masses or organomegaly Extremities: extremities normal, atraumatic, no cyanosis or edema Pulses: 2+ and symmetric Skin: skin color, texture, turgor normal; no rashes or lesions Neurologic: grossly normal, no focal deficits Jose Daniel Watts M.D. Nov 14, 2016 16:00
[2016-11-14] MEDS: Norco 5mg/325mg tab ORAL PRN ×2 (17:21→21:42)
[2016-11-15] MEDS: Sodium Chloride 550 ML IV SCH (00:24)
[2016-11-15 03:54] VITALS: BP 116/64
[2016-11-15] MEDS: HydrALAZINE 50mg tab ORAL SCH ×3 (06:24→20:58)
[2016-11-15 07:15] LABS: ANION GAP 16 (5-15); CARBON DIOXIDE 24 mEQ/L (20-30); CHLORIDE 96 mEQ/L (98-107); HEMOLYSIS 3; POTASSIUM 3.8 mEQ/L (3.4-4.9); SODIUM 136 mEQ/L (135-145)
[2016-11-15 07:20] LABS: BILIRUBIN,DIRECT 0.2 mg/dL (0.1-0.3); MAGNESIUM 1.9 mg/dL (1.7-2.5)
[2016-11-15 08:03] VITALS: BP 147/94
--- NOTE | 2016-11-15 08:13 | Cardiology Report ---
APPROVED REPORT EXAM: Two-dimensional and M-mode echocardiogram with Doppler and color Doppler. INDICATION Hypertension/HCVD M-Mode DIMENSIONS IVSd1.0 (0.7-1.1cm)Left Atrium (MM)3.4 (1.6-4.0cm) LVDd3.7 (3.5-5.6cm)Aortic Root2.6 (2.0-3.7cm) PWd1.5 (0.7-1.1cm)Aortic Cusp Exc.1.5 (1.5-2.0cm) LVDs2.4 (2.5-4.0cm) PWs1.3 cm Other Information Technically limited study due to poor acoustic windows. Normal left ventricular chamber size, systolic function and wall motion to extent visualized. Left ventricular ejection fraction estimated to be 65 %. Study quality precludes accurate assessment of regional wall motion. No evidence of ventricular hypertrophy. Anterior Echo-free space, may be due to pericardial fat or effusion. All other cardiac chamber sizes are within normal limits. Mild focal aortic valve sclerosis with adequate cusp excursion. Mildly thickened mitral valve leaflets with normal excursion. Mild mitral annulus and aortic root calcification. Pulmonic valve not well visualized. Normal tricuspid valve structure. IVC measured at 2.0 cm with physiologic collapse. A color flow and spectral Doppler study was performed and revealed: No aortic regurgitation. Trace to mild mitral regurgitation. Mitral diastolic velocities suggest normal left ventricular diastolic function. Mild tricuspid regurgitation. Tricuspid systolic velocities suggests peak right ventricular systolic pressure of 48 mmHg, consistent with moderate pulmonary hypertension. Trace pulmonic regurgitation present.
--- NOTE | 2016-11-15 08:29 | Diagnostic Imaging Report ---
Indications: Headache, nausea Technique: Continuous helical CT imaging of the brain was performed with automatic exposure control on a Siemens sensation [address] scanner. Axial and coronal images were reconstructed at 5 mm slice thickness and interval. CTDI volume(s): 70 mGy Total DLP: 1330 mGy-cm Findings: Comparison: 08/22/2016 Motion artifact degrades images. Chronic microvascular ischemic changes throughout the bilateral cerebral periventricular and deep white matter, moderate diffuse atrophy are unchanged.. No evidence of mass or hemorrhage, other attenuation abnormality, mass effect, midline shift, hydrocephalus or increased intracranial pressure. Bone window images are unremarkable. Visualized paranasal sinuses and mastoid air cells are clear. IMPRESSION: No evidence of acute intracranial pathology, limited as described , unchanged. Stable chronic age-related changes as described The CT scanner at [facility] is accredited by the [employer] and the scans are performed using protocols designed to limit radiation exposure to as low as reasonably achievable to attain images of sufficient resolution adequate for diagnostic evaluation.
[2016-11-15] MEDS: Sotalol 80mg tab ORAL SCH ×3 (08:30→17:30)
[2016-11-15] MEDS: metFORMIN 500mg tab ORAL SCH ×2 (08:30→17:30)
[2016-11-15] MEDS: Xarelto 10mg tab ORAL SCH (08:31)
[2016-11-15] MEDS: Acetaminophen 500mg (ES) tab ORAL SCH ×3 (08:33→17:30)
[2016-11-15] MEDS ORDERED: 1/2 NS 1000ml IV ONE (09:13)
[2016-11-15] MEDS ORDERED: Tubing IV Secondary IV ONE (09:13)
[2016-11-15] MEDS ORDERED: NS 550ML IV ONE (09:13)
[2016-11-15] MEDS ORDERED: NS 275ml ONE (09:13)
[2016-11-15] MEDS: Norco 5mg/325mg tab ORAL PRN (09:35)
[2016-11-15] MEDS ORDERED: XARELTO20 MG ORAL (09:57)
[2016-11-15] MEDS ORDERED: FUROSEMIDE20 M1 ORAL (09:57)
[2016-11-15] MEDS ORDERED: Loperamide 2mg cap ORAL PRN (10:45)
[2016-11-15 11:16] VITALS: BP 126/67
--- NOTE | 2016-11-15 11:22 | Cardiology Progress Note ---
Assessment/Plan Assessment/Plan dhf resolved paf dm diarrhea on xarelto keep on sotalol hold diurtic to day in light of diarrhea no abn on torp ekg noted tele reviewed still has diarrhea c diff neg refused but now agrees to have orthos performed today d/w rn cr improved post ivf Subjective Cardiovascular: Reports: lightheadedness, Denies: chest pain Respiratory: Denies: shortness of breath Gastrointestinal/Abdominal: Reports: diarrhea, Denies: abdominal pain Genitourinary: Denies: burning Objective Last 24 Hour Vital Signs Date Time Temp Pulse Resp B/P Pulse Ox O2 Delivery O2 Flow Rate FiO2 11/15/16 11:16 96.7 69 18 126/67 96 Room Air 11/15/16 09:00 0 11/15/16 08:30 76 147/94 11/15/16 08:03 96.5 76 18 147/94 97 Room Air 11/15/16 08:00 77 11/15/16 06:24 131/73 11/15/16 03:54 98.2 73 19 116/64 98 Room Air 11/15/16 03:42 71 11/14/16 23:54 73 11/14/16 23:46 98.6 70 18 119/78 96 Room Air 11/14/16 21:29 117/57 11/14/16 20:16 67 68 78 11/14/16 20:13 98.5 67 19 104/57 93 Room Air 11/14/16 19:50 70 11/14/16 18:20 96.3 11/14/16 17:21 73 120/57 11/14/16 17:14 73 120/57 11/14/16 16:00 70 11/14/16 15:42 96.3 69 18 104/55 96 Room Air 11/14/16 14:24 97.7 11/14/16 13:24 124/66 11/14/16 13:24 70 124/66 11/14/16 13:23 124/66 11/14/16 12:00 74 11/14/16 11:31 97.7 77 18 125/65 96 Room Air General Appearance: no apparent distress, alert Cardiovascular: normal rate, regular rhythm Respiratory/Chest: lungs clear, normal breath sounds Abdomen: normal bowel sounds, non tender, soft Extremities: no swelling Intake and Output 11/14/16 11/15/16 19:00 07:00 Intake Total 450 ml 350 ml Balance 450 ml 350 ml Intake Oral 200 ml IV Total 250 ml 350 ml # Voids 2 2 # Bowel Movements 2 Laboratory Tests Test 11/15/16 05:00 Sodium Level 136 mEQ/L (135-145) Potassium Level 3.8 mEQ/L (3.4-4.9) Chloride Level 96 mEQ/L (98-107) L Carbon Dioxide Level 24 mEQ/L (20-30) Anion Gap 16 (5-15) H Blood Urea Nitrogen 24 mg/dL (7-23) H Creatinine 1.0 mg/dL (0.5-0.9) H Estimat Glomerular Filtration Rate mL/min (>60) Glucose Level 183 mg/dL (74-106) H Hemoglobin A1c 8.7 % (< 6.0) H Calcium Level 9.0 mg/dL (8.6-10.2) Phosphorus Level 3.0 mg/dL (2.5-4.8) Magnesium Level 1.9 mg/dL (1.7-2.5) Total Bilirubin 0.7 mg/dL (0.0-1.2) Direct Bilirubin 0.2 mg/dL (0.1-0.3) Aspartate Amino Transf (AST/SGOT) 15 U/L (5-40) Alanine Aminotransferase (ALT/SGPT) 9 U/L (3-33) Alkaline Phosphatase 98 U/L (35-104) Total Protein 6.0 g/dL (6.6-8.7) L Albumin 3.8 g/dL (3.5-5.2) Microbiology Date/Time Source Procedure Growth Status 11/14/16 14:00 Stool Clostridium difficile Toxin Assay - Final Complete ANDREW YANEZ Nov 15, 2016 11:22
--- NOTE | 2016-11-15 12:18 | Consultation ---
Consult Note Consult Note NEUROLOGY CONSULTATION: Full note dictated #[id number] 81 y/o, RH, F with PH of HTN, DM, DL, A-fib on anticoagulation. Was admitted to the hospital for palpitations. Since then has had diarrhoea, lightheadedness when she stands and headaches. Headaches are B-FT. ON EXAM: Cognitive dysfunction. G 2/4 C/PS and trap spasm Right NLF flat Absent DTRs IMPRESSION: MC headaches Cognitive problems CT with no acute path but old DWM changes. REC: Continue present Rx. Flexeril 10 mg q HS x 5 nights. W/U cognitive problems Mukesh Hernandez M.D., M.S.P.H. MUKESH HERNANDEZ Nov 15, 2016 12:17
[2016-11-15 13:10] LABS: THYROID STIMULATING HORMONE 1.41 uIU/mL (0.300-4.500)
[2016-11-15 15:25] VITALS: BP 126/62
--- NOTE | 2016-11-15 16:25 | General Progress Note ---
Assessment/Plan Problem List: (1) Acute on chronic diastolic (congestive) heart failure ICD Codes: I50.33 - Acute on chronic diastolic (congestive) heart failure SNOMED: 14169774, 082093211 (2) ANDRES (acute kidney injury) ICD Codes: N17.9 - Acute kidney failure, unspecified SNOMED: 10849849 (3) Paroxysmal atrial fibrillation ICD Codes: I48.0 - Paroxysmal atrial fibrillation SNOMED: 584005748 (4) HTN (hypertension) ICD Codes: I10 - Essential (primary) hypertension SNOMED: 27276743 (5) Diabetes mellitus, type II ICD Codes: E11.9 - Type 2 diabetes mellitus without complications SNOMED: 01218969 (6) Diarrhea ICD Codes: R19.7 - Diarrhea, unspecified SNOMED: 83416952 (7) Nausea & vomiting ICD Codes: R11.2 - Nausea with vomiting, unspecified SNOMED: 10480619 (8) Headache ICD Codes: R51 - Headache SNOMED: 87406299 (9) Atrial fibrillation with RVR ICD Codes: I48.91 - Unspecified atrial fibrillation SNOMED: 846030667421488 Assessment/Plan ANDRES likely setting to overdiuresis and in setting of diarrhea Cardiology consulted last TTE 09/2016 showed EF 55%, diastolic dysfuction Trop neg x 3 Hold lasix Cautious IVFs per cardiology give ANDRES and diarrhea Trend BNP--downtrending Strict I/O's, daily weights Monitor lyes and SCr closely Cont home meds: Sotalol, Hydralazine, Eliquis, MTF CHF education Check C. diff Consider brain imaging given headache DVT Prophylaxis: SCD, Eliquis Code Status: Full Hospital Classification Declaration: Based on this initial evaluation, and depending on the patient's clinical course, I anticipate that this patient will require hospitalization for 1-2 days for CHF and close respiratory/hemodynamic monitoring. Disposition: Once the patient is stable to leave the hospital, I anticipate the patient will likely be discharged to the following environment: home with HH vs SNF I spent 39 minutes on this patient's case, and 24 minutes were dedicated to counseling and/or care coordination. Discussed with patient/family, nursing staff, SW/CM, cardiology regarding clinical status, treatment course, and disposition planning. D/w cardiology re IVFs Time of note may not reflect time of encounter. Subjective Date patient seen: Nov 15, 2016 Time patient seen: 16:24 Constitutional: Reports: no symptoms HEENT: Reports: no symptoms Respiratory: Reports: no symptoms Gastrointestinal/Abdominal: Reports: diarrhea, nausea Genitourinary: Reports: no symptoms Neurologic/Psychiatric: Reports: headache Endocrine: Reports: no symptoms Hematologic/Lymphatic: Reports: no symptoms Allergies: Coded Allergies: CODEINE (Verified Allergy, Unknown, 10/23/11) DIAZEPAM (Unverified Allergy, Unknown, c/o rash after given valium in ED, 08/23/16) PENICILLINS (Verified Allergy, Unknown, RASH/ITCH, 10/23/11) Subjective Pt had episode of nausea w/ emesis yesterday. During emesis, pt noted to go into Afib with RVR which spontaneously converted back to sinus. Pt cont to complaint of nausea, poor PO intake. Also w/ diarrhea. SOB and palpitations improved. Also c/o persistent headache, bitemporal. SCr uptrending to 1.3 Objective Last 24 Hour Vital Signs Date Time Temp Pulse Resp B/P Pulse Ox O2 Delivery O2 Flow Rate FiO2 11/15/16 15:25 97.7 72 18 126/62 97 Room Air 11/15/16 13:09 144/77 11/15/16 13:07 69 144/77 11/15/16 12:00 69 11/15/16 11:25 69 68 71 11/15/16 11:16 96.7 69 18 126/67 96 Room Air 11/15/16 09:00 0 11/15/16 08:30 76 147/94 11/15/16 08:03 96.5 76 18 147/94 97 Room Air 11/15/16 08:00 77 11/15/16 06:24 131/73 11/15/16 03:54 98.2 73 19 116/64 98 Room Air 11/15/16 03:42 71 11/14/16 23:54 73 11/14/16 23:46 98.6 70 18 119/78 96 Room Air 11/14/16 21:29 117/57 11/14/16 20:16 67 68 78 11/14/16 20:13 98.5 67 19 104/57 93 Room Air 11/14/16 19:50 70 11/14/16 18:20 96.3 11/14/16 17:21 73 120/57 11/14/16 17:14 73 120/57 Intake and Output 11/14/16 11/15/16 19:00 07:00 Intake Total 450 ml 350 ml Balance 450 ml 350 ml Intake Oral 200 ml IV Total 250 ml 350 ml # Voids 2 2 # Bowel Movements 2 Laboratory Tests 11/15/16 05:00: Erythrocyte Sedimentation Rate 25, Sodium Level 136, Potassium Level 3.8, Chloride Level 96L, Carbon Dioxide Level 24, Anion Gap 16H, Blood Urea Nitrogen 24H, Creatinine 1.0H, Estimat Glomerular Filtration Rate , Glucose Level 183H, Hemoglobin A1c 8.7H, Calcium Level 9.0, Phosphorus Level 3.0, Magnesium Level 1.9, Total Bilirubin 0.7, Direct Bilirubin 0.2, Aspartate Amino Transf (AST/SGOT ) 15, Alanine Aminotransferase (ALT/SGPT) 9, Alkaline Phosphatase 98, Total Protein 6.0L, Albumin 3.8, Vitamin B12 Level 1444H, Vitamin D 25-Hydroxy [ Pending], 25-Hydroxy Vitamin D2 [Pending], 25-Hydroxy Vitamin D3 [Pending], Folate [Pending], Thyroid Stimulating Hormone (TSH) 1.410, Rapid Plasma Reagin [ Pending] Height (Feet): 5 Height (Inches): 4.00 Weight (Pounds): 163 Objective General: alert, cooperative, no distress, appears stated age Head: normocephalic, without obvious abnormality, atraumatic Eyes: conjunctivae/corneas clear. PERRL, EOM's intact Throat: lips, mucosa, and tongue normal. MMM Neck: supple, symmetrical, trachea midline, andJVD Lungs: CTAB Heart: regular rate and rhythm, S1, S2 normal, no murmur, click, rub or gallop Abdomen: soft, non-tender, non-distended, bowel sounds normal; no masses or organomegaly Extremities: extremities normal, atraumatic, no cyanosis or edema Pulses: 2+ and symmetric Skin: skin color, texture, turgor normal; no rashes or lesions Neurologic: grossly normal, no focal deficits Jose Daniel Watts M.D. Nov 15, 2016 16:25
--- NOTE | 2016-11-15 16:45 | Consultation ---
DATE OF CONSULTATION: 11/15/2016 NEUROLOGY CONSULTATION CONSULTING PHYSICIAN: Bird Hernandez M.D. REQUESTING PHYSICIAN: Jose Daniel Watts M.D. HISTORY: Ms. Guillermo Burger is an 81-year-old, right-handed, lady, who does have a past history of hypertension, diabetes mellitus, dyslipidemia, diastolic heart failure, and paroxysmal atrial fibrillation for which she is anticoagulated. She was functioning relatively well until 11/12/2016 when she was hospitalized for shortness of breath and palpitations. Since then her palpitations and shortness of breath have improved. However, since she has felt dizzy and lightheaded at times especially when she stands up, has had diarrhea, and a headache. This consultation was requested to evaluate the patient for her headaches. As per the patient, the headache is present in the frontotemporal areas on both sides and is a constant headache. It, however, gets better or worse and she has noticed that it gets worse whenever she has bouts of diarrhea or when she stands up, and gets a little better when she lays down and relaxes. She denies any associated weakness on one side or the other, numbness on one side or the other, problems with speech, problems with language, problems with vision, or any other neurological symptoms. At this point in time, the headache is a little better than what it has been for the last few days. PAST MEDICAL HISTORY: Significant for hypertension, diabetes mellitus, dyslipidemia, diastolic heart failure, paroxysmal atrial fibrillation, and chronic low back pain. FAMILY HISTORY: Nothing significant as per the patient. PERSONAL HISTORY: Home: She lives with family. 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 Habits: There is no history of alcohol, tobacco, or illicit drug use. PRESENT MEDICATIONS: Includes Imodium, Franklin p.r.n., ranitidine, Tylenol 1000 mg three times a day, Compazine p.r.n., Protonix p.r.n., Zofran p.r.n., Neurontin 100 mg at bedtime, pravastatin, Xarelto, metformin, Betapace, and hydralazine. PHYSICAL EXAMINATION: On general examination, she is a well-developed, well-nourished, slightly obese lady, lying in bed, in no acute distress. VITAL SIGNS: Pulse 70 per minute, blood pressure 126/67 mmHg, respirations 18 per minute, and temperature 96.7 degrees Fahrenheit. HEAD: Normocephalic and atraumatic. EENT: Examination benign. NECK: No neck rigidity was observed. She had grade 2/4 cervical paraspinal muscle and trapezius spasm. NEUROLOGIC EXAMINATION: MENTAL STATUS EXAMINATION: She was alert and awake. She was oriented to self, hospital, and November 2016. She did not know the name of the hospital or the date. She was able to recall 3/3 words immediately, but could only remember 2/3 words in 1 minute and 3 minutes even on the second trial. She was able to remember presidents Trump and Obama with hints, but could not remember presidents prior to that. Her mathematical skills were impaired. Her visuospatial function was also impaired. SPEECH: She had no dysarthria. LANGUAGE: She had an anomia for low-frequency words. CRANIAL NERVE EXAMINATION II: The visual rich were intact to confrontation testing. III, IV & : The external ocular movements were full and the pupils 3 mm in diameter, equal, round, regular, and reactive to light. V: She had normal facial sensations and the temporales, masseters, and pterygoids functioned normally. VII: She has flattening of the right nasolabial fold, however, both sides of the face moved relatively well. VIII: She was able to hear well bilaterally and had no nystagmus. IX: The palate moved symmetrically on phonation. X: She had no hoarseness of voice. XI: The sternocleidomastoids and trapezii functioned normally. XII: The tongue was in the midline without any fasciculations or atrophy. MOTOR SYSTEM: The tone was normal in all four extremities. Examination of muscle mass revealed no focal wasting. Examination of power revealed grade 5/5 power in all muscle groups tested. SENSORY EXAMINATION: She had intact sensations to pinprick, light touch, and graphesthesia. COORDINATION: She performed well on [id number]-[id number] and [id number] testing. REFLEXES: 0 at the biceps, triceps, brachioradialis, knees, and ankles. The plantar responses were flexor bilaterally. STANCE: She stood up with a minimally wide-based, but stable stance. GAIT: She walked with a minimally wide-based, but stable gait. DIAGNOSTIC IMPRESSION: 1. Ms. Guillermo Burger is an 81-year-old, right-handed, lady, who does have a past history of hypertension, diabetes mellitus, dyslipidemia, paroxysmal atrial fibrillation for which she is anticoagulated, and diastolic heart failure, who was admitted to the hospital for palpitations. Since she has been in the hospital, she has had diarrhea and lightheadedness when she stands and headaches. The headaches are predominantly bilateral frontotemporal headaches in the form of a pressure-like sensation, which is there all the time, but gets better or worse depending on whether she has had a recent bout of diarrhea and/or whether she is resting. 2. On neurological examination, at this time, she does have grade 2/4 cervical paraspinal muscle and trapezius spasm. She also has problems with orientation, recent and remote memory, visuospatial function, higher cognitive function, and language. She does have some flattening of right nasolabial fold and the deep tendon reflexes are globally absent. She stands with a wide base and walks with a wide base. 3. The CT scan of the brain without contrast performed on 11/14/2016 reveals mild atrophy and deep white matter changes, but no acute pathology. 4. The patient's history and neurological examination are most compatible with muscle contraction headaches. These headaches may have been brought on by underlying cervical paraspinal muscle and trapezius spasm and superimposed neck strain due to being in a hospital bed with poor posture. RECOMMENDATIONS: 1. Agree with management thus far. 2. The patient should be worked up thoroughly for treatable causes of cognitive problems. 3. She will be started on Flexeril 10 mg at bedtime for the next five nights. 4. Depending on how the patient fares over the next day or so, further recommendations will be given. Thank you for entrusting me with the care of Ms. Burger. I shall follow her with you. Bird Hernandez M.D., M.S.P.H. DR: LIBBY JOB#: [id number] BELKIS
[2016-11-15 20:00] VITALS: BP 136/65
[2016-11-15] MEDS ORDERED: Cyclobenzaprine 10mg Tab ORAL SCH (21:00)
[2016-11-16 00:01] VITALS: BP 125/70
[2016-11-16 04:00] VITALS: BP 127/66
[2016-11-16] MEDS: HydrALAZINE 50mg tab ORAL SCH ×2 (06:02→13:16)
[2016-11-16 08:00] VITALS: BP 132/72
[2016-11-16] MEDS: Xarelto 10mg tab ORAL SCH (08:42)
[2016-11-16] MEDS: metFORMIN 500mg tab ORAL SCH (08:42)
[2016-11-16] MEDS: Acetaminophen 500mg (ES) tab ORAL SCH ×2 (08:43→13:16)
[2016-11-16] MEDS: Sotalol 80mg tab ORAL SCH ×2 (08:43→13:16)
--- NOTE | 2016-11-16 11:34 | Cardiology Progress Note ---
Assessment/Plan Assessment/Plan dhf resolved paf dm diarrhea on xarelto keep on sotalol still hold diurtic as long as has diarrhea no abn on torp ekg noted tele reviewed orthosttic neg yest bp is fine dc plan per pmd Subjective Cardiovascular: Denies: chest pain, lightheadedness, palpitations Respiratory: Denies: shortness of breath Gastrointestinal/Abdominal: Reports: diarrhea, Denies: abdominal pain, nausea Genitourinary: Denies: burning Objective Last 24 Hour Vital Signs Date Time Temp Pulse Resp B/P Pulse Ox O2 Delivery O2 Flow Rate FiO2 11/16/16 09:00 78 82 84 11/16/16 08:43 77 130/72 11/16/16 08:00 97.6 78 17 132/72 98 Room Air 11/16/16 08:00 90 11/16/16 06:02 127/66 11/16/16 04:00 98.3 71 19 127/66 95 Room Air 11/16/16 04:00 70 11/16/16 00:01 98.8 69 19 125/70 96 Room Air 11/16/16 00:00 69 11/15/16 20:58 139/76 11/15/16 20:54 67 65 11/15/16 20:00 67 11/15/16 20:00 98.2 67 18 136/65 98 Room Air 11/15/16 17:30 68 126/62 11/15/16 16:00 68 11/15/16 15:25 97.7 72 18 126/62 97 Room Air 11/15/16 13:09 144/77 11/15/16 13:07 69 144/77 11/15/16 12:00 69 General Appearance: no apparent distress Neck: supple Cardiovascular: normal rate, regular rhythm Respiratory/Chest: lungs clear, normal breath sounds Abdomen: normal bowel sounds, non tender, soft Extremities: no swelling Intake and Output 11/15/16 11/16/16 19:00 07:00 Intake Total 420 ml Balance 420 ml Intake Oral 420 ml # Voids 3 3 # Bowel Movements 2 Microbiology Date/Time Source Procedure Growth Status 11/14/16 14:00 Stool Clostridium difficile Toxin Assay - Final Complete ANDREW YANEZ Nov 16, 2016 11:34
[2016-11-16 12:00] VITALS: BP 138/74
[2016-11-16 13:16] VITALS: BP 138/74
--- NOTE | 2016-11-16 13:27 | Discharge Summary ---
Jose Daniel Watts M.D. 11/16/16 1327: Discharge Summary Hospital Course Date of Admission Nov 11, 2016 at 18:15 Date of Discharge 11/16/16 Admitting Diagnosis chest pain HPI Rosaura Burger is a 81 year old female who was admitted on Nov 11, 2016 at 18: 15 for Chest Pain Discharge Medications New Medications: Furosemide* (Lasix*) 20 Mg Tablet 20 MG ORAL THREE TIMES A WEEK for 30 Days, #30 TAB Rivaroxaban (Xarelto) 20 Mg Tablet 20 MG ORAL DAILY for 30 Days, #30 MG 2 Refills Continued Medications: Gabapentin* (Gabapentin*) 100 Mg Capsule 100 MG PO BEDTIME, #90 1 cap at night increase by 1 cap daily until taking 4 nightly Hydralazine Hcl* (Hydralazine Hcl*) 100 Mg Tablet 100 MG ORAL EVERY 8 HOURS, TAB Metformin Hcl* (Metformin Hcl*) 500 Mg Tablet 500 MG ORAL TWICE A DAY, TAB Pravastatin Sod* (Pravastatin Sod*) 20 Mg Tablet 20 MG ORAL BEDTIME, TAB Sotalol Hcl* (Betapace*) 80 Mg Tablet 80 MG PO TID Discharge Condition Upon Discharge: stable Discharge Disposition Patient was discharged to Home with Home Health() Discharge Diagnoses: Tez (Radha)Estela NP 11/24/16 1227: Discharge Summary Discharge Medications New Medications: Furosemide* (Lasix*) 20 Mg Tablet 20 MG ORAL THREE TIMES A WEEK for 30 Days, #30 TAB Rivaroxaban (Xarelto) 20 Mg Tablet 20 MG ORAL DAILY for 30 Days, #30 MG 2 Refills Continued Medications: Gabapentin* (Gabapentin*) 100 Mg Capsule 100 MG PO BEDTIME, #90 1 cap at night increase by 1 cap daily until taking 4 nightly Hydralazine Hcl* (Hydralazine Hcl*) 100 Mg Tablet 100 MG ORAL EVERY 8 HOURS, TAB Metformin Hcl* (Metformin Hcl*) 500 Mg Tablet 500 MG ORAL TWICE A DAY, TAB Pravastatin Sod* (Pravastatin Sod*) 20 Mg Tablet 20 MG ORAL BEDTIME, TAB Sotalol Hcl* (Betapace*) 80 Mg Tablet 80 MG PO TID Discharge Condition Upon Discharge: stable Discharge Disposition PATIENT WAS DISCHARGED HOME WITH HOME HEALTH SERVICES Discharge Diagnoses: (1) Acute on chronic diastolic (congestive) heart failure (2) Muscle contraction headache (3) Acute kidney injury (4) Atrial fibrillation with RVR (5) Paroxysmal atrial fibrillation (6) Diabetes mellitus, type II (7) Hypertension (8) Diarrhea (9) Nausea & vomiting Jose Daniel Watts M.D. Nov 16, 2016 13:27 Tez ([facility])Estela NP Nov 24, 2016 12:27
--- NOTE | 2016-11-16 14:31 | Neurology Progress Note ---
Interim History Interim History Interim History Ms. Burger feels much better today. The headache has almost gone away completely. The dizziness has resolved. She denies any new neurologic symptoms. She tolerated the Flexeril well. Review of Systems Neuro Review of Systems Benign. Objective Physical Exam Last Vital Signs Date Time Temp Pulse Resp B/P Pulse Ox O2 Delivery O2 Flow Rate FiO2 11/16/16 13:16 138/74 11/16/16 13:16 103 11/16/16 12:00 97.0 18 98 Room Air Neurologic Exam Objective PHYSICAL EXAMINATION: GENERAL: On general examination, she is a well-developed, well-nourished, slightly obese lady, lying in bed, in no acute distress. HEAD: Normocephalic and atraumatic. EENT: Examination benign. NECK: No neck rigidity was observed. She had grade 1/4 cervical paraspinal muscle and trapezius spasm. NEUROLOGIC EXAMINATION: MENTAL STATUS EXAMINATION: She was alert and awake. She was oriented to self, hospital, and November 2016. She did not know the name of the hospital or the date. She was able to recall 3/3 words immediately, but could only remember 2/3 words in 1 minute and 3 minutes even on the second trial. She was able to remember presidents Trump and Obama with hints, but could not remember presidents prior to that. Her mathematical skills were impaired. Her visuospatial function was also impaired. SPEECH: She had no dysarthria. LANGUAGE: She had an anomia for low-frequency words. CRANIAL NERVE EXAMINATION II: The visual rich were intact to confrontation testing. III, IV & : The external ocular movements were full and the pupils 3 mm in diameter, equal, round, regular, and reactive to light. V: She had normal facial sensations and the temporales, masseters, and pterygoids functioned normally. VII: She has flattening of the right nasolabial fold, however, both sides of the face moved relatively well. VIII: She was able to hear well bilaterally and had no nystagmus. IX: The palate moved symmetrically on phonation. X: She had no hoarseness of voice. XI: The sternocleidomastoids and trapezii functioned normally. XII: The tongue was in the midline without any fasciculations or atrophy. MOTOR SYSTEM: The tone was normal in all four extremities. Examination of muscle mass revealed no focal wasting. Examination of power revealed grade 5/5 power in all muscle groups tested. SENSORY EXAMINATION: She had intact sensations to pinprick, light touch, and graphesthesia. COORDINATION: She performed well on [id number] and meym-kq-[id number] testing. REFLEXES: 0 at the biceps, triceps, brachioradialis, knees, and ankles. The plantar responses were flexor bilaterally. STANCE: She stood up with a minimally wide-based, but stable stance. GAIT: She walked with a minimally wide-based, but stable gait. Impression/Recommendations Diagnostic Impression 1. Ms. Guillermo Burger is an 81-year-old, right-handed, lady, who does have a past history of hypertension, diabetes mellitus, dyslipidemia, paroxysmal atrial fibrillation for which she is anticoagulated, and diastolic heart failure , who was admitted to the hospital for palpitations. Since she has been in the hospital, she has had diarrhea and lightheadedness when she stands and headaches. The headaches are predominantly bilateral frontotemporal headaches in the form of a pressure-like sensation, which is there all the time, but gets better or worse depending on whether she has had a recent bout of diarrhea and/ or whether she is resting. 2. She feels much better today. The headache has almos gone away completely and the dizziness is gone. 3. On neurological examination, at this time, she does have reduced, grade 1/4, cervical paraspinal muscle and trapezius spasm. She also has problems with orientation, recent and remote memory, visuospatial function, higher cognitive function, and language. She does have some flattening of right nasolabial fold and the deep tendon reflexes are globally absent. She stands with a wide base and walks with a wide base. 4. The CT scan of the brain without contrast performed on 11/14/2016 reveals mild atrophy and deep white matter changes, but no acute pathology. 5. The patient's history and neurological examination are most compatible with muscle contraction headaches. These headaches may have been brought on by underlying cervical paraspinal muscle and trapezius spasm and superimposed neck strain due to being in a hospital bed with poor posture. The headache has almost completely resolved with the muscle relaxant. Recommendations 1. Continue present management. 2. Continue Flexeril 10 mg at bedtime for a total of 5 nights. 3. If discharged - follow up in office in 6-8 weeks. Mukesh Hernandez M.D., M.S.P.H. MUKESH HERNANDEZ Nov 16, 2016 14:31
[2016-11-16] MEDS ORDERED: NS 550ML IV ONE (15:49)
[2016-11-22 07:08] LABS: VITAMIN D 25-OH TOTAL 27 ng/mL (.)
== END 2016-11-16 15:50 | disposition home health service (06) | DRG 292 ==
LOC: EMR 17:56 → 2E 18:15 → EDBEDREQ 18:26
DX: I11.0 Hypertensive heart disease with heart failure (principal); N17.9 Acute kidney failure, unspecified; I48.0 Paroxysmal atrial fibrillation; E11.9 Type 2 diabetes mellitus without complications; I50.33 Acute on chronic diastolic (congestive) heart failure; R19.7 Diarrhea, unspecified; Z79.01 Long term (current) use of anticoagulants; Z88.0 Allergy status to penicillin
CPT/HCPCS: 36415; 70450; 71010; 80048; 80053; 80076; 82306; 82550; 82553; 82607; 82746; 82962; 83036; 83735; 83880; 84100; 84443; 84484; 85025; 85651; 86592; 87324; 93005; 93306; 94664; 94760; J2405

== ENCOUNTER 2017-05-08 15:13 | Inpatient (IN) | payer MEDICARE, OTHER ==
[~2017-05-08] VITALS: Ht 165.1 cm; Wt 75.7 kg
[~2017-05-08 15:13] MED LIST changes: +BREO ELLIPTA 11 EACH IH; +FUROSEMIDE20 M1 ORAL; +GABAPENTIN100 MG PO; +HYDRALAZINE HC100 MG ORAL; +METFORMIN HCL500 M1 ORAL; +XARELTO20 MG ORAL
[2017-05-08 15:38] VITALS: BP 157/89
--- NOTE | 2017-05-08 15:52 | Emergency Room Report ---
History of Present Illness General Chief Complaint: Headache Source: Patient Present Illness HPI 81-year-old female with pmhx of HTN, DM, atrial fibrillation on xarelto p/w chest pain for 1 day, generalized weakness. Daughter states that patient was fine yesterday, however today felt very weak, unable to get out of bed, also complaining of chest pain Chest pain started while at rest. Localized to substernal area, no radiation to back or other areas, sharp in nature, gradual in onset, constant. + SOB. Denies palpitations, diaphoresis, n/v. also complaining of nonproductive cough x 1 day +fever, chills, no abd pain. Denies trauma. Unknown last stress test or cardiac cath Denies any abdominal pain, no vomiting or diarrhea Allergies: Coded Allergies: CODEINE (Verified Allergy, Unknown, 10/23/11) DIAZEPAM (Unverified Allergy, Unknown, c/o rash after given valium in ED, 08/23/16) PENICILLINS (Verified Allergy, Unknown, RASH/ITCH, 10/23/11) Patient History Past Medical History: see triage record Past Surgical History: none Pertinent Family History: none Reviewed Nursing Documentation: PMH: Agreed, PSxH: Agreed Nursing Documentation-PMH Hx Cardiac Problems: Yes - CHF Hx Hypertension: Yes Hx Pacemaker: No Hx Diabetes: Yes Hx Cancer: No Hx Gastrointestinal Problems: No Hx Neurological Problems: No Hx Vertigo: Yes Hx Dizziness: Yes Hx Weakness: Yes Review of Systems All Other Systems: negative except mentioned in HPI Physical Exam Vital Signs Date Time Temp Pulse Resp B/P (MAP) Pulse Ox O2 Delivery O2 Flow Rate FiO2 05/08/17 15:26 102.0 101 20 94 Room Air 05/08/17 15:38 157/89 Sp02 EP Interpretation: reviewed, normal General Appearance: other - Elderly female, appears fatigued, however, and cooperative, does not appear to be in pain at this time Head: normocephalic, atraumatic Eyes: bilateral eye normal inspection, bilateral eye PERRL, bilateral eye EOMI ENT: normal ENT inspection, normal pharynx, normal voice, moist mucus membranes Neck: normal inspection, full range of motion, supple Respiratory: normal inspection, lungs clear, normal breath sounds, no respiratory distress, no retraction, no wheezing, speaking full sentences, chest symmetrical Cardiovascular #1: regular rate, rhythm, no edema, normal capillary refill, tachycardia Cardiovascular #2: 2+ radial (R), 2+ radial (L) Gastrointestinal: normal inspection, non tender, soft, non-distended, no guarding Musculoskeletal: normal inspection, back normal, normal range of motion, non- tender Neurologic: normal inspection, alert, oriented x3, responsive, motor strength/ tone normal, sensory intact, speech normal Psychiatric: normal inspection, judgement/insight normal, memory normal Skin: normal inspection, normal color, no rash, warm/dry, well hydrated, normal turgor Procedures Critical Care Time Critical Care Time 40 minutes of CC time 81-year-old female, cough, fever, chest pain VS: Tachycardic Airway patent. Not hypoxic. PLAN: IV access, labs, lactate, troponin, Blood/Urine Cx, Abx, IVF Anticipate admission to Tele vs. DANIELLA CC time also includes review of labs, review of EMR, discussion with family and paperwork from SNF, d/w hospitalist CC could include dosing of pressors, additional Abx CC time does not include procedures Medical Decision Making Diagnostic Impression: Primary Impression: Pneumonia Additional Impressions: Sepsis Atrial fibrillation with RVR ER Course 81-year-old female, generalized weakness, chest pain DDX: ACS vs. CHF vs. pneumonia vs. UTI PE on differential however at this time there are other more likely diagnoses. Plan: IV access, obtain labs including troponin, EKG, CXR ASA Anticipate admission ER course: Patient was treated with ASA. has remained CP free febrile, tachycardic. likely source infection is pneumonia given clinical symptoms given ceftriaxone/azithromycin 1L fluids given, not full 30cc/kg bolus as unknown heart function of patient Patient's heart rate came up to 1 5160, atrial fibrillation with RVR, Cardizem IV given followed by by mouth dose Paged Dr Cheng from cardiology Sepsis Re-examination Time: 5:30pm VS: Temp 101 HR 96 BP 159/114 RR 22 CVS: RRR Respiratory: Lungs clear bilaterally Peripheral pulses: 2+ radial Capillary refill: <2 seconds Skin exam: warm, dry, no rash, not mottled Disposition: Patient requires admission for pneumonia, atrial fibrillation with RVR D/W hospitalist Dr Darrius Mars (who is covering for Dr Jose) Please note that this Emergency Department Report was dictated using Dragon apron cleaner technology software, occasionally this can lead to erroneous entry secondary to interpretation by the dictation equipment. EKG Diagnostic Results EP Interpretation: Yes Rate: normal Rhythm: NSR ST Segments: T-wave flattening in V2 ASA given to patient: Yes Rhythm Strip EP Interpretation: Yes Rate: 97 Rhythm: NSR, no PVCs, no ectopy Chest X-ray CXR: Ordered: Yes 1 view Indication: Chest pain EP interpretation: Yes Interpretation: unable to fully eval L lung base, possible L sided infiltrate Impression: possible L sided infiltrate Electronically signed by Mel Johnson MD Laboratory Tests Test 05/08/17 16:00 05/08/17 16:20 White Blood Count 10.8 K/UL (4.8-10.8) Red Blood Count 4.55 M/UL (4.20-5.40) Hemoglobin 12.3 G/DL (12.0-16.0) Hematocrit 38.5 % (37.0-47.0) Mean Corpuscular Volume 85 FL (80-99) Mean Corpuscular Hemoglobin 27.1 PG (27.0-31.0) Mean Corpuscular Hemoglobin Concent 32.0 G/DL (32.0-36.0) Red Cell Distribution Width 13.6 % (11.6-14.8) Platelet Count 201 K/UL (150-450) Mean Platelet Volume 9.3 FL (6.5-10.1) Neutrophils (%) (Auto) 82.1 % (45.0-75.0) H Lymphocytes (%) (Auto) 6.6 % (20.0-45.0) L Monocytes (%) (Auto) 10.0 % (1.0-10.0) Eosinophils (%) (Auto) 0.5 % (0.0-3.0) Basophils (%) (Auto) 0.8 % (0.0-2.0) Prothrombin Time 10.0 SEC (9.30-11.50) Prothrombin Time INR 1.0 (0.9-1.1) PTT 28 SEC (23-33) Urine Color Yellow Urine Appearance Clear Urine pH 5 (4.5-8.0) Urine Specific [place] 1.015 (1.005-1.035) Urine Protein 1+ (NEGATIVE) H Urine Glucose (UA) Negative (NEGATIVE) Urine Ketones Negative (NEGATIVE) Urine Occult Blood 3+ (NEGATIVE) H Urine Nitrite Negative (NEGATIVE) Urine Bilirubin Negative (NEGATIVE) Urine Urobilinogen Normal MG/DL (0.0-1.0) Urine Leukocyte Esterase Negative (NEGATIVE) Urine RBC 2-4 /HPF (0 - 2) H Urine WBC 0-2 /HPF (0 - 2) Urine Squamous Epithelial Cells Occasional /LPF Urine Bacteria Few /HPF (NONE) Urine Mucus Few /LPF (NONE/OCC) H Sodium Level 135 MMOL/L (136-145) L Potassium Level 3.8 MMOL/L (3.5-5.1) Chloride Level 99 MMOL/L (98-107) Carbon Dioxide Level 26 MMOL/L (21-32) Anion Gap 11 mmol/L (5-15) Blood Urea Nitrogen 19 mg/dL (7-18) H Creatinine 1.1 MG/DL (0.55-1.30) Estimate Glomerular Filtration Rate mL/min (>60) Glucose Level 99 MG/DL (74-106) Lactic Acid Level 1.00 mmol/L (0.66-2.22) Calcium Level 8.5 MG/DL (8.5-10.1) Total Bilirubin 0.4 MG/DL (0.2-1.0) Aspartate Amino Transferase (AST) 38 U/L (15-37) H Alanine Aminotransferase (ALT) 32 U/L (12-78) Alkaline Phosphatase 97 U/L (46-116) Troponin I 0.002 ng/mL (0.000-0.056) Pro-B-Type Natriuretic Peptide 650 pg/mL (0-125) H Total Protein 8.2 G/DL (6.4-8.2) Albumin 3.6 G/DL (3.4-5.0) Globulin 4.6 g/dL Albumin/Globulin Ratio 0.8 (1.0-2.7) L Last Vital Signs Date Time Temp Pulse Resp B/P (MAP) Pulse Ox O2 Delivery O2 Flow Rate FiO2 05/08/17 15:38 98 24 157/89 97 Room Air 05/08/17 15:26 102.0 Disposition: ADMITTED INPATIENT Condition: Serious Mel Johnson M.D. May 08, 2017 15:52
[2017-05-08 16:35] LABS: BASOPHILS % (AUTO) 0.8 % (0.0-2.0); EOSINOPHILS % (AUTO) 0.5 % (0.0-3.0); HEMATOCRIT 38.5 % (37.0-47.0); HEMOGLOBIN 12.3 G/DL (12.0-16.0); LYMPHOCYTES % (AUTO) 6.6 % (20.0-45.0); MEAN CORPUSCULAR VOLUME 85 FL (80-99); NEUTROPHILS % (AUTO) 82.1 % (45.0-75.0); PLATELET COUNT 201 K/UL (150-450); RED BLOOD COUNT 4.55 M/UL (4.20-5.40); RED CELL DISTRIBUTION WIDTH 13.6 % (11.6-14.8); WHITE BLOOD COUNT 10.8 K/UL (4.8-10.8)
[2017-05-08 16:43] LABS: ANION GAP 11 mmol/L (5-15); BLOOD UREA NITROGEN 19 mg/dL (7-18); CALCIUM 8.5 MG/DL (8.5-10.1); CARBON DIOXIDE 26 MMOL/L (21-32); CHLORIDE 99 MMOL/L (98-107); CREATININE 1.1 MG/DL (0.55-1.30); POTASSIUM 3.8 MMOL/L (3.5-5.1); SODIUM 135 MMOL/L (136-145)
[2017-05-08 16:49] LABS: APPEARANCE,URINE CLEAR; BILIRUBIN, URINE NEGATIVE (NEGATIVE); GLUCOSE, URINE (UA) NEGATIVE (NEGATIVE); KETONES,URINE NEGATIVE (NEGATIVE); LEUKOCYTE ESTERASE ,URINE NEGATIVE (NEGATIVE); NITRITE,URINE NEGATIVE (NEGATIVE); PH,URINE 5 (4.5-8.0); PROTEIN,URINE 1+ (NEGATIVE); UROBILINOGEN,URINE NORMAL MG/DL (0.0-1.0)
[2017-05-08 16:53] LABS: COLOR,URINE YELLOW
[2017-05-08 16:54] LABS: ALANINE AMINOTRANSFERASE 32 U/L (12-78); ALBUMIN 3.6 G/DL (3.4-5.0); ALBUMIN/GLOBULIN RATIO 0.8 (1.0-2.7); ALKALINE PHOSPHATASE 97 U/L (46-116); ASPARTATE AMINO TRANSFERASE 38 U/L (15-37); BILIRUBIN,TOTAL 0.4 MG/DL (0.2-1.0)
[2017-05-08] MEDS ORDERED: METFORMIN HCL1000 M1 ORAL (17:13)
[2017-05-08] MEDS ORDERED: DYAZIDE1 CAP ORAL (17:13)
[2017-05-08] MEDS ORDERED: NEXIUM40 MG ORAL (17:13)
[2017-05-08] MEDS ORDERED: GABAPENTIN300 MG ORAL (17:13)
[2017-05-08] MEDS ORDERED: GLIMEPIRIDE4 MG ORAL (17:13)
[2017-05-08] MEDS ORDERED: Azithromycin 500 MG in D5W 275 ML IVPB ONE (17:15)
[2017-05-08] MEDS ORDERED: cefTRIAXone 1 GM in NS 55 ML IVPB ONE (17:15)
[2017-05-08 17:48] VITALS: BP 159/114
[2017-05-08] MEDS ORDERED: dilTIAZem HCl 25mg/5ml Inj IVP ONE ×2 (18:00→19:00)
[2017-05-08] MEDS ORDERED: VENTOLIN HFA18 GM INH (18:02)
[2017-05-08] MEDS ORDERED: BREO ELLIPTA 11 EACH IH (18:02)
[2017-05-08] MEDS ORDERED: INCRUSE ELLI62.5 MCG IH (18:02)
[2017-05-08] MEDS ORDERED: dilTIAZem HCl 30mg tab ORAL ONE (18:15)
[2017-05-08] MEDS ORDERED: Azithromycin 500mg Inj IV ONE (19:22)
[2017-05-08 19:48] VITALS: BP 114/57
[2017-05-08] MEDS ORDERED: Albuterol 90mcg Inhaler 8gm INH PRN (21:00)
[2017-05-08 21:19] VITALS: BP 113/67
[2017-05-08 22:00] VITALS: BP 106/65
[2017-05-08] MEDS: NovoLOG Insulin Flexpen SUBQ SCH (23:47)
[2017-05-09] VITALS: BP_SYST 101; BP_SYST 96; BP_DIAS 61; BP_DIAS 67
[2017-05-09 04:52] VITALS: BP 117/65
[2017-05-09] MEDS: NovoLOG Insulin Flexpen SUBQ SCH ×4 (06:30→21:00)
[2017-05-09] MEDS: Glimepiride 4mg tab ORAL SCH ×2 (06:39→16:58)
[2017-05-09 06:51] LABS: BASOPHILS % (AUTO) 0.8 % (0.0-2.0); EOSINOPHILS % (AUTO) 0.1 % (0.0-3.0); HEMATOCRIT 37.4 % (37.0-47.0); HEMOGLOBIN 12.2 G/DL (12.0-16.0); LYMPHOCYTES % (AUTO) 8.4 % (20.0-45.0); MEAN CORPUSCULAR VOLUME 84 FL (80-99); MONOCYTES % (AUTO) 12.4 % (1.0-10.0); NEUTROPHILS % (AUTO) 78.3 % (45.0-75.0); PLATELET COUNT 178 K/UL (150-450); RED BLOOD COUNT 4.45 M/UL (4.20-5.40); RED CELL DISTRIBUTION WIDTH 13.4 % (11.6-14.8); WHITE BLOOD COUNT 8.6 K/UL (4.8-10.8)
[2017-05-09 06:56] LABS: ANION GAP 9 mmol/L (5-15); BLOOD UREA NITROGEN 18 mg/dL (7-18); CARBON DIOXIDE 28 MMOL/L (21-32); CHLORIDE 99 MMOL/L (98-107); CREATININE 1.2 MG/DL (0.55-1.30); POTASSIUM 3.3 MMOL/L (3.5-5.1); SODIUM 136 MMOL/L (136-145)
[2017-05-09 08:00] VITALS: BP 126/84
[2017-05-09] MEDS ORDERED: Pneumococcal Vaccine 25mcg/0.5ml IM ONE (09:00)
[2017-05-09] MEDS ORDERED: Xarelto 10mg tab ORAL SCH (09:00)
[2017-05-09] MEDS: Pantoprazole Inj IVP SCH (09:01)
--- NOTE | 2017-05-09 09:56 | Diagnostic Imaging Report ---
Indication: Reason For Exam: PAIN Technique: XRAY Chest 1v. Comparison: 11/11/2016 Findings: The heart remains enlarged. There are no acute infiltrates. Thoracic osteophytes are present. There has been no change. Impression: No acute abnormality. No change from prior exam. .
--- NOTE | 2017-05-09 11:40 | History and Physical ---
History of Present Illness General Date patient seen: May 09, 2017 Reason for Hospitalization: dizziness Present Illness HPI 81 year old female with a PMH history of HTN, DM, atrial fibrillation on xarelto p/w chest pain, cough, and dizziness x 1 day. She reports that she felt very weak yesterday and was unable to get out of bed. She states that she started feeling dizzy with chest pain at rest. She states that it is localized to substernal area, sharp in nature, constant, with no radiation. Reports associated SOB and palpitations. Also reports fevers (Tmax 101.4), chills, non- productive cough x 1 day. Denies abdominal pain, n/v, trauma. Unknown last stress test or cardiac cath. In the ED, patient was noted to have A. fibb with RVR and was given IV diltiazem and subsequent PO diltiazem. Patient was also given IV ceftriaxone and azithromycin given her symptoms. CXR looks unremarkable but from my read there is a questionable left lower lobe infiltrate. Allergies: Coded Allergies: CODEINE (Verified Allergy, Unknown, 10/23/11) DIAZEPAM (Unverified Allergy, Unknown, c/o rash after given valium in ED, 08/23/16) PENICILLINS (Verified Allergy, Unknown, RASH/ITCH, 10/23/11) Medication History Scheduled Albuterol Sulfate (Ventolin Hfa), 1 PUFF INH EVERY 6 HOURS, (Reported) Esomeprazole Magnesium (Nexium), 40 MG ORAL DAILY, (Reported) Furosemide* (Lasix*), 20 MG ORAL THREE TIMES A WEEK Gabapentin* (Gabapentin*), 300 MG ORAL BEDTIME, (Reported) Glimepiride* (Glimepiride*), 4 MG ORAL BID, (Reported) Hydralazine Hcl* (Hydralazine Hcl*), 100 MG ORAL EVERY 8 HOURS, (Reported) Metformin Hcl* (Metformin Hcl*), 1,000 MG ORAL DAILY, (Reported) Pravastatin Sod* (Pravastatin Sod*), 20 MG ORAL BEDTIME, (Reported) Rivaroxaban (Xarelto), 20 MG ORAL DAILY Sotalol Hcl* (Betapace*), 80 MG PO TID, (Reported) Triamterene/Hctz (Triamterene-Hctz 37.5-25 mg Cp), 1 CAP ORAL DAILY, (Reported) Miscellaneous Medications Fluticasone/Vilanterol (Breo Ellipta 100-25 Mcg INH), 1 EACH IH, (Reported) Umeclidinium [place] (Incruse Ellipta), 62.5 MCG IH, (Reported) Patient History History Provided By: Patient Healthcare decision maker Resuscitation status Full Code Advanced Directive on File Family History Family History: Patient reports no known family medical history. Review of Systems All Other Systems: negative except mentioned in HPI Physical Exam General Appearance: no apparent distress, alert HEENT: normocephalic, atraumatic Neck: non-tender, normal alignment, supple Respiratory/Chest: chest wall non-tender, lungs clear, normal breath sounds Cardiovascular/Chest: regularly irregular Abdomen: normal bowel sounds, non tender, soft Skin Exam: normal pigmentation, warm/dry Neurologic: fountain server II-XII grossly normal, no motor/sensory deficits Last 24 Hour Vital Signs Date Time Temp Pulse Resp B/P (MAP) Pulse Ox O2 Delivery O2 Flow Rate FiO2 05/09/17 08:00 112 05/09/17 04:52 97.2 90 18 117/65 98 Room Air 05/09/17 04:00 124 05/09/17 00:00 97.6 80 20 101/67 99 Room Air 05/09/17 00:00 104 05/08/17 22:00 97.7 80 20 106/65 97 Room Air 05/08/17 21:45 101.2 85 18 113/67 97 Room Air 05/08/17 21:19 101.2 85 18 113/67 97 Room Air 05/08/17 19:48 107 18 114/57 97 Room Air 05/08/17 19:26 145 147/88 05/08/17 18:23 142 103/72 05/08/17 18:01 170 127/82 05/08/17 17:51 101.2 05/08/17 17:48 101.2 98 20 159/114 95 Room Air 05/08/17 16:05 101.0 05/08/17 15:38 98 24 157/89 97 Room Air 05/08/17 15:26 102.0 101 20 157/89 94 Room Air Laboratory Tests Test 05/08/17 16:00 05/08/17 16:20 05/08/17 23:10 05/09/17 06:00 White Blood Count 10.8 K/UL (4.8-10.8) 8.6 K/UL (4.8-10.8) Red Blood Count 4.55 M/UL (4.20-5.40) 4.45 M/UL (4.20-5.40) Hemoglobin 12.3 G/DL (12.0-16.0) 12.2 G/DL (12.0-16.0) Hematocrit 38.5 % (37.0-47.0) 37.4 % (37.0-47.0) Mean Corpuscular Volume 85 FL (80-99) 84 FL (80-99) Mean Corpuscular Hemoglobin 27.1 PG (27.0-31.0) 27.4 PG (27.0-31.0) Mean Corpuscular Hemoglobin Concent 32.0 G/DL (32.0-36.0) 32.6 G/DL (32.0-36.0) Red Cell Distribution Width 13.6 % (11.6-14.8) 13.4 % (11.6-14.8) Platelet Count 201 K/UL (150-450) 178 K/UL (150-450) Mean Platelet Volume 9.3 FL (6.5-10.1) 8.4 FL (6.5-10.1) Neutrophils (%) (Auto) 82.1 % (45.0-75.0) H 78.3 % (45.0-75.0) H Lymphocytes (%) (Auto) 6.6 % (20.0-45.0) L 8.4 % (20.0-45.0) L Monocytes (%) (Auto) 10.0 % (1.0-10.0) 12.4 % (1.0-10.0) H Eosinophils (%) (Auto) 0.5 % (0.0-3.0) 0.1 % (0.0-3.0) Basophils (%) (Auto) 0.8 % (0.0-2.0) 0.8 % (0.0-2.0) Prothrombin Time 10.0 SEC (9.30-11.50) Prothromb Time International Ratio 1.0 (0.9-1.1) Activated Partial Thromboplast Time 28 SEC (23-33) Urine Color Yellow Urine Appearance Clear Urine pH 5 (4.5-8.0) Urine Specific [place] 1.015 (1.005-1.035) Urine Protein 1+ (NEGATIVE) H Urine Glucose (UA) Negative (NEGATIVE) Urine Ketones Negative (NEGATIVE) Urine Occult Blood 3+ (NEGATIVE) H Urine Nitrite Negative (NEGATIVE) Urine Bilirubin Negative (NEGATIVE) Urine Urobilinogen Normal MG/DL (0.0-1.0) Urine Leukocyte Esterase Negative (NEGATIVE) Urine RBC 2-4 /HPF (0 - 2) H Urine WBC 0-2 /HPF (0 - 2) Urine Squamous Epithelial Cells Occasional /LPF Urine Bacteria Few /HPF (NONE) Urine Mucus Few /LPF (NONE/OCC) H Sodium Level 135 MMOL/L (136-145) L 136 MMOL/L (136-145) Potassium Level 3.8 MMOL/L (3.5-5.1) 3.3 MMOL/L (3.5-5.1) L Chloride Level 99 MMOL/L (98-107) 99 MMOL/L (98-107) Carbon Dioxide Level 26 MMOL/L (21-32) 28 MMOL/L (21-32) Anion Gap 11 mmol/L (5-15) 9 mmol/L (5-15) Blood Urea Nitrogen 19 mg/dL (7-18) H 18 mg/dL (7-18) Creatinine 1.1 MG/DL (0.55-1.30) 1.2 MG/DL (0.55-1.30) Estimat Glomerular Filtration Rate mL/min (>60) mL/min (>60) Glucose Level 99 MG/DL (74-106) 118 MG/DL (74-106) H Lactic Acid Level 1.00 mmol/L (0.66-2.22) Calcium Level 8.5 MG/DL (8.5-10.1) 8.0 MG/DL (8.5-10.1) L Total Bilirubin 0.4 MG/DL (0.2-1.0) Aspartate Amino Transf (AST/SGOT) 38 U/L (15-37) H Alanine Aminotransferase (ALT/SGPT) 32 U/L (12-78) Alkaline Phosphatase 97 U/L (46-116) Troponin I 0.002 ng/mL (0.000-0.056) 0.014 ng/mL (0.000-0.056) Pro-B-Type Natriuretic Peptide 650 pg/mL (0-125) H Total Protein 8.2 G/DL (6.4-8.2) Albumin 3.6 G/DL (3.4-5.0) Globulin 4.6 g/dL Albumin/Globulin Ratio 0.8 (1.0-2.7) L Magnesium Level 1.8 MG/DL (1.8-2.4) Height (Feet): 5 Height (Inches): 5.00 Weight (Pounds): 167 Medications Current Medications Medications (Trade) Dose Ordered Sig/[place] Route PRN Reason Start Time Stop Time Status Last Admin Dose Admin Acetaminophen (Tylenol) 650 mg Q6H PRN ORAL Mild Pain/Temp > 100.5 05/09/17 09:30 06/08/17 09:29 05/09/17 10:56 Albuterol Sulfate (Proventil MDI) 1 puff Q6H PRN INH Shortness of Breath 05/08/17 21:00 06/07/17 20:59 Furosemide (Lasix) 40 mg EVERY 12 HOURS IV 05/08/17 23:00 06/07/17 22:59 05/09/17 09:00 Glimepiride (Amaryl) 4 mg BIAC ORAL 05/09/17 06:30 06/08/17 06:29 05/09/17 06:39 Insulin Aspart (NovoLOG) BEFORE MEALS AND HS SUBQ 05/08/17 22:00 06/07/17 21:59 05/08/17 23:47 Pantoprazole (Protonix) 40 mg DAILY IVP 05/09/17 09:00 06/08/17 08:59 05/09/17 09:01 Rivaroxaban (Xarelto) 20 mg DAILY ORAL 05/09/17 09:00 06/08/17 08:59 05/09/17 09:00 Assessment/Plan Problem List: (1) Atrial fibrillation with rapid ventricular response ICD Codes: I48.91 - Unspecified atrial fibrillation SNOMED: 857483165862339 (2) Chest pain ICD Codes: R07.9 - Chest pain, unspecified SNOMED: 14418203 (3) Upper respiratory infection ICD Codes: J06.9 - Acute upper respiratory infection, unspecified SNOMED: 07105113 (4) Diabetes ICD Codes: E11.9 - Type 2 diabetes mellitus without complications SNOMED: 15043563 (5) HTN (hypertension) ICD Codes: I10 - Essential (primary) hypertension SNOMED: 62514221 (6) Hypokalemia ICD Codes: E87.6 - Hypokalemia SNOMED: 43218351 Status: stable Assessment/Plan - Admit to tele - s/p IV diltiazem and PO diltiazem - IVF - continue xarelto - trend troponins - check ECHO - continue IV azithromycin - repeat CXR - check influenza A&B - f/u blood cultures - Cardiology consulted - Replete lytes prn - continue home meds for DM, GERD, and a. 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 Total patient care and coordination time: 56 min Frances Maurice N.P. May 09, 2017 11:40
[2017-05-09 12:00] VITALS: BP 130/74
[2017-05-09 13:11] VITALS: BP 120/80
[2017-05-09] MEDS: Sotalol 80mg tab ORAL SCH ×2 (13:20→21:20)
[2017-05-09] MEDS ORDERED: Metoprolol 5mg/5ml Inj IVPB ONE (13:30)
[2017-05-09] MEDS ORDERED: Ipratropium 0.02% Inh Soln 2.5ml UD HHN PRN (13:30)
[2017-05-09] MEDS: Azithromycin 500 MG in D5W 275 ML IV SCH (14:01)
--- NOTE | 2017-05-09 19:12 | Cardiology Report ---
APPROVED REPORT EKG Measurement Heart [id number] CT 158P36 [id number] Sinus rhythm with premature atrial complexes Low voltage QRS Septal infarct, age undetermined Abnormal ECG
[2017-05-09 20:00] VITALS: BP 120/65
--- NOTE | 2017-05-09 20:45 | Consultation ---
DATE OF CONSULTATION: 05/09/2017 CARDIOLOGY CONSULTATION CONSULTING PHYSICIAN: Tyson Lindquist M.D. ATTENDING/REQUESTING PHYSICIAN: Nicole Jose M.D. REASON FOR CONSULTATION: Rapid atrial fibrillation. HISTORY OF PRESENT ILLNESS: This is an 81-year-old female with history of hypertensive heart disease and paroxysmal atrial fibrillation, who presented to the emergency room with cough, congestion, and chest pain of one day's duration. She felt weak, unable to get out of bed, and dizzy with standing. She had chest pain at rest. It was described as sharp in nature and constant with no radiation. The patient was admitted with fevers as well and started on antibiotic. Today, she had persistent rapid atrial fibrillation prompting this consultation. I felt the patient has not received her usual dose of sotalol. She did receive some doses of diltiazem earlier. PAST MEDICAL HISTORY: Paroxysmal atrial fibrillation, hyperlipidemia, type 2 diabetes mellitus, diabetic neuropathy, and diastolic congestive heart failure. ALLERGIES: Include diazepam, penicillin, and codeine. SOCIAL HISTORY: Negative for smoking, alcohol, or substance abuse. FAMILY HISTORY: Noncontributory. REVIEW OF SYSTEMS: A 10-point review of systems performed. All systems negative other than noted above. PHYSICAL EXAMINATION: GENERAL: She appears to be in mild distress due to congestion. VITAL SIGNS: Blood pressure 117/65, pulse 124, respirations 20, and afebrile. T-max 101.2. HEENT: Oropharynx clear. NECK: Supple. Jugular venous pressure is slightly elevated. LUNGS: Coarse breath sounds. Scattered rhonchi. HEART: Irregularly irregular rhythm. Rapid rate. Normal S1 and S2. No appreciated murmur. ABDOMEN: Soft, nontender. EXTREMITIES: No edema. LABORATORY AND DIAGNOSTIC DATA: Troponins are negative x3. BUN 18, creatinine 1.2, and potassium 3.3. White count 8.6, hemoglobin 12.2. Magnesium 1.8. Chest x-ray with possible left lower lobe infiltrate. EKG, atrial fibrillation, rapid ventricular response, nonspecific ST changes. IMPRESSION: 1. Paroxysmal atrial fibrillation, now with increased ventricular response; likely due to acute infection, recurring episodes of fevers, and withdrawal of beta-blockers. 2. Acute myocardial ischemia. 3. Pleuritic chest pain. 4. Hypertension, controlled. 5. Type 2 diabetes mellitus with neuropathy. 6. Mild hypovolemia, dehydration. 7. Hypokalemia. PLAN: 1. Continue cardiac monitoring. 2. IV metoprolol x1 dose. 3. Resume sotalol at baseline dosing. 4. Potassium replacement orally. 5. Empiric magnesium intravenously. 6. Continue antibiotics, respiratory hygiene, and avoid beta-agonist. 7. Continue rivaroxaban for cardioembolic prophylaxis. Tyson Lindquist M.D. DR: Annika JOB#: [id number] CC:
[2017-05-10] VITALS: BP 145/60
[2017-05-10 04:00] VITALS: BP_SYST 135; BP_SYST 140; BP_DIAS 72; BP_DIAS 75
[2017-05-10] MEDS: NovoLOG Insulin Flexpen SUBQ SCH ×4 (06:30→21:11)
[2017-05-10] MEDS: Glimepiride 4mg tab ORAL SCH ×2 (06:36→16:30)
[2017-05-10] MEDS: Sotalol 80mg tab ORAL SCH ×3 (06:36→21:08)
[2017-05-10 08:00] VITALS: BP 129/58
[2017-05-10 08:11] LABS: BASOPHILS % (AUTO) 0.7 % (0.0-2.0); HEMATOCRIT 41.4 % (37.0-47.0); HEMOGLOBIN 13.2 G/DL (12.0-16.0); LYMPHOCYTES % (AUTO) 16.8 % (20.0-45.0); MEAN CORPUSCULAR VOLUME 85 FL (80-99); MONOCYTES % (AUTO) 9.6 % (1.0-10.0); NEUTROPHILS % (AUTO) 72.9 % (45.0-75.0); PLATELET COUNT 191 K/UL (150-450); RED BLOOD COUNT 4.86 M/UL (4.20-5.40); RED CELL DISTRIBUTION WIDTH 13.6 % (11.6-14.8); WHITE BLOOD COUNT 8.4 K/UL (4.8-10.8)
[2017-05-10 08:27] LABS: ANION GAP 8 mmol/L (5-15); BLOOD UREA NITROGEN 28 mg/dL (7-18); CALCIUM 7.7 MG/DL (8.5-10.1); CARBON DIOXIDE 30 MMOL/L (21-32); CHLORIDE 98 MMOL/L (98-107); CREATININE 1.4 MG/DL (0.55-1.30); POTASSIUM 3.7 MMOL/L (3.5-5.1); SODIUM 136 MMOL/L (136-145)
[2017-05-10] MEDS: Pantoprazole Inj IVP SCH (08:59)
[2017-05-10] MEDS: Xarelto 15mg tab ORAL SCH (08:59)
[2017-05-10 12:00] VITALS: BP 130/60
--- NOTE | 2017-05-10 12:00 | General Progress Note ---
Assessment/Plan Problem List: (1) Atrial fibrillation with rapid ventricular response ICD Codes: I48.91 - Unspecified atrial fibrillation SNOMED: 299702173141267 (2) Chest pain ICD Codes: R07.9 - Chest pain, unspecified SNOMED: 70310346 (3) Upper respiratory infection ICD Codes: J06.9 - Acute upper respiratory infection, unspecified SNOMED: 14756440 (4) Diabetes ICD Codes: E11.9 - Type 2 diabetes mellitus without complications SNOMED: 01023428 (5) HTN (hypertension) ICD Codes: I10 - Essential (primary) hypertension SNOMED: 02367439 (6) Hypokalemia ICD Codes: E87.6 - Hypokalemia SNOMED: 92413722 (7) Influenza A ICD Codes: J10.1 - Influenza due to other identified influenza virus with other respiratory manifestations SNOMED: 550923497 (8) ANDRES (acute kidney injury) ICD Codes: N17.9 - Acute kidney failure, unspecified SNOMED: 97260153 Status: doing well Assessment/Plan - start tamiflu 30mg PO BID x 5 days (renally-dosed) - s/p IV diltiazem x 1 and PO diltiazem x 1. s/p IV metoprolol x 1 - IV lasix 40mg BID per cards. Given ANDRES, will d/w cards for decreasing dose - continue sotalol 80mg PO q8hr - continue xarelto - trend troponins - check ECHO - continue IV azithromycin for possible left lower lobe infiltrate - repeat CXR - f/u blood cultures --> NGTD - Cardiology consulted. appreciate recs - Replete lytes prn - continue home meds for DM, GERD, and a. fibb - continue to monitor on tele D/w RN, patient, and business continuity planner. Total patient care and coordination time: 36 min Subjective Date patient seen: May 10, 2017 Allergies: Coded Allergies: CODEINE (Verified Allergy, Unknown, 10/23/11) DIAZEPAM (Unverified Allergy, Unknown, c/o rash after given valium in ED, 08/23/16) PENICILLINS (Verified Allergy, Unknown, RASH/ITCH, 10/23/11) Subjective - reports feeling better - received IV metoprolol x 1 and was resumed on home sotalol - patient has been in an out of a. fibb with RVR - denies chest pain, fevers, chills. reports mild sob but saturating well - noted to be positive for influenza A Objective Last 24 Hour Vital Signs Date Time Temp Pulse Resp B/P (MAP) Pulse Ox O2 Delivery O2 Flow Rate FiO2 05/10/17 08:00 98.4 104 19 129/58 97 Room Air 05/10/17 07:40 69 05/10/17 06:36 86 135/72 05/10/17 04:00 73 05/10/17 04:00 98.1 68 20 135/72 92 05/10/17 01:06 98.9 05/10/17 00:00 98.4 84 18 145/60 96 05/10/17 00:00 121 05/09/17 21:20 140 120/65 05/09/17 20:00 78 05/09/17 20:00 97.2 97 18 120/65 97 05/09/17 19:46 79 20 Room Air 05/09/17 18:24 98.0 86 18 Room Air 05/09/17 16:00 98.0 86 18 05/09/17 16:00 86 05/09/17 13:25 164 120/80 05/09/17 13:20 164 120/80 05/09/17 13:11 99.3 164 18 120/80 98 Room Air 05/09/17 12:00 98.0 145 19 130/74 98 Room Air 05/09/17 12:00 136 Intake and Output 05/09/17 05/10/17 19:00 07:00 Intake Total 100 ml 900 ml Balance 100 ml 900 ml Intake IV Total 100 ml 900 ml Laboratory Tests 05/10/17 07:10: White Blood Count 8.4, Red Blood Count 4.86, Hemoglobin 13.2, Hematocrit 41.4, Mean Corpuscular Volume 85, Mean Corpuscular Hemoglobin 27.2, Mean Corpuscular Hemoglobin Concent 32.0, Red Cell Distribution Width 13.6, Platelet Count 191, Mean Platelet Volume 8.7, Neutrophils (%) (Auto) 72.9, Lymphocytes (%) (Auto) 16.8L, Monocytes (%) (Auto) 9.6, Eosinophils (%) (Auto) 0.0, Basophils (%) (Auto ) 0.7, Sodium Level 136, Potassium Level 3.7, Chloride Level 98, Carbon Dioxide Level 30, Anion Gap 8, Blood Urea Nitrogen 28H, Creatinine 1.4H, Estimat Glomerular Filtration Rate , Glucose Level 106, Calcium Level 7.7L Height (Feet): 5 Height (Inches): 5.00 Weight (Pounds): 167 General Appearance: no apparent distress, alert EENT: PERRL/EOMI, normal ENT inspection Neck: non-tender, normal alignment, supple Cardiovascular: normal peripheral pulses, regularly irregular Respiratory/Chest: chest wall non-tender, lungs clear, normal breath sounds Abdomen: normal bowel sounds, non tender, soft Neurologic: parlor chaperone II-XII grossly normal, no motor/sensory deficits Skin: normal pigmentation, warm/dry Frances Maurice N.P. May 10, 2017 12:00
[2017-05-10] MEDS: Azithromycin 500 MG in D5W 275 ML IV SCH (14:42)
[2017-05-10 16:00] VITALS: BP 124/72
--- NOTE | 2017-05-10 16:14 | Diagnostic Imaging Report ---
Indication: Dyspnea Comparison: 05/08/2017 A single view chest radiograph was obtained. Findings: Bones are osteopenic. Heart is enlarged. Slightly increasing reticular markings throughout the lungs and prominent vascularity demonstrated relative to the last study. Osteophytes noted throughout the thoracic spine. IMPRESSION: Mild developing interstitial edema/CHF suspected
[2017-05-10] MEDS: guaiFENesin DM 100mg/5ml ORAL PRN (16:30)
[2017-05-10 20:00] VITALS: BP 93/54
[2017-05-11] VITALS: BP 104/58
--- NOTE | 2017-05-11 03:45 | Progress Note ---
DATE: 05/10/2017 CARDIOLOGY PROGRESS NOTE SUBJECTIVE: Case was reviewed with the primary care physician. The patient has less shortness of breath. No chest pain. OBJECTIVE: VITAL SIGNS: Blood pressure 129/58, heart rate 69 to 104, respiratory rate 19, and afebrile. NECK: Supple. LUNGS: With few rhonchi. CARDIAC: Regular rhythm and rate. Normal S1 and S2. A 1/6 systolic murmur at apex. ABDOMEN: Soft. EXTREMITIES: No edema. LABORATORY DATA: Labs reviewed. IMPRESSION: 1. Influenza upper respiratory infection. 2. Dehydration. 3. Hypovolemia, resolving. 4. Pleuritic chest pain. 5. Paroxysmal atrial fibrillation with rapid ventricular response. 6. Acute on chronic diastolic congestive heart failure. 7. Acute on chronic renal insufficiency post diuresis. PLAN: 1. Continue beta-blockade. 2. Continue anti-viral therapy. 3. Decrease diuresis to maintenance dosing soon. 4. Rivaroxaban for cardioembolic prophylaxis. 5. Trend natriuretic peptide assay. Tyson Lindquist M.D. DR: JANIE JOB#: [id number] CC:
[2017-05-11 04:00] VITALS: BP 108/60
[2017-05-11] MEDS: Sotalol 80mg tab ORAL SCH (06:00)
[2017-05-11] MEDS: NovoLOG Insulin Flexpen SUBQ SCH ×2 (06:27→11:30)
[2017-05-11] MEDS: Glimepiride 4mg tab ORAL SCH (06:35)
[2017-05-11 08:00] VITALS: BP 134/73
[2017-05-11 08:49] LABS: BASOPHILS % (AUTO) 0.3 % (0.0-2.0); EOSINOPHILS % (AUTO) 0.1 % (0.0-3.0); HEMATOCRIT 36.4 % (37.0-47.0); HEMOGLOBIN 11.6 G/DL (12.0-16.0); LYMPHOCYTES % (AUTO) 26.8 % (20.0-45.0); MEAN CORPUSCULAR VOLUME 85 FL (80-99); MONOCYTES % (AUTO) 11.1 % (1.0-10.0); NEUTROPHILS % (AUTO) 61.7 % (45.0-75.0); PLATELET COUNT 172 K/UL (150-450); RED BLOOD COUNT 4.26 M/UL (4.20-5.40); RED CELL DISTRIBUTION WIDTH 13.3 % (11.6-14.8); WHITE BLOOD COUNT 4.4 K/UL (4.8-10.8)
[2017-05-11 09:00] LABS: ANION GAP 9 mmol/L (5-15); BLOOD UREA NITROGEN 29 mg/dL (7-18); CALCIUM 7.2 MG/DL (8.5-10.1); CARBON DIOXIDE 26 MMOL/L (21-32); CHLORIDE 103 MMOL/L (98-107); CREATININE 1.1 MG/DL (0.55-1.30); SODIUM 138 MMOL/L (136-145)
[2017-05-11] MEDS: Xarelto 15mg tab ORAL SCH (09:40)
[2017-05-11] MEDS: Pantoprazole Inj IVP SCH (09:40)
[2017-05-11] MEDS: guaiFENesin DM 100mg/5ml ORAL PRN (10:17)
[2017-05-11 12:00] VITALS: BP 125/72
[2017-05-11] MEDS ORDERED: FUROSEMIDE40 MG ORAL (15:04)
[2017-05-11] MEDS ORDERED: TAMIFLU75 MG ORAL (15:04)
--- NOTE | 2017-05-11 15:06 | Discharge Summary ---
Discharge Summary Hospital Course Date of Admission May 08, 2017 at 16:59 Date of Discharge Admitting Diagnosis GENERALIZED WEAKNESS,ACS Reason for Hospitalization: Influenza infection HPI 81 year old female with a PMH history of HTN, DM, atrial fibrillation on xarelto p/w chest pain, cough, and dizziness x 1 day. She reports that she felt very weak yesterday and was unable to get out of bed. She states that she started feeling dizzy with chest pain at rest. She states that it is localized to substernal area, sharp in nature, constant, with no radiation. Reports associated SOB and palpitations. Also reports fevers (Tmax 101.4), chills, non- productive cough x 1 day. Denies abdominal pain, n/v, trauma. Unknown last stress test or cardiac cath. In the ED, patient was noted to have A. fibb with RVR and was given IV diltiazem and subsequent PO diltiazem. Patient was also given IV ceftriaxone and azithromycin given her symptoms. CXR looks unremarkable but from my read there is a questionable left lower lobe infiltrate. Consultations Cardiology Hospital Course Pt was admitted and seen by cardiology. Pt's HR controlled w/ diltiazem. Pt was found to have Influenza A infection. She was started on tamiflu. Pt also w/ CHF treated w/ lasix IV. Pt had ANDRES so lasix dose reduced. Pt with improvement in symptoms. Prior to d/c, pt was HD stable, tolerating PO and ambulating w/o assistance. Discharge physical exam General: alert, cooperative, no distress, appears stated age Head: normocephalic, without obvious abnormality, atraumatic Eyes: conjunctivae/corneas clear. PERRL, EOM's intact Throat: lips, mucosa, and tongue normal. MMM Neck: supple, symmetrical, trachea midline, and no JVD Lungs: clear to auscultation bilaterally Heart: regular rate and rhythm, S1, S2 normal, no murmur, click, rub or gallop Abdomen: soft, non-tender, non-distended, bowel sounds normal; no masses or organomegaly Extremities: extremities normal, atraumatic, no cyanosis or edema Pulses: 2+ and symmetric Skin: skin color, texture, turgor normal; no rashes or lesions Neurologic: grossly normal, no focal deficits Discharge diagnoses (1) Atrial fibrillation with rapid ventricular response ICD Codes: I48.91 - Unspecified atrial fibrillation SNOMED: 254182110592793 (2) Chest pain, atypical ICD Codes: R07.9 - Chest pain, unspecified SNOMED: 79524544 (3) Upper respiratory infection ICD Codes: J06.9 - Acute upper respiratory infection, unspecified SNOMED: 25911386 (4) Diabetes ICD Codes: E11.9 - Type 2 diabetes mellitus without complications SNOMED: 81317020 (5) HTN (hypertension) ICD Codes: I10 - Essential (primary) hypertension SNOMED: 00546977 (6) Hypokalemia ICD Codes: E87.6 - Hypokalemia SNOMED: 59142062 (7) Influenza A infection ICD Codes: J10.1 - Influenza due to other identified influenza virus with other respiratory manifestations SNOMED: 995464392 (8) ANDRES (acute kidney injury) ICD Codes: N17.9 - Acute kidney failure, unspecified SNOMED: 29226133 (9) Acute on chronic diastolic heart failure Discharge Medications New Medications: Furosemide* (Lasix*) 40 Mg Tablet 40 MG ORAL DAILY for 30 Days, #30 TAB Oseltamivir Phosphate (Tamiflu) 75 Mg Capsule 30 MG ORAL Q12HR, #7 CAP Continued Medications: Albuterol Sulfate (Ventolin Hfa) 18 Gm Hfa.aer.ad 1 PUFF INH EVERY 6 HOURS, #18 GM 0 Refills Esomeprazole Magnesium (Nexium) 40 Mg Capsule.dr 40 MG ORAL DAILY, CAP Fluticasone/Vilanterol (Breo Ellipta 100-25 Mcg INH) 1 Each Blst.w.dev 1 EACH IH for 30 Days, #60 EACH Gabapentin* (Gabapentin*) 300 Mg Capsule 300 MG ORAL BEDTIME, CAP Glimepiride* (Glimepiride*) 4 Mg Tablet 4 MG ORAL BID, TAB Hydralazine Hcl* (Hydralazine Hcl*) 100 Mg Tablet 100 MG ORAL EVERY 8 HOURS, TAB Metformin Hcl* (Metformin Hcl*) 1,000 Mg Tablet 1000 MG ORAL DAILY, TAB Pravastatin Sod* (Pravastatin Sod*) 20 Mg Tablet 20 MG ORAL BEDTIME, TAB Rivaroxaban (Xarelto) 20 Mg Tablet 20 MG ORAL DAILY for 30 Days, #30 MG 2 Refills Sotalol Hcl* (Betapace*) 80 Mg Tablet 80 MG PO TID Triamterene/Hctz (Triamterene-Hctz 37.5-25 mg Cp) 1 Each Capsule 1 CAP ORAL DAILY, #10 CAP 0 Refills Umeclidinium [place] (Incruse Ellipta) 62.5 Mcg Blst.w.dev 62.5 MCG IH Discontinued Medications: Furosemide* (Lasix*) 20 Mg Tablet 20 MG ORAL THREE TIMES A WEEK for 30 Days, #30 TAB Discharge Condition Upon Discharge: stable Discharge Disposition Patient was discharged to Home with Home Health() Discharge Diagnoses: Jose Daniel Watts M.D. May 11, 2017 15:06
--- NOTE | 2017-05-11 23:45 | Progress Note ---
DATE: 05/11/2017 CARDIOLOGY PROGRESS NOTE SUBJECTIVE: The patient feels better. No palpitations or shortness of breath. Monitored rhythm, sinus. No recurring atrial fibrillation. OBJECTIVE: VITAL SIGNS: Blood pressure 108/60, pulse 59, and respirations 20. NECK: Supple. LUNGS: Clear. CARDIAC: Regular rhythm and rate. Normal S1 and S2 with a fourth heart sound. ABDOMEN: Soft and nontender. EXTREMITIES: No edema. IMPRESSION: 1. Influenza with upper respiratory infection with secondary dehydration and hypovolemia corrected. 2. Pleuritic chest pain, resolved. 3. Paroxysmal atrial fibrillation with rapid ventricular response, converted and maintained sinus rhythm on prior dose of sotalol. 4. Acute on chronic diastolic congestive heart failure, now clinically compensated. 5. Stabilized renal function. PLAN: 1. Outpatient followup. 2. Stable for discharge from cardiovascular standpoint. 3. Maintain current cardioembolic prophylaxis with rivaroxaban. 4. Continue beta-blockade as is. 5. Maintenance dose diuretic with outpatient titration as needed. Tyson Lindquist M.D. DR: JANIE JOB#: [id number] CC:
--- NOTE | 2017-05-20 09:53 | Discharge Summary ---
Discharge Summary Hospital Course Date of Admission May 08, 2017 at 16:59 Date of Discharge May 11, 2017 at 13:25 Admitting Diagnosis GENERALIZED WEAKNESS,ACS HPI Rosaura Burger is a 81 year old female who was admitted on May 08, 2017 at 16: 59 for Generalized Weakness,Acute Coronary Syndrome Consultations Dr Tyson Lindquist Hospital Course 81 year old female with a PMH history of HTN, DM, atrial fibrillation on xarelto p/w chest pain, cough, and dizziness x 1 day. She reports that she felt very weak yesterday and was unable to get out of bed. She states that she started feeling dizzy with chest pain at rest. She states that it is localized to substernal area, sharp in nature, constant, with no radiation. Reports associated SOB and palpitations. Also reports fevers (Tmax 101.4), chills, non- productive cough x 1 day. Denies abdominal pain, n/v, trauma. Unknown last stress test or cardiac cath. In the ED, patient was noted to have A. fibb with RVR and was given IV diltiazem and subsequent PO diltiazem s/p IV metoprolol x 1. Patient was also given IV ceftriaxone and azithromycin given her symptoms. CXR looks unremarkable but from my read there is a questionable left lower lobe infiltrate. Influenza screen was positive for influenza A, negative influenza B.She was given tamiflu 30mg PO BID x 5 days (renally-dosed). She was given lasix diuresis, continue sotalol 80mg PO q8hr, continue xarelto . Blood cultures --> NGTD She was eventually discharged home with . Assessment/Plan Problem List: (1) Paroxysmal atrial fibrillation with rapid ventricular response ICD Codes: I48.91 - Unspecified atrial fibrillation SNOMED: 484018824363777 (2) Pleuritic chest pain, resolved. ICD Codes: R07.9 - Chest pain, unspecified SNOMED: 26422004 (3) Upper respiratory infection with influenza A ICD Codes: J06.9 - Acute upper respiratory infection, unspecified SNOMED: 35075331 (4) Diabetes ICD Codes: E11.9 - Type 2 diabetes mellitus without complications SNOMED: 04173131 (5) HTN (hypertension) ICD Codes: I10 - Essential (primary) hypertension SNOMED: 87258025 (6) Hypokalemia ICD Codes: E87.6 - Hypokalemia SNOMED: 51517457 (7) Influenza A ICD Codes: J10.1 - Influenza due to other identified influenza virus with other respiratory manifestations SNOMED: 118679819 (8) ANDRES (acute kidney injury) ICD Codes: N17.9 - Acute kidney failure, unspecified (9) Acute on chronic diastolic congestive heart failure, now clinically compensated. -I have been assigned to complete a Dc summary on this account, I was not involved with the patient's management.-DELBERT Vazquez-- Discharge Discharge Disposition Patient was discharged to Home with Home Health(06) Discharge Diagnoses: Agustina Petty NP May 20, 2017 09:53
--- NOTE | 2017-05-24 12:50 | Cardiology Report ---
APPROVED REPORT EXAM: Two-dimensional and M-mode echocardiogram with Doppler and color Doppler. INDICATION Atrial Fibrillation M-Mode DIMENSIONS IVSd1.0 (0.7-1.1cm)Left Atrium (MM)2.5 (1.6-4.0cm) LVDd3.9 (3.5-5.6cm)Aortic Root2.7 (2.0-3.7cm) PWd1.3 (0.7-1.1cm)Aortic Cusp Exc.1.5 (1.5-2.0cm) LVDs2.8 (2.5-4.0cm) PWs1.7 cm Other Information Technically limited study due to poor acoustical windows. Normal left ventricular chamber size, systolic function and wall motion to extent visualized. Left ventricular ejection fraction estimated to be 55 %. Study quality precludes accurate assessment of regional wall motion. Mild left ventricular hypertrophy 2-D. No evidence of pericardial effusion. All other cardiac chamber sizes are within normal limits. Focal aortic valve sclerosis with adequate cusp excursion. Thickened mitral valve leaflets with normal excursion. Mitral annulus and aortic root calcification. Pulmonic valve not well visualized. Normal tricuspid valve structure. IVC at normal size with physiologic collapse. A color flow and spectral Doppler study was performed and revealed: Trace aortic regurgitation. Trace to mild mitral regurgitation. Mitral diastolic velocities suggest reduced left ventricular relaxation c/w mild LV diastolic dysfunction (Grade I ). Mild tricuspid regurgitation. Tricuspid systolic velocities suggests peak right ventricular systolic pressure of 38 mmHg, consistent with mild pulmonary hypertension. Pulmonic regurgitation present.
== END 2017-05-11 13:25 | disposition home health service (06) | DRG 152 ==
LOC: EMR 15:43 → EDBEDREQ 16:21 → 2E 16:59 → EDBEDREQ 18:36 → 2E 05-09 01:44
DX: J11.1 Influenza due to unidentified influenza virus with other respiratory manifestations (principal); I50.33 Acute on chronic diastolic (congestive) heart failure; N17.9 Acute kidney failure, unspecified; E86.0 Dehydration; E11.40 Type 2 diabetes mellitus with diabetic neuropathy, unspecified; I48.0 Paroxysmal atrial fibrillation; E86.1 Hypovolemia; E78.5 Hyperlipidemia, unspecified; E87.6 Hypokalemia; I11.0 Hypertensive heart disease with heart failure; R07.81 Pleurodynia; N28.9 Disorder of kidney and ureter, unspecified; Z88.6 Allergy status to analgesic agent; Z88.0 Allergy status to penicillin; Z88.8 Allergy status to other drugs, medicaments and biological substances; Z79.01 Long term (current) use of anticoagulants; Z23 Encounter for immunization
CPT/HCPCS: 36415; 71010; 80048; 80053; 81003; 82962; 83605; 83735; 83880; 84484; 85025; 85610; 85730; 86710; 87040; 90732; 93005; 93306; 94664; J1815; J8499

== ENCOUNTER 2017-10-05 18:43 | Inpatient (IN) | payer MEDICARE, OTHER ==
[~2017-10-05] VITALS: Ht 157.5 cm; Wt 78.0 kg
[~2017-10-05 18:43] MED LIST changes: +DYAZIDE1 CAP ORAL; +GABAPENTIN300 MG ORAL; +GLIMEPIRIDE4 MG ORAL; +INCRUSE ELLI62.5 MCG IH; +METFORMIN HCL1000 M1 ORAL; +TAMIFLU75 MG ORAL; +VENTOLIN HFA18 GM INH
[2017-10-05 19:49] LABS: EOSINOPHILS % (AUTO) 0.7 % (0.0-3.0); HEMATOCRIT 37.2 % (37.0-47.0); HEMOGLOBIN 11.7 G/DL (12.0-16.0); LYMPHOCYTES % (AUTO) 17.6 % (20.0-45.0); MEAN CORPUSCULAR VOLUME 85 FL (80-99); MONOCYTES % (AUTO) 6.2 % (1.0-10.0); NEUTROPHILS % (AUTO) 74.5 % (45.0-75.0); PLATELET COUNT 222 K/UL (150-450); RED BLOOD COUNT 4.38 M/UL (4.20-5.40); RED CELL DISTRIBUTION WIDTH 12.6 % (11.6-14.8); WHITE BLOOD COUNT 12.4 K/UL (4.8-10.8)
[2017-10-05 19:56] LABS: APPEARANCE,URINE CLEAR; BILIRUBIN, URINE NEGATIVE (NEGATIVE); COLOR,URINE PALE YELLOW; GLUCOSE, URINE (UA) 4+ (NEGATIVE); KETONES,URINE NEGATIVE (NEGATIVE); LEUKOCYTE ESTERASE ,URINE NEGATIVE (NEGATIVE); NITRITE,URINE NEGATIVE (NEGATIVE); PH,URINE 5 (4.5-8.0); PROTEIN,URINE NEGATIVE (NEGATIVE); UROBILINOGEN,URINE NORMAL MG/DL (0.0-1.0)
[2017-10-05 19:57] LABS: INR 1.1 (0.9-1.1)
[2017-10-05 20:03] LABS: ANION GAP 10 mmol/L (5-15); BLOOD UREA NITROGEN 22 mg/dL (7-18); CALCIUM 9.1 MG/DL (8.5-10.1); CARBON DIOXIDE 25 MMOL/L (21-32); CHLORIDE 99 MMOL/L (98-107); CREATININE 1.4 MG/DL (0.55-1.30); POTASSIUM 4.1 MMOL/L (3.5-5.1); SODIUM 134 MMOL/L (136-145)
[2017-10-05 20:15] LABS: ALANINE AMINOTRANSFERASE 29 U/L (12-78); ALBUMIN 3.3 G/DL (3.4-5.0); ALBUMIN/GLOBULIN RATIO 0.7 (1.0-2.7); ALKALINE PHOSPHATASE 96 U/L (46-116); ASPARTATE AMINO TRANSFERASE 20 U/L (15-37); BILIRUBIN,TOTAL 0.2 MG/DL (0.2-1.0)
[2017-10-05 20:35] VITALS: BP 156/92
--- NOTE | 2017-10-05 20:44 | Emergency Room Report ---
History of Present Illness General Chief Complaint: General Complaint Source: Patient, Medical Record Present Illness HPI This patient states that about an hour prior to arrival, she finished a procedure at a urology office. She underwent a functional bladder study. She states that a instrument was inserted into both her rectum and her bladder to obtain this study. She states she has a history of urinary incontinence. The urologist was Dr. Sellers. She states that after the study/procedure was finished she was feeling some palpitations. She states that she was also having some pain and cramping in her lower abdomen. She went home and then developed bleeding from her rectum. She states that she started passing large clots. She did not have any blood in her urine. She has no pain. She has no other complaints. Allergies: Coded Allergies: CODEINE (Verified Allergy, Unknown, 10/23/11) PENICILLINS (Verified Allergy, Unknown, RASH/ITCH, 10/23/11) Patient History Past Medical History: see triage record, DM, HTN, HI, CAD, CHF, AFib Social History: Denies: smoking, alcohol use, drug use Reviewed Nursing Documentation: PMH: Agreed; PSxH: Agreed Nursing Documentation-PMH Past Medical History: No History, Except For Hx Cardiac Problems: Yes - CHF Hx Hypertension: Yes Hx Pacemaker: No Hx Diabetes: Yes Hx Cancer: No Hx Gastrointestinal Problems: No Hx Neurological Problems: No Hx Vertigo: Yes Hx Dizziness: Yes Hx Weakness: Yes Review of Systems All Other Systems: negative except mentioned in HPI Physical Exam Vital Signs Date Time Temp Pulse Resp B/P (MAP) Pulse Ox O2 Delivery O2 Flow Rate FiO2 10/05/17 18:47 98.1 85 18 156/92 97 Room Air 98.1 Sp02 EP Interpretation: reviewed, normal General Appearance: no apparent distress, alert, GCS 15, non-toxic Head: normocephalic, atraumatic Eyes: bilateral eye normal inspection, bilateral eye PERRL ENT: hearing grossly normal, normal pharynx, no angioedema, normal voice Neck: full range of motion, supple/symm/no masses Respiratory: chest non-tender, lungs clear, normal breath sounds, speaking full sentences Cardiovascular #1: regular rate, rhythm, no edema Gastrointestinal: normal bowel sounds, non tender, soft, non-distended, no guarding, no rebound Rectal: other - Large amounts of BRBPR with blood clots Musculoskeletal: back normal, gait/station normal, normal range of motion, non- tender Neurologic: alert, oriented x3, responsive, motor strength/tone normal, sensory intact, speech normal Psychiatric: judgement/insight normal, memory normal, mood/affect normal, no suicidal/homicidal ideation Skin: normal color, no rash, warm/dry, well hydrated Medical Decision Making Diagnostic Impression: Primary Impression: Lower GI bleed ER Course This patient presents with a lower GI bleed. This is likely related to trauma from the instrument that was used in the urologic procedure that she underwent today. The patient has a large amount of bleeding on examination. She does have stable vital signs and a hemoglobin of 11.7. She is on Xeralto. I felt that this patient should be admitted to the ICU for concern that the patient is anticoagulated and having a large amount of bleeding in the lower GI tract. I' m concerned that if this were to continue this patient could decompensate. The patient is admitted to the ICU. This patient is critically ill. This patient required complex medical decision- making, aggressive intervention, extensive laboratory workup and monitoring. Critical care time: 40 minutes. Laboratory Tests Test 10/05/17 19:30 White Blood Count 12.4 K/UL (4.8-10.8) H Red Blood Count 4.38 M/UL (4.20-5.40) Hemoglobin 11.7 G/DL (12.0-16.0) L Hematocrit 37.2 % (37.0-47.0) Mean Corpuscular Volume 85 FL (80-99) Mean Corpuscular Hemoglobin 26.8 PG (27.0-31.0) L Mean Corpuscular Hemoglobin Concent 31.5 G/DL (32.0-36.0) L Red Cell Distribution Width 12.6 % (11.6-14.8) Platelet Count 222 K/UL (150-450) Mean Platelet Volume 8.9 FL (6.5-10.1) Neutrophils (%) (Auto) 74.5 % (45.0-75.0) Lymphocytes (%) (Auto) 17.6 % (20.0-45.0) L Monocytes (%) (Auto) 6.2 % (1.0-10.0) Eosinophils (%) (Auto) 0.7 % (0.0-3.0) Basophils (%) (Auto) 1.0 % (0.0-2.0) Prothrombin Time 11.1 SEC (9.30-11.50) Prothrombin Time INR 1.1 (0.9-1.1) PTT 29 SEC (23-33) Urine Color Pale yellow Urine Appearance Clear Urine pH 5 (4.5-8.0) Urine Specific [place] 1.010 (1.005-1.035) Urine Protein Negative (NEGATIVE) Urine Glucose (UA) 4+ (NEGATIVE) H Urine Ketones Negative (NEGATIVE) Urine Occult Blood 4+ (NEGATIVE) H Urine Nitrite Negative (NEGATIVE) Urine Bilirubin Negative (NEGATIVE) Urine Urobilinogen Normal MG/DL (0.0-1.0) Urine Leukocyte Esterase Negative (NEGATIVE) Urine RBC 2-4 /HPF (0 - 2) H Urine WBC 0-2 /HPF (0 - 2) Urine Squamous Epithelial Cells Few /LPF (NONE/OCC) Urine Bacteria Few /HPF (NONE) Sodium Level 134 MMOL/L (136-145) L Potassium Level 4.1 MMOL/L (3.5-5.1) Chloride Level 99 MMOL/L (98-107) Carbon Dioxide Level 25 MMOL/L (21-32) Anion Gap 10 mmol/L (5-15) Blood Urea Nitrogen 22 mg/dL (7-18) H Creatinine 1.4 MG/DL (0.55-1.30) H Estimate Glomerular Filtration Rate mL/min (>60) Glucose Level 338 MG/DL (74-106) H Calcium Level 9.1 MG/DL (8.5-10.1) Total Bilirubin 0.2 MG/DL (0.2-1.0) Aspartate Amino Transferase (AST) 20 U/L (15-37) Alanine Aminotransferase (ALT) 29 U/L (12-78) Alkaline Phosphatase 96 U/L (46-116) Total Protein 7.8 G/DL (6.4-8.2) Albumin 3.3 G/DL (3.4-5.0) L Globulin 4.5 g/dL Albumin/Globulin Ratio 0.7 (1.0-2.7) L EKG Diagnostic Results Rate: normal Rhythm: NSR ST Segments: no acute changes Rhythm Strip Diag. Results EP Interpretation: yes Rate: 90's Rhythm: NSR, no PVC's, no ectopy Last Vital Signs Date Time Temp Pulse Resp B/P (MAP) Pulse Ox O2 Delivery O2 Flow Rate FiO2 10/05/17 20:35 98.1 18 156/92 97 Room Air 98.1 10/05/17 18:47 85 Disposition: ADMITTED INPATIENT Condition: Critical Referrals: NON PHYSICIAN (PCP) VENTURA HANSON D.O. October 05, 2017 20:44
[2017-10-05] MEDS ORDERED: Mylanta II UD 30ml ORAL PRN (23:15)
[2017-10-05] MEDS ORDERED: Miralax 17gm pkt ORAL PRN (23:15)
[2017-10-05] MEDS ORDERED: Nitroglycerin Subl 0.4mg tab SL PRN (23:15)
[2017-10-05] MEDS ORDERED: Aminocaproic Acid Inj 5,000 MG in NS 110 ML IV ONE (23:15)
[2017-10-06] VITALS (24 sets, daily range): BP systolic 91–149; BP diastolic 54–112
[2017-10-06] MEDS: D5 1/2NS 1,000 ML IV SCH ×2 (00:28→12:28)
[2017-10-06] MEDS: Vancomycin 750mg/NS 250ml IVPB SCH (01:27)
[2017-10-06] MEDS ORDERED: Aztreonam Inj 1 GM in D5W 55 ML IVPB SCH (06:00)
[2017-10-06 06:08] LABS: BASOPHILS % (AUTO) 1.1 % (0.0-2.0); EOSINOPHILS % (AUTO) 1.2 % (0.0-3.0); HEMATOCRIT 32.6 % (37.0-47.0); LYMPHOCYTES % (AUTO) 21.7 % (20.0-45.0); MEAN CORPUSCULAR VOLUME 84 FL (80-99); MONOCYTES % (AUTO) 7.8 % (1.0-10.0); NEUTROPHILS % (AUTO) 68.2 % (45.0-75.0); PLATELET COUNT 211 K/UL (150-450); RED BLOOD COUNT 3.85 M/UL (4.20-5.40); RED CELL DISTRIBUTION WIDTH 12.4 % (11.6-14.8); WHITE BLOOD COUNT 11.8 K/UL (4.8-10.8)
[2017-10-06] MEDS: NovoLOG Insulin Flexpen SUBQ SCH ×4 (06:27→21:05)
[2017-10-06 06:28] LABS: ALANINE AMINOTRANSFERASE 25 U/L (12-78); ALBUMIN 3.2 G/DL (3.4-5.0); ALBUMIN/GLOBULIN RATIO 0.8 (1.0-2.7); ALKALINE PHOSPHATASE 89 U/L (46-116); AMYLASE 67 U/L (25-115); ANION GAP 9 mmol/L (5-15); ASPARTATE AMINO TRANSFERASE 14 U/L (15-37); BILIRUBIN,TOTAL 0.3 MG/DL (0.2-1.0); BLOOD UREA NITROGEN 18 mg/dL (7-18); CALCIUM 8.8 MG/DL (8.5-10.1); CARBON DIOXIDE 28 MMOL/L (21-32); CHLORIDE 104 MMOL/L (98-107); CREATININE 1.2 MG/DL (0.55-1.30); SODIUM 140 MMOL/L (136-145)
--- NOTE | 2017-10-06 10:19 | Pulmonolgy Critical Care Note ---
Critical Care - Asmt/Plan Problems: (1) Lower GI bleed (2) Atrial fibrillation (3) Chronic anticoagulation (4) HTN (hypertension) (5) Diabetes Respiratory: monitor respiratory rate, adjust FIO2 Cardiac: continue to monitor HR/BP Renal: F/U I&O, keep IV fluid, check electrolytes Gastrointestinal: hold feedings Endocrine: monitor blood sugar, continue sliding scale insulin Hematologic: monitor H/H, transfuse if hgb<8.5 Neurologic: PRN Ativan, PRN Morphine, keep patient comfortable Disposition: keep in ICU Notes Reviewed: other - surgeon, Dr. Gordon Discussed with: nurses, consultants, immigration case managercommunity engagement manager - Objective Last 24 Hour Vital Signs Date Time Temp Pulse Resp B/P (MAP) Pulse Ox O2 Delivery O2 Flow Rate FiO2 10/06/17 07:00 72 19 108/89 99 Room Air 10/06/17 06:00 68 19 131/73 99 Room Air 10/06/17 05:00 69 19 149/73 99 Room Air 10/06/17 04:00 70 10/06/17 04:00 98.0 70 19 136/77 99 Room Air 98.0 10/06/17 03:00 69 19 141/84 99 Room Air 10/06/17 02:00 68 19 139/112 99 Room Air 10/06/17 01:00 68 20 136/89 99 Room Air 10/06/17 00:07 98.7 70 20 133/100 99 Room Air 98.7 10/06/17 00:00 70 10/05/17 23:57 98.1 18 143/82 97 Room Air 98.1 10/05/17 20:35 98.1 18 156/92 97 Room Air 98.1 10/05/17 18:47 98.1 85 18 156/92 97 Room Air 98.1 Status: awake Condition: critical HEENT: atraumatic Lungs: chest wall tender Heart: HR/BP stable Abdomen: soft, active bowel sounds, feeding tube Extremities: no C/C/E, edema Accucheck: 155 Critical Care - Subjective ROS Limited/Unobtainable: No ICU Day: 2 Interval Events: pt is admitted to ICU last night because of Bright Blood per rectum. Pt has been on Xarelto for arrhythmias. Condition: critical Fluids: D5 1/2 NS 75 cc.hour I&O: Intake and Output 10/05/17 10/06/17 19:00 07:00 Intake Total 830.000 ml Balance 830.000 ml Intake Oral 0 ml IV Total 830.000 ml # Voids 2 # Bowel Movements 2 Labs: Laboratory Tests Test 10/05/17 19:30 10/06/17 05:00 White Blood Count 12.4 K/UL (4.8-10.8) H 11.8 K/UL (4.8-10.8) H Red Blood Count 4.38 M/UL (4.20-5.40) 3.85 M/UL (4.20-5.40) L Hemoglobin 11.7 G/DL (12.0-16.0) L 11.0 G/DL (12.0-16.0) L Hematocrit 37.2 % (37.0-47.0) 32.6 % (37.0-47.0) L Mean Corpuscular Volume 85 FL (80-99) 84 FL (80-99) Mean Corpuscular Hemoglobin 26.8 PG (27.0-31.0) L 28.5 PG (27.0-31.0) Mean Corpuscular Hemoglobin Concent 31.5 G/DL (32.0-36.0) L 33.7 G/DL (32.0-36.0) Red Cell Distribution Width 12.6 % (11.6-14.8) 12.4 % (11.6-14.8) Platelet Count 222 K/UL (150-450) 211 K/UL (150-450) Mean Platelet Volume 8.9 FL (6.5-10.1) 9.3 FL (6.5-10.1) Neutrophils (%) (Auto) 74.5 % (45.0-75.0) 68.2 % (45.0-75.0) Lymphocytes (%) (Auto) 17.6 % (20.0-45.0) L 21.7 % (20.0-45.0) Monocytes (%) (Auto) 6.2 % (1.0-10.0) 7.8 % (1.0-10.0) Eosinophils (%) (Auto) 0.7 % (0.0-3.0) 1.2 % (0.0-3.0) Basophils (%) (Auto) 1.0 % (0.0-2.0) 1.1 % (0.0-2.0) Prothrombin Time 11.1 SEC (9.30-11.50) 10.2 SEC (9.30-11.50) Prothromb Time International Ratio 1.1 (0.9-1.1) 1.0 (0.9-1.1) Activated Partial Thromboplast Time 29 SEC (23-33) 29 SEC (23-33) Urine Color Pale yellow Urine Appearance Clear Urine pH 5 (4.5-8.0) Urine Specific [place] 1.010 (1.005-1.035) Urine Protein Negative (NEGATIVE) Urine Glucose (UA) 4+ (NEGATIVE) H Urine Ketones Negative (NEGATIVE) Urine Occult Blood 4+ (NEGATIVE) H Urine Nitrite Negative (NEGATIVE) Urine Bilirubin Negative (NEGATIVE) Urine Urobilinogen Normal MG/DL (0.0-1.0) Urine Leukocyte Esterase Negative (NEGATIVE) Urine RBC 2-4 /HPF (0 - 2) H Urine WBC 0-2 /HPF (0 - 2) Urine Squamous Epithelial Cells Few /LPF (NONE/OCC) Urine Bacteria Few /HPF (NONE) Sodium Level 134 MMOL/L (136-145) L 140 MMOL/L (136-145) Potassium Level 4.1 MMOL/L (3.5-5.1) 4.0 MMOL/L (3.5-5.1) Chloride Level 99 MMOL/L (98-107) 104 MMOL/L (98-107) Carbon Dioxide Level 25 MMOL/L (21-32) 28 MMOL/L (21-32) Anion Gap 10 mmol/L (5-15) 9 mmol/L (5-15) Blood Urea Nitrogen 22 mg/dL (7-18) H 18 mg/dL (7-18) Creatinine 1.4 MG/DL (0.55-1.30) H 1.2 MG/DL (0.55-1.30) Estimat Glomerular Filtration Rate mL/min (>60) mL/min (>60) Glucose Level 338 MG/DL (74-106) H 151 MG/DL (74-106) #H Calcium Level 9.1 MG/DL (8.5-10.1) 8.8 MG/DL (8.5-10.1) Total Bilirubin 0.2 MG/DL (0.2-1.0) 0.3 MG/DL (0.2-1.0) Aspartate Amino Transf (AST/SGOT) 20 U/L (15-37) 14 U/L (15-37) L Alanine Aminotransferase (ALT/SGPT) 29 U/L (12-78) 25 U/L (12-78) Alkaline Phosphatase 96 U/L (46-116) 89 U/L (46-116) Total Protein 7.8 G/DL (6.4-8.2) 7.1 G/DL (6.4-8.2) Albumin 3.3 G/DL (3.4-5.0) L 3.2 G/DL (3.4-5.0) L Globulin 4.5 g/dL 3.9 g/dL Albumin/Globulin Ratio 0.7 (1.0-2.7) L 0.8 (1.0-2.7) L Amylase Level 67 U/L (25-115) Lipase 183 U/L (73-393) Beatrice Goodrich MD October 06, 2017 10:19
[2017-10-06] MEDS: Sotalol 80mg tab ORAL SCH ×2 (10:58→14:16)
--- NOTE | 2017-10-06 11:22 | GI Initial Consult Note ---
History of Present Illness General Date patient seen: October 06, 2017 Time patient seen: 14:17 Reason for Hospitalization: General Complaint Referring physician: DEE HASKINS Reason for Consultation: LGIB Present Illness HPI This patient states that about an hour prior to arrival, she finished a procedure at a urology office. She underwent a functional bladder study. She states that a instrument was inserted into both her rectum and her bladder to obtain this study. She states she has a history of urinary incontinence. The urologist was Dr. Sellers. She states that after the study/procedure was finished she was feeling some palpitations. She states that she was also having some pain and cramping in her lower abdomen. She went home and then developed bleeding from her rectum. She states that she started passing large clots. She did not have any blood in her urine. She has no pain. She has no other complaints. GI consult for LGIB. Pt seen, awake A&Ox4 with no active s/sx of N/V. Noted has active rectal bleed, bright red blood with multiple BM's. Had recent bladder study. Presents today with mild anemia. Unknown history of colonoscopy. Home Meds Active Scripts Furosemide* (LASIX*) 40 Mg Tablet, 40 MG ORAL DAILY for 30 Days, #30 TAB Prov:Jose Daniel Watts M.D. 05/11/17 Oseltamivir Phosphate (Tamiflu) 75 Mg Capsule, 30 MG ORAL Q12HR, #7 CAP Prov:Jose Daniel Watts M.D. 05/11/17 Rivaroxaban (XARELTO) 20 Mg Tablet, 20 MG ORAL DAILY for 30 Days, #30 MG 2 Refills Prov:Jose Daniel Watts M.D. 11/15/16 Reported Medications Albuterol Sulfate (VENTOLIN HFA) 18 Gm Hfa.aer.ad, 1 PUFF INH EVERY 6 HOURS, # 18 GM 0 Refills 05/08/17 Umeclidinium Cord (Incruse Ellipta) 62.5 Mcg Blst.w.dev, 62.5 MCG IH 05/08/17 Fluticasone/Vilanterol (Breo Ellipta 100-25 Mcg INH) 1 Each Blst.w.dev, 1 EACH IH for 30 Days, #60 EACH 05/08/17 Glimepiride* (GLIMEPIRIDE*) 4 Mg Tablet, 4 MG ORAL BID, TAB 05/08/17 Metformin Hcl* (METFORMIN HCL*) 1,000 Mg Tablet, 1000 MG ORAL DAILY, TAB 05/08/17 Esomeprazole Magnesium (NEXIUM) 40 Mg Capsule.dr, 40 MG ORAL DAILY, CAP 05/08/17 Triamterene/Hctz (Triamterene-Hctz 37.5-25 mg Cp) 1 Each Capsule, 1 CAP ORAL DAILY, #10 CAP 0 Refills 05/08/17 Gabapentin* (GABAPENTIN*) 300 Mg Capsule, 300 MG ORAL BEDTIME, CAP 05/08/17 Hydralazine Hcl* (HYDRALAZINE HCL*) 100 Mg Tablet, 100 MG ORAL EVERY 8 HOURS, TAB 11/11/16 Pravastatin Sod* (PRAVASTATIN SOD*) 20 Mg Tablet, 20 MG ORAL BEDTIME, TAB 03/02/15 Sotalol Hcl* (BETAPACE*) 80 Mg Tablet, 80 MG PO TID 06/20/12 Med list reviewed/reconciled: Yes Allergies: Coded Allergies: CODEINE (Verified Allergy, Unknown, 10/23/11) PENICILLINS (Verified Allergy, Unknown, RASH/ITCH, 10/23/11) Patient History History Provided By: Patient, Medical Record PMH Narrative Past Medical History: see triage record, DM, HTN, [place], CAD, CHF, AFib Social History: Denies: smoking, alcohol use, drug use Reviewed Nursing Documentation: PMH: Agreed; PSxH: Agreed Nursing Documentation-PMH Past Medical History: No History, Except For Hx Cardiac Problems: Yes - CHF Hx Hypertension: Yes Hx Pacemaker: No Hx Diabetes: Yes Hx Cancer: No Hx Gastrointestinal Problems: No Hx Neurological Problems: No Hx Vertigo: Yes Hx Dizziness: Yes Hx Weakness: Yes Social History: Denies: smoking, alcohol use, drug use, other Review of Systems All Other Systems: negative except mentioned in HPI Physical Exam Vital Signs Date Time Temp Pulse Resp B/P (MAP) Pulse Ox O2 Delivery O2 Flow Rate FiO2 10/05/17 18:47 98.1 85 18 156/92 97 Room Air 98.1 Sp02 EP Interpretation: reviewed, normal Labs Laboratory Tests Test 10/05/17 19:30 10/06/17 05:00 White Blood Count 12.4 K/UL (4.8-10.8) H 11.8 K/UL (4.8-10.8) H Red Blood Count 4.38 M/UL (4.20-5.40) 3.85 M/UL (4.20-5.40) L Hemoglobin 11.7 G/DL (12.0-16.0) L 11.0 G/DL (12.0-16.0) L Hematocrit 37.2 % (37.0-47.0) 32.6 % (37.0-47.0) L Mean Corpuscular Volume 85 FL (80-99) 84 FL (80-99) Mean Corpuscular Hemoglobin 26.8 PG (27.0-31.0) L 28.5 PG (27.0-31.0) Mean Corpuscular Hemoglobin Concent 31.5 G/DL (32.0-36.0) L 33.7 G/DL (32.0-36.0) Red Cell Distribution Width 12.6 % (11.6-14.8) 12.4 % (11.6-14.8) Platelet Count 222 K/UL (150-450) 211 K/UL (150-450) Mean Platelet Volume 8.9 FL (6.5-10.1) 9.3 FL (6.5-10.1) Neutrophils (%) (Auto) 74.5 % (45.0-75.0) 68.2 % (45.0-75.0) Lymphocytes (%) (Auto) 17.6 % (20.0-45.0) L 21.7 % (20.0-45.0) Monocytes (%) (Auto) 6.2 % (1.0-10.0) 7.8 % (1.0-10.0) Eosinophils (%) (Auto) 0.7 % (0.0-3.0) 1.2 % (0.0-3.0) Basophils (%) (Auto) 1.0 % (0.0-2.0) 1.1 % (0.0-2.0) Prothrombin Time 11.1 SEC (9.30-11.50) 10.2 SEC (9.30-11.50) Prothromb Time International Ratio 1.1 (0.9-1.1) 1.0 (0.9-1.1) Activated Partial Thromboplast Time 29 SEC (23-33) 29 SEC (23-33) Urine Color Pale yellow Urine Appearance Clear Urine pH 5 (4.5-8.0) Urine Specific [place] 1.010 (1.005-1.035) Urine Protein Negative (NEGATIVE) Urine Glucose (UA) 4+ (NEGATIVE) H Urine Ketones Negative (NEGATIVE) Urine Occult Blood 4+ (NEGATIVE) H Urine Nitrite Negative (NEGATIVE) Urine Bilirubin Negative (NEGATIVE) Urine Urobilinogen Normal MG/DL (0.0-1.0) Urine Leukocyte Esterase Negative (NEGATIVE) Urine RBC 2-4 /HPF (0 - 2) H Urine WBC 0-2 /HPF (0 - 2) Urine Squamous Epithelial Cells Few /LPF (NONE/OCC) Urine Bacteria Few /HPF (NONE) Sodium Level 134 MMOL/L (136-145) L 140 MMOL/L (136-145) Potassium Level 4.1 MMOL/L (3.5-5.1) 4.0 MMOL/L (3.5-5.1) Chloride Level 99 MMOL/L (98-107) 104 MMOL/L (98-107) Carbon Dioxide Level 25 MMOL/L (21-32) 28 MMOL/L (21-32) Anion Gap 10 mmol/L (5-15) 9 mmol/L (5-15) Blood Urea Nitrogen 22 mg/dL (7-18) H 18 mg/dL (7-18) Creatinine 1.4 MG/DL (0.55-1.30) H 1.2 MG/DL (0.55-1.30) Estimat Glomerular Filtration Rate mL/min (>60) mL/min (>60) Glucose Level 338 MG/DL (74-106) H 151 MG/DL (74-106) #H Calcium Level 9.1 MG/DL (8.5-10.1) 8.8 MG/DL (8.5-10.1) Total Bilirubin 0.2 MG/DL (0.2-1.0) 0.3 MG/DL (0.2-1.0) Aspartate Amino Transf (AST/SGOT) 20 U/L (15-37) 14 U/L (15-37) L Alanine Aminotransferase (ALT/SGPT) 29 U/L (12-78) 25 U/L (12-78) Alkaline Phosphatase 96 U/L (46-116) 89 U/L (46-116) Total Protein 7.8 G/DL (6.4-8.2) 7.1 G/DL (6.4-8.2) Albumin 3.3 G/DL (3.4-5.0) L 3.2 G/DL (3.4-5.0) L Globulin 4.5 g/dL 3.9 g/dL Albumin/Globulin Ratio 0.7 (1.0-2.7) L 0.8 (1.0-2.7) L Amylase Level 67 U/L (25-115) Lipase 183 U/L (73-393) General Appearance: well appearing, no apparent distress, alert Head: normocephalic EENT: PERRL/EOMI, normal ENT inspection Neck: supple Respiratory: normal breath sounds, no respiratory distress Cardiovascular: normal rate Gastrointestinal: normal inspection, non tender, soft, normal bowel sounds, non -distended Rectal: deferred Genitourinary: no CVA tenderness Musculoskeletal: normal inspection, back normal Neurologic: normal inspection, alert, oriented x3, responsive Psychiatric: normal inspection, judgement/insight normal, memory normal Skin: normal inspection, normal color, no rash, warm/dry, palpation normal, well hydrated Lymphatic: normal inspection, no adenopathy Current Medications Current Medications Medications (Trade) Dose Ordered Sig/[place] Route PRN Reason Start Time Stop Time Status Last Admin Dose Admin Acetaminophen (Tylenol) 650 mg Q4H PRN ORAL fever 10/05/17 23:15 11/04/17 23:14 Al Hydroxide/Mg Hydroxide (Mylanta II) 30 ml Q6H PRN ORAL dyspepsia 10/05/17 23:15 11/04/17 23:14 Aztreonam 1 gm/ Dextrose 110 ml @ 220 mls/hr Q8HR IVPB 10/06/17 22:00 10/13/17 05:59 Dextrose (Dextrose 50%) STAT PRN IV Hypoglycemia 10/05/17 23:15 11/04/17 23:14 Dextrose/Sodium Chloride 1,000 ml @ 75 mls/hr [id number] IV 10/05/17 23:08 11/04/17 23:07 10/06/17 00:28 Diphenhydramine HCl (Benadryl) 25 mg Q6H PRN ORAL Itching/Pruritis 10/05/17 23:15 11/04/17 23:14 Gabapentin (Neurontin) 300 mg BEDTIME ORAL 10/06/17 21:00 11/05/17 20:59 Insulin Aspart (NovoLOG) BEFORE MEALS AND HS SUBQ 10/06/17 06:30 11/05/17 06:29 10/06/17 06:27 Nitroglycerin (Ntg) 0.4 mg Q5M X 3 DOSES PRN SL Prn Chest Pain 10/05/17 23:15 11/04/17 23:14 Ondansetron HCl (Zofran) 4 mg Q6H PRN IVP Nausea & Vomiting 10/05/17 23:15 11/04/17 23:14 Polyethylene Glycol (Miralax) 17 gm HSPRN PRN ORAL Constipation 10/05/17 23:15 11/04/17 23:14 Pravastatin Sodium (Pravachol) 20 mg BEDTIME ORAL 10/06/17 21:00 11/05/17 20:59 Sotalol HCl (Betapace) 80 mg TID ORAL 10/06/17 09:00 11/05/17 08:59 10/06/17 10:58 Temazepam (Restoril) 15 mg HSPRN PRN ORAL Insomnia 10/05/17 23:15 10/12/17 23:14 Vancomycin HCl (Vanco rx to dose) 1 ea DAILY PRN MISC Per rx protocol 10/05/17 23:15 11/04/17 23:14 Vancomycin/Sodium Chloride 250 ml @ 166.667 mls/hr Q24H IVPB 10/06/17 01:00 10/11/17 00:59 10/06/17 01:27 GI: Plan Problems: (1) Anemia (2) S/P cholecystectomy (3) Lower GI bleed (4) Nausea & vomiting (5) Diarrhea Plan EGD/colonoscopy scheduled tomorrow. - CLD now, NPO @ [place]. - hold all blood thinners tonight. anemia work up monitor H&H, prn transfusions bowel regime ppi fu labs Discussed with Dr. Maynard. Thank you for this patient referral, we will follow. The patient was seen and examined at bedside and all new and available data was reviewed in the patients chart. I agree with the above findings, impression and plan. (Patient seen earlier today. Signature stamp does not reflect patient encounter time.). - MD [facility]Zoey MANDUJANO October 06, 2017 11:22
--- NOTE | 2017-10-06 12:33 | History and Physical ---
History of Present Illness General Date patient seen: October 06, 2017 Time patient seen: 12:21 Reason for Hospitalization: lower GI bleed Present Illness HPI 82 y/o with a PMH of DM, HTN, and A. fibb on xarelto presented to the ED last night for BRBPR since yesterday. Patient states that she had a urological procedure done yesterday at her urologist's office to diagnose why she has urinary incontinence and had a probe that was inserted into her bladder and rectum. Patient states that she did not hold the xarelto prior to the procedure. She states that after she went home, she started having lower right and left quadrant pain and subsequent bright red blood per rectum. Patient was admitted to the ICU for further monitoring. At this time, patient denies n/v, h/ o hemorrhoids. Denies dizziness, chest pain, sob, f/c, cough, headaches. Allergies: Coded Allergies: CODEINE (Verified Allergy, Unknown, 10/23/11) PENICILLINS (Verified Allergy, Unknown, RASH/ITCH, 10/23/11) Medication History Scheduled Albuterol Sulfate (Ventolin Hfa), 1 PUFF INH EVERY 6 HOURS, (Reported) Esomeprazole Magnesium (Nexium), 40 MG ORAL DAILY, (Reported) Furosemide* (Lasix*), 40 MG ORAL DAILY Gabapentin* (Gabapentin*), 300 MG ORAL BEDTIME, (Reported) Glimepiride* (Glimepiride*), 4 MG ORAL BID, (Reported) Hydralazine Hcl* (Hydralazine Hcl*), 100 MG ORAL EVERY 8 HOURS, (Reported) Metformin Hcl* (Metformin Hcl*), 1,000 MG ORAL DAILY, (Reported) Oseltamivir Phosphate (Tamiflu), 30 MG ORAL Q12HR Pravastatin Sod* (Pravastatin Sod*), 20 MG ORAL BEDTIME, (Reported) Rivaroxaban (Xarelto), 20 MG ORAL DAILY Sotalol Hcl* (Betapace*), 80 MG PO TID, (Reported) Triamterene/Hctz (Triamterene-Hctz 37.5-25 mg Cp), 1 CAP ORAL DAILY, (Reported) Miscellaneous Medications Fluticasone/Vilanterol (Breo Ellipta 100-25 Mcg INH), 1 EACH IH, (Reported) Umeclidinium [place] (Incruse Ellipta), 62.5 MCG IH, (Reported) Medications Narrative HOME MEDS Active Scripts Medications Dose Route/Sig Max Daily Dose Days Date Category Lasix* (Furosemide) 40 Mg Tablet 40 Mg ORAL DAILY 30 05/11/17 Rx Tamiflu (Oseltamivir Phosphate) 75 Mg Capsule 30 Mg ORAL Q12HR 05/11/17 Rx Ventolin Hfa (Albuterol Sulfate) 18 Gm Hfa.aer.ad 1 Puff INH EVERY 6 HOURS 05/08/17 Reported Incruse Ellipta (Umeclidinium [place]) 62.5 Mcg Blst.w.dev 62.5 Mcg IH 05/08/17 Reported Breo Ellipta 100-25 Mcg INH (Fluticasone/Vilanterol) 1 Each Blst.w.dev 1 Each IH 30 05/08/17 Reported Glimepiride* (Glimepiride) 4 Mg Tablet 4 Mg ORAL BID 05/08/17 Reported Metformin Hcl* (Metformin HCl) 1,000 Mg Tablet 1,000 Mg ORAL DAILY 05/08/17 Reported Nexium (Esomeprazole Magnesium) 40 Mg Capsule.dr 40 Mg ORAL DAILY 05/08/17 Reported Triamterene-Hctz 37.5-25 mg Cp (Triamterene/HCTZ) 1 Each Capsule 1 Cap ORAL DAILY 05/08/17 Reported Gabapentin* (Gabapentin) 300 Mg Capsule 300 Mg ORAL BEDTIME 05/08/17 Reported Xarelto (Rivaroxaban) 20 Mg Tablet 20 Mg ORAL DAILY 30 11/15/16 Rx Hydralazine Hcl* (Hydralazine HCl) 100 Mg Tablet 100 Mg ORAL EVERY 8 HOURS 11/11/16 Reported Pravastatin Sod* (Pravastatin Sodium) 20 Mg Tablet 20 Mg ORAL BEDTIME 03/02/15 Reported Betapace* (Sotalol HCl) 80 Mg Tablet 80 Mg PO TID 06/20/12 Reported Patient History History Provided By: Patient, Medical Record Healthcare decision maker self Resuscitation status Full Code Advanced Directive on File No Past Medical/Surgical History Past Medical/Surgical History: (1) S/P cholecystectomy Family History Family History: Patient reports no known family medical history. 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, no motor/sensory deficits, alert, oriented x 3 Last 24 Hour Vital Signs Date Time Temp Pulse Resp B/P (MAP) Pulse Ox O2 Delivery O2 Flow Rate FiO2 10/06/17 12:00 98.0 69 19 136/76 100 Room Air 98.0 10/06/17 11:00 69 19 148/87 100 Room Air 10/06/17 10:58 68 135/84 10/06/17 10:00 68 18 144/77 100 Room Air 10/06/17 09:00 69 20 140/75 99 Room Air 10/06/17 08:00 69 10/06/17 08:00 98.1 69 19 108/89 100 Room Air 98.1 10/06/17 07:00 72 19 108/89 99 Room Air 10/06/17 06:00 68 19 131/73 99 Room Air 10/06/17 05:00 69 19 149/73 99 Room Air 10/06/17 04:00 70 10/06/17 04:00 98.0 70 19 136/77 99 Room Air 98.0 10/06/17 03:00 69 19 141/84 99 Room Air 10/06/17 02:00 68 19 139/112 99 Room Air 10/06/17 01:00 68 20 136/89 99 Room Air 10/06/17 00:07 98.7 70 20 133/100 99 Room Air 98.7 10/06/17 00:00 70 10/05/17 23:57 98.1 18 143/82 97 Room Air 98.1 10/05/17 20:35 98.1 18 156/92 97 Room Air 98.1 10/05/17 18:47 98.1 85 18 156/92 97 Room Air 98.1 Intake and Output 10/05/17 10/06/17 19:00 07:00 Intake Total 830.000 ml Balance 830.000 ml Intake Oral 0 ml IV Total 830.000 ml # Voids 2 # Bowel Movements 2 Laboratory Tests Test 10/05/17 19:30 10/06/17 05:00 White Blood Count 12.4 K/UL (4.8-10.8) H 11.8 K/UL (4.8-10.8) H Red Blood Count 4.38 M/UL (4.20-5.40) 3.85 M/UL (4.20-5.40) L Hemoglobin 11.7 G/DL (12.0-16.0) L 11.0 G/DL (12.0-16.0) L Hematocrit 37.2 % (37.0-47.0) 32.6 % (37.0-47.0) L Mean Corpuscular Volume 85 FL (80-99) 84 FL (80-99) Mean Corpuscular Hemoglobin 26.8 PG (27.0-31.0) L 28.5 PG (27.0-31.0) Mean Corpuscular Hemoglobin Concent 31.5 G/DL (32.0-36.0) L 33.7 G/DL (32.0-36.0) Red Cell Distribution Width 12.6 % (11.6-14.8) 12.4 % (11.6-14.8) Platelet Count 222 K/UL (150-450) 211 K/UL (150-450) Mean Platelet Volume 8.9 FL (6.5-10.1) 9.3 FL (6.5-10.1) Neutrophils (%) (Auto) 74.5 % (45.0-75.0) 68.2 % (45.0-75.0) Lymphocytes (%) (Auto) 17.6 % (20.0-45.0) L 21.7 % (20.0-45.0) Monocytes (%) (Auto) 6.2 % (1.0-10.0) 7.8 % (1.0-10.0) Eosinophils (%) (Auto) 0.7 % (0.0-3.0) 1.2 % (0.0-3.0) Basophils (%) (Auto) 1.0 % (0.0-2.0) 1.1 % (0.0-2.0) Prothrombin Time 11.1 SEC (9.30-11.50) 10.2 SEC (9.30-11.50) Prothromb Time International Ratio 1.1 (0.9-1.1) 1.0 (0.9-1.1) Activated Partial Thromboplast Time 29 SEC (23-33) 29 SEC (23-33) Urine Color Pale yellow Urine Appearance Clear Urine pH 5 (4.5-8.0) Urine Specific [place] 1.010 (1.005-1.035) Urine Protein Negative (NEGATIVE) Urine Glucose (UA) 4+ (NEGATIVE) H Urine Ketones Negative (NEGATIVE) Urine Occult Blood 4+ (NEGATIVE) H Urine Nitrite Negative (NEGATIVE) Urine Bilirubin Negative (NEGATIVE) Urine Urobilinogen Normal MG/DL (0.0-1.0) Urine Leukocyte Esterase Negative (NEGATIVE) Urine RBC 2-4 /HPF (0 - 2) H Urine WBC 0-2 /HPF (0 - 2) Urine Squamous Epithelial Cells Few /LPF (NONE/OCC) Urine Bacteria Few /HPF (NONE) Sodium Level 134 MMOL/L (136-145) L 140 MMOL/L (136-145) Potassium Level 4.1 MMOL/L (3.5-5.1) 4.0 MMOL/L (3.5-5.1) Chloride Level 99 MMOL/L (98-107) 104 MMOL/L (98-107) Carbon Dioxide Level 25 MMOL/L (21-32) 28 MMOL/L (21-32) Anion Gap 10 mmol/L (5-15) 9 mmol/L (5-15) Blood Urea Nitrogen 22 mg/dL (7-18) H 18 mg/dL (7-18) Creatinine 1.4 MG/DL (0.55-1.30) H 1.2 MG/DL (0.55-1.30) Estimat Glomerular Filtration Rate mL/min (>60) mL/min (>60) Glucose Level 338 MG/DL (74-106) H 151 MG/DL (74-106) #H Calcium Level 9.1 MG/DL (8.5-10.1) 8.8 MG/DL (8.5-10.1) Total Bilirubin 0.2 MG/DL (0.2-1.0) 0.3 MG/DL (0.2-1.0) Aspartate Amino Transf (AST/SGOT) 20 U/L (15-37) 14 U/L (15-37) L Alanine Aminotransferase (ALT/SGPT) 29 U/L (12-78) 25 U/L (12-78) Alkaline Phosphatase 96 U/L (46-116) 89 U/L (46-116) Total Protein 7.8 G/DL (6.4-8.2) 7.1 G/DL (6.4-8.2) Albumin 3.3 G/DL (3.4-5.0) L 3.2 G/DL (3.4-5.0) L Globulin 4.5 g/dL 3.9 g/dL Albumin/Globulin Ratio 0.7 (1.0-2.7) L 0.8 (1.0-2.7) L Amylase Level 67 U/L (25-115) Lipase 183 U/L (73-393) Height (Feet): 5 Height (Inches): 2.00 Weight (Pounds): 170 Medications Current Medications Medications (Trade) Dose Ordered Sig/[place] Route PRN Reason Start Time Stop Time Status Last Admin Dose Admin Acetaminophen (Tylenol) 650 mg Q4H PRN ORAL fever 10/05/17 23:15 11/04/17 23:14 Al Hydroxide/Mg Hydroxide (Mylanta II) 30 ml Q6H PRN ORAL dyspepsia 10/05/17 23:15 11/04/17 23:14 Aztreonam 1 gm/ Dextrose 110 ml @ 220 mls/hr Q8HR IVPB 10/06/17 22:00 10/13/17 05:59 Dextrose (Dextrose 50%) STAT PRN IV Hypoglycemia 10/05/17 23:15 11/04/17 23:14 Dextrose/Sodium Chloride 1,000 ml @ 75 mls/hr [id number] IV 10/05/17 23:08 11/04/17 23:07 10/06/17 00:28 Diphenhydramine HCl (Benadryl) 25 mg Q6H PRN ORAL Itching/Pruritis 10/05/17 23:15 11/04/17 23:14 Gabapentin (Neurontin) 300 mg BEDTIME ORAL 10/06/17 21:00 11/05/17 20:59 Insulin Aspart (NovoLOG) BEFORE MEALS AND HS SUBQ 10/06/17 06:30 11/05/17 06:29 10/06/17 06:27 Nitroglycerin (Ntg) 0.4 mg Q5M X 3 DOSES PRN SL Prn Chest Pain 10/05/17 23:15 11/04/17 23:14 Ondansetron HCl (Zofran) 4 mg Q6H PRN IVP Nausea & Vomiting 10/05/17 23:15 11/04/17 23:14 Polyethylene Glycol (Miralax) 17 gm HSPRN PRN ORAL Constipation 10/05/17 23:15 11/04/17 23:14 Pravastatin Sodium (Pravachol) 20 mg BEDTIME ORAL 10/06/17 21:00 11/05/17 20:59 Sotalol HCl (Betapace) 80 mg TID ORAL 10/06/17 09:00 11/05/17 08:59 10/06/17 10:58 Temazepam (Restoril) 15 mg HSPRN PRN ORAL Insomnia 10/05/17 23:15 10/12/17 23:14 Vancomycin HCl (Vanco rx to dose) 1 ea DAILY PRN MISC Per rx protocol 10/05/17 23:15 11/04/17 23:14 Vancomycin/Sodium Chloride 250 ml @ 166.667 mls/hr Q24H IVPB 10/06/17 01:00 10/11/17 00:59 10/06/17 01:27 Assessment/Plan Problem List: (1) S/P cholecystectomy ICD Codes: Z90.49 - Acquired absence of other specified parts of digestive tract SNOMED: 09405624, 58281397, 471681066 (2) Hyponatremia ICD Codes: E87.1 - Hypo-osmolality and hyponatremia SNOMED: 72075704 (3) Leukocytosis ICD Codes: D72.829 - Elevated white blood cell count, unspecified SNOMED: 495623061, 648852470 (4) Diabetes mellitus, type II ICD Codes: E11.9 - Type 2 diabetes mellitus without complications SNOMED: 97987119 (5) Acute kidney injury ICD Codes: N17.9 - Acute kidney failure, unspecified SNOMED: 69513681 (6) HTN (hypertension) ICD Codes: I10 - Essential (primary) hypertension SNOMED: 90723386 (7) Lower GI bleed ICD Codes: K92.2 - Gastrointestinal hemorrhage, unspecified SNOMED: 79824300 (8) Afib ICD Codes: I48.91 - Unspecified atrial fibrillation SNOMED: 68082179 (9) Chronic diastolic (congestive) heart failure ICD Codes: I50.32 - Chronic diastolic (congestive) heart failure SNOMED: 55822427, 137032729 Status: stable, progressing Assessment/Plan - Admit to ICU - Department Clerk, Dr. Goodrich, consulted - GI, Dr. Maynard, consulted - General surgery, Dr. Ward, consulted - Cardiology, Dr. King, consulted for cardiac clearance for EgD - amicar not given as not available in pharmacy - Protonix gtt - IVF - CBC Q12hr - CLD diet today. NPO after midnight - Colonoscopy scheduled for tomorrow. Cardiology consulted for cardiac clearance. - leukocytosis. UA negative. Check CXR, blood cx, lactic acid. On IV vancomycin and aztreonam per funding coordinator for possible rupture/infection during urological procedure - resume home meds. hold xarelto. - check venous duplex. if negative, start SCDs - trend Cr - pain control and supportive care DVT Prophylaxis: SCD Code Status: Full Hospital Classification Declaration: Based on this initial evaluation, and depending on the patient's clinical course, I anticipate that this patient will require hospitalization for 2-3 days for GI bleed and close respiratory/ hemodynamic monitoring. Disposition: Once the patient is stable to leave the hospital, I anticipate the patient will likely be discharged to the following environment: home with HH I spent 72 minutes on this patient's case, and 42 minutes were dedicated to counseling and/or care coordination. Discussed with patient/family, nursing staff, SW/CM, [] regarding clinical status, treatment course, and disposition planning. Time of note may not reflect time of encounter. Frances Maurice NP October 06, 2017 12:33
--- NOTE | 2017-10-06 12:39 | Diagnostic Imaging Report ---
APPROVED REPORT CPT Code: 78840 Present Symptoms Comments: R/O DVT BILATERAL: Imaging reveals a patent deep venous system bilaterally. There is no evidence of thrombus within the femoral, popliteal or tibial segments. The greater saphenous veins are also within normal limits. Doppler indicates normal spontaneous flow within these segments.
--- NOTE | 2017-10-06 13:32 | Diagnostic Imaging Report ---
Indication: Dyspnea Comparison: 05/09/2017 A single view chest radiograph was obtained. Findings: No definite infiltrate or pulmonary vascular congestion identified. The heart is enlarged. The aorta is mildly enlarged consistent with atherosclerotic vascular disease. The bones are osteopenic. Impression: No acute disease
[2017-10-06] MEDS ORDERED: Triamterene/Hctz 37.5/25 cap ORAL SCH (14:00)
[2017-10-06] MEDS ORDERED: Furosemide 40mg tab ORAL SCH (14:00)
[2017-10-06] MEDS ORDERED: Bisacodyl EC 5mg tab ORAL SCH (16:00)
[2017-10-06] MEDS ORDERED: Nulytely 4L ORAL SCH (16:00)
--- NOTE | 2017-10-06 16:49 | Cardiac Electrophysiology PN ---
Subjective Subjective [id number] Objective Last 24 Hour Vital Signs Date Time Temp Pulse Resp B/P (MAP) Pulse Ox O2 Delivery O2 Flow Rate FiO2 10/06/17 16:00 63 10/06/17 16:00 98.0 63 17 125/70 98 Room Air 98.0 10/06/17 15:00 67 18 91/60 99 Room Air 10/06/17 14:16 66 128/68 10/06/17 14:00 68 17 128/68 99 Room Air 10/06/17 13:00 67 17 138/81 100 Room Air 10/06/17 12:00 98.0 69 19 136/76 100 Room Air 98.0 10/06/17 11:00 69 19 148/87 100 Room Air 10/06/17 10:58 68 135/84 10/06/17 10:00 68 18 144/77 100 Room Air 10/06/17 09:00 69 20 140/75 99 Room Air 10/06/17 08:00 69 10/06/17 08:00 98.1 69 19 108/89 100 Room Air 98.1 10/06/17 07:00 72 19 108/89 99 Room Air 10/06/17 06:00 68 19 131/73 99 Room Air 10/06/17 05:00 69 19 149/73 99 Room Air 10/06/17 04:00 70 10/06/17 04:00 98.0 70 19 136/77 99 Room Air 98.0 10/06/17 03:00 69 19 141/84 99 Room Air 10/06/17 02:00 68 19 139/112 99 Room Air 10/06/17 01:00 68 20 136/89 99 Room Air 10/06/17 00:07 98.7 70 20 133/100 99 Room Air 98.7 10/06/17 00:00 70 10/05/17 23:57 98.1 18 143/82 97 Room Air 98.1 10/05/17 20:35 98.1 18 156/92 97 Room Air 98.1 10/05/17 18:47 98.1 85 18 156/92 97 Room Air 98.1 Intake and Output 10/05/17 10/06/17 19:00 07:00 Intake Total 830.000 ml Balance 830.000 ml Intake Oral 0 ml IV Total 830.000 ml # Voids 2 # Bowel Movements 2 Laboratory Tests Test 10/05/17 19:30 10/06/17 05:00 White Blood Count 12.4 K/UL (4.8-10.8) H 11.8 K/UL (4.8-10.8) H Red Blood Count 4.38 M/UL (4.20-5.40) 3.85 M/UL (4.20-5.40) L Hemoglobin 11.7 G/DL (12.0-16.0) L 11.0 G/DL (12.0-16.0) L Hematocrit 37.2 % (37.0-47.0) 32.6 % (37.0-47.0) L Mean Corpuscular Volume 85 FL (80-99) 84 FL (80-99) Mean Corpuscular Hemoglobin 26.8 PG (27.0-31.0) L 28.5 PG (27.0-31.0) Mean Corpuscular Hemoglobin Concent 31.5 G/DL (32.0-36.0) L 33.7 G/DL (32.0-36.0) Red Cell Distribution Width 12.6 % (11.6-14.8) 12.4 % (11.6-14.8) Platelet Count 222 K/UL (150-450) 211 K/UL (150-450) Mean Platelet Volume 8.9 FL (6.5-10.1) 9.3 FL (6.5-10.1) Neutrophils (%) (Auto) 74.5 % (45.0-75.0) 68.2 % (45.0-75.0) Lymphocytes (%) (Auto) 17.6 % (20.0-45.0) L 21.7 % (20.0-45.0) Monocytes (%) (Auto) 6.2 % (1.0-10.0) 7.8 % (1.0-10.0) Eosinophils (%) (Auto) 0.7 % (0.0-3.0) 1.2 % (0.0-3.0) Basophils (%) (Auto) 1.0 % (0.0-2.0) 1.1 % (0.0-2.0) Prothrombin Time 11.1 SEC (9.30-11.50) 10.2 SEC (9.30-11.50) Prothromb Time International Ratio 1.1 (0.9-1.1) 1.0 (0.9-1.1) Activated Partial Thromboplast Time 29 SEC (23-33) 29 SEC (23-33) Urine Color Pale yellow Urine Appearance Clear Urine pH 5 (4.5-8.0) Urine Specific [place] 1.010 (1.005-1.035) Urine Protein Negative (NEGATIVE) Urine Glucose (UA) 4+ (NEGATIVE) H Urine Ketones Negative (NEGATIVE) Urine Occult Blood 4+ (NEGATIVE) H Urine Nitrite Negative (NEGATIVE) Urine Bilirubin Negative (NEGATIVE) Urine Urobilinogen Normal MG/DL (0.0-1.0) Urine Leukocyte Esterase Negative (NEGATIVE) Urine RBC 2-4 /HPF (0 - 2) H Urine WBC 0-2 /HPF (0 - 2) Urine Squamous Epithelial Cells Few /LPF (NONE/OCC) Urine Bacteria Few /HPF (NONE) Sodium Level 134 MMOL/L (136-145) L 140 MMOL/L (136-145) Potassium Level 4.1 MMOL/L (3.5-5.1) 4.0 MMOL/L (3.5-5.1) Chloride Level 99 MMOL/L (98-107) 104 MMOL/L (98-107) Carbon Dioxide Level 25 MMOL/L (21-32) 28 MMOL/L (21-32) Anion Gap 10 mmol/L (5-15) 9 mmol/L (5-15) Blood Urea Nitrogen 22 mg/dL (7-18) H 18 mg/dL (7-18) Creatinine 1.4 MG/DL (0.55-1.30) H 1.2 MG/DL (0.55-1.30) Estimat Glomerular Filtration Rate mL/min (>60) mL/min (>60) Glucose Level 338 MG/DL (74-106) H 151 MG/DL (74-106) #H Calcium Level 9.1 MG/DL (8.5-10.1) 8.8 MG/DL (8.5-10.1) Total Bilirubin 0.2 MG/DL (0.2-1.0) 0.3 MG/DL (0.2-1.0) Aspartate Amino Transf (AST/SGOT) 20 U/L (15-37) 14 U/L (15-37) L Alanine Aminotransferase (ALT/SGPT) 29 U/L (12-78) 25 U/L (12-78) Alkaline Phosphatase 96 U/L (46-116) 89 U/L (46-116) Total Protein 7.8 G/DL (6.4-8.2) 7.1 G/DL (6.4-8.2) Albumin 3.3 G/DL (3.4-5.0) L 3.2 G/DL (3.4-5.0) L Globulin 4.5 g/dL 3.9 g/dL Albumin/Globulin Ratio 0.7 (1.0-2.7) L 0.8 (1.0-2.7) L Amylase Level 67 U/L (25-115) Lipase 183 U/L (73-393) Manolo Thompson MD October 06, 2017 16:49
[2017-10-06 17:22] LABS: EOSINOPHILS % (AUTO) 3.9 % (0.0-3.0); HEMATOCRIT 29.8 % (37.0-47.0); HEMOGLOBIN 10.1 G/DL (12.0-16.0); LYMPHOCYTES % (AUTO) 22.4 % (20.0-45.0); MEAN CORPUSCULAR VOLUME 83 FL (80-99); MONOCYTES % (AUTO) 7.2 % (1.0-10.0); NEUTROPHILS % (AUTO) 65.5 % (45.0-75.0); PLATELET COUNT 193 K/UL (150-450); RED CELL DISTRIBUTION WIDTH 12.6 % (11.6-14.8); WHITE BLOOD COUNT 9.7 K/UL (4.8-10.8)
--- NOTE | 2017-10-06 18:45 | Consultation ---
DATE OF CONSULTATION: 10/06/2017 CONSULTING PHYSICIAN: Manolo Thompson M.D. REFERRING PHYSICIAN: Nicole Jose M.D. REASON FOR CONSULTATION: Hypertension, paroxysmal atrial fibrillation, and the patient with GI bleed. HISTORY OF PRESENT ILLNESS: The patient is an 82-year-old lady with history of hypertension, diabetes, history of paroxysmal atrial fibrillation, on Xarelto, who presented to the emergency room for bright red blood per rectum. The patient had urological procedure yesterday, but they also had to manager intern her rectum. She had not had Xarelto prior to the procedure. The patient went home and started having lower right and left quadrant pain with bright red blood per rectum. The patient was admitted to intensive care unit. Cardiology consultation was obtained for further evaluation and management. At the time of my evaluation, the patient denies any chest pain, palpitation, or shortness of breath. Denies nausea, vomiting. The patient also has history of hemorrhoids. REVIEW OF SYSTEMS: Performed and was negative other than what was mentioned in the history of present illness. PAST MEDICAL HISTORY: 1. Hypertension. 2. Diabetes. 3. Hyperlipidemia. 4. Paroxysmal atrial fibrillation. MEDICATIONS: At home include Lasix 40 mg daily, hydralazine 100 mg every 8 hours, metformin, Pravachol 20 mg at bedtime, Xarelto 20 mg daily, sotalol 80 mg t.i.d., and triamterene/hydrochlorothiazide. FAMILY HISTORY: Noncontributory. SOCIAL HISTORY: She lives at home. Does not smoke or drink alcohol. PHYSICAL EXAMINATION: VITAL SIGNS: Blood pressure is 110/70, pulse 62, respirations 18, and she is afebrile. HEAD AND NECK: Shows no JVD or carotid bruits. LUNGS: Clear. CARDIOVASCULAR: Shows regular S1 and S2 with no gallop or murmur. ABDOMEN: Soft and nontender. EXTREMITIES: No pitting edema. DIAGNOSTIC DATA: Her EKG shows sinus rhythm with no acute ST or T-wave abnormality. LABORATORY DATA: White count 11.8, hemoglobin 11, hematocrit 32.6, and platelet count of 211,000. Sodium 140, potassium 4.0, BUN of 18, creatinine 1.2, and glucose of 151. ASSESSMENT AND PLAN: 1. Paroxysmal atrial fibrillation. INR is 1 and currently in sinus rhythm. The patient is on sotalol 80 mg t.i.d., that I would reduce the dose to b.i.d. We will get an EKG to evaluate for prolonged QT. The patient also is off anticoagulation for GI bleed. 2. Hypertension, on Lasix 40 mg daily, Dyazide, and sotalol. The patient was on hydralazine. We will add p.r.n. clonidine at this time. 3. GI procedure. Further evaluation by Dr. Maynard. 4. Status post urological procedure. 5. Diabetes. Thank you very much, Dr. Jose, for allowing me to participate in the care of this patient. Please do not hesitate to contact for any questions regarding my evaluation. Manolo Thompson M.D. DR: José Manuel JOB#: [id number] CC:
--- NOTE | 2017-10-06 18:52 | Consultation ---
History of Present Illness General Date patient seen: October 05, 2017 Chief Complaint: General Complaint Referring physician: DEE HASKINS Reason for Consultation: LGIB Present Illness HPI 82 year old female who had urology procedure performed in urology office just prior to coming to ED. states that she underwent a functional bladder study. She states that a instrument was inserted into both her rectum and her bladder to obtain this study. She states she has a history of urinary incontinence. She states that after the study/procedure was finished she was feeling some palpitations. She states that she was also having some pain and cramping in her lower abdomen. She went home and then developed bleeding from her rectum. She states that she started passing large clots. She did not have any blood in her urine. She has no pain. She has no other complaints. Surgery called to help with hemostasis and evaluate for possible injury in rectum or bleeding vessel from procedure. Pt seen, awake A&Ox4 with no active s/sx of N/V. Noted has active rectal bleed, bright red blood with multiple BM's. Patient initially seen in ED and noted to have venous oozing from rectum. possibly injury in rectal vault and visualization difficult at bedside. venous oozing noted and not arterial. clots seen on bed. Allergies: Coded Allergies: CODEINE (Verified Allergy, Unknown, 10/23/11) PENICILLINS (Verified Allergy, Unknown, RASH/ITCH, 10/23/11) Medication History Scheduled Albuterol Sulfate (Ventolin Hfa), 1 PUFF INH EVERY 6 HOURS, (Reported) Esomeprazole Magnesium (Nexium), 40 MG ORAL DAILY, (Reported) Furosemide* (Lasix*), 40 MG ORAL DAILY Gabapentin* (Gabapentin*), 300 MG ORAL BEDTIME, (Reported) Glimepiride* (Glimepiride*), 4 MG ORAL BID, (Reported) Hydralazine Hcl* (Hydralazine Hcl*), 100 MG ORAL EVERY 8 HOURS, (Reported) Metformin Hcl* (Metformin Hcl*), 1,000 MG ORAL DAILY, (Reported) Oseltamivir Phosphate (Tamiflu), 30 MG ORAL Q12HR Pravastatin Sod* (Pravastatin Sod*), 20 MG ORAL BEDTIME, (Reported) Rivaroxaban (Xarelto), 20 MG ORAL DAILY Sotalol Hcl* (Betapace*), 80 MG PO TID, (Reported) Triamterene/Hctz (Triamterene-Hctz 37.5-25 mg Cp), 1 CAP ORAL DAILY, (Reported) Miscellaneous Medications Fluticasone/Vilanterol (Breo Ellipta 100-25 Mcg INH), 1 EACH IH, (Reported) Umeclidinium [place] (Incruse Ellipta), 62.5 MCG IH, (Reported) Patient History History Provided By: Patient, Medical Record, PMD Healthcare decision maker self Resuscitation status Full Code Advanced Directive on File No Past Medical/Surgical History Past Medical/Surgical History: (1) Otitis externa (2) Allergic reaction (3) Allergic reaction (4) Elevated LFTs (5) Cholangitis (6) Choledocholithiasis (7) Arrhythmia (8) Acute cholecystitis (9) Granulomatous lung disease (10) Bronchitis (11) Fever (12) Chest pain (13) Hematuria (14) Rash (15) Acute diastolic (congestive) heart failure (16) Paroxysmal atrial fibrillation (17) Acute on chronic diastolic (congestive) heart failure (18) Headache (19) Hypertension (20) Muscle contraction headache (21) Acute on chronic diastolic (congestive) heart failure (22) Sepsis (23) Atrial fibrillation with RVR (24) ACS (acute coronary syndrome) (25) Upper respiratory infection (26) Hypokalemia (27) Chest pain (28) HTN (hypertension) (29) Atrial fibrillation with rapid ventricular response (30) Influenza A (31) ANDRES (acute kidney injury) (32) Atrial fibrillation (33) Diabetes (34) HTN (hypertension) (35) Lower GI bleed (36) Chronic anticoagulation (37) Diabetes mellitus, type II (38) Hyponatremia (39) Leukocytosis (40) Afib (41) Acute kidney injury (42) Chronic diastolic (congestive) heart failure (43) Anemia (44) Diarrhea (45) Nausea & vomiting Review of Systems All Other Systems: negative except mentioned in HPI Physical Exam General Appearance: no apparent distress, alert Lines, tubes and drains: peripheral HEENT: normocephalic, atraumatic, mucous membranes moist Neck: normal alignment, supple Respiratory/Chest: lungs clear, normal breath sounds, no respiratory distress, no accessory muscle use Cardiovascular/Chest: normal peripheral pulses, normal rate Abdomen: normal bowel sounds, non tender, soft, no organomegaly, no mass Genitourinary/Rectal: heme positive stool Extremities: normal range of motion, non-tender Skin Exam: normal pigmentation Neurologic: alert, oriented x 3 Last 24 Hour Vital Signs Date Time Temp Pulse Resp B/P (MAP) Pulse Ox O2 Delivery O2 Flow Rate FiO2 10/06/17 18:00 70 17 129/76 98 Room Air 10/06/17 17:00 61 17 132/66 98 Room Air 10/06/17 16:00 63 10/06/17 16:00 98.0 63 17 125/70 98 Room Air 98.0 10/06/17 15:00 67 18 91/60 99 Room Air 10/06/17 14:16 66 128/68 10/06/17 14:00 68 17 128/68 99 Room Air 10/06/17 13:00 67 17 138/81 100 Room Air 10/06/17 12:00 98.0 69 19 136/76 100 Room Air 98.0 10/06/17 11:00 69 19 148/87 100 Room Air 10/06/17 10:58 68 135/84 10/06/17 10:00 68 18 144/77 100 Room Air 10/06/17 09:00 69 20 140/75 99 Room Air 10/06/17 08:00 69 10/06/17 08:00 98.1 69 19 108/89 100 Room Air 98.1 10/06/17 07:00 72 19 108/89 99 Room Air 10/06/17 06:00 68 19 131/73 99 Room Air 10/06/17 05:00 69 19 149/73 99 Room Air 10/06/17 04:00 70 10/06/17 04:00 98.0 70 19 136/77 99 Room Air 98.0 10/06/17 03:00 69 19 141/84 99 Room Air 10/06/17 02:00 68 19 139/112 99 Room Air 10/06/17 01:00 68 20 136/89 99 Room Air 10/06/17 00:07 98.7 70 20 133/100 99 Room Air 98.7 10/06/17 00:00 70 10/05/17 23:57 98.1 18 143/82 97 Room Air 98.1 10/05/17 20:35 98.1 18 156/92 97 Room Air 98.1 Intake and Output 10/05/17 10/06/17 19:00 07:00 Intake Total 830.000 ml Balance 830.000 ml Intake Oral 0 ml IV Total 830.000 ml # Voids 2 # Bowel Movements 2 Laboratory Tests Test 10/05/17 19:30 10/06/17 05:00 10/06/17 16:25 White Blood Count 12.4 K/UL (4.8-10.8) H 11.8 K/UL (4.8-10.8) H 9.7 K/UL (4.8-10.8) Red Blood Count 4.38 M/UL (4.20-5.40) 3.85 M/UL (4.20-5.40) L 3.60 M/UL (4.20-5.40) L Hemoglobin 11.7 G/DL (12.0-16.0) L 11.0 G/DL (12.0-16.0) L 10.1 G/DL (12.0-16.0) L Hematocrit 37.2 % (37.0-47.0) 32.6 % (37.0-47.0) L 29.8 % (37.0-47.0) L Mean Corpuscular Volume 85 FL (80-99) 84 FL (80-99) 83 FL (80-99) Mean Corpuscular Hemoglobin 26.8 PG (27.0-31.0) L 28.5 PG (27.0-31.0) 28.0 PG (27.0-31.0) Mean Corpuscular Hemoglobin Concent 31.5 G/DL (32.0-36.0) L 33.7 G/DL (32.0-36.0) 33.8 G/DL (32.0-36.0) Red Cell Distribution Width 12.6 % (11.6-14.8) 12.4 % (11.6-14.8) 12.6 % (11.6-14.8) Platelet Count 222 K/UL (150-450) 211 K/UL (150-450) 193 K/UL (150-450) Mean Platelet Volume 8.9 FL (6.5-10.1) 9.3 FL (6.5-10.1) 8.7 FL (6.5-10.1) Neutrophils (%) (Auto) 74.5 % (45.0-75.0) 68.2 % (45.0-75.0) 65.5 % (45.0-75.0) Lymphocytes (%) (Auto) 17.6 % (20.0-45.0) L 21.7 % (20.0-45.0) 22.4 % (20.0-45.0) Monocytes (%) (Auto) 6.2 % (1.0-10.0) 7.8 % (1.0-10.0) 7.2 % (1.0-10.0) Eosinophils (%) (Auto) 0.7 % (0.0-3.0) 1.2 % (0.0-3.0) 3.9 % (0.0-3.0) H Basophils (%) (Auto) 1.0 % (0.0-2.0) 1.1 % (0.0-2.0) 1.0 % (0.0-2.0) Prothrombin Time 11.1 SEC (9.30-11.50) 10.2 SEC (9.30-11.50) Prothromb Time International Ratio 1.1 (0.9-1.1) 1.0 (0.9-1.1) Activated Partial Thromboplast Time 29 SEC (23-33) 29 SEC (23-33) Urine Color Pale yellow Urine Appearance Clear Urine pH 5 (4.5-8.0) Urine Specific [place] 1.010 (1.005-1.035) Urine Protein Negative (NEGATIVE) Urine Glucose (UA) 4+ (NEGATIVE) H Urine Ketones Negative (NEGATIVE) Urine Occult Blood 4+ (NEGATIVE) H Urine Nitrite Negative (NEGATIVE) Urine Bilirubin Negative (NEGATIVE) Urine Urobilinogen Normal MG/DL (0.0-1.0) Urine Leukocyte Esterase Negative (NEGATIVE) Urine RBC 2-4 /HPF (0 - 2) H Urine WBC 0-2 /HPF (0 - 2) Urine Squamous Epithelial Cells Few /LPF (NONE/OCC) Urine Bacteria Few /HPF (NONE) Sodium Level 134 MMOL/L (136-145) L 140 MMOL/L (136-145) Potassium Level 4.1 MMOL/L (3.5-5.1) 4.0 MMOL/L (3.5-5.1) Chloride Level 99 MMOL/L (98-107) 104 MMOL/L (98-107) Carbon Dioxide Level 25 MMOL/L (21-32) 28 MMOL/L (21-32) Anion Gap 10 mmol/L (5-15) 9 mmol/L (5-15) Blood Urea Nitrogen 22 mg/dL (7-18) H 18 mg/dL (7-18) Creatinine 1.4 MG/DL (0.55-1.30) H 1.2 MG/DL (0.55-1.30) Estimat Glomerular Filtration Rate mL/min (>60) mL/min (>60) Glucose Level 338 MG/DL (74-106) H 151 MG/DL (74-106) #H Calcium Level 9.1 MG/DL (8.5-10.1) 8.8 MG/DL (8.5-10.1) Total Bilirubin 0.2 MG/DL (0.2-1.0) 0.3 MG/DL (0.2-1.0) Aspartate Amino Transf (AST/SGOT) 20 U/L (15-37) 14 U/L (15-37) L Alanine Aminotransferase (ALT/SGPT) 29 U/L (12-78) 25 U/L (12-78) Alkaline Phosphatase 96 U/L (46-116) 89 U/L (46-116) Total Protein 7.8 G/DL (6.4-8.2) 7.1 G/DL (6.4-8.2) Albumin 3.3 G/DL (3.4-5.0) L 3.2 G/DL (3.4-5.0) L Globulin 4.5 g/dL 3.9 g/dL Albumin/Globulin Ratio 0.7 (1.0-2.7) L 0.8 (1.0-2.7) L Amylase Level 67 U/L (25-115) Lipase 183 U/L (73-393) Lactic Acid Level 2.00 mmol/L (0.66-2.22) Height (Feet): 5 Height (Inches): 2.00 Weight (Pounds): 170 Medications Current Medications Medications (Trade) Dose Ordered Sig/[place] Route PRN Reason Start Time Stop Time Status Last Admin Dose Admin Acetaminophen (Tylenol) 650 mg Q4H PRN ORAL fever 10/05/17 23:15 11/04/17 23:14 10/06/17 13:47 Al Hydroxide/Mg Hydroxide (Mylanta II) 30 ml Q6H PRN ORAL dyspepsia 10/05/17 23:15 11/04/17 23:14 Aztreonam 1 gm/ Dextrose 110 ml @ 220 mls/hr Q8HR IVPB 10/06/17 22:00 10/13/17 05:59 Dextrose (Dextrose 50%) STAT PRN IV Hypoglycemia 10/05/17 23:15 11/04/17 23:14 Dextrose/Sodium Chloride 1,000 ml @ 75 mls/hr [id number] IV 10/05/17 23:08 11/04/17 23:07 10/06/17 12:28 Diphenhydramine HCl (Benadryl) 25 mg Q6H PRN ORAL Itching/Pruritis 10/05/17 23:15 11/04/17 23:14 Furosemide (Lasix) 40 mg DAILY ORAL 10/07/17 09:00 11/06/17 08:59 Gabapentin (Neurontin) 300 mg BEDTIME ORAL 10/06/17 21:00 11/05/17 20:59 Insulin Aspart (NovoLOG) BEFORE MEALS AND HS SUBQ 10/06/17 06:30 11/05/17 06:29 10/06/17 17:30 Nitroglycerin (Ntg) 0.4 mg Q5M X 3 DOSES PRN SL Prn Chest Pain 10/05/17 23:15 11/04/17 23:14 Ondansetron HCl (Zofran) 4 mg Q6H PRN IVP Nausea & Vomiting 10/05/17 23:15 11/04/17 23:14 10/06/17 13:09 Polyethylene Glycol (Miralax) 17 gm HSPRN PRN ORAL Constipation 10/05/17 23:15 11/04/17 23:14 Polyethylene Glycol/ Electrolytes (Nulytely) 4,000 ml ONCE ORAL 10/06/17 16:00 10/06/17 23:00 10/06/17 17:30 Pravastatin Sodium (Pravachol) 20 mg BEDTIME ORAL 10/06/17 21:00 11/05/17 20:59 Sodium Phosphate (Fleet's Sodium Phosl Enema) 133 ml ONCE RECTAL 10/06/17 23:00 10/06/17 23:59 Sotalol HCl (Betapace) 80 mg Q12HR ORAL 10/07/17 09:00 11/06/17 08:59 Temazepam (Restoril) 15 mg HSPRN PRN ORAL Insomnia 10/05/17 23:15 10/12/17 23:14 Triamterene/HCTZ (Dyazide) 1 cap DAILY ORAL 10/07/17 09:00 11/06/17 08:59 Vancomycin HCl (Vanco rx to dose) 1 ea DAILY PRN MISC Per rx protocol 10/05/17 23:15 11/04/17 23:14 Vancomycin/Sodium Chloride 250 ml @ 166.667 mls/hr Q24H IVPB 10/06/17 01:00 10/11/17 00:59 10/06/17 01:27 Assessment/Plan Problem List: (1) Lower GI bleed Assessment & Plan: likely iatrogenic from recent procedure with urology. still oozing venous blood and clots. fortunately h/h stable. awaiting GI procedure scope tomorrow by GI no acute surgical intervention planned. if cannot obtain hemostasis with scope will need to take to OR for EUA defer bedside scope/anoscopy for now thank you for this consultation. will follow with recs ICD Codes: K92.2 - Gastrointestinal hemorrhage, unspecified SNOMED: [id number] Status: stable Juan Miguel Ward October 06, 2017 18:52
[2017-10-06] MEDS ORDERED: Sotalol 80mg tab ORAL SCH (21:00)
[2017-10-06] MEDS ORDERED: Metoclopramide 10mg/2ml Inj IVP PRN (21:15)
[2017-10-06] MEDS: Aztreonam Inj 1 GM in D5W 110 ML IVPB SCH (21:49)
[2017-10-06] MEDS ORDERED: Fleet's Enema 133ml RECTAL SCH (23:00)
[2017-10-07] VITALS (16 sets, daily range): BP systolic 83–135; BP diastolic 49–73
[2017-10-07] MEDS: Vancomycin 750mg/NS 250ml IVPB SCH (01:16)
[2017-10-07] MEDS: D5 1/2NS 1,000 ML IV SCH ×4 (01:48→21:43)
[2017-10-07 06:01] LABS: ANION GAP 7 mmol/L (5-15); BLOOD UREA NITROGEN 13 mg/dL (7-18); CALCIUM 8.7 MG/DL (8.5-10.1); CARBON DIOXIDE 26 MMOL/L (21-32); CHLORIDE 105 MMOL/L (98-107); CREATININE 1.2 MG/DL (0.55-1.30); POTASSIUM 3.9 MMOL/L (3.5-5.1); SODIUM 138 MMOL/L (136-145)
[2017-10-07] MEDS: Aztreonam Inj 1 GM in D5W 110 ML IVPB SCH ×2 (06:02→14:07)
[2017-10-07] MEDS: NovoLOG Insulin Flexpen SUBQ SCH ×4 (06:04→21:35)
[2017-10-07 06:28] LABS: BASOPHILS % (AUTO) 0.9 % (0.0-2.0); EOSINOPHILS % (AUTO) 2.8 % (0.0-3.0); HEMATOCRIT 27.9 % (37.0-47.0); LYMPHOCYTES % (AUTO) 28.6 % (20.0-45.0); MEAN CORPUSCULAR VOLUME 85 FL (80-99); MONOCYTES % (AUTO) 7.3 % (1.0-10.0); NEUTROPHILS % (AUTO) 60.4 % (45.0-75.0); PLATELET COUNT 182 K/UL (150-450); RED BLOOD COUNT 3.27 M/UL (4.20-5.40); RED CELL DISTRIBUTION WIDTH 12.7 % (11.6-14.8); WHITE BLOOD COUNT 7.7 K/UL (4.8-10.8)
--- NOTE | 2017-10-07 08:53 | Anethesia Preoperative Eval ---
Anesthesia Pre-op PMH/ROS General Date of Evaluation: October 07, 2017 Anesthesiologist: Arthur ASA Score: ASA 3 Mallampati Score Class I : Soft palate, uvula, fauces, pillars visible Class II: Soft palate, uvula, fauces visible Class III: Soft palate, base of uvula visible Class IV: Only hard plate visible Mallampati Classification: Class II Surgeon: Aleyda Diagnosis: GI bleed Surgical Procedure: EGD and colonoscopy Anesthesia History: none Family History: no anesthesia problems Allergies: Coded Allergies: CODEINE (Verified Allergy, Unknown, 10/23/11) PENICILLINS (Verified Allergy, Unknown, RASH/ITCH, 10/23/11) Medications: see eMAR Past Medical History Cardiovascular: Reports: HTN, CAD, [place], arrhythmia - afib with rvr, other - CHF , HLD; Denies: valve dz Pulmonary: Reports: asthma; Denies: COPD, UMBERTO, other Gastrointestinal/Genitourinary: Reports: GERD; Denies: CRI, ESRD, other Neurologic/Psychiatric: Reports: depression/anxiety, other - vertigo; Denies: dementia, CVA, TIA Endocrine: Reports: DM; Denies: hypothyroidism, steroids, other HEENT: Denies: cataract (L), cataract (R), glaucoma, LYTTON (L), LYTTON (R), other Hematology/Immune: Reports: anemia - acute on chronic; Denies: DVT, bleeding disorder, other Musculoskeletal/Integumentary: Reports: OA; Denies: RA, DJD, DDD, edema, other PSxH Narrative: Denies Anesthesia Pre-op Phys. Exam Physician Exam Last Vital Signs Date Time Temp Pulse Resp B/P (MAP) Pulse Ox O2 Delivery O2 Flow Rate FiO2 10/07/17 08:00 98.5 67 15 133/67 98 Room Air 98.5 Constitutional: NAD Cardiovascular: RRR Respiratory: CTA Airway Exam Mallampati Score: Class II MO: full ROM: full Anesthesia Pre-op A/P Labs Hematology Test 10/06/17 16:25 10/07/17 05:30 White Blood Count 9.7 K/UL (4.8-10.8) 7.7 K/UL (4.8-10.8) Red Blood Count 3.60 M/UL (4.20-5.40) L 3.27 M/UL (4.20-5.40) L Hemoglobin 10.1 G/DL (12.0-16.0) L 9.0 G/DL (12.0-16.0) L Hematocrit 29.8 % (37.0-47.0) L 27.9 % (37.0-47.0) L Mean Corpuscular Volume 83 FL (80-99) 85 FL (80-99) Mean Corpuscular Hemoglobin 28.0 PG (27.0-31.0) 27.6 PG (27.0-31.0) Mean Corpuscular Hemoglobin Concent 33.8 G/DL (32.0-36.0) 32.4 G/DL (32.0-36.0) Red Cell Distribution Width 12.6 % (11.6-14.8) 12.7 % (11.6-14.8) Platelet Count 193 K/UL (150-450) 182 K/UL (150-450) Mean Platelet Volume 8.7 FL (6.5-10.1) 8.9 FL (6.5-10.1) Neutrophils (%) (Auto) 65.5 % (45.0-75.0) 60.4 % (45.0-75.0) Lymphocytes (%) (Auto) 22.4 % (20.0-45.0) 28.6 % (20.0-45.0) Monocytes (%) (Auto) 7.2 % (1.0-10.0) 7.3 % (1.0-10.0) Eosinophils (%) (Auto) 3.9 % (0.0-3.0) H 2.8 % (0.0-3.0) Basophils (%) (Auto) 1.0 % (0.0-2.0) 0.9 % (0.0-2.0) Coagulation Test 10/07/17 05:30 Prothrombin Time 10.1 SEC (9.30-11.50) Prothromb Time International Ratio 1.0 (0.9-1.1) Activated Partial Thromboplast Time 25 SEC (23-33) Chemistry Test 10/06/17 16:25 10/07/17 05:30 Lactic Acid Level 2.00 mmol/L (0.66-2.22) Sodium Level 138 MMOL/L (136-145) Potassium Level 3.9 MMOL/L (3.5-5.1) Chloride Level 105 MMOL/L (98-107) Carbon Dioxide Level 26 MMOL/L (21-32) Anion Gap 7 mmol/L (5-15) Blood Urea Nitrogen 13 mg/dL (7-18) Creatinine 1.2 MG/DL (0.55-1.30) Estimat Glomerular Filtration Rate mL/min (>60) Glucose Level 161 MG/DL (74-106) H Calcium Level 8.7 MG/DL (8.5-10.1) Pro-B-Type Natriuretic Peptide 199 pg/mL (0-125) H Risk Assessment & Plan Assessment: ASA III Plan: MAC Status Change Before Surgery: No Pre-Antibiotics Drug: N/A CHERRY ALBERTS M.D. October 07, 2017 08:53
[2017-10-07] MEDS ORDERED: Furosemide 40mg tab ORAL SCH (09:00)
[2017-10-07] MEDS ORDERED: Triamterene/Hctz 37.5/25 cap ORAL SCH ×2 (09:00)
[2017-10-07] MEDS ORDERED: Pantoprazole Inj IVP SCH (09:00)
[2017-10-07] MEDS ORDERED: Sotalol 80mg tab ORAL SCH (09:00)
--- NOTE | 2017-10-07 09:38 | Immediate Post-Op Evaluation ---
Immediate Post-Op Evalulation Immediate Post-Op Evalulation Procedure: EGD and colonoscopy Date of Evaluation: October 07, 2017 Time of Evaluation: 10:40 IV Fluids: 200 Blood Products: 0 Estimated Blood Loss: 0 Urinary Output: 0 Blood Pressure Systolic: 118 Blood Pressure Diastolic: 72 Pulse Rate: 63 Respiratory Rate: 17 O2 Sat by Pulse Oximetry: 99 Temperature (Fahrenheit): 97.2 Pain Score (1-10): 0 Nausea: No Vomiting: No Complications 0 Patient Status: awake, reacts, patent, none Hydration Status: adequate Drug: N/A CHERRY ALBERTS M.D. October 07, 2017 09:38
--- NOTE | 2017-10-07 09:39 | 48 Hour Post Anesthesia Eval ---
Post Anesthesia Evaluation Procedure: EGD and colonoscopy Date of Evaluation: October 07, 2017 Airway: patent Nausea: No Vomiting: No Pain Intensity: 0 Hydration Status: adequate Cardiopulmonary Status: at baseline Mental Status/LOC: patient returned to baseline Post-Anesthesia Complications: 0 Follow-up care needed: ready to discharge CHERRY ALBERTS M.D. October 07, 2017 09:39
[2017-10-07] MEDS ORDERED: NS 500ML IVPB ONE (09:40)
[2017-10-07] MEDS ORDERED: DiphenhydrAMINE 50mg/ml Inj IVP PRN ×2 (09:45→15:00)
--- NOTE | 2017-10-07 09:47 | Pre-Procedure Note/Attestation ---
Pre-Procedure Note/Attestation Complete Prior to Procedure Planned Procedure: not applicable Procedure Narrative: esophagogastroduodenoscopy and colonoscopy Indications for Procedure Pre-Operative Diagnosis: GIB Attestation I attest that I discussed the nature of the procedure; its benefits; risks and complications; and alternatives (and the risks and benefits of such alternatives ), prior to the procedure, with the patient (or the patient's legal sales representative aircraft). I attest that, if there was a reasonable possibility of needing a blood transfusion, the patient (or the patient's legal sales representative aircraft) was given the [facility] standardized written summary, pursuant to the [place] Blood Safety Act ([place] Health and Safety Code # 1645, as amended). I attest that I re-evaluated the patient just prior to the surgery and that there has been no change in the patient's H&P, except as documented below: Lokesh Maynard MD October 07, 2017 09:47
[2017-10-07] MEDS ORDERED: Propofol 200mg/20ml IV ONE (10:00)
[2017-10-07] MEDS ORDERED: Lidocaine 1% MPF 10mg/ml 5ml ONE (10:00)
--- NOTE | 2017-10-07 10:43 | Endoscopy Procedure Note ---
Endoscopy Procedure Note General Indication for Procedure: gib Procedures Performed: EGD, colonoscopy Operative Findings/Diagnosis: gastritis, colon polyp, colonic deuolafoy lesion Specimen: yes Pt Tolerated Procedure Well: Yes Estimated Blood Loss: none Anesthesia Anesthesiologist: hank Anesthesia: MAC Inserted Devices Implant(s) used?: No Quality Quality of Bowel Preparation: Good Did scope reach the cecum?: Yes Was there any complications?: No GI Core Measures 50 yrs or older w/o bx or poly: Not Applicable 10yrs. F/U not recommended: Not Applicable Lkoesh Maynard MD October 07, 2017 10:43
--- NOTE | 2017-10-07 11:27 | Pulmonolgy Critical Care Note ---
Critical Care - Asmt/Plan Problems: (1) Lower GI bleed (2) Chronic anticoagulation (3) HTN (hypertension) (4) Diabetes (5) Atrial fibrillation Respiratory: monitor respiratory rate, adjust FIO2, CXR Cardiac: continue to monitor HR/BP Renal: F/U I&O Infectious Disease: check cultures Gastrointestinal: start feedings, other - 3 small vessels were clamped during colonocopy Endocrine: monitor blood sugar Neurologic: PRN Ativan, PRN Morphine Prophylaxis: Protonix Time Spent (Minutes): 40 Notes Reviewed: quality associate, GI Discussed with: nurses, consultants Critical Care - Objective Last 24 Hour Vital Signs Date Time Temp Pulse Resp B/P (MAP) Pulse Ox O2 Delivery O2 Flow Rate FiO2 10/07/17 11:00 70 16 122/62 100 Room Air 10/07/17 10:44 207.0 63 17 99 10/07/17 09:00 75 133/68 10/07/17 09:00 66 15 110/50 98 Room Air 10/07/17 08:00 98.5 67 15 133/67 98 Room Air 98.5 10/07/17 08:00 67 10/07/17 07:00 68 15 104/49 98 Room Air 10/07/17 06:00 69 15 109/73 98 Room Air 10/07/17 05:00 71 15 83/55 98 Room Air 10/07/17 04:00 98.1 64 15 106/59 98 Room Air 98.1 10/07/17 04:00 65 10/07/17 03:00 64 15 114/60 98 Room Air 10/07/17 02:00 68 16 118/51 98 Room Air 10/07/17 01:00 63 16 110/63 98 Room Air 10/07/17 00:00 98.3 69 16 102/55 98 Room Air 98.3 10/07/17 00:00 65 10/06/17 23:00 69 16 101/54 98 Room Air 10/06/17 22:00 68 18 122/109 98 Room Air 10/06/17 21:00 70 19 107/76 98 Room Air 10/06/17 20:00 98.1 66 17 129/67 99 Room Air 98.1 10/06/17 20:00 68 10/06/17 19:00 67 17 138/67 99 Room Air 10/06/17 18:00 70 17 129/76 98 Room Air 10/06/17 17:00 61 17 132/66 98 Room Air 10/06/17 16:00 63 10/06/17 16:00 98.0 63 17 125/70 98 Room Air 98.0 10/06/17 15:00 67 18 91/60 99 Room Air 10/06/17 14:16 66 128/68 10/06/17 14:00 68 17 128/68 99 Room Air 10/06/17 13:00 67 17 138/81 100 Room Air 10/06/17 12:00 98.0 69 19 136/76 100 Room Air 98.0 Status: awake Condition: critical HEENT: atraumatic Neck: full ROM Lungs: chest wall tender Heart: HR/BP stable, regular Abdomen: soft, non-tender Extremities: edema Accucheck: 155 Critical Care - Subjective ROS Limited/Unobtainable: No ICU Day: 3 Interval Events: pt had EGD and colonoscopy today Condition: critical, improving EKG Rhythm: Sinus Rhythm Fluids: d5 1/2 NS 75 cc/hour I&O: Intake and Output 10/06/17 10/07/17 19:00 07:00 Intake Total 825 ml 4916.667 ml Output Total 500 ml Balance 825 ml 4416.667 ml IV Total 825 ml 916.667 ml Other 4000 ml Output Urine Total 500 ml # Voids 6 # Bowel Movements 16 14 CXR: JUNIOR Labs: Laboratory Tests Test 10/06/17 16:25 10/07/17 05:30 White Blood Count 9.7 K/UL (4.8-10.8) 7.7 K/UL (4.8-10.8) Red Blood Count 3.60 M/UL (4.20-5.40) L 3.27 M/UL (4.20-5.40) L Hemoglobin 10.1 G/DL (12.0-16.0) L 9.0 G/DL (12.0-16.0) L Hematocrit 29.8 % (37.0-47.0) L 27.9 % (37.0-47.0) L Mean Corpuscular Volume 83 FL (80-99) 85 FL (80-99) Mean Corpuscular Hemoglobin 28.0 PG (27.0-31.0) 27.6 PG (27.0-31.0) Mean Corpuscular Hemoglobin Concent 33.8 G/DL (32.0-36.0) 32.4 G/DL (32.0-36.0) Red Cell Distribution Width 12.6 % (11.6-14.8) 12.7 % (11.6-14.8) Platelet Count 193 K/UL (150-450) 182 K/UL (150-450) Mean Platelet Volume 8.7 FL (6.5-10.1) 8.9 FL (6.5-10.1) Neutrophils (%) (Auto) 65.5 % (45.0-75.0) 60.4 % (45.0-75.0) Lymphocytes (%) (Auto) 22.4 % (20.0-45.0) 28.6 % (20.0-45.0) Monocytes (%) (Auto) 7.2 % (1.0-10.0) 7.3 % (1.0-10.0) Eosinophils (%) (Auto) 3.9 % (0.0-3.0) H 2.8 % (0.0-3.0) Basophils (%) (Auto) 1.0 % (0.0-2.0) 0.9 % (0.0-2.0) Lactic Acid Level 2.00 mmol/L (0.66-2.22) Prothrombin Time 10.1 SEC (9.30-11.50) Prothromb Time International Ratio 1.0 (0.9-1.1) Activated Partial Thromboplast Time 25 SEC (23-33) Sodium Level 138 MMOL/L (136-145) Potassium Level 3.9 MMOL/L (3.5-5.1) Chloride Level 105 MMOL/L (98-107) Carbon Dioxide Level 26 MMOL/L (21-32) Anion Gap 7 mmol/L (5-15) Blood Urea Nitrogen 13 mg/dL (7-18) Creatinine 1.2 MG/DL (0.55-1.30) Estimat Glomerular Filtration Rate mL/min (>60) Glucose Level 161 MG/DL (74-106) H Calcium Level 8.7 MG/DL (8.5-10.1) Pro-B-Type Natriuretic Peptide 199 pg/mL (0-125) H Beatrice Goodrich MD October 07, 2017 11:27
--- NOTE | 2017-10-07 12:45 | Procedure Note ---
DATE OF PROCEDURE: 10/07/2017 SURGEON: Lokesh Maynard M.D. ANESTHESIOLOGIST: Dr. Muir. PROCEDURE: Upper endoscopy with biopsy and colonoscopy with biopsy and hemostasis. ANESTHESIA: Per Dr. Muir. INSTRUMENT: Olympus adult flexible upper endoscope and colonoscope. INDICATION: GI bleeding. The procedure, risks, benefits, and possible consequences, including hemorrhage, aspiration, perforation and infection, and alternative treatments, were explained to the patient/legal guardian by Dr. Lokesh Maynard and the patient/legal guardian understood and accepted these risks. DESCRIPTION OF PROCEDURE: After informed consent was obtained and the patient was adequately sedated, first Olympus upper endoscope was advanced from the mouth into the second portion of duodenum and retroflexion was performed in the stomach. The patient had diffuse gastritis. Random biopsy from antrum and body was obtained to rule out H. pylori infection. At this time, the upper endoscope was retrieved and the patient was turned over for colonoscopy. First, rectal examination was performed, which was normal. Then, the scope was advanced from the rectum into the cecum documented by the appendiceal orifice, ileocecal valve, and right upper quadrant palpation. Quality of prep was good. The patient had one diminutive polyp in the transverse colon, which was removed with the cold biopsy forceps technique. The patient also had evidence of a vessel sitting in the rectum, it looked like a rectal Dieulafoy lesion. This lesion most probably was the source of bleeding. We had to put three clips on it to secure the bleeding. There was no bleeding after the three clips were placed. The patient tolerated the procedure very well without any complication. SUMMARY OF FINDINGS: 1. Gastritis, status post biopsy. 2. One colonic polyp removed, see above for details. 3. A rectal Dieulafoy lesion requiring three clips to stop the bleeding. RECOMMENDATIONS: The patient is okay to be transferred out of ICU. Start diet and advance as tolerated. We will monitor hemoglobin and hematocrit, and transfuse as needed. I want to thank Dr. Jose for this kind referral. Lokesh Maynard M.D. DR: Gayatri JOB#: [id number] CC: Nicole Jose M.D.; Fax#: [phone]
--- NOTE | 2017-10-07 13:17 | General Surgery Progress Note ---
General Surgery-Progress Note Subjective Symptoms: improved Additional Comments no acute events. endoscopy successful Objective Last 24 Hour Vital Signs Date Time Temp Pulse Resp B/P (MAP) Pulse Ox O2 Delivery O2 Flow Rate FiO2 10/07/17 13:00 98.8 76 16 133/65 100 Room Air 98.8 10/07/17 12:00 77 10/07/17 12:00 77 16 135/66 100 Room Air 10/07/17 11:00 70 16 122/62 100 Room Air 10/07/17 10:44 207.0 63 17 99 10/07/17 09:00 75 133/68 10/07/17 09:00 66 15 110/50 98 Room Air 10/07/17 08:00 98.5 67 15 133/67 98 Room Air 98.5 10/07/17 08:00 67 10/07/17 07:00 68 15 104/49 98 Room Air 10/07/17 06:00 69 15 109/73 98 Room Air 10/07/17 05:00 71 15 83/55 98 Room Air 10/07/17 04:00 98.1 64 15 106/59 98 Room Air 98.1 10/07/17 04:00 65 10/07/17 03:00 64 15 114/60 98 Room Air 10/07/17 02:00 68 16 118/51 98 Room Air 10/07/17 01:00 63 16 110/63 98 Room Air 10/07/17 00:00 98.3 69 16 102/55 98 Room Air 98.3 10/07/17 00:00 65 10/06/17 23:00 69 16 101/54 98 Room Air 10/06/17 22:00 68 18 122/109 98 Room Air 10/06/17 21:00 70 19 107/76 98 Room Air 10/06/17 20:00 98.1 66 17 129/67 99 Room Air 98.1 10/06/17 20:00 68 10/06/17 19:00 67 17 138/67 99 Room Air 10/06/17 18:00 70 17 129/76 98 Room Air 10/06/17 17:00 61 17 132/66 98 Room Air 10/06/17 16:00 63 10/06/17 16:00 98.0 63 17 125/70 98 Room Air 98.0 10/06/17 15:00 67 18 91/60 99 Room Air 10/06/17 14:16 66 128/68 10/06/17 14:00 68 17 128/68 99 Room Air I&O Intake and Output 10/06/17 10/07/17 19:00 07:00 Intake Total 825 ml 4916.667 ml Output Total 500 ml Balance 825 ml 4416.667 ml IV Total 825 ml 916.667 ml Other 4000 ml Output Urine Total 500 ml # Voids 6 # Bowel Movements 16 14 Cardiovascular: RSR Respiratory: clear Abdomen: soft, flat, non-tender, present bowel sounds Extremities: no cyanosis Laboratory Tests Test 10/06/17 16:25 10/07/17 05:30 White Blood Count 9.7 K/UL (4.8-10.8) 7.7 K/UL (4.8-10.8) Red Blood Count 3.60 M/UL (4.20-5.40) L 3.27 M/UL (4.20-5.40) L Hemoglobin 10.1 G/DL (12.0-16.0) L 9.0 G/DL (12.0-16.0) L Hematocrit 29.8 % (37.0-47.0) L 27.9 % (37.0-47.0) L Mean Corpuscular Volume 83 FL (80-99) 85 FL (80-99) Mean Corpuscular Hemoglobin 28.0 PG (27.0-31.0) 27.6 PG (27.0-31.0) Mean Corpuscular Hemoglobin Concent 33.8 G/DL (32.0-36.0) 32.4 G/DL (32.0-36.0) Red Cell Distribution Width 12.6 % (11.6-14.8) 12.7 % (11.6-14.8) Platelet Count 193 K/UL (150-450) 182 K/UL (150-450) Mean Platelet Volume 8.7 FL (6.5-10.1) 8.9 FL (6.5-10.1) Neutrophils (%) (Auto) 65.5 % (45.0-75.0) 60.4 % (45.0-75.0) Lymphocytes (%) (Auto) 22.4 % (20.0-45.0) 28.6 % (20.0-45.0) Monocytes (%) (Auto) 7.2 % (1.0-10.0) 7.3 % (1.0-10.0) Eosinophils (%) (Auto) 3.9 % (0.0-3.0) H 2.8 % (0.0-3.0) Basophils (%) (Auto) 1.0 % (0.0-2.0) 0.9 % (0.0-2.0) Lactic Acid Level 2.00 mmol/L (0.66-2.22) Prothrombin Time 10.1 SEC (9.30-11.50) Prothromb Time International Ratio 1.0 (0.9-1.1) Activated Partial Thromboplast Time 25 SEC (23-33) Sodium Level 138 MMOL/L (136-145) Potassium Level 3.9 MMOL/L (3.5-5.1) Chloride Level 105 MMOL/L (98-107) Carbon Dioxide Level 26 MMOL/L (21-32) Anion Gap 7 mmol/L (5-15) Blood Urea Nitrogen 13 mg/dL (7-18) Creatinine 1.2 MG/DL (0.55-1.30) Estimat Glomerular Filtration Rate mL/min (>60) Glucose Level 161 MG/DL (74-106) H Calcium Level 8.7 MG/DL (8.5-10.1) Pro-B-Type Natriuretic Peptide 199 pg/mL (0-125) H Plan Problems: (1) Lower GI bleed Assessment & Plan: likely iatrogenic from recent procedure with urology. oozing venous blood and clots. fortunately h/h stable. Scope performed today and rectal bleeding identified as end vessel which was controlled using clips. no acute surgical intervention planned. successful hemostasis via GI okay for diet from surgical standpoint thank you for this consultation. will follow with Juan Miguel Hudson October 07, 2017 13:17
[2017-10-07] MEDS ORDERED: Nitroglycerin Subl 0.4mg tab SL PRN (15:00)
[2017-10-07] MEDS ORDERED: Mylanta II UD 30ml ORAL PRN (15:00)
[2017-10-07] MEDS ORDERED: Metoclopramide 10mg/2ml Inj IVP PRN (15:00)
--- NOTE | 2017-10-07 15:11 | General Progress Note ---
Assessment/Plan Problem List: (1) S/P cholecystectomy ICD Codes: Z90.49 - Acquired absence of other specified parts of digestive tract SNOMED: 06815751, 06274888, 423123945 (2) Hyponatremia ICD Codes: E87.1 - Hypo-osmolality and hyponatremia SNOMED: 61443843 (3) Leukocytosis ICD Codes: D72.829 - Elevated white blood cell count, unspecified SNOMED: 378824629, 156462651 (4) Diabetes mellitus, type II ICD Codes: E11.9 - Type 2 diabetes mellitus without complications SNOMED: 51258931 (5) Acute kidney injury ICD Codes: N17.9 - Acute kidney failure, unspecified SNOMED: 17385000 (6) HTN (hypertension) ICD Codes: I10 - Essential (primary) hypertension SNOMED: 93084454 (7) Lower GI bleed ICD Codes: K92.2 - Gastrointestinal hemorrhage, unspecified SNOMED: 07051405 (8) Afib ICD Codes: I48.91 - Unspecified atrial fibrillation SNOMED: 08293781 (9) Chronic diastolic (congestive) heart failure ICD Codes: I50.32 - Chronic diastolic (congestive) heart failure SNOMED: 70672549, 300404112 (10) Gastritis Assessment & Plan: s/p biopsies ICD Codes: K29.70 - Gastritis, unspecified, without bleeding SNOMED: 6972803 (11) Colonic polyp Assessment & Plan: s/p removal ICD Codes: K63.5 - Polyp of colon SNOMED: 30740610 (12) Rectal lesion Assessment & Plan: s/p hemoclip x 3 with colonoscopy for active bleeding ICD Codes: K62.9 - Disease of anus and rectum, unspecified SNOMED: 654525405, 916609512 Status: stable, progressing Assessment/Plan - Corset Fitter, Dr. Goodrich, consulted, appreciate rec's - GI, Dr. Maynard, consulted, appreciate rec's - General surgery, Dr. Ward, consulted, appreciate rec's - Cardiology, Dr. King, consulted for cardiac clearance for EgD, appreciate rec's - s/p EgD and colonoscopy showing gastritis, colonic polyp s/p removal, and rectal lesion s/p hemoclip x 3 - f/u biopsy results - Protonix - IVF - monitor H/H. Transfuse prn Hgb < 7 - leukocytosis -- resolved. UA and CXR negative. Will dc abx at this time as no source of infection found. leukocytosis may have been reactive 2/2 urological procedure - resume home meds. hold xarelto. - check venous duplex. if negative, start SCDs - trend Cr 1.4 --> 1.2 - pain control and supportive care PLAN FOR POSSIBLE DC IN AM DVT Prophylaxis: SCD Code Status: Full Hospital Classification Declaration: Based on this initial evaluation, and depending on the patient's clinical course, I anticipate that this patient will require hospitalization for 2-3 days for GI bleed and close respiratory/ hemodynamic monitoring. Disposition: Once the patient is stable to leave the hospital, I anticipate the patient will likely be discharged to the following environment: home with HH I spent 72 minutes on this patient's case, and 42 minutes were dedicated to counseling and/or care coordination. Discussed with patient/family, nursing staff, SW/CM, [] regarding clinical status, treatment course, and disposition planning. Time of note may not reflect time of encounter. Subjective Date patient seen: October 07, 2017 Time patient seen: 13:11 Allergies: Coded Allergies: CODEINE (Verified Allergy, Unknown, 10/23/11) PENICILLINS (Verified Allergy, Unknown, RASH/ITCH, 10/23/11) Subjective - s/p EgD and colonoscopy showing gastritis, colonic polyp s/p removal, and 3 hemoclips to rectal lesion for possible source of rectal bleeding - H/H stable today - AF, HDS - doing well, no chest pain, sob, abdominal pain, n/v. states no more bright red blood per rectum since the procedure Objective Last 24 Hour Vital Signs Date Time Temp Pulse Resp B/P (MAP) Pulse Ox O2 Delivery O2 Flow Rate FiO2 10/07/17 14:00 74 16 125/68 100 Room Air 10/07/17 13:00 98.8 76 16 133/65 100 Room Air 98.8 10/07/17 12:00 77 10/07/17 12:00 77 16 135/66 100 Room Air 10/07/17 11:00 70 16 122/62 100 Room Air 10/07/17 10:44 207.0 63 17 99 10/07/17 09:00 75 133/68 10/07/17 09:00 66 15 110/50 98 Room Air 10/07/17 08:00 98.5 67 15 133/67 98 Room Air 98.5 10/07/17 08:00 67 10/07/17 07:00 68 15 104/49 98 Room Air 10/07/17 06:00 69 15 109/73 98 Room Air 10/07/17 05:00 71 15 83/55 98 Room Air 10/07/17 04:00 98.1 64 15 106/59 98 Room Air 98.1 10/07/17 04:00 65 10/07/17 03:00 64 15 114/60 98 Room Air 10/07/17 02:00 68 16 118/51 98 Room Air 10/07/17 01:00 63 16 110/63 98 Room Air 10/07/17 00:00 98.3 69 16 102/55 98 Room Air 98.3 10/07/17 00:00 65 10/06/17 23:00 69 16 101/54 98 Room Air 10/06/17 22:00 68 18 122/109 98 Room Air 10/06/17 21:00 70 19 107/76 98 Room Air 10/06/17 20:00 98.1 66 17 129/67 99 Room Air 98.1 10/06/17 20:00 68 10/06/17 19:00 67 17 138/67 99 Room Air 10/06/17 18:00 70 17 129/76 98 Room Air 10/06/17 17:00 61 17 132/66 98 Room Air 10/06/17 16:00 63 10/06/17 16:00 98.0 63 17 125/70 98 Room Air 98.0 Intake and Output 10/06/17 10/07/17 19:00 07:00 Intake Total 825 ml 4916.667 ml Output Total 500 ml Balance 825 ml 4416.667 ml IV Total 825 ml 916.667 ml Other 4000 ml Output Urine Total 500 ml # Voids 6 # Bowel Movements 16 14 Laboratory Tests 10/06/17 16:25: White Blood Count 9.7, Red Blood Count 3.60L, Hemoglobin 10.1L, Hematocrit 29.8L , Mean Corpuscular Volume 83, Mean Corpuscular Hemoglobin 28.0, Mean Corpuscular Hemoglobin Concent 33.8, Red Cell Distribution Width 12.6, Platelet Count 193, Mean Platelet Volume 8.7, Neutrophils (%) (Auto) 65.5, Lymphocytes (% ) (Auto) 22.4, Monocytes (%) (Auto) 7.2, Eosinophils (%) (Auto) 3.9H, Basophils (%) (Auto) 1.0, Lactic Acid Level 2.00 10/07/17 05:30: White Blood Count 7.7, Red Blood Count 3.27L, Hemoglobin 9.0L, Hematocrit 27.9L , Mean Corpuscular Volume 85, Mean Corpuscular Hemoglobin 27.6, Mean Corpuscular Hemoglobin Concent 32.4, Red Cell Distribution Width 12.7, Platelet Count 182, Mean Platelet Volume 8.9, Neutrophils (%) (Auto) 60.4, Lymphocytes (% ) (Auto) 28.6, Monocytes (%) (Auto) 7.3, Eosinophils (%) (Auto) 2.8, Basophils ( %) (Auto) 0.9, Prothrombin Time 10.1, Prothromb Time International Ratio 1.0, Activated Partial Thromboplast Time 25, Sodium Level 138, Potassium Level 3.9, Chloride Level 105, Carbon Dioxide Level 26, Anion Gap 7, Blood Urea Nitrogen 13 , Creatinine 1.2, Estimat Glomerular Filtration Rate , Glucose Level 161H, Calcium Level 8.7, Pro-B-Type Natriuretic Peptide 199H Height (Feet): 5 Height (Inches): 2.00 Weight (Pounds): 170 General Appearance: no apparent distress, alert EENT: PERRL/EOMI, normal ENT inspection Neck: non-tender, normal alignment, supple Cardiovascular: normal peripheral pulses, normal rate, regular rhythm Respiratory/Chest: chest wall non-tender, lungs clear, normal breath sounds Abdomen: normal bowel sounds, non tender, soft Extremities: normal range of motion, non-tender Neurologic: computational linguist II-XII grossly normal, no motor/sensory deficits, alert, oriented x 3 Skin: normal pigmentation, warm/dry Frances Maurice NP October 07, 2017 15:11
--- NOTE | 2017-10-07 15:17 | Cardiac Electrophysiology PN ---
Assessment/Plan Assessment/Plan 1. Paroxysmal atrial fibrillation. INR is 1 and currently in sinus rhythm. On sotalol 80 mg b.i.d. She is off anticoagulation for GI bleed. 2. Hypertension, on Lasix 40 mg daily, Dyazide, and sotalol. 3. GI bleed. S/p EGD and colonoscopy by Dr. Maynard. 4. Status post urological procedure. 5. Diabetes. DW RN OK to transfer out of ICU Subjective Subjective Alert in ICU. S/P EGD and colonoscopy Objective Last 24 Hour Vital Signs Date Time Temp Pulse Resp B/P (MAP) Pulse Ox O2 Delivery O2 Flow Rate FiO2 10/07/17 14:00 74 16 125/68 100 Room Air 10/07/17 13:00 98.8 76 16 133/65 100 Room Air 98.8 10/07/17 12:00 77 10/07/17 12:00 77 16 135/66 100 Room Air 10/07/17 11:00 70 16 122/62 100 Room Air 10/07/17 10:44 207.0 63 17 99 10/07/17 09:00 75 133/68 10/07/17 09:00 66 15 110/50 98 Room Air 10/07/17 08:00 98.5 67 15 133/67 98 Room Air 98.5 10/07/17 08:00 67 10/07/17 07:00 68 15 104/49 98 Room Air 10/07/17 06:00 69 15 109/73 98 Room Air 10/07/17 05:00 71 15 83/55 98 Room Air 10/07/17 04:00 98.1 64 15 106/59 98 Room Air 98.1 10/07/17 04:00 65 10/07/17 03:00 64 15 114/60 98 Room Air 10/07/17 02:00 68 16 118/51 98 Room Air 10/07/17 01:00 63 16 110/63 98 Room Air 10/07/17 00:00 98.3 69 16 102/55 98 Room Air 98.3 10/07/17 00:00 65 10/06/17 23:00 69 16 101/54 98 Room Air 10/06/17 22:00 68 18 122/109 98 Room Air 10/06/17 21:00 70 19 107/76 98 Room Air 10/06/17 20:00 98.1 66 17 129/67 99 Room Air 98.1 10/06/17 20:00 68 10/06/17 19:00 67 17 138/67 99 Room Air 10/06/17 18:00 70 17 129/76 98 Room Air 10/06/17 17:00 61 17 132/66 98 Room Air 10/06/17 16:00 63 10/06/17 16:00 98.0 63 17 125/70 98 Room Air 98.0 Intake and Output 10/06/17 10/07/17 19:00 07:00 Intake Total 825 ml 4916.667 ml Output Total 500 ml Balance 825 ml 4416.667 ml IV Total 825 ml 916.667 ml Other 4000 ml Output Urine Total 500 ml # Voids 6 # Bowel Movements 16 14 Laboratory Tests Test 10/06/17 16:25 10/07/17 05:30 White Blood Count 9.7 K/UL (4.8-10.8) 7.7 K/UL (4.8-10.8) Red Blood Count 3.60 M/UL (4.20-5.40) L 3.27 M/UL (4.20-5.40) L Hemoglobin 10.1 G/DL (12.0-16.0) L 9.0 G/DL (12.0-16.0) L Hematocrit 29.8 % (37.0-47.0) L 27.9 % (37.0-47.0) L Mean Corpuscular Volume 83 FL (80-99) 85 FL (80-99) Mean Corpuscular Hemoglobin 28.0 PG (27.0-31.0) 27.6 PG (27.0-31.0) Mean Corpuscular Hemoglobin Concent 33.8 G/DL (32.0-36.0) 32.4 G/DL (32.0-36.0) Red Cell Distribution Width 12.6 % (11.6-14.8) 12.7 % (11.6-14.8) Platelet Count 193 K/UL (150-450) 182 K/UL (150-450) Mean Platelet Volume 8.7 FL (6.5-10.1) 8.9 FL (6.5-10.1) Neutrophils (%) (Auto) 65.5 % (45.0-75.0) 60.4 % (45.0-75.0) Lymphocytes (%) (Auto) 22.4 % (20.0-45.0) 28.6 % (20.0-45.0) Monocytes (%) (Auto) 7.2 % (1.0-10.0) 7.3 % (1.0-10.0) Eosinophils (%) (Auto) 3.9 % (0.0-3.0) H 2.8 % (0.0-3.0) Basophils (%) (Auto) 1.0 % (0.0-2.0) 0.9 % (0.0-2.0) Lactic Acid Level 2.00 mmol/L (0.66-2.22) Prothrombin Time 10.1 SEC (9.30-11.50) Prothromb Time International Ratio 1.0 (0.9-1.1) Activated Partial Thromboplast Time 25 SEC (23-33) Sodium Level 138 MMOL/L (136-145) Potassium Level 3.9 MMOL/L (3.5-5.1) Chloride Level 105 MMOL/L (98-107) Carbon Dioxide Level 26 MMOL/L (21-32) Anion Gap 7 mmol/L (5-15) Blood Urea Nitrogen 13 mg/dL (7-18) Creatinine 1.2 MG/DL (0.55-1.30) Estimat Glomerular Filtration Rate mL/min (>60) Glucose Level 161 MG/DL (74-106) H Calcium Level 8.7 MG/DL (8.5-10.1) Pro-B-Type Natriuretic Peptide 199 pg/mL (0-125) H Objective HEAD AND NECK: No JVD or carotid bruits. LUNGS: Clear. CARDIOVASCULAR: Regular S1 and S2 with no gallop or murmur. ABDOMEN: Soft and nontender. EXTREMITIES: No pitting edema. Manolo Thompson MD October 07, 2017 15:17
[2017-10-07] MEDS ORDERED: Miralax 17gm pkt ORAL PRN (21:00)
[2017-10-07] MEDS: Sotalol 80mg tab ORAL SCH (21:33)
[2017-10-07] MEDS ORDERED: Aztreonam Inj 1 GM in D5W 110 ML IVPB SCH (22:00)
--- NOTE | 2017-10-07 22:45 | Cardiology Report ---
APPROVED REPORT EKG Measurement Heart [id number] Normal sinus rhythm Low voltage QRS Cannot rule out Anterior infarct, age undetermined Abnormal ECG
[2017-10-08] VITALS: BP 124/68
[2017-10-08] MEDS ORDERED: Vancomycin 750mg/NS 250ml 250 ML IVPB SCH (01:00)
[2017-10-08 04:00] VITALS: BP 120/78
[2017-10-08] MEDS: NovoLOG Insulin Flexpen SUBQ SCH ×4 (05:55→21:38)
[2017-10-08 08:00] VITALS: BP 128/79
[2017-10-08 08:09] LABS: BASOPHILS % (AUTO) 1.2 % (0.0-2.0); EOSINOPHILS % (AUTO) 3.5 % (0.0-3.0); HEMATOCRIT 27.5 % (37.0-47.0); HEMOGLOBIN 8.8 G/DL (12.0-16.0); LYMPHOCYTES % (AUTO) 29.3 % (20.0-45.0); MEAN CORPUSCULAR VOLUME 85 FL (80-99); MONOCYTES % (AUTO) 7.5 % (1.0-10.0); NEUTROPHILS % (AUTO) 58.6 % (45.0-75.0); PLATELET COUNT 192 K/UL (150-450); RED BLOOD COUNT 3.24 M/UL (4.20-5.40); RED CELL DISTRIBUTION WIDTH 12.8 % (11.6-14.8); WHITE BLOOD COUNT 7.3 K/UL (4.8-10.8)
[2017-10-08 08:19] LABS: INR 0.9 (0.9-1.1)
[2017-10-08 08:32] LABS: ALANINE AMINOTRANSFERASE 26 U/L (12-78); ALBUMIN 2.8 G/DL (3.4-5.0); ALBUMIN/GLOBULIN RATIO 0.7 (1.0-2.7); ALKALINE PHOSPHATASE 85 U/L (46-116); ANION GAP 8 mmol/L (5-15); ASPARTATE AMINO TRANSFERASE 18 U/L (15-37); BILIRUBIN,TOTAL 0.2 MG/DL (0.2-1.0); BLOOD UREA NITROGEN 12 mg/dL (7-18); CALCIUM 8.7 MG/DL (8.5-10.1); CARBON DIOXIDE 30 MMOL/L (21-32); CHLORIDE 101 MMOL/L (98-107); CREATININE 1.3 MG/DL (0.55-1.30); PHOSPHORUS 3.4 MG/DL (2.5-4.9); POTASSIUM 3.6 MMOL/L (3.5-5.1); SODIUM 139 MMOL/L (136-145)
[2017-10-08] MEDS: Sotalol 80mg tab ORAL SCH ×2 (09:24→21:36)
[2017-10-08] MEDS: Pantoprazole Inj IVP SCH (09:24)
[2017-10-08] MEDS: Triamterene/Hctz 37.5/25 cap ORAL SCH (09:24)
[2017-10-08] MEDS: Furosemide 40mg tab ORAL SCH (09:25)
[2017-10-08] MEDS ORDERED: LR 1000ml ONE (11:09)
[2017-10-08] MEDS ORDERED: D5 1/2NS 1000ml IV ONE ×2 (11:09→15:45)
[2017-10-08 12:00] VITALS: BP 124/76
--- NOTE | 2017-10-08 12:18 | Pulmonology Progress Note ---
Assessment/Plan Problems: (1) Lower GI bleed (2) Chronic anticoagulation (3) Rectal lesion (4) HTN (hypertension) (5) Diabetes mellitus, type II Assessment/Plan h/h stable no GI bleeding tolerating diet sliding scale dvt prophylaxis dc planning soon. Subjective ROS Limited/Unobtainable: No Interval Events: no new complains Allergies: Coded Allergies: CODEINE (Verified Allergy, Unknown, 10/23/11) PENICILLINS (Verified Allergy, Unknown, RASH/ITCH, 10/23/11) Objective Last 24 Hour Vital Signs Date Time Temp Pulse Resp B/P (MAP) Pulse Ox O2 Delivery O2 Flow Rate FiO2 10/08/17 09:24 67 128/79 10/08/17 08:03 68 10/08/17 08:00 98.2 67 18 128/79 97 Room Air 98.2 10/08/17 04:00 67 10/08/17 04:00 99.2 82 20 120/78 99 Room Air 99.2 10/08/17 00:00 97.9 71 22 124/68 96 Room Air 97.9 10/08/17 00:00 74 10/07/17 21:33 18 126/67 10/07/17 20:00 98.3 68 18 126/67 97 Room Air 98.3 10/07/17 20:00 69 10/07/17 16:00 66 10/07/17 16:00 97.2 64 18 122/69 99 Room Air 97.2 10/07/17 14:00 74 16 125/68 100 Room Air 10/07/17 13:00 98.8 76 16 133/65 100 Room Air 98.8 Intake and Output 10/07/17 10/08/17 19:00 07:00 Intake Total 475 ml 575 ml Output Total 800 ml Balance -325 ml 575 ml Intake Oral 250 ml 200 ml IV Total 225 ml 375 ml Output Urine Total 800 ml # Voids 2 # Bowel Movements 1 General Appearance: WD/WN HEENT: normocephalic, atraumatic Respiratory/Chest: chest wall non-tender, lungs clear Breasts: no masses Cardiovascular: normal peripheral pulses Abdomen: normal bowel sounds, no organomegaly Extremities: no cyanosis Skin: no rash Microbiology Date/Time Source Procedure Growth Status 10/06/17 16:25 Blood Blood Culture - Preliminary NO GROWTH AFTER 24 HOURS Resulted 10/06/17 16:10 Blood Blood Culture - Preliminary NO GROWTH AFTER 24 HOURS Resulted 10/05/17 23:45 Nasal Nares MRSA Culture - Final NO METHICILLIN RESISTANT STAPH AUREUS... Complete 10/05/17 23:45 Rectum VRE Culture - Final NO VANCOMYCIN RESISTANT ENTEROCOCCUS ... Complete Laboratory Tests 10/08/17 07:00: White Blood Count 7.3, Red Blood Count 3.24L, Hemoglobin 8.8L, Hematocrit 27.5L , Mean Corpuscular Volume 85, Mean Corpuscular Hemoglobin 27.2, Mean Corpuscular Hemoglobin Concent 32.0, Red Cell Distribution Width 12.8, Platelet Count 192, Mean Platelet Volume 8.5, Neutrophils (%) (Auto) 58.6, Lymphocytes (% ) (Auto) 29.3, Monocytes (%) (Auto) 7.5, Eosinophils (%) (Auto) 3.5H, Basophils (%) (Auto) 1.2, Prothrombin Time 9.6, Prothromb Time International Ratio 0.9, Activated Partial Thromboplast Time 23, Sodium Level 139, Potassium Level 3.6, Chloride Level 101, Carbon Dioxide Level 30, Anion Gap 8, Blood Urea Nitrogen 12 , Creatinine 1.3, Estimat Glomerular Filtration Rate , Glucose Level 157H, Calcium Level 8.7, Phosphorus Level 3.4, Magnesium Level 1.7L, Total Bilirubin 0.2, Aspartate Amino Transf (AST/SGOT) 18, Alanine Aminotransferase (ALT/SGPT) 26, Alkaline Phosphatase 85, Total Protein 6.6, Albumin 2.8L, Globulin 3.8, Albumin/Globulin Ratio 0.7L Current Medications Medications (Trade) Dose Ordered Sig/[place] Route PRN Reason Start Time Stop Time Status Last Admin Dose Admin Acetaminophen (Tylenol) 650 mg Q4H PRN ORAL T>100.5 10/07/17 15:15 11/04/17 23:14 Al Hydroxide/Mg Hydroxide (Mylanta II) 30 ml Q6H PRN ORAL dyspepsia 10/07/17 15:00 11/04/17 14:59 Dextrose (Dextrose 50%) 25 ml PRN IV Hypoglycemia 10/07/17 15:15 11/06/17 15:14 Dextrose (Dextrose 50%) 50 ml PRN IV hypoglycemia 10/07/17 15:15 11/06/17 15:14 Dextrose/Sodium Chloride 1,000 ml @ 75 mls/hr [id number] IV 10/07/17 15:00 11/04/17 23:07 10/07/17 21:43 Diphenhydramine HCl (Benadryl) 25 mg Q6H PRN ORAL Itching/Pruritis 10/07/17 15:00 11/04/17 14:59 Furosemide (Lasix) 40 mg DAILY ORAL 10/08/17 09:00 11/06/17 08:59 10/08/17 09:25 Gabapentin (Neurontin) 300 mg BEDTIME ORAL 10/07/17 21:00 11/05/17 20:59 10/07/17 21:32 Insulin Aspart (NovoLOG) BEFORE MEALS AND HS SUBQ 10/07/17 16:30 11/05/17 06:29 10/08/17 11:32 Magnesium Sulfate 100 ml @ 100 mls/hr Q1H IVPB 10/08/17 12:15 10/08/17 14:14 UNV Metoclopramide HCl (Reglan) 10 mg Q8H PRN IVP Nausea & Vomiting 10/07/17 15:00 11/05/17 14:59 Nitroglycerin (Ntg) 0.4 mg Q5M X 3 DOSES PRN SL Prn Chest Pain 10/07/17 15:00 11/04/17 23:14 Ondansetron HCl (Zofran) 4 mg Q6H PRN IVP Nausea & Vomiting 10/07/17 15:00 11/04/17 14:59 Pantoprazole (Protonix) 40 mg DAILY IVP 10/08/17 09:00 11/06/17 08:59 10/08/17 09:24 Polyethylene Glycol (Miralax) 17 gm HSPRN PRN ORAL Constipation 10/07/17 21:00 11/04/17 20:59 Pravastatin Sodium (Pravachol) 20 mg BEDTIME ORAL 10/07/17 21:00 11/05/17 20:59 10/07/17 21:34 Sotalol HCl (Betapace) 80 mg Q12HR ORAL 10/07/17 21:00 11/06/17 08:59 10/08/17 09:24 Temazepam (Restoril) 15 mg HSPRN PRN ORAL Insomnia 10/07/17 21:00 10/12/17 20:59 10/07/17 21:32 Triamterene/HCTZ (Dyazide) 1 cap DAILY ORAL 10/08/17 09:00 11/06/17 08:59 10/08/17 09:24 Beatrice Goodrich MD October 08, 2017 12:18
--- NOTE | 2017-10-08 12:35 | General Surgery Progress Note ---
General Surgery-Progress Note Subjective Symptoms: improved Additional Comments doing well. no acute events. comfortable. no longer bleeding from rectum. Objective Last 24 Hour Vital Signs Date Time Temp Pulse Resp B/P (MAP) Pulse Ox O2 Delivery O2 Flow Rate FiO2 10/08/17 09:24 67 128/79 10/08/17 08:03 68 10/08/17 08:00 98.2 67 18 128/79 97 Room Air 98.2 10/08/17 04:00 67 10/08/17 04:00 99.2 82 20 120/78 99 Room Air 99.2 10/08/17 00:00 97.9 71 22 124/68 96 Room Air 97.9 10/08/17 00:00 74 10/07/17 21:33 18 126/67 10/07/17 20:00 98.3 68 18 126/67 97 Room Air 98.3 10/07/17 20:00 69 10/07/17 16:00 66 10/07/17 16:00 97.2 64 18 122/69 99 Room Air 97.2 10/07/17 14:00 74 16 125/68 100 Room Air 10/07/17 13:00 98.8 76 16 133/65 100 Room Air 98.8 I&O Intake and Output 10/07/17 10/08/17 19:00 07:00 Intake Total 475 ml 575 ml Output Total 800 ml Balance -325 ml 575 ml Intake Oral 250 ml 200 ml IV Total 225 ml 375 ml Output Urine Total 800 ml # Voids 2 # Bowel Movements 1 Cardiovascular: RSR Respiratory: clear Abdomen: soft, flat, non-tender, present bowel sounds Extremities: no edema, no tenderness, no cyanosis Laboratory Tests Test 10/08/17 07:00 White Blood Count 7.3 K/UL (4.8-10.8) Red Blood Count 3.24 M/UL (4.20-5.40) L Hemoglobin 8.8 G/DL (12.0-16.0) L Hematocrit 27.5 % (37.0-47.0) L Mean Corpuscular Volume 85 FL (80-99) Mean Corpuscular Hemoglobin 27.2 PG (27.0-31.0) Mean Corpuscular Hemoglobin Concent 32.0 G/DL (32.0-36.0) Red Cell Distribution Width 12.8 % (11.6-14.8) Platelet Count 192 K/UL (150-450) Mean Platelet Volume 8.5 FL (6.5-10.1) Neutrophils (%) (Auto) 58.6 % (45.0-75.0) Lymphocytes (%) (Auto) 29.3 % (20.0-45.0) Monocytes (%) (Auto) 7.5 % (1.0-10.0) Eosinophils (%) (Auto) 3.5 % (0.0-3.0) H Basophils (%) (Auto) 1.2 % (0.0-2.0) Prothrombin Time 9.6 SEC (9.30-11.50) Prothromb Time International Ratio 0.9 (0.9-1.1) Activated Partial Thromboplast Time 23 SEC (23-33) Sodium Level 139 MMOL/L (136-145) Potassium Level 3.6 MMOL/L (3.5-5.1) Chloride Level 101 MMOL/L (98-107) Carbon Dioxide Level 30 MMOL/L (21-32) Anion Gap 8 mmol/L (5-15) Blood Urea Nitrogen 12 mg/dL (7-18) Creatinine 1.3 MG/DL (0.55-1.30) Estimat Glomerular Filtration Rate mL/min (>60) Glucose Level 157 MG/DL (74-106) H Calcium Level 8.7 MG/DL (8.5-10.1) Phosphorus Level 3.4 MG/DL (2.5-4.9) Magnesium Level 1.7 MG/DL (1.8-2.4) L Total Bilirubin 0.2 MG/DL (0.2-1.0) Aspartate Amino Transf (AST/SGOT) 18 U/L (15-37) Alanine Aminotransferase (ALT/SGPT) 26 U/L (12-78) Alkaline Phosphatase 85 U/L (46-116) Total Protein 6.6 G/DL (6.4-8.2) Albumin 2.8 G/DL (3.4-5.0) L Globulin 3.8 g/dL Albumin/Globulin Ratio 0.7 (1.0-2.7) L Plan Problems: (1) Lower GI bleed Assessment & Plan: likely iatrogenic from recent procedure with urology. oozing venous blood and clots. fortunately h/h stable. Scope performed and rectal bleeding identified as end vessel which was controlled using clips. no acute surgical intervention planned. successful hemostasis via GI okay for diet from surgical standpoint if h/h stable after 24hrs and no longer bleeding can d/c from surgical standpoint thank you for this consultation. will follow with Juan Miguel Hudson October 08, 2017 12:35
--- NOTE | 2017-10-08 13:19 | Internal Med Progress Note ---
Subjective Physician Name Sánchez Syed Attending Physician Nicole Jose MD Current Medications Medications (Trade) Dose Ordered Sig/[place] Route PRN Reason Start Time Stop Time Status Last Admin Dose Admin Acetaminophen (Tylenol) 650 mg Q4H PRN ORAL T>100.5 10/07/17 15:15 11/04/17 23:14 Al Hydroxide/Mg Hydroxide (Mylanta II) 30 ml Q6H PRN ORAL dyspepsia 10/07/17 15:00 11/04/17 14:59 Dextrose (Dextrose 50%) 25 ml PRN IV Hypoglycemia 10/07/17 15:15 11/06/17 15:14 Dextrose (Dextrose 50%) 50 ml PRN IV hypoglycemia 10/07/17 15:15 11/06/17 15:14 Diphenhydramine HCl (Benadryl) 25 mg Q6H PRN ORAL Itching/Pruritis 10/07/17 15:00 11/04/17 14:59 Furosemide (Lasix) 40 mg DAILY ORAL 10/08/17 09:00 11/06/17 08:59 10/08/17 09:25 Gabapentin (Neurontin) 300 mg BEDTIME ORAL 10/07/17 21:00 11/05/17 20:59 10/07/17 21:32 Insulin Aspart (NovoLOG) BEFORE MEALS AND HS SUBQ 10/07/17 16:30 11/05/17 06:29 10/08/17 11:32 Magnesium Sulfate 100 ml @ 100 mls/hr Q1H IVPB 10/08/17 13:00 10/08/17 14:59 Metoclopramide HCl (Reglan) 10 mg Q8H PRN IVP Nausea & Vomiting 10/07/17 15:00 11/05/17 14:59 Nitroglycerin (Ntg) 0.4 mg Q5M X 3 DOSES PRN SL Prn Chest Pain 10/07/17 15:00 11/04/17 23:14 Ondansetron HCl (Zofran) 4 mg Q6H PRN IVP Nausea & Vomiting 10/07/17 15:00 11/04/17 14:59 Pantoprazole (Protonix) 40 mg DAILY IVP 10/08/17 09:00 11/06/17 08:59 10/08/17 09:24 Polyethylene Glycol (Miralax) 17 gm HSPRN PRN ORAL Constipation 10/07/17 21:00 11/04/17 20:59 Pravastatin Sodium (Pravachol) 20 mg BEDTIME ORAL 10/07/17 21:00 11/05/17 20:59 10/07/17 21:34 Sotalol HCl (Betapace) 80 mg Q12HR ORAL 10/07/17 21:00 11/06/17 08:59 10/08/17 09:24 Temazepam (Restoril) 15 mg HSPRN PRN ORAL Insomnia 10/07/17 21:00 10/12/17 20:59 10/07/17 21:32 Triamterene/HCTZ (Dyazide) 1 cap DAILY ORAL 10/08/17 09:00 11/06/17 08:59 10/08/17 09:24 Allergies: Coded Allergies: CODEINE (Verified Allergy, Unknown, 10/23/11) PENICILLINS (Verified Allergy, Unknown, RASH/ITCH, 10/23/11) Objective Last Vital Signs Date Time Temp Pulse Resp B/P (MAP) Pulse Ox O2 Delivery O2 Flow Rate FiO2 10/08/17 12:03 70 10/08/17 12:00 98.2 19 124/76 98 Room Air 98.2 Laboratory Tests Test 10/08/17 07:00 White Blood Count 7.3 K/UL (4.8-10.8) Red Blood Count 3.24 M/UL (4.20-5.40) L Hemoglobin 8.8 G/DL (12.0-16.0) L Hematocrit 27.5 % (37.0-47.0) L Mean Corpuscular Volume 85 FL (80-99) Mean Corpuscular Hemoglobin 27.2 PG (27.0-31.0) Mean Corpuscular Hemoglobin Concent 32.0 G/DL (32.0-36.0) Red Cell Distribution Width 12.8 % (11.6-14.8) Platelet Count 192 K/UL (150-450) Mean Platelet Volume 8.5 FL (6.5-10.1) Neutrophils (%) (Auto) 58.6 % (45.0-75.0) Lymphocytes (%) (Auto) 29.3 % (20.0-45.0) Monocytes (%) (Auto) 7.5 % (1.0-10.0) Eosinophils (%) (Auto) 3.5 % (0.0-3.0) H Basophils (%) (Auto) 1.2 % (0.0-2.0) Prothrombin Time 9.6 SEC (9.30-11.50) Prothromb Time International Ratio 0.9 (0.9-1.1) Activated Partial Thromboplast Time 23 SEC (23-33) Sodium Level 139 MMOL/L (136-145) Potassium Level 3.6 MMOL/L (3.5-5.1) Chloride Level 101 MMOL/L (98-107) Carbon Dioxide Level 30 MMOL/L (21-32) Anion Gap 8 mmol/L (5-15) Blood Urea Nitrogen 12 mg/dL (7-18) Creatinine 1.3 MG/DL (0.55-1.30) Estimat Glomerular Filtration Rate mL/min (>60) Glucose Level 157 MG/DL (74-106) H Calcium Level 8.7 MG/DL (8.5-10.1) Phosphorus Level 3.4 MG/DL (2.5-4.9) Magnesium Level 1.7 MG/DL (1.8-2.4) L Total Bilirubin 0.2 MG/DL (0.2-1.0) Aspartate Amino Transf (AST/SGOT) 18 U/L (15-37) Alanine Aminotransferase (ALT/SGPT) 26 U/L (12-78) Alkaline Phosphatase 85 U/L (46-116) Total Protein 6.6 G/DL (6.4-8.2) Albumin 2.8 G/DL (3.4-5.0) L Globulin 3.8 g/dL Albumin/Globulin Ratio 0.7 (1.0-2.7) L Microbiology Date/Time Source Procedure Growth Status 10/06/17 16:25 Blood Blood Culture - Preliminary NO GROWTH AFTER 24 HOURS Resulted 10/06/17 16:10 Blood Blood Culture - Preliminary NO GROWTH AFTER 24 HOURS Resulted 10/05/17 23:45 Nasal Nares MRSA Culture - Final NO METHICILLIN RESISTANT STAPH AUREUS... Complete 10/05/17 23:45 Rectum VRE Culture - Final NO VANCOMYCIN RESISTANT ENTEROCOCCUS ... Complete Intake and Output 10/07/17 10/08/17 19:00 07:00 Intake Total 475 ml 575 ml Output Total 800 ml Balance -325 ml 575 ml Intake Oral 250 ml 200 ml IV Total 225 ml 375 ml Output Urine Total 800 ml # Voids 2 # Bowel Movements 1 Assessment/Plan Assessment/Plan Assessment/Plan Assessment/Plan Problem List: (1) S/P cholecystectomy ICD Codes: Z90.49 - Acquired absence of other specified parts of digestive tract SNOMED: 90202438, 46287434, 223493882 (2) Hyponatremia ICD Codes: E87.1 - Hypo-osmolality and hyponatremia SNOMED: 83396064 (3) Leukocytosis ICD Codes: D72.829 - Elevated white blood cell count, unspecified SNOMED: 709656427, 433579740 (4) Diabetes mellitus, type II ICD Codes: E11.9 - Type 2 diabetes mellitus without complications SNOMED: 38922082 (5) Acute kidney injury ICD Codes: N17.9 - Acute kidney failure, unspecified SNOMED: 62632955 (6) HTN (hypertension) ICD Codes: I10 - Essential (primary) hypertension SNOMED: 98754881 (7) Lower GI bleed ICD Codes: K92.2 - Gastrointestinal hemorrhage, unspecified SNOMED: 13134502 (8) Afib ICD Codes: I48.91 - Unspecified atrial fibrillation SNOMED: 28084709 (9) Chronic diastolic (congestive) heart failure ICD Codes: I50.32 - Chronic diastolic (congestive) heart failure SNOMED: 05731591, 423300724 (10) Gastritis Assessment & Plan: s/p biopsies ICD Codes: K29.70 - Gastritis, unspecified, without bleeding SNOMED: 8686073 (11) Colonic polyp Assessment & Plan: s/p removal ICD Codes: K63.5 - Polyp of colon SNOMED: 65375828 (12) Rectal lesion Assessment & Plan: s/p hemoclip x 3 with colonoscopy for active bleeding ICD Codes: K62.9 - Disease of anus and rectum, unspecified SNOMED: 341088624, 494800728 Status: stable, progressing Assessment/Plan - [employer] Professor, Dr. Goodrich, consulted, appreciate rec's - GI, Dr. Maynard, consulted, appreciate rec's - General surgery, Dr. Ward, consulted, appreciate rec's - Cardiology, Dr. King, consulted for cardiac clearance for EgD, appreciate rec's - s/p EgD and colonoscopy showing gastritis, colonic polyp s/p removal, and rectal lesion s/p hemoclip x 3 - f/u biopsy results - Protonix - IVF - monitor H/H. Transfuse prn Hgb < 7 - leukocytosis -- resolved. UA and CXR negative. Will dc abx at this time as no source of infection found. leukocytosis may have been reactive 2/2 urological procedure - resume home meds. hold xarelto. - check venous duplex. if negative, start SCDs - trend Cr 1.4 --> 1.2 - pain control and supportive care PLAN FOR POSSIBLE DC IN AM DVT Prophylaxis: SCD Code Status: Full Hospital Classification Declaration: Based on this initial evaluation, and depending on the patient's clinical course, I anticipate that this patient will require hospitalization for 2-3 days for GI bleed and close respiratory/ hemodynamic monitoring. Disposition: Once the patient is stable to leave the hospital, I anticipate the patient will likely be discharged to the following environment: home with HH I spent 72 minutes on this patient's case, and 42 minutes were dedicated to counseling and/or care coordination. Discussed with patient/family, nursing staff, SW/CM, [] regarding clinical status, treatment course, and disposition planning. Time of note may not reflect time of encounter. Subjective Subjective Date patient seen: October 07, 2017 Time patient seen: 13:11 Allergies: Coded Allergies: CODEINE (Verified Allergy, Unknown, 10/23/11) PENICILLINS (Verified Allergy, Unknown, RASH/ITCH, 10/23/11) Subjective - s/p EgD and colonoscopy showing gastritis, colonic polyp s/p removal, and 3 hemoclips to rectal lesion for possible source of rectal bleeding - H/H stable today - AF, HDS - doing well, no chest pain, sob, abdominal pain, n/v. states no more bright red blood per rectum since the procedure Objective Objective Last 24 Hour Vital Signs Date Time Temp Pulse Resp B/P (MAP) Pulse Ox O2 Delivery O2 Flow Rate FiO2 10/07/17 14:00 74 16 125/68 100 Room Air 10/07/17 13:00 98.8 76 16 133/65 100 Room Air 98.8 10/07/17 12:00 77 10/07/17 12:00 77 16 135/66 100 Room Air 10/07/17 11:00 70 16 122/62 100 Room Air 10/07/17 10:44 207.0 63 17 99 10/07/17 09:00 75 133/68 10/07/17 09:00 66 15 110/50 98 Room Air 10/07/17 08:00 98.5 67 15 133/67 98 Room Air 98.5 10/07/17 08:00 67 10/07/17 07:00 68 15 104/49 98 Room Air 10/07/17 06:00 69 15 109/73 98 Room Air 10/07/17 05:00 71 15 83/55 98 Room Air 10/07/17 04:00 98.1 64 15 106/59 98 Room Air 98.1 10/07/17 04:00 65 10/07/17 03:00 64 15 114/60 98 Room Air 10/07/17 02:00 68 16 118/51 98 Room Air 10/07/17 01:00 63 16 110/63 98 Room Air 10/07/17 00:00 98.3 69 16 102/55 98 Room Air 98.3 10/07/17 00:00 65 10/06/17 23:00 69 16 101/54 98 Room Air 10/06/17 22:00 68 18 122/109 98 Room Air 10/06/17 21:00 70 19 107/76 98 Room Air 10/06/17 20:00 98.1 66 17 129/67 99 Room Air 98.1 10/06/17 20:00 68 10/06/17 19:00 67 17 138/67 99 Room Air 10/06/17 18:00 70 17 129/76 98 Room Air 10/06/17 17:00 61 17 132/66 98 Room Air 10/06/17 16:00 63 10/06/17 16:00 98.0 63 17 125/70 98 Room Air 98.0 Intake and Output 10/06/17 10/07/17 19:00 07:00 Intake Total 825 ml 4916.667 ml Output Total 500 ml Balance 825 ml 4416.667 ml IV Total 825 ml 916.667 ml Other 4000 ml Output Urine Total 500 ml # Voids 6 # Bowel Movements 16 14 Laboratory Tests 10/06/17 16:25: White Blood Count 9.7, Red Blood Count 3.60L, Hemoglobin 10.1L, Hematocrit 29.8L , Mean Corpuscular Volume 83, Mean Corpuscular Hemoglobin 28.0, Mean Corpuscular Hemoglobin Concent 33.8, Red Cell Distribution Width 12.6, Platelet Count 193, Mean Platelet Volume 8.7, Neutrophils (%) (Auto) 65.5, Lymphocytes (% ) (Auto) 22.4, Monocytes (%) (Auto) 7.2, Eosinophils (%) (Auto) 3.9H, Basophils (%) (Auto) 1.0, Lactic Acid Level 2.00 10/07/17 05:30: White Blood Count 7.7, Red Blood Count 3.27L, Hemoglobin 9.0L, Hematocrit 27.9L , Mean Corpuscular Volume 85, Mean Corpuscular Hemoglobin 27.6, Mean Corpuscular Hemoglobin Concent 32.4, Red Cell Distribution Width 12.7, Platelet Count 182, Mean Platelet Volume 8.9, Neutrophils (%) (Auto) 60.4, Lymphocytes (% ) (Auto) 28.6, Monocytes (%) (Auto) 7.3, Eosinophils (%) (Auto) 2.8, Basophils ( %) (Auto) 0.9, Prothrombin Time 10.1, Prothromb Time International Ratio 1.0, Activated Partial Thromboplast Time 25, Sodium Level 138, Potassium Level 3.9, Chloride Level 105, Carbon Dioxide Level 26, Anion Gap 7, Blood Urea Nitrogen 13 , Creatinine 1.2, Estimat Glomerular Filtration Rate , Glucose Level 161H, Calcium Level 8.7, Pro-B-Type Natriuretic Peptide 199H Height (Feet): 5 Height (Inches): 2.00 Weight (Pounds): 170 General Appearance: no apparent distress, alert EENT: PERRL/EOMI, normal ENT inspection Neck: non-tender, normal alignment, supple Cardiovascular: normal peripheral pulses, normal rate, regular rhythm Respiratory/Chest: chest wall non-tender, lungs clear, normal breath sounds Abdomen: normal bowel sounds, non tender, soft Extremities: normal range of motion, non-tender Neurologic: hands and dial inspector II-XII grossly normal, no motor/sensory deficits, alert, oriented x 3 Skin: normal pigmentation, warm/dry Sánchez Syed M.D. October 08, 2017 13:19
--- NOTE | 2017-10-08 14:45 | Cardiac Electrophysiology PN ---
Assessment/Plan Assessment/Plan 1. Paroxysmal atrial fibrillation. In sinus rhythm on sotalol 80 mg b.i.d. She is off anticoagulation for GI bleed. 2. Hypertension, on Lasix 40 mg daily, Dyazide, and sotalol. 3. GI bleed. S/p EGD and colonoscopy by Dr. Maynard. 4. Status post urological procedure. 5. Diabetes. 6. Hypomagnesemia. Will replace DW RN Subjective Subjective Alert in NAD. Transferred out of ICU. Objective Last 24 Hour Vital Signs Date Time Temp Pulse Resp B/P (MAP) Pulse Ox O2 Delivery O2 Flow Rate FiO2 10/08/17 12:03 70 10/08/17 12:00 98.2 69 19 124/76 98 Room Air 98.2 10/08/17 09:24 67 128/79 10/08/17 08:03 68 10/08/17 08:00 98.2 67 18 128/79 97 Room Air 98.2 10/08/17 04:00 67 10/08/17 04:00 99.2 82 20 120/78 99 Room Air 99.2 10/08/17 00:00 97.9 71 22 124/68 96 Room Air 97.9 10/08/17 00:00 74 10/07/17 21:33 18 126/67 10/07/17 20:00 98.3 68 18 126/67 97 Room Air 98.3 10/07/17 20:00 69 10/07/17 16:00 66 10/07/17 16:00 97.2 64 18 122/69 99 Room Air 97.2 Intake and Output 10/07/17 10/08/17 19:00 07:00 Intake Total 475 ml 575 ml Output Total 800 ml Balance -325 ml 575 ml Intake Oral 250 ml 200 ml IV Total 225 ml 375 ml Output Urine Total 800 ml # Voids 2 # Bowel Movements 1 Laboratory Tests Test 10/08/17 07:00 White Blood Count 7.3 K/UL (4.8-10.8) Red Blood Count 3.24 M/UL (4.20-5.40) L Hemoglobin 8.8 G/DL (12.0-16.0) L Hematocrit 27.5 % (37.0-47.0) L Mean Corpuscular Volume 85 FL (80-99) Mean Corpuscular Hemoglobin 27.2 PG (27.0-31.0) Mean Corpuscular Hemoglobin Concent 32.0 G/DL (32.0-36.0) Red Cell Distribution Width 12.8 % (11.6-14.8) Platelet Count 192 K/UL (150-450) Mean Platelet Volume 8.5 FL (6.5-10.1) Neutrophils (%) (Auto) 58.6 % (45.0-75.0) Lymphocytes (%) (Auto) 29.3 % (20.0-45.0) Monocytes (%) (Auto) 7.5 % (1.0-10.0) Eosinophils (%) (Auto) 3.5 % (0.0-3.0) H Basophils (%) (Auto) 1.2 % (0.0-2.0) Prothrombin Time 9.6 SEC (9.30-11.50) Prothromb Time International Ratio 0.9 (0.9-1.1) Activated Partial Thromboplast Time 23 SEC (23-33) Sodium Level 139 MMOL/L (136-145) Potassium Level 3.6 MMOL/L (3.5-5.1) Chloride Level 101 MMOL/L (98-107) Carbon Dioxide Level 30 MMOL/L (21-32) Anion Gap 8 mmol/L (5-15) Blood Urea Nitrogen 12 mg/dL (7-18) Creatinine 1.3 MG/DL (0.55-1.30) Estimat Glomerular Filtration Rate mL/min (>60) Glucose Level 157 MG/DL (74-106) H Calcium Level 8.7 MG/DL (8.5-10.1) Phosphorus Level 3.4 MG/DL (2.5-4.9) Magnesium Level 1.7 MG/DL (1.8-2.4) L Total Bilirubin 0.2 MG/DL (0.2-1.0) Aspartate Amino Transf (AST/SGOT) 18 U/L (15-37) Alanine Aminotransferase (ALT/SGPT) 26 U/L (12-78) Alkaline Phosphatase 85 U/L (46-116) Total Protein 6.6 G/DL (6.4-8.2) Albumin 2.8 G/DL (3.4-5.0) L Globulin 3.8 g/dL Albumin/Globulin Ratio 0.7 (1.0-2.7) L Microbiology Date/Time Source Procedure Growth Status 10/06/17 16:25 Blood Blood Culture - Preliminary NO GROWTH AFTER 24 HOURS Resulted 10/06/17 16:10 Blood Blood Culture - Preliminary NO GROWTH AFTER 24 HOURS Resulted 10/05/17 23:45 Nasal Nares MRSA Culture - Final NO METHICILLIN RESISTANT STAPH AUREUS... Complete 10/05/17 23:45 Rectum VRE Culture - Final NO VANCOMYCIN RESISTANT ENTEROCOCCUS ... Complete Objective HEAD AND NECK: No JVD LUNGS: Clear. CARDIOVASCULAR: Regular S1 and S2 with no gallop or murmur. ABDOMEN: Soft and nontender. EXTREMITIES: No pitting edema. Manolo Thompson MD October 08, 2017 14:45
[2017-10-08] MEDS ORDERED: Tubing IV Secondary IV ONE (15:45)
--- NOTE | 2017-10-08 15:57 | General Progress Note ---
Assessment/Plan Assessment/Plan Assessment - GIB - Gastritis - Colon polyp - Rectal Dieulafoy - s/p Elisabeth Recommendations - Monitor H&H until stable - po as tolerated Subjective Allergies: Coded Allergies: CODEINE (Verified Allergy, Unknown, 10/23/11) PENICILLINS (Verified Allergy, Unknown, RASH/ITCH, 10/23/11) Subjective Feels OK no new complaints Objective Last 24 Hour Vital Signs Date Time Temp Pulse Resp B/P (MAP) Pulse Ox O2 Delivery O2 Flow Rate FiO2 10/08/17 12:03 70 10/08/17 12:00 98.2 69 19 124/76 98 Room Air 98.2 10/08/17 09:24 67 128/79 10/08/17 08:03 68 10/08/17 08:00 98.2 67 18 128/79 97 Room Air 98.2 10/08/17 04:00 67 10/08/17 04:00 99.2 82 20 120/78 99 Room Air 99.2 10/08/17 00:00 97.9 71 22 124/68 96 Room Air 97.9 10/08/17 00:00 74 10/07/17 21:33 18 126/67 10/07/17 20:00 98.3 68 18 126/67 97 Room Air 98.3 10/07/17 20:00 69 10/07/17 16:00 66 10/07/17 16:00 97.2 64 18 122/69 99 Room Air 97.2 Intake and Output 10/07/17 10/08/17 19:00 07:00 Intake Total 475 ml 575 ml Output Total 800 ml Balance -325 ml 575 ml Intake Oral 250 ml 200 ml IV Total 225 ml 375 ml Output Urine Total 800 ml # Voids 2 # Bowel Movements 1 Laboratory Tests 10/08/17 07:00: White Blood Count 7.3, Red Blood Count 3.24L, Hemoglobin 8.8L, Hematocrit 27.5L , Mean Corpuscular Volume 85, Mean Corpuscular Hemoglobin 27.2, Mean Corpuscular Hemoglobin Concent 32.0, Red Cell Distribution Width 12.8, Platelet Count 192, Mean Platelet Volume 8.5, Neutrophils (%) (Auto) 58.6, Lymphocytes (% ) (Auto) 29.3, Monocytes (%) (Auto) 7.5, Eosinophils (%) (Auto) 3.5H, Basophils (%) (Auto) 1.2, Prothrombin Time 9.6, Prothromb Time International Ratio 0.9, Activated Partial Thromboplast Time 23, Sodium Level 139, Potassium Level 3.6, Chloride Level 101, Carbon Dioxide Level 30, Anion Gap 8, Blood Urea Nitrogen 12 , Creatinine 1.3, Estimat Glomerular Filtration Rate , Glucose Level 157H, Calcium Level 8.7, Phosphorus Level 3.4, Magnesium Level 1.7L, Total Bilirubin 0.2, Aspartate Amino Transf (AST/SGOT) 18, Alanine Aminotransferase (ALT/SGPT) 26, Alkaline Phosphatase 85, Total Protein 6.6, Albumin 2.8L, Globulin 3.8, Albumin/Globulin Ratio 0.7L Height (Feet): 5 Height (Inches): 2.00 Weight (Pounds): 178 Objective WDWN NCAT supple CTA RRR Soft NT ND no edema non focal Mireya Nolasco MD October 08, 2017 15:57
[2017-10-08 16:00] VITALS: BP 127/71
[2017-10-08 19:58] VITALS: BP 133/81
[2017-10-09] VITALS (26 sets, daily range): BP systolic 92–159; BP diastolic 47–97
[2017-10-09] MEDS: NovoLOG Insulin Flexpen SUBQ SCH ×4 (07:00→21:12)
[2017-10-09 08:07] LABS: EOSINOPHILS % (AUTO) 2.5 % (0.0-3.0); HEMATOCRIT 27.5 % (37.0-47.0); HEMOGLOBIN 8.9 G/DL (12.0-16.0); LYMPHOCYTES % (AUTO) 26.3 % (20.0-45.0); MEAN CORPUSCULAR VOLUME 84 FL (80-99); MONOCYTES % (AUTO) 6.9 % (1.0-10.0); NEUTROPHILS % (AUTO) 63.3 % (45.0-75.0); PLATELET COUNT 177 K/UL (150-450); RED BLOOD COUNT 3.26 M/UL (4.20-5.40); RED CELL DISTRIBUTION WIDTH 12.6 % (11.6-14.8); WHITE BLOOD COUNT 8.9 K/UL (4.8-10.8)
[2017-10-09 08:15] LABS: INR 0.9 (0.9-1.1)
[2017-10-09 08:32] LABS: ALANINE AMINOTRANSFERASE 28 U/L (12-78); ALBUMIN/GLOBULIN RATIO 0.8 (1.0-2.7); ALKALINE PHOSPHATASE 90 U/L (46-116); ANION GAP 7 mmol/L (5-15); ASPARTATE AMINO TRANSFERASE 20 U/L (15-37); BILIRUBIN,TOTAL 0.3 MG/DL (0.2-1.0); BLOOD UREA NITROGEN 20 mg/dL (7-18); CALCIUM 9.3 MG/DL (8.5-10.1); CARBON DIOXIDE 30 MMOL/L (21-32); CHLORIDE 100 MMOL/L (98-107); CREATININE 1.4 MG/DL (0.55-1.30); POTASSIUM 3.4 MMOL/L (3.5-5.1); SODIUM 137 MMOL/L (136-145)
[2017-10-09] MEDS: Pantoprazole Inj IVP SCH (08:33)
[2017-10-09] MEDS: Triamterene/Hctz 37.5/25 cap ORAL SCH (08:33)
[2017-10-09] MEDS: Furosemide 40mg tab ORAL SCH (08:34)
[2017-10-09] MEDS: Sotalol 80mg tab ORAL SCH ×2 (08:34→21:10)
--- NOTE | 2017-10-09 09:34 | General Progress Note ---
Assessment/Plan Assessment/Plan Assessment - GIB - Gastritis - Colon polyp - Rectal Dieulafoy - s/p Elisabeth - constipation Recommendations - Monitor H&H until stable - po as tolerated - laxative Subjective Allergies: Coded Allergies: CODEINE (Verified Allergy, Unknown, 10/23/11) PENICILLINS (Verified Allergy, Unknown, RASH/ITCH, 10/23/11) Subjective Feels OK no new complaints no BM x 2 days Objective Last 24 Hour Vital Signs Date Time Temp Pulse Resp B/P (MAP) Pulse Ox O2 Delivery O2 Flow Rate FiO2 10/09/17 08:34 84 127/63 10/09/17 08:00 97.2 84 20 127/63 96 Room Air 97.2 10/09/17 07:59 80 10/09/17 04:00 74 10/09/17 04:00 97.7 77 18 123/83 95 97.7 10/09/17 00:00 82 10/09/17 00:00 98.2 76 18 120/69 95 98.2 10/08/17 21:36 82 133/81 10/08/17 20:00 82 10/08/17 19:58 98.2 78 18 133/81 96 98.2 10/08/17 16:04 72 10/08/17 16:00 98.0 74 20 127/71 95 Room Air 98.0 10/08/17 12:03 70 10/08/17 12:00 98.2 69 19 124/76 98 Room Air 98.2 Intake and Output 10/08/17 10/09/17 19:00 07:00 Intake Total 500 ml 200 ml Output Total 5 ml Balance 495 ml 200 ml Intake Oral 500 ml 200 ml Output Urine Total 5 ml Stool Total 0 ml Laboratory Tests 10/09/17 06:40: White Blood Count 8.9, Red Blood Count 3.26L, Hemoglobin 8.9L, Hematocrit 27.5L , Mean Corpuscular Volume 84, Mean Corpuscular Hemoglobin 27.4, Mean Corpuscular Hemoglobin Concent 32.6, Red Cell Distribution Width 12.6, Platelet Count 177, Mean Platelet Volume 8.2, Neutrophils (%) (Auto) 63.3, Lymphocytes (% ) (Auto) 26.3, Monocytes (%) (Auto) 6.9, Eosinophils (%) (Auto) 2.5, Basophils ( %) (Auto) 1.0, Prothrombin Time 9.3, Prothromb Time International Ratio 0.9, Activated Partial Thromboplast Time 23, Sodium Level 137, Potassium Level 3.4L, Chloride Level 100, Carbon Dioxide Level 30, Anion Gap 7, Blood Urea Nitrogen 20H, Creatinine 1.4H, Estimat Glomerular Filtration Rate , Glucose Level 172H, Calcium Level 9.3, Phosphorus Level 4.0, Magnesium Level 2.1, Total Bilirubin 0.3, Aspartate Amino Transf (AST/SGOT) 20, Alanine Aminotransferase (ALT/SGPT) 28, Alkaline Phosphatase 90, Total Protein 6.9, Albumin 3.0L, Globulin 3.9, Albumin/Globulin Ratio 0.8L Height (Feet): 5 Height (Inches): 2.00 Weight (Pounds): 175 Objective WDWN NCAT supple CTA RRR Soft NT ND no edema non focal Mireya Nolasco MD October 09, 2017 09:34
[2017-10-09] MEDS ORDERED: Sorbitol Solution UD 30ml ORAL ONE (09:45)
[2017-10-09] MEDS ORDERED: Sorbitol Solution UD 30ml ORAL SCH (10:00)
--- NOTE | 2017-10-09 10:56 | General Surgery Progress Note ---
General Surgery-Progress Note Subjective Symptoms: improved, pain absent, tolerating diet, passing flatus, BM Additional Comments no acute events. no longer having bloody bm's. mild elevation in BUN/Cr. H/H stable Objective Last 24 Hour Vital Signs Date Time Temp Pulse Resp B/P (MAP) Pulse Ox O2 Delivery O2 Flow Rate FiO2 10/09/17 08:34 84 127/63 10/09/17 08:00 97.2 84 20 127/63 96 Room Air 97.2 10/09/17 07:59 80 10/09/17 04:00 74 10/09/17 04:00 97.7 77 18 123/83 95 97.7 10/09/17 00:00 82 10/09/17 00:00 98.2 76 18 120/69 95 98.2 10/08/17 21:36 82 133/81 10/08/17 20:00 82 10/08/17 19:58 98.2 78 18 133/81 96 98.2 10/08/17 16:04 72 10/08/17 16:00 98.0 74 20 127/71 95 Room Air 98.0 10/08/17 12:03 70 10/08/17 12:00 98.2 69 19 124/76 98 Room Air 98.2 I&O Intake and Output 10/08/17 10/09/17 19:00 07:00 Intake Total 500 ml 200 ml Output Total 5 ml Balance 495 ml 200 ml Intake Oral 500 ml 200 ml Output Urine Total 5 ml Stool Total 0 ml Drains: none Cardiovascular: RSR Respiratory: clear Abdomen: soft, flat, non-tender, present bowel sounds Extremities: no cyanosis Laboratory Tests Test 10/09/17 06:40 White Blood Count 8.9 K/UL (4.8-10.8) Red Blood Count 3.26 M/UL (4.20-5.40) L Hemoglobin 8.9 G/DL (12.0-16.0) L Hematocrit 27.5 % (37.0-47.0) L Mean Corpuscular Volume 84 FL (80-99) Mean Corpuscular Hemoglobin 27.4 PG (27.0-31.0) Mean Corpuscular Hemoglobin Concent 32.6 G/DL (32.0-36.0) Red Cell Distribution Width 12.6 % (11.6-14.8) Platelet Count 177 K/UL (150-450) Mean Platelet Volume 8.2 FL (6.5-10.1) Neutrophils (%) (Auto) 63.3 % (45.0-75.0) Lymphocytes (%) (Auto) 26.3 % (20.0-45.0) Monocytes (%) (Auto) 6.9 % (1.0-10.0) Eosinophils (%) (Auto) 2.5 % (0.0-3.0) Basophils (%) (Auto) 1.0 % (0.0-2.0) Prothrombin Time 9.3 SEC (9.30-11.50) Prothromb Time International Ratio 0.9 (0.9-1.1) Activated Partial Thromboplast Time 23 SEC (23-33) Sodium Level 137 MMOL/L (136-145) Potassium Level 3.4 MMOL/L (3.5-5.1) L Chloride Level 100 MMOL/L (98-107) Carbon Dioxide Level 30 MMOL/L (21-32) Anion Gap 7 mmol/L (5-15) Blood Urea Nitrogen 20 mg/dL (7-18) H Creatinine 1.4 MG/DL (0.55-1.30) H Estimat Glomerular Filtration Rate mL/min (>60) Glucose Level 172 MG/DL (74-106) H Calcium Level 9.3 MG/DL (8.5-10.1) Phosphorus Level 4.0 MG/DL (2.5-4.9) Magnesium Level 2.1 MG/DL (1.8-2.4) Total Bilirubin 0.3 MG/DL (0.2-1.0) Aspartate Amino Transf (AST/SGOT) 20 U/L (15-37) Alanine Aminotransferase (ALT/SGPT) 28 U/L (12-78) Alkaline Phosphatase 90 U/L (46-116) Total Protein 6.9 G/DL (6.4-8.2) Albumin 3.0 G/DL (3.4-5.0) L Globulin 3.9 g/dL Albumin/Globulin Ratio 0.8 (1.0-2.7) L Plan Problems: (1) Lower GI bleed Assessment & Plan: rectal bleeding; likely iatrogenic from recent procedure with urology. oozing venous blood and clots. fortunately h/h stable. Scope performed and rectal bleeding identified as end vessel which was controlled using clips. no longer bleeding. h/h stable. labs reviewed. no acute surgical intervention planned. successful hemostasis via GI okay for diet from surgical standpoint if h/h stable after 24hrs and no longer bleeding can d/c from surgical standpoint thank you for this consultation. will follow with Juan Miguel Hudson October 09, 2017 10:56
[2017-10-09] MEDS ORDERED: dilTIAZem HCl 25mg/5ml Inj IVP SCH (12:46)
[2017-10-09] MEDS ORDERED: Nitroglycerin Subl 0.4mg tab SL PRN (13:45)
[2017-10-09] MEDS ORDERED: dilTIAZem HCl 25mg/5ml Inj IVP ONE (13:45)
[2017-10-09] MEDS ORDERED: Mylanta II UD 30ml ORAL PRN (14:00)
[2017-10-09] MEDS ORDERED: Metoclopramide 10mg/2ml Inj IVP PRN (14:00)
--- NOTE | 2017-10-09 14:16 | Pulmonolgy Critical Care Note ---
Critical Care - Asmt/Plan Problems: (1) Atrial fibrillation (2) Lower GI bleed (3) Chronic anticoagulation (4) HTN (hypertension) (5) Diabetes Respiratory: monitor respiratory rate, adjust FIO2 Cardiac: continue to monitor HR/BP Renal: F/U I&O Infectious Disease: check cultures Gastrointestinal: hold feedings Endocrine: check TSH Hematologic: monitor H/H Neurologic: PRN Morphine Prophylaxis: Heparin Disposition: keep in ICU Notes Reviewed: tight rope walker, renal Discussed with: consultants, onsite case managermanager utilization management - Objective Last 24 Hour Vital Signs Date Time Temp Pulse Resp B/P (MAP) Pulse Ox O2 Delivery O2 Flow Rate FiO2 10/09/17 12:54 140 129/81 10/09/17 12:00 97.9 79 20 110/64 97 Room Air 97.9 10/09/17 08:34 84 127/63 10/09/17 08:00 97.2 84 20 127/63 96 Room Air 97.2 10/09/17 07:59 80 10/09/17 04:00 74 10/09/17 04:00 97.7 77 18 123/83 95 97.7 10/09/17 00:00 82 10/09/17 00:00 98.2 76 18 120/69 95 98.2 10/08/17 21:36 82 133/81 10/08/17 20:00 82 10/08/17 19:58 98.2 78 18 133/81 96 98.2 10/08/17 16:04 72 10/08/17 16:00 98.0 74 20 127/71 95 Room Air 98.0 Status: awake Condition: critical HEENT: atraumatic Heart: HR/BP stable Abdomen: soft, active bowel sounds Extremities: no C/C/E Micro: Microbiology Date/Time Source Procedure Growth Status 10/06/17 16:25 Blood Blood Culture - Preliminary NO GROWTH AFTER 48 HOURS Resulted 10/06/17 16:10 Blood Blood Culture - Preliminary NO GROWTH AFTER 48 HOURS Resulted Accucheck: 338 Critical Care - Subjective ROS Limited/Unobtainable: No ICU Day: 1 Condition: critical EKG Rhythm: SVT Drips: cardizem drip I&O: Intake and Output 10/08/17 10/09/17 19:00 07:00 Intake Total 500 ml 200 ml Output Total 5 ml Balance 495 ml 200 ml Intake Oral 500 ml 200 ml Output Urine Total 5 ml Stool Total 0 ml CXR: no changes Labs: Laboratory Tests Test 10/09/17 06:40 White Blood Count 8.9 K/UL (4.8-10.8) Red Blood Count 3.26 M/UL (4.20-5.40) L Hemoglobin 8.9 G/DL (12.0-16.0) L Hematocrit 27.5 % (37.0-47.0) L Mean Corpuscular Volume 84 FL (80-99) Mean Corpuscular Hemoglobin 27.4 PG (27.0-31.0) Mean Corpuscular Hemoglobin Concent 32.6 G/DL (32.0-36.0) Red Cell Distribution Width 12.6 % (11.6-14.8) Platelet Count 177 K/UL (150-450) Mean Platelet Volume 8.2 FL (6.5-10.1) Neutrophils (%) (Auto) 63.3 % (45.0-75.0) Lymphocytes (%) (Auto) 26.3 % (20.0-45.0) Monocytes (%) (Auto) 6.9 % (1.0-10.0) Eosinophils (%) (Auto) 2.5 % (0.0-3.0) Basophils (%) (Auto) 1.0 % (0.0-2.0) Prothrombin Time 9.3 SEC (9.30-11.50) Prothromb Time International Ratio 0.9 (0.9-1.1) Activated Partial Thromboplast Time 23 SEC (23-33) Sodium Level 137 MMOL/L (136-145) Potassium Level 3.4 MMOL/L (3.5-5.1) L Chloride Level 100 MMOL/L (98-107) Carbon Dioxide Level 30 MMOL/L (21-32) Anion Gap 7 mmol/L (5-15) Blood Urea Nitrogen 20 mg/dL (7-18) H Creatinine 1.4 MG/DL (0.55-1.30) H Estimat Glomerular Filtration Rate mL/min (>60) Glucose Level 172 MG/DL (74-106) H Calcium Level 9.3 MG/DL (8.5-10.1) Phosphorus Level 4.0 MG/DL (2.5-4.9) Magnesium Level 2.1 MG/DL (1.8-2.4) Total Bilirubin 0.3 MG/DL (0.2-1.0) Aspartate Amino Transf (AST/SGOT) 20 U/L (15-37) Alanine Aminotransferase (ALT/SGPT) 28 U/L (12-78) Alkaline Phosphatase 90 U/L (46-116) Total Protein 6.9 G/DL (6.4-8.2) Albumin 3.0 G/DL (3.4-5.0) L Globulin 3.9 g/dL Albumin/Globulin Ratio 0.8 (1.0-2.7) L Beatrice Goodrich MD October 09, 2017 14:16
--- NOTE | 2017-10-09 17:35 | Internal Med Progress Note ---
Subjective Physician Name Sánchez Syed Attending Physician Nicole Jose MD Current Medications Medications (Trade) Dose Ordered Sig/[place] Route PRN Reason Start Time Stop Time Status Last Admin Dose Admin Acetaminophen (Tylenol) 650 mg Q4H PRN ORAL T>100.5 10/09/17 14:00 11/04/17 13:59 Al Hydroxide/Mg Hydroxide (Mylanta II) 30 ml Q6H PRN ORAL dyspepsia 10/09/17 14:00 11/04/17 13:59 Dextrose (Dextrose 50%) 25 ml PRN IV Hypoglycemia 10/09/17 13:45 11/06/17 15:14 Dextrose (Dextrose 50%) 50 ml PRN IV hypoglycemia 10/09/17 13:45 11/06/17 15:14 Diltiazem HCl 125 mg/Dextrose 125 ml @ 10 mls/hr [id number] IVPB 10/10/17 02:00 10/10/17 14:29 Diltiazem HCl 125 mg/Dextrose 125 ml @ 10 mls/hr Q24H IV 10/09/17 14:30 10/10/17 01:59 10/09/17 14:22 Diphenhydramine HCl (Benadryl) 25 mg Q6H PRN ORAL Itching/Pruritis 10/09/17 14:00 11/04/17 13:59 Furosemide (Lasix) 40 mg DAILY ORAL 10/10/17 09:00 11/06/17 08:59 Gabapentin (Neurontin) 300 mg BEDTIME ORAL 10/09/17 21:00 11/05/17 20:59 Insulin Aspart (NovoLOG) BEFORE MEALS AND HS SUBQ 10/09/17 16:30 11/05/17 06:29 10/09/17 16:50 Metoclopramide HCl (Reglan) 10 mg Q8H PRN IVP Nausea & Vomiting 10/09/17 14:00 11/05/17 13:59 Nitroglycerin (Ntg) 0.4 mg Q5M X 3 DOSES PRN SL Prn Chest Pain 10/09/17 13:45 11/04/17 23:14 Ondansetron HCl (Zofran) 4 mg Q6H PRN IVP Nausea & Vomiting 10/09/17 14:00 11/04/17 13:59 Pantoprazole (Protonix) 40 mg DAILY IVP 10/10/17 09:00 11/06/17 08:59 Polyethylene Glycol (Miralax) 17 gm HSPRN PRN ORAL Constipation 10/09/17 20:00 11/04/17 19:59 Pravastatin Sodium (Pravachol) 20 mg BEDTIME ORAL 10/09/17 21:00 11/05/17 20:59 Sotalol HCl (Betapace) 80 mg Q12HR ORAL 10/09/17 21:00 11/06/17 08:59 Temazepam (Restoril) 15 mg HSPRN PRN ORAL Insomnia 10/09/17 21:00 10/12/17 20:59 Triamterene/HCTZ (Dyazide) 1 cap DAILY ORAL 10/10/17 09:00 11/06/17 08:59 Allergies: Coded Allergies: CODEINE (Verified Allergy, Unknown, 10/23/11) PENICILLINS (Verified Allergy, Unknown, RASH/ITCH, 10/23/11) Objective Last Vital Signs Date Time Temp Pulse Resp B/P (MAP) Pulse Ox O2 Delivery O2 Flow Rate FiO2 10/09/17 17:00 128 21 123/97 100 Nasal Cannula 2.0 10/09/17 16:00 98.2 98.2 Laboratory Tests Test 10/09/17 06:40 White Blood Count 8.9 K/UL (4.8-10.8) Red Blood Count 3.26 M/UL (4.20-5.40) L Hemoglobin 8.9 G/DL (12.0-16.0) L Hematocrit 27.5 % (37.0-47.0) L Mean Corpuscular Volume 84 FL (80-99) Mean Corpuscular Hemoglobin 27.4 PG (27.0-31.0) Mean Corpuscular Hemoglobin Concent 32.6 G/DL (32.0-36.0) Red Cell Distribution Width 12.6 % (11.6-14.8) Platelet Count 177 K/UL (150-450) Mean Platelet Volume 8.2 FL (6.5-10.1) Neutrophils (%) (Auto) 63.3 % (45.0-75.0) Lymphocytes (%) (Auto) 26.3 % (20.0-45.0) Monocytes (%) (Auto) 6.9 % (1.0-10.0) Eosinophils (%) (Auto) 2.5 % (0.0-3.0) Basophils (%) (Auto) 1.0 % (0.0-2.0) Prothrombin Time 9.3 SEC (9.30-11.50) Prothromb Time International Ratio 0.9 (0.9-1.1) Activated Partial Thromboplast Time 23 SEC (23-33) Sodium Level 137 MMOL/L (136-145) Potassium Level 3.4 MMOL/L (3.5-5.1) L Chloride Level 100 MMOL/L (98-107) Carbon Dioxide Level 30 MMOL/L (21-32) Anion Gap 7 mmol/L (5-15) Blood Urea Nitrogen 20 mg/dL (7-18) H Creatinine 1.4 MG/DL (0.55-1.30) H Estimat Glomerular Filtration Rate mL/min (>60) Glucose Level 172 MG/DL (74-106) H Calcium Level 9.3 MG/DL (8.5-10.1) Phosphorus Level 4.0 MG/DL (2.5-4.9) Magnesium Level 2.1 MG/DL (1.8-2.4) Total Bilirubin 0.3 MG/DL (0.2-1.0) Aspartate Amino Transf (AST/SGOT) 20 U/L (15-37) Alanine Aminotransferase (ALT/SGPT) 28 U/L (12-78) Alkaline Phosphatase 90 U/L (46-116) Total Protein 6.9 G/DL (6.4-8.2) Albumin 3.0 G/DL (3.4-5.0) L Globulin 3.9 g/dL Albumin/Globulin Ratio 0.8 (1.0-2.7) L Intake and Output 10/08/17 10/09/17 19:00 07:00 Intake Total 500 ml 200 ml Output Total 5 ml Balance 495 ml 200 ml Intake Oral 500 ml 200 ml Output Urine Total 5 ml Stool Total 0 ml Assessment/Plan Assessment/Plan Assessment/Plan Assessment/Plan Problem List: (1) S/P cholecystectomy ICD Codes: Z90.49 - Acquired absence of other specified parts of digestive tract SNOMED: 01762965, 18746235, 198899329 (2) Hyponatremia ICD Codes: E87.1 - Hypo-osmolality and hyponatremia SNOMED: 25971074 (3) Leukocytosis ICD Codes: D72.829 - Elevated white blood cell count, unspecified SNOMED: 899442079, 908234403 (4) Diabetes mellitus, type II ICD Codes: E11.9 - Type 2 diabetes mellitus without complications SNOMED: 77941028 (5) Acute kidney injury ICD Codes: N17.9 - Acute kidney failure, unspecified SNOMED: 02326709 (6) HTN (hypertension) ICD Codes: I10 - Essential (primary) hypertension SNOMED: 68984122 (7) Lower GI bleed ICD Codes: K92.2 - Gastrointestinal hemorrhage, unspecified SNOMED: 36202103 (8) Afib ICD Codes: I48.91 - Unspecified atrial fibrillation SNOMED: 12014068 (9) Chronic diastolic (congestive) heart failure ICD Codes: I50.32 - Chronic diastolic (congestive) heart failure SNOMED: 61441866, 715180809 (10) Gastritis Assessment & Plan: s/p biopsies ICD Codes: K29.70 - Gastritis, unspecified, without bleeding SNOMED: 6404667 (11) Colonic polyp Assessment & Plan: s/p removal ICD Codes: K63.5 - Polyp of colon SNOMED: 23691583 (12) Rectal lesion Assessment & Plan: s/p hemoclip x 3 with colonoscopy for active bleeding ICD Codes: K62.9 - Disease of anus and rectum, unspecified SNOMED: 197333277, 013889836 Status: stable, progressing Assessment/Plan - Dip Tanker, Dr. Goodrich, consulted, appreciate rec's - GI, Dr. Maynard, consulted, appreciate rec's - General surgery, Dr. Ward, consulted, appreciate rec's - Cardiology, Dr. King, consulted for cardiac clearance for EgD, appreciate rec's - s/p EgD and colonoscopy showing gastritis, colonic polyp s/p removal, and rectal lesion s/p hemoclip x 3 - f/u biopsy results - Protonix - IVF - monitor H/H. Transfuse prn Hgb < 7 - leukocytosis -- resolved. UA and CXR negative. Will dc abx at this time as no source of infection found. leukocytosis may have been reactive 2/2 urological procedure - resume home meds. hold xarelto. - check venous duplex. if negative, start SCDs - trend Cr 1.4 --> 1.2 DVT Prophylaxis: SCD Code Status: Full Hospital Classification Declaration: Based on this initial evaluation, and depending on the patient's clinical course, I anticipate that this patient will require hospitalization for 2-3 days for GI bleed and close respiratory/ hemodynamic monitoring. Disposition: Once the patient is stable to leave the hospital, I anticipate the patient will likely be discharged to the following environment: home with HH I spent 72 minutes on this patient's case, and 42 minutes were dedicated to counseling and/or care coordination. Discussed with patient/family, nursing staff, SW/CM, [] regarding clinical status, treatment course, and disposition planning. Time of note may not reflect time of encounter. Subjective Subjective Date patient seen: October 07, 2017 Time patient seen: 13:11 Allergies: Coded Allergies: CODEINE (Verified Allergy, Unknown, 10/23/11) PENICILLINS (Verified Allergy, Unknown, RASH/ITCH, 10/23/11) Subjective - s/p EgD and colonoscopy showing gastritis, colonic polyp s/p removal, and 3 hemoclips to rectal lesion for possible source of rectal bleeding - H/H stable today - AF, HDS - doing well, no chest pain, sob, abdominal pain, n/v. states no more bright red blood per rectum since the procedure Objective Objective Last 24 Hour Vital Signs Date Time Temp Pulse Resp B/P (MAP) Pulse Ox O2 Delivery O2 Flow Rate FiO2 10/07/17 14:00 74 16 125/68 100 Room Air 10/07/17 13:00 98.8 76 16 133/65 100 Room Air 98.8 10/07/17 12:00 77 10/07/17 12:00 77 16 135/66 100 Room Air 10/07/17 11:00 70 16 122/62 100 Room Air 10/07/17 10:44 207.0 63 17 99 10/07/17 09:00 75 133/68 10/07/17 09:00 66 15 110/50 98 Room Air 10/07/17 08:00 98.5 67 15 133/67 98 Room Air 98.5 10/07/17 08:00 67 10/07/17 07:00 68 15 104/49 98 Room Air 5/25/18 06:00 69 15 109/73 98 Room Air 10/07/17 05:00 71 15 83/55 98 Room Air 10/07/17 04:00 98.1 64 15 106/59 98 Room Air 98.1 10/07/17 04:00 65 10/07/17 03:00 64 15 114/60 98 Room Air 10/07/17 02:00 68 16 118/51 98 Room Air 10/07/17 01:00 63 16 110/63 98 Room Air 10/07/17 00:00 98.3 69 16 102/55 98 Room Air 98.3 10/07/17 00:00 65 10/06/17 23:00 69 16 101/54 98 Room Air 10/06/17 22:00 68 18 122/109 98 Room Air 10/06/17 21:00 70 19 107/76 98 Room Air 10/06/17 20:00 98.1 66 17 129/67 99 Room Air 98.1 10/06/17 20:00 68 10/06/17 19:00 67 17 138/67 99 Room Air 10/06/17 18:00 70 17 129/76 98 Room Air 10/06/17 17:00 61 17 132/66 98 Room Air 10/06/17 16:00 63 10/06/17 16:00 98.0 63 17 125/70 98 Room Air 98.0 Intake and Output 10/06/17 10/07/17 19:00 07:00 Intake Total 825 ml 4916.667 ml Output Total 500 ml Balance 825 ml 4416.667 ml IV Total 825 ml 916.667 ml Other 4000 ml Output Urine Total 500 ml # Voids 6 # Bowel Movements 16 14 Laboratory Tests 10/06/17 16:25: White Blood Count 9.7, Red Blood Count 3.60L, Hemoglobin 10.1L, Hematocrit 29.8L , Mean Corpuscular Volume 83, Mean Corpuscular Hemoglobin 28.0, Mean Corpuscular Hemoglobin Concent 33.8, Red Cell Distribution Width 12.6, Platelet Count 193, Mean Platelet Volume 8.7, Neutrophils (%) (Auto) 65.5, Lymphocytes (% ) (Auto) 22.4, Monocytes (%) (Auto) 7.2, Eosinophils (%) (Auto) 3.9H, Basophils (%) (Auto) 1.0, Lactic Acid Level 2.00 10/07/17 05:30: White Blood Count 7.7, Red Blood Count 3.27L, Hemoglobin 9.0L, Hematocrit 27.9L , Mean Corpuscular Volume 85, Mean Corpuscular Hemoglobin 27.6, Mean Corpuscular Hemoglobin Concent 32.4, Red Cell Distribution Width 12.7, Platelet Count 182, Mean Platelet Volume 8.9, Neutrophils (%) (Auto) 60.4, Lymphocytes (% ) (Auto) 28.6, Monocytes (%) (Auto) 7.3, Eosinophils (%) (Auto) 2.8, Basophils ( %) (Auto) 0.9, Prothrombin Time 10.1, Prothromb Time International Ratio 1.0, Activated Partial Thromboplast Time 25, Sodium Level 138, Potassium Level 3.9, Chloride Level 105, Carbon Dioxide Level 26, Anion Gap 7, Blood Urea Nitrogen 13 , Creatinine 1.2, Estimat Glomerular Filtration Rate , Glucose Level 161H, Calcium Level 8.7, Pro-B-Type Natriuretic Peptide 199H Height (Feet): 5 Height (Inches): 2.00 Weight (Pounds): 170 General Appearance: no apparent distress, alert EENT: PERRL/EOMI, normal ENT inspection Neck: non-tender, normal alignment, supple Cardiovascular: normal peripheral pulses, normal rate, regular rhythm Respiratory/Chest: chest wall non-tender, lungs clear, normal breath sounds Abdomen: normal bowel sounds, non tender, soft Extremities: normal range of motion, non-tender Neurologic: fisher eel spear II-XII grossly normal, no motor/sensory deficits, alert, oriented x 3 Skin: normal pigmentation, warm/dry Sánchez Syed M.D. October 09, 2017 17:35
[2017-10-09] MEDS ORDERED: Miralax 17gm pkt ORAL PRN (20:00)
[2017-10-10] VITALS (32 sets, daily range): BP systolic 83–128; BP diastolic 41–91
[2017-10-10 06:39] LABS: BASOPHILS % (AUTO) 0.6 % (0.0-2.0); EOSINOPHILS % (AUTO) 2.3 % (0.0-3.0); HEMATOCRIT 27.9 % (37.0-47.0); HEMOGLOBIN 9.3 G/DL (12.0-16.0); LYMPHOCYTES % (AUTO) 24.5 % (20.0-45.0); MEAN CORPUSCULAR VOLUME 84 FL (80-99); MONOCYTES % (AUTO) 7.7 % (1.0-10.0); NEUTROPHILS % (AUTO) 64.9 % (45.0-75.0); PLATELET COUNT 177 K/UL (150-450); RED BLOOD COUNT 3.32 M/UL (4.20-5.40); RED CELL DISTRIBUTION WIDTH 12.9 % (11.6-14.8)
[2017-10-10] MEDS: NovoLOG Insulin Flexpen SUBQ SCH ×4 (06:41→20:16)
[2017-10-10 07:22] LABS: ALANINE AMINOTRANSFERASE 37 U/L (12-78); ALBUMIN/GLOBULIN RATIO 0.8 (1.0-2.7); ALKALINE PHOSPHATASE 96 U/L (46-116); ANION GAP 6 mmol/L (5-15); ASPARTATE AMINO TRANSFERASE 29 U/L (15-37); BILIRUBIN,TOTAL 0.2 MG/DL (0.2-1.0); BLOOD UREA NITROGEN 27 mg/dL (7-18); CALCIUM 9.2 MG/DL (8.5-10.1); CARBON DIOXIDE 29 MMOL/L (21-32); CHLORIDE 100 MMOL/L (98-107); CREATININE 1.4 MG/DL (0.55-1.30); POTASSIUM 3.6 MMOL/L (3.5-5.1); SODIUM 135 MMOL/L (136-145)
[2017-10-10] MEDS: Pantoprazole Inj IVP SCH (08:35)
[2017-10-10] MEDS: Sotalol 80mg tab ORAL SCH ×2 (08:36→20:10)
[2017-10-10] MEDS ORDERED: Triamterene/Hctz 37.5/25 cap ORAL SCH (09:00)
[2017-10-10] MEDS ORDERED: Furosemide 40mg tab ORAL SCH (09:00)
--- NOTE | 2017-10-10 09:47 | General Progress Note ---
Assessment/Plan Assessment/Plan Assessment - GIB - Gastritis - Colon polyp - Rectal Dieulafoy - s/p Elisabeth - constipation - resolved Recommendations - Monitor H&H until stable - po as tolerated - ICU care Subjective Allergies: Coded Allergies: CODEINE (Verified Allergy, Unknown, 10/23/11) PENICILLINS (Verified Allergy, Unknown, RASH/ITCH, 10/23/11) Subjective Feels OK no new complaints (+) BM with laxative Objective Last 24 Hour Vital Signs Date Time Temp Pulse Resp B/P (MAP) Pulse Ox O2 Delivery O2 Flow Rate FiO2 10/10/17 09:00 96 18 112/63 97 Nasal Cannula 2.0 10/10/17 08:36 97 115/70 10/10/17 08:30 96 20 115/70 99 Nasal Cannula 2.0 10/10/17 08:00 96 10/10/17 08:00 98 20 119/69 99 Nasal Cannula 2.0 10/10/17 07:30 96 21 120/72 99 Nasal Cannula 2.0 10/10/17 07:00 94 21 123/73 99 Nasal Cannula 2.0 10/10/17 06:00 75 21 116/88 99 Nasal Cannula 2.0 10/10/17 05:30 72 16 116/71 99 Nasal Cannula 2.0 10/10/17 05:00 79 17 114/91 99 Nasal Cannula 2.0 10/10/17 04:30 74 17 117/71 100 Nasal Cannula 2.0 10/10/17 04:00 71 10/10/17 04:00 98.5 71 17 113/59 99 Nasal Cannula 2.0 98.5 10/10/17 03:30 72 17 113/56 99 Nasal Cannula 2.0 10/10/17 03:00 74 17 125/55 98 Nasal Cannula 2.0 10/10/17 02:30 74 17 111/53 99 Nasal Cannula 2.0 10/10/17 02:23 74 90/41 10/10/17 02:00 76 17 90/41 99 Nasal Cannula 2.0 10/10/17 01:30 76 18 115/59 99 Nasal Cannula 2.0 10/10/17 01:00 76 17 110/48 99 Nasal Cannula 2.0 10/10/17 00:30 75 17 95/52 99 Nasal Cannula 2.0 10/10/17 00:00 98.0 77 16 99/49 98 Nasal Cannula 2.0 98.0 10/10/17 00:00 77 10/09/17 23:30 100 19 103/58 99 Nasal Cannula 2.0 10/09/17 23:00 102 19 110/56 99 Nasal Cannula 2.0 10/09/17 22:30 105 19 100/56 99 Nasal Cannula 2.0 10/09/17 22:00 105 20 114/76 99 Nasal Cannula 2.0 10/09/17 21:30 107 18 120/73 99 Nasal Cannula 2.0 10/09/17 21:10 85 125/67 10/09/17 21:00 87 18 125/67 99 Nasal Cannula 2.0 10/09/17 20:30 85 19 122/68 99 Nasal Cannula 2.0 10/09/17 20:00 86 10/09/17 20:00 86 21 123/66 99 Nasal Cannula 2.0 10/09/17 19:30 98.9 91 18 120/65 99 Nasal Cannula 2.0 98.9 10/09/17 19:00 89 20 118/61 100 Nasal Cannula 2.0 10/09/17 18:40 92 20 118/66 100 Nasal Cannula 2.0 10/09/17 18:00 133 20 159/69 100 Nasal Cannula 2.0 10/09/17 17:45 149 20 134/67 100 Nasal Cannula 2.0 10/09/17 17:30 134 20 92/47 100 Nasal Cannula 2.0 10/09/17 17:00 128 21 123/97 100 Nasal Cannula 2.0 10/09/17 16:30 136 20 130/62 100 Nasal Cannula 2.0 10/09/17 16:00 98.2 129 21 123/90 100 Nasal Cannula 2.0 98.2 10/09/17 16:00 140 10/09/17 15:30 132 21 120/80 100 Nasal Cannula 2.0 10/09/17 15:00 140 21 114/81 100 Nasal Cannula 2.0 10/09/17 14:30 140 21 104/75 100 Nasal Cannula 2.0 10/09/17 14:22 150 121/84 10/09/17 14:00 140 21 110/80 100 Nasal Cannula 2.0 10/09/17 13:30 98.1 139 21 121/84 100 Nasal Cannula 2.0 98.1 10/09/17 12:54 140 129/81 10/09/17 12:00 97.9 79 20 110/64 97 Room Air 97.9 10/09/17 11:57 127 Intake and Output 10/09/17 10/10/17 19:00 07:00 Intake Total 751.8 ml 572.0 ml Output Total 450 ml 500 ml Balance 301.8 ml 72.0 ml Intake Oral 710 ml 540 ml IV Total 41.8 ml 32.0 ml Output Urine Total 450 ml 500 ml # Voids 3 1 # Bowel Movements 2 Laboratory Tests 10/10/17 06:25: White Blood Count 10.0, Red Blood Count 3.32L, Hemoglobin 9.3L, Hematocrit 27.9L , Mean Corpuscular Volume 84, Mean Corpuscular Hemoglobin 28.0, Mean Corpuscular Hemoglobin Concent 33.3, Red Cell Distribution Width 12.9, Platelet Count 177, Mean Platelet Volume 8.0, Neutrophils (%) (Auto) 64.9, Lymphocytes (% ) (Auto) 24.5, Monocytes (%) (Auto) 7.7, Eosinophils (%) (Auto) 2.3, Basophils ( %) (Auto) 0.6, Sodium Level 135L, Potassium Level 3.6, Chloride Level 100, Carbon Dioxide Level 29, Anion Gap 6, Blood Urea Nitrogen 27H, Creatinine 1.4H, Estimat Glomerular Filtration Rate , Glucose Level 185H, Calcium Level 9.2, Total Bilirubin 0.2, Aspartate Amino Transf (AST/SGOT) 29, Alanine Aminotransferase (ALT/SGPT) 37, Alkaline Phosphatase 96, Total Protein 6.9, Albumin 3.0L, Globulin 3.9, Albumin/Globulin Ratio 0.8L Height (Feet): 5 Height (Inches): 2.00 Weight (Pounds): 176 Objective WDWN NCAT supple CTA RRR Soft NT ND no edema non focal Mireya Nolasco MD October 10, 2017 09:47
[2017-10-10] MEDS: dilTIAZem HCl 60mg tab ORAL SCH ×3 (09:55→22:00)
--- NOTE | 2017-10-10 10:22 | Pulmonolgy Critical Care Note ---
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 - Objective Last 24 Hour Vital Signs Date Time Temp Pulse Resp B/P (MAP) Pulse Ox O2 Delivery O2 Flow Rate FiO2 10/10/17 10:00 98 18 105/78 97 Nasal Cannula 2.0 10/10/17 09:55 96 110/74 10/10/17 09:00 96 18 112/63 97 Nasal Cannula 2.0 10/10/17 08:36 97 115/70 10/10/17 08:30 96 20 115/70 99 Nasal Cannula 2.0 10/10/17 08:00 96 10/10/17 08:00 98 20 119/69 99 Nasal Cannula 2.0 10/10/17 07:30 96 21 120/72 99 Nasal Cannula 2.0 10/10/17 07:00 94 21 123/73 99 Nasal Cannula 2.0 10/10/17 06:00 75 21 116/88 99 Nasal Cannula 2.0 10/10/17 05:30 72 16 116/71 99 Nasal Cannula 2.0 10/10/17 05:00 79 17 114/91 99 Nasal Cannula 2.0 10/10/17 04:30 74 17 117/71 100 Nasal Cannula 2.0 10/10/17 04:00 71 10/10/17 04:00 98.5 71 17 113/59 99 Nasal Cannula 2.0 98.5 10/10/17 03:30 72 17 113/56 99 Nasal Cannula 2.0 10/10/17 03:00 74 17 125/55 98 Nasal Cannula 2.0 10/10/17 02:30 74 17 111/53 99 Nasal Cannula 2.0 10/10/17 02:23 74 90/41 10/10/17 02:00 76 17 90/41 99 Nasal Cannula 2.0 10/10/17 01:30 76 18 115/59 99 Nasal Cannula 2.0 10/10/17 01:00 76 17 110/48 99 Nasal Cannula 2.0 10/10/17 00:30 75 17 95/52 99 Nasal Cannula 2.0 10/10/17 00:00 98.0 77 16 99/49 98 Nasal Cannula 2.0 98.0 10/10/17 00:00 77 10/09/17 23:30 100 19 103/58 99 Nasal Cannula 2.0 10/09/17 23:00 102 19 110/56 99 Nasal Cannula 2.0 10/09/17 22:30 105 19 100/56 99 Nasal Cannula 2.0 10/09/17 22:00 105 20 114/76 99 Nasal Cannula 2.0 10/09/17 21:30 107 18 120/73 99 Nasal Cannula 2.0 10/09/17 21:10 85 125/67 10/09/17 21:00 87 18 125/67 99 Nasal Cannula 2.0 10/09/17 20:30 85 19 122/68 99 Nasal Cannula 2.0 10/09/17 20:00 86 10/09/17 20:00 86 21 123/66 99 Nasal Cannula 2.0 10/09/17 19:30 98.9 91 18 120/65 99 Nasal Cannula 2.0 98.9 10/09/17 19:00 89 20 118/61 100 Nasal Cannula 2.0 10/09/17 18:40 92 20 118/66 100 Nasal Cannula 2.0 10/09/17 18:00 133 20 159/69 100 Nasal Cannula 2.0 10/09/17 17:45 149 20 134/67 100 Nasal Cannula 2.0 10/09/17 17:30 134 20 92/47 100 Nasal Cannula 2.0 10/09/17 17:00 128 21 123/97 100 Nasal Cannula 2.0 10/09/17 16:30 136 20 130/62 100 Nasal Cannula 2.0 10/09/17 16:00 98.2 129 21 123/90 100 Nasal Cannula 2.0 98.2 10/09/17 16:00 140 10/09/17 15:30 132 21 120/80 100 Nasal Cannula 2.0 10/09/17 15:00 140 21 114/81 100 Nasal Cannula 2.0 10/09/17 14:30 140 21 104/75 100 Nasal Cannula 2.0 10/09/17 14:22 150 121/84 10/09/17 14:00 140 21 110/80 100 Nasal Cannula 2.0 10/09/17 13:30 98.1 139 21 121/84 100 Nasal Cannula 2.0 98.1 10/09/17 12:54 140 129/81 10/09/17 12:00 97.9 79 20 110/64 97 Room Air 97.9 10/09/17 11:57 127 Status: awake Condition: critical HEENT: atraumatic Heart: HR/BP stable Abdomen: soft, non-tender Extremities: no C/C/E Accucheck: 209 Critical Care - Subjective ROS Limited/Unobtainable: No ICU Day: 2 Interval Events: converted to sinus, off cardizem drip Fluids: none I&O: Intake and Output 10/09/17 10/10/17 19:00 07:00 Intake Total 751.8 ml 572.0 ml Output Total 450 ml 500 ml Balance 301.8 ml 72.0 ml Intake Oral 710 ml 540 ml IV Total 41.8 ml 32.0 ml Output Urine Total 450 ml 500 ml # Voids 3 1 # Bowel Movements 2 CXR: no change Labs: Laboratory Tests Test 10/10/17 06:25 White Blood Count 10.0 K/UL (4.8-10.8) Red Blood Count 3.32 M/UL (4.20-5.40) L Hemoglobin 9.3 G/DL (12.0-16.0) L Hematocrit 27.9 % (37.0-47.0) L Mean Corpuscular Volume 84 FL (80-99) Mean Corpuscular Hemoglobin 28.0 PG (27.0-31.0) Mean Corpuscular Hemoglobin Concent 33.3 G/DL (32.0-36.0) Red Cell Distribution Width 12.9 % (11.6-14.8) Platelet Count 177 K/UL (150-450) Mean Platelet Volume 8.0 FL (6.5-10.1) Neutrophils (%) (Auto) 64.9 % (45.0-75.0) Lymphocytes (%) (Auto) 24.5 % (20.0-45.0) Monocytes (%) (Auto) 7.7 % (1.0-10.0) Eosinophils (%) (Auto) 2.3 % (0.0-3.0) Basophils (%) (Auto) 0.6 % (0.0-2.0) Sodium Level 135 MMOL/L (136-145) L Potassium Level 3.6 MMOL/L (3.5-5.1) Chloride Level 100 MMOL/L (98-107) Carbon Dioxide Level 29 MMOL/L (21-32) Anion Gap 6 mmol/L (5-15) Blood Urea Nitrogen 27 mg/dL (7-18) H Creatinine 1.4 MG/DL (0.55-1.30) H Estimat Glomerular Filtration Rate mL/min (>60) Glucose Level 185 MG/DL (74-106) H Calcium Level 9.2 MG/DL (8.5-10.1) Total Bilirubin 0.2 MG/DL (0.2-1.0) Aspartate Amino Transf (AST/SGOT) 29 U/L (15-37) Alanine Aminotransferase (ALT/SGPT) 37 U/L (12-78) Alkaline Phosphatase 96 U/L (46-116) Total Protein 6.9 G/DL (6.4-8.2) Albumin 3.0 G/DL (3.4-5.0) L Globulin 3.9 g/dL Albumin/Globulin Ratio 0.8 (1.0-2.7) L Beatrice Goodrich MD October 10, 2017 10:22
--- NOTE | 2017-10-10 12:38 | Cardiac Electrophysiology PN ---
Assessment/Plan Assessment/Plan 1. Paroxysmal atrial fibrillation. In and out of sinus rhythm on sotalol 80 mg b.i.d. and changed iv cardizem to Cardizem 60 po tid. She is off anticoagulation for GI bleed.Repeat ECG 2. Hypertension, on Lasix 40 mg daily, Dyazide, and sotalol. 3. GI bleed. S/p EGD and colonoscopy by Dr. Maynard. 4. Status post urological procedure. 5. Diabetes. 6. Hypomagnesemia. Replaced DW RN Subjective Subjective Alert in NAD. Transferred back to ICU again for atrial fib with RVR. Converted back yesterday to SR. Objective Last 24 Hour Vital Signs Date Time Temp Pulse Resp B/P (MAP) Pulse Ox O2 Delivery O2 Flow Rate FiO2 10/10/17 12:00 74 10/10/17 12:00 98.6 74 19 122/51 100 Nasal Cannula 2.0 98.6 10/10/17 11:00 71 18 120/65 98 Nasal Cannula 2.0 10/10/17 10:00 98 18 105/78 97 Nasal Cannula 2.0 10/10/17 09:55 96 110/74 10/10/17 09:00 96 18 112/63 97 Nasal Cannula 2.0 10/10/17 08:36 97 115/70 10/10/17 08:30 96 20 115/70 99 Nasal Cannula 2.0 10/10/17 08:00 96 10/10/17 08:00 98 20 119/69 99 Nasal Cannula 2.0 10/10/17 07:30 96 21 120/72 99 Nasal Cannula 2.0 10/10/17 07:00 94 21 123/73 99 Nasal Cannula 2.0 10/10/17 06:00 75 21 116/88 99 Nasal Cannula 2.0 10/10/17 05:30 72 16 116/71 99 Nasal Cannula 2.0 10/10/17 05:00 79 17 114/91 99 Nasal Cannula 2.0 10/10/17 04:30 74 17 117/71 100 Nasal Cannula 2.0 10/10/17 04:00 71 10/10/17 04:00 98.5 71 17 113/59 99 Nasal Cannula 2.0 98.5 10/10/17 03:30 72 17 113/56 99 Nasal Cannula 2.0 10/10/17 03:00 74 17 125/55 98 Nasal Cannula 2.0 10/10/17 02:30 74 17 111/53 99 Nasal Cannula 2.0 10/10/17 02:23 74 90/41 10/10/17 02:00 76 17 90/41 99 Nasal Cannula 2.0 10/10/17 01:30 76 18 115/59 99 Nasal Cannula 2.0 10/10/17 01:00 76 17 110/48 99 Nasal Cannula 2.0 10/10/17 00:30 75 17 95/52 99 Nasal Cannula 2.0 10/10/17 00:00 98.0 77 16 99/49 98 Nasal Cannula 2.0 98.0 10/10/17 00:00 77 10/09/17 23:30 100 19 103/58 99 Nasal Cannula 2.0 10/09/17 23:00 102 19 110/56 99 Nasal Cannula 2.0 10/09/17 22:30 105 19 100/56 99 Nasal Cannula 2.0 10/09/17 22:00 105 20 114/76 99 Nasal Cannula 2.0 10/09/17 21:30 107 18 120/73 99 Nasal Cannula 2.0 10/09/17 21:10 85 125/67 10/09/17 21:00 87 18 125/67 99 Nasal Cannula 2.0 10/09/17 20:30 85 19 122/68 99 Nasal Cannula 2.0 10/09/17 20:00 86 10/09/17 20:00 86 21 123/66 99 Nasal Cannula 2.0 10/09/17 19:30 98.9 91 18 120/65 99 Nasal Cannula 2.0 98.9 10/09/17 19:00 89 20 118/61 100 Nasal Cannula 2.0 10/09/17 18:40 92 20 118/66 100 Nasal Cannula 2.0 10/09/17 18:00 133 20 159/69 100 Nasal Cannula 2.0 10/09/17 17:45 149 20 134/67 100 Nasal Cannula 2.0 10/09/17 17:30 134 20 92/47 100 Nasal Cannula 2.0 10/09/17 17:00 128 21 123/97 100 Nasal Cannula 2.0 10/09/17 16:30 136 20 130/62 100 Nasal Cannula 2.0 10/09/17 16:00 98.2 129 21 123/90 100 Nasal Cannula 2.0 98.2 10/09/17 16:00 140 10/09/17 15:30 132 21 120/80 100 Nasal Cannula 2.0 10/09/17 15:00 140 21 114/81 100 Nasal Cannula 2.0 10/09/17 14:30 140 21 104/75 100 Nasal Cannula 2.0 10/09/17 14:22 150 121/84 10/09/17 14:00 140 21 110/80 100 Nasal Cannula 2.0 10/09/17 13:30 98.1 139 21 121/84 100 Nasal Cannula 2.0 98.1 10/09/17 12:54 140 129/81 Intake and Output 10/09/17 10/10/17 19:00 07:00 Intake Total 751.8 ml 572.0 ml Output Total 450 ml 500 ml Balance 301.8 ml 72.0 ml Intake Oral 710 ml 540 ml IV Total 41.8 ml 32.0 ml Output Urine Total 450 ml 500 ml # Voids 3 1 # Bowel Movements 2 Laboratory Tests Test 10/10/17 06:25 White Blood Count 10.0 K/UL (4.8-10.8) Red Blood Count 3.32 M/UL (4.20-5.40) L Hemoglobin 9.3 G/DL (12.0-16.0) L Hematocrit 27.9 % (37.0-47.0) L Mean Corpuscular Volume 84 FL (80-99) Mean Corpuscular Hemoglobin 28.0 PG (27.0-31.0) Mean Corpuscular Hemoglobin Concent 33.3 G/DL (32.0-36.0) Red Cell Distribution Width 12.9 % (11.6-14.8) Platelet Count 177 K/UL (150-450) Mean Platelet Volume 8.0 FL (6.5-10.1) Neutrophils (%) (Auto) 64.9 % (45.0-75.0) Lymphocytes (%) (Auto) 24.5 % (20.0-45.0) Monocytes (%) (Auto) 7.7 % (1.0-10.0) Eosinophils (%) (Auto) 2.3 % (0.0-3.0) Basophils (%) (Auto) 0.6 % (0.0-2.0) Sodium Level 135 MMOL/L (136-145) L Potassium Level 3.6 MMOL/L (3.5-5.1) Chloride Level 100 MMOL/L (98-107) Carbon Dioxide Level 29 MMOL/L (21-32) Anion Gap 6 mmol/L (5-15) Blood Urea Nitrogen 27 mg/dL (7-18) H Creatinine 1.4 MG/DL (0.55-1.30) H Estimat Glomerular Filtration Rate mL/min (>60) Glucose Level 185 MG/DL (74-106) H Calcium Level 9.2 MG/DL (8.5-10.1) Total Bilirubin 0.2 MG/DL (0.2-1.0) Aspartate Amino Transf (AST/SGOT) 29 U/L (15-37) Alanine Aminotransferase (ALT/SGPT) 37 U/L (12-78) Alkaline Phosphatase 96 U/L (46-116) Total Protein 6.9 G/DL (6.4-8.2) Albumin 3.0 G/DL (3.4-5.0) L Globulin 3.9 g/dL Albumin/Globulin Ratio 0.8 (1.0-2.7) L Objective HEAD AND NECK: No JVD LUNGS: Clear. CARDIOVASCULAR: Regular S1 and S2 with no gallop or murmur. ABDOMEN: Soft and nontender. EXTREMITIES: No pitting edema. Manolo Thompson MD October 10, 2017 12:38
--- NOTE | 2017-10-10 14:33 | General Surgery Progress Note ---
General Surgery-Progress Note Subjective Additional Comments in ICU. HR improved Objective Last 24 Hour Vital Signs Date Time Temp Pulse Resp B/P (MAP) Pulse Ox O2 Delivery O2 Flow Rate FiO2 10/10/17 14:00 70 19 113/80 100 Room Air 10/10/17 13:00 78 19 106/65 100 Room Air 10/10/17 12:00 74 10/10/17 12:00 98.6 74 19 122/51 100 Nasal Cannula 2.0 98.6 10/10/17 11:00 71 18 120/65 98 Nasal Cannula 2.0 10/10/17 10:00 98 18 105/78 97 Nasal Cannula 2.0 10/10/17 09:55 96 110/74 10/10/17 09:00 96 18 112/63 97 Nasal Cannula 2.0 10/10/17 08:36 97 115/70 10/10/17 08:30 96 20 115/70 99 Nasal Cannula 2.0 10/10/17 08:00 96 10/10/17 08:00 98 20 119/69 99 Nasal Cannula 2.0 10/10/17 07:30 96 21 120/72 99 Nasal Cannula 2.0 10/10/17 07:00 94 21 123/73 99 Nasal Cannula 2.0 10/10/17 06:00 75 21 116/88 99 Nasal Cannula 2.0 10/10/17 05:30 72 16 116/71 99 Nasal Cannula 2.0 10/10/17 05:00 79 17 114/91 99 Nasal Cannula 2.0 10/10/17 04:30 74 17 117/71 100 Nasal Cannula 2.0 10/10/17 04:00 71 10/10/17 04:00 98.5 71 17 113/59 99 Nasal Cannula 2.0 98.5 10/10/17 03:30 72 17 113/56 99 Nasal Cannula 2.0 10/10/17 03:00 74 17 125/55 98 Nasal Cannula 2.0 10/10/17 02:30 74 17 111/53 99 Nasal Cannula 2.0 10/10/17 02:23 74 90/41 10/10/17 02:00 76 17 90/41 99 Nasal Cannula 2.0 10/10/17 01:30 76 18 115/59 99 Nasal Cannula 2.0 10/10/17 01:00 76 17 110/48 99 Nasal Cannula 2.0 10/10/17 00:30 75 17 95/52 99 Nasal Cannula 2.0 10/10/17 00:00 98.0 77 16 99/49 98 Nasal Cannula 2.0 98.0 10/10/17 00:00 77 10/09/17 23:30 100 19 103/58 99 Nasal Cannula 2.0 10/09/17 23:00 102 19 110/56 99 Nasal Cannula 2.0 10/09/17 22:30 105 19 100/56 99 Nasal Cannula 2.0 10/09/17 22:00 105 20 114/76 99 Nasal Cannula 2.0 10/09/17 21:30 107 18 120/73 99 Nasal Cannula 2.0 10/09/17 21:10 85 125/67 10/09/17 21:00 87 18 125/67 99 Nasal Cannula 2.0 10/09/17 20:30 85 19 122/68 99 Nasal Cannula 2.0 10/09/17 20:00 86 10/09/17 20:00 86 21 123/66 99 Nasal Cannula 2.0 10/09/17 19:30 98.9 91 18 120/65 99 Nasal Cannula 2.0 98.9 10/09/17 19:00 89 20 118/61 100 Nasal Cannula 2.0 10/09/17 18:40 92 20 118/66 100 Nasal Cannula 2.0 10/09/17 18:00 133 20 159/69 100 Nasal Cannula 2.0 10/09/17 17:45 149 20 134/67 100 Nasal Cannula 2.0 10/09/17 17:30 134 20 92/47 100 Nasal Cannula 2.0 10/09/17 17:00 128 21 123/97 100 Nasal Cannula 2.0 10/09/17 16:30 136 20 130/62 100 Nasal Cannula 2.0 10/09/17 16:00 98.2 129 21 123/90 100 Nasal Cannula 2.0 98.2 10/09/17 16:00 140 10/09/17 15:30 132 21 120/80 100 Nasal Cannula 2.0 10/09/17 15:00 140 21 114/81 100 Nasal Cannula 2.0 I&O Intake and Output 10/09/17 10/10/17 19:00 07:00 Intake Total 751.8 ml 572.0 ml Output Total 450 ml 500 ml Balance 301.8 ml 72.0 ml Intake Oral 710 ml 540 ml IV Total 41.8 ml 32.0 ml Output Urine Total 450 ml 500 ml # Voids 3 1 # Bowel Movements 2 Cardiovascular: RSR Respiratory: clear Abdomen: soft, flat, non-tender Extremities: no tenderness, no cyanosis Laboratory Tests Test 10/10/17 06:25 White Blood Count 10.0 K/UL (4.8-10.8) Red Blood Count 3.32 M/UL (4.20-5.40) L Hemoglobin 9.3 G/DL (12.0-16.0) L Hematocrit 27.9 % (37.0-47.0) L Mean Corpuscular Volume 84 FL (80-99) Mean Corpuscular Hemoglobin 28.0 PG (27.0-31.0) Mean Corpuscular Hemoglobin Concent 33.3 G/DL (32.0-36.0) Red Cell Distribution Width 12.9 % (11.6-14.8) Platelet Count 177 K/UL (150-450) Mean Platelet Volume 8.0 FL (6.5-10.1) Neutrophils (%) (Auto) 64.9 % (45.0-75.0) Lymphocytes (%) (Auto) 24.5 % (20.0-45.0) Monocytes (%) (Auto) 7.7 % (1.0-10.0) Eosinophils (%) (Auto) 2.3 % (0.0-3.0) Basophils (%) (Auto) 0.6 % (0.0-2.0) Sodium Level 135 MMOL/L (136-145) L Potassium Level 3.6 MMOL/L (3.5-5.1) Chloride Level 100 MMOL/L (98-107) Carbon Dioxide Level 29 MMOL/L (21-32) Anion Gap 6 mmol/L (5-15) Blood Urea Nitrogen 27 mg/dL (7-18) H Creatinine 1.4 MG/DL (0.55-1.30) H Estimat Glomerular Filtration Rate mL/min (>60) Glucose Level 185 MG/DL (74-106) H Calcium Level 9.2 MG/DL (8.5-10.1) Total Bilirubin 0.2 MG/DL (0.2-1.0) Aspartate Amino Transf (AST/SGOT) 29 U/L (15-37) Alanine Aminotransferase (ALT/SGPT) 37 U/L (12-78) Alkaline Phosphatase 96 U/L (46-116) Total Protein 6.9 G/DL (6.4-8.2) Albumin 3.0 G/DL (3.4-5.0) L Globulin 3.9 g/dL Albumin/Globulin Ratio 0.8 (1.0-2.7) L Plan Problems: (1) Lower GI bleed Assessment & Plan: rectal bleeding; likely iatrogenic from recent procedure with urology. oozing venous blood and clots. fortunately h/h stable. Scope performed and rectal bleeding identified as end vessel which was controlled using clips. no longer bleeding. h/h stable. labs reviewed. no acute surgical intervention planned. successful hemostasis via GI okay for diet from surgical standpoint if h/h stable after 24hrs and no longer bleeding can d/c from surgical standpoint thank you for this consultation. will follow with Juan Miguel Hudson October 10, 2017 14:33
--- NOTE | 2017-10-10 23:43 | General Progress Note ---
Assessment/Plan Problem List: (1) S/P cholecystectomy ICD Codes: Z90.49 - Acquired absence of other specified parts of digestive tract SNOMED: 08530522, 49651790, 454326018 (2) Hyponatremia ICD Codes: E87.1 - Hypo-osmolality and hyponatremia SNOMED: 90227479 (3) Leukocytosis ICD Codes: D72.829 - Elevated white blood cell count, unspecified SNOMED: 798186441, 450068613 (4) Diabetes mellitus, type II ICD Codes: E11.9 - Type 2 diabetes mellitus without complications SNOMED: 46997852 (5) Acute kidney injury ICD Codes: N17.9 - Acute kidney failure, unspecified SNOMED: 05033574 (6) HTN (hypertension) ICD Codes: I10 - Essential (primary) hypertension SNOMED: 10722548 (7) Lower GI bleed ICD Codes: K92.2 - Gastrointestinal hemorrhage, unspecified SNOMED: 66573017 (8) Chronic diastolic (congestive) heart failure ICD Codes: I50.32 - Chronic diastolic (congestive) heart failure SNOMED: 34363040, 584935559 (9) Gastritis Assessment & Plan: s/p biopsies ICD Codes: K29.70 - Gastritis, unspecified, without bleeding SNOMED: 5570648 (10) Colonic polyp Assessment & Plan: s/p removal ICD Codes: K63.5 - Polyp of colon SNOMED: 75894794 (11) Rectal lesion Assessment & Plan: s/p hemoclip x 3 with colonoscopy for active bleeding ICD Codes: K62.9 - Disease of anus and rectum, unspecified SNOMED: 297682779, 094805211 (12) Atrial fibrillation with RVR ICD Codes: I48.91 - Unspecified atrial fibrillation SNOMED: 184234197384955 Status: stable, progressing Assessment/Plan - Biostatistics Professor, Dr. Goodrich, consulted, appreciate rec's - GI, Dr. Maynard, consulted, appreciate rec's - General surgery, Dr. Ward, consulted, appreciate rec's - Cardiology, Dr. King, consulted for cardiac clearance for EgD, appreciate rec's - s/p cardizen gtt. now on PO cardizem, converted to NSR. Repeat EKG with NSR. okay to transfer out of ICU to [facility] for continued monitoring - s/p EgD and colonoscopy showing gastritis, colonic polyp s/p removal, and rectal lesion s/p hemoclip x 3 - f/u biopsy results - Protonix - IVF - monitor H/H. Transfuse prn Hgb < 7 - leukocytosis -- resolved. UA and CXR negative. Will dc abx at this time as no source of infection found. leukocytosis may have been reactive 2/2 urological procedure - resume home meds. hold xarelto. - check venous duplex. if negative, start SCDs - trend Cr 1.4 --> 1.2 - pain control and supportive care PLAN FOR POSSIBLE DC IN AM DVT Prophylaxis: SCD Code Status: Full Hospital Classification Declaration: Based on this initial evaluation, and depending on the patient's clinical course, I anticipate that this patient will require hospitalization for 2-3 days for GI bleed and close respiratory/ hemodynamic monitoring. Disposition: Once the patient is stable to leave the hospital, I anticipate the patient will likely be discharged to the following environment: home with HH I spent 32 minutes on this patient's case, and 22 minutes were dedicated to counseling and/or care coordination. Discussed with patient/family, nursing staff, SW/CM, cardiology and GI regarding clinical status, treatment course, and disposition planning. Time of note may not reflect time of encounter. Subjective Date patient seen: October 10, 2017 Time patient seen: 11:00 Allergies: Coded Allergies: CODEINE (Verified Allergy, Unknown, 10/23/11) PENICILLINS (Verified Allergy, Unknown, RASH/ITCH, 10/23/11) Subjective - overnight, patient went into A. fibb with RVR and was started on cardizem gtt and transferred to ICU. Patient converted to NSR and was started on PO cardizem - patient continues to be in NSR. repeat EKG is NSR. - denies chest pain, sob - Hgb stable Objective Last 24 Hour Vital Signs Date Time Temp Pulse Resp B/P (MAP) Pulse Ox O2 Delivery O2 Flow Rate FiO2 10/10/17 23:00 75 17 125/68 100 Room Air 10/10/17 22:00 75 15 110/58 100 Room Air 10/10/17 22:00 74 104/51 10/10/17 21:00 74 16 104/51 100 Room Air 10/10/17 20:10 75 109/60 10/10/17 20:00 98.9 75 14 83/45 100 Room Air 98.9 10/10/17 20:00 74 10/10/17 19:00 75 20 109/60 100 Room Air 10/10/17 18:00 79 19 100/62 100 Room Air 10/10/17 17:00 73 19 100/54 100 Room Air 10/10/17 16:40 70 128/67 10/10/17 16:00 69 10/10/17 16:00 98.5 70 19 128/67 100 Room Air 98.5 10/10/17 15:00 70 19 113/77 100 Room Air 10/10/17 14:00 70 19 113/80 100 Room Air 10/10/17 13:00 78 19 106/65 100 Room Air 10/10/17 12:00 74 10/10/17 12:00 98.6 74 19 122/51 100 Nasal Cannula 2.0 98.6 10/10/17 11:00 71 18 120/65 98 Nasal Cannula 2.0 10/10/17 10:00 98 18 105/78 97 Nasal Cannula 2.0 10/10/17 09:55 96 110/74 10/10/17 09:00 96 18 112/63 97 Nasal Cannula 2.0 10/10/17 08:36 97 115/70 10/10/17 08:30 96 20 115/70 99 Nasal Cannula 2.0 10/10/17 08:00 96 10/10/17 08:00 98 20 119/69 99 Nasal Cannula 2.0 10/10/17 07:30 96 21 120/72 99 Nasal Cannula 2.0 10/10/17 07:00 94 21 123/73 99 Nasal Cannula 2.0 10/10/17 06:00 75 21 116/88 99 Nasal Cannula 2.0 10/10/17 05:30 72 16 116/71 99 Nasal Cannula 2.0 10/10/17 05:00 79 17 114/91 99 Nasal Cannula 2.0 10/10/17 04:30 74 17 117/71 100 Nasal Cannula 2.0 10/10/17 04:00 71 10/10/17 04:00 98.5 71 17 113/59 99 Nasal Cannula 2.0 98.5 10/10/17 03:30 72 17 113/56 99 Nasal Cannula 2.0 10/10/17 03:00 74 17 125/55 98 Nasal Cannula 2.0 10/10/17 02:30 74 17 111/53 99 Nasal Cannula 2.0 10/10/17 02:23 74 90/41 10/10/17 02:00 76 17 90/41 99 Nasal Cannula 2.0 10/10/17 01:30 76 18 115/59 99 Nasal Cannula 2.0 10/10/17 01:00 76 17 110/48 99 Nasal Cannula 2.0 10/10/17 00:30 75 17 95/52 99 Nasal Cannula 2.0 10/10/17 00:00 98.0 77 16 99/49 98 Nasal Cannula 2.0 98.0 10/10/17 00:00 77 Intake and Output 10/09/17 10/10/17 19:00 07:00 Intake Total 751.8 ml 572.0 ml Output Total 450 ml 500 ml Balance 301.8 ml 72.0 ml Intake Oral 710 ml 540 ml IV Total 41.8 ml 32.0 ml Output Urine Total 450 ml 500 ml # Voids 3 1 # Bowel Movements 2 Laboratory Tests 10/10/17 06:25: White Blood Count 10.0, Red Blood Count 3.32L, Hemoglobin 9.3L, Hematocrit 27.9L , Mean Corpuscular Volume 84, Mean Corpuscular Hemoglobin 28.0, Mean Corpuscular Hemoglobin Concent 33.3, Red Cell Distribution Width 12.9, Platelet Count 177, Mean Platelet Volume 8.0, Neutrophils (%) (Auto) 64.9, Lymphocytes (% ) (Auto) 24.5, Monocytes (%) (Auto) 7.7, Eosinophils (%) (Auto) 2.3, Basophils ( %) (Auto) 0.6, Sodium Level 135L, Potassium Level 3.6, Chloride Level 100, Carbon Dioxide Level 29, Anion Gap 6, Blood Urea Nitrogen 27H, Creatinine 1.4H, Estimat Glomerular Filtration Rate , Glucose Level 185H, Calcium Level 9.2, Total Bilirubin 0.2, Aspartate Amino Transf (AST/SGOT) 29, Alanine Aminotransferase (ALT/SGPT) 37, Alkaline Phosphatase 96, Total Protein 6.9, Albumin 3.0L, Globulin 3.9, Albumin/Globulin Ratio 0.8L Height (Feet): 5 Height (Inches): 2.00 Weight (Pounds): 176 General Appearance: no apparent distress, alert EENT: PERRL/EOMI, normal ENT inspection Neck: non-tender, normal alignment, supple Cardiovascular: normal peripheral pulses, normal rate, regular rhythm Respiratory/Chest: chest wall non-tender, lungs clear, normal breath sounds Abdomen: normal bowel sounds, non tender, soft Extremities: normal range of motion, non-tender Neurologic: software engineering associate manager II-XII grossly normal, no motor/sensory deficits, alert, oriented x 3 Skin: normal pigmentation, warm/dry Frances Maurice NP October 10, 2017 23:43
[2017-10-11] VITALS (17 sets, daily range): BP systolic 94–129; BP diastolic 54–84
[2017-10-11 04:39] LABS: BASOPHILS % (AUTO) 0.9 % (0.0-2.0); EOSINOPHILS % (AUTO) 2.4 % (0.0-3.0); HEMATOCRIT 29.1 % (37.0-47.0); HEMOGLOBIN 9.4 G/DL (12.0-16.0); LYMPHOCYTES % (AUTO) 27.4 % (20.0-45.0); MEAN CORPUSCULAR VOLUME 85 FL (80-99); NEUTROPHILS % (AUTO) 61.3 % (45.0-75.0); PLATELET COUNT 199 K/UL (150-450); RED BLOOD COUNT 3.44 M/UL (4.20-5.40); WHITE BLOOD COUNT 11.2 K/UL (4.8-10.8)
[2017-10-11 05:08] LABS: ALANINE AMINOTRANSFERASE 35 U/L (12-78); ALBUMIN 3.1 G/DL (3.4-5.0); ALBUMIN/GLOBULIN RATIO 0.8 (1.0-2.7); ALKALINE PHOSPHATASE 96 U/L (46-116); ANION GAP 7 mmol/L (5-15); ASPARTATE AMINO TRANSFERASE 20 U/L (15-37); BILIRUBIN,TOTAL 0.3 MG/DL (0.2-1.0); BLOOD UREA NITROGEN 36 mg/dL (7-18); CALCIUM 9.4 MG/DL (8.5-10.1); CARBON DIOXIDE 31 MMOL/L (21-32); CHLORIDE 100 MMOL/L (98-107); CREATININE 1.5 MG/DL (0.55-1.30); POTASSIUM 3.3 MMOL/L (3.5-5.1); SODIUM 137 MMOL/L (136-145)
[2017-10-11] MEDS: dilTIAZem HCl 60mg tab ORAL SCH ×3 (06:01→22:22)
[2017-10-11] MEDS: NovoLOG Insulin Flexpen SUBQ SCH ×4 (06:02→20:43)
[2017-10-11] MEDS: Sotalol 80mg tab ORAL SCH ×2 (08:14→20:33)
[2017-10-11] MEDS: Pantoprazole Inj IVP SCH (08:15)
--- NOTE | 2017-10-11 10:07 | Cardiac Electrophysiology PN ---
Assessment/Plan Assessment/Plan 1. Paroxysmal atrial fibrillation. In sinus rhythm on sotalol 80 mg b.i.d. and Cardizem 60 po tid. Off anticoagulation for GI bleed. Repeat ECG showed Long QTc 480. NO VT 2. Hypertension, on Lasix 40 mg daily, Dyazide, and sotalol. 3. GI bleed. S/p EGD and colonoscopy and clipping by Dr. Maynard. Gastritis, Colon polyp, Rectal Dieulafoy 4. Status post urological procedure. 5. Diabetes. 6. Hypokalemia. Replaced DW RN Subjective Subjective Alert in NAD. Remained in SR. Objective Last 24 Hour Vital Signs Date Time Temp Pulse Resp B/P (MAP) Pulse Ox O2 Delivery O2 Flow Rate FiO2 10/11/17 09:00 68 19 123/61 98 Room Air 10/11/17 08:14 73 107/54 10/11/17 08:00 98.2 73 19 107/54 97 Room Air 98.2 10/11/17 07:00 73 17 111/63 97 Room Air 10/11/17 06:01 72 108/83 10/11/17 06:00 70 14 119/58 97 Room Air 10/11/17 05:00 72 16 108/83 96 Room Air 10/11/17 04:00 98.5 71 19 110/60 98 Room Air 98.5 10/11/17 04:00 75 10/11/17 03:00 69 17 112/58 98 Room Air 10/11/17 02:00 77 16 114/65 98 Room Air 10/11/17 01:00 71 16 106/66 97 Room Air 10/11/17 00:00 98.2 74 21 113/72 97 Room Air 98.2 10/11/17 00:00 72 10/10/17 23:00 75 17 125/68 100 Room Air 10/10/17 22:00 75 15 110/58 100 Room Air 10/10/17 22:00 74 104/51 10/10/17 21:00 74 16 104/51 100 Room Air 10/10/17 20:10 75 109/60 10/10/17 20:00 98.9 75 14 83/45 100 Room Air 98.9 10/10/17 20:00 74 10/10/17 19:00 75 20 109/60 100 Room Air 10/10/17 18:00 79 19 100/62 100 Room Air 10/10/17 17:00 73 19 100/54 100 Room Air 10/10/17 16:40 70 128/67 10/10/17 16:00 69 10/10/17 16:00 98.5 70 19 128/67 100 Room Air 98.5 10/10/17 15:00 70 19 113/77 100 Room Air 10/10/17 14:00 70 19 113/80 100 Room Air 10/10/17 13:00 78 19 106/65 100 Room Air 10/10/17 12:00 74 10/10/17 12:00 98.6 74 19 122/51 100 Nasal Cannula 2.0 98.6 10/10/17 11:00 71 18 120/65 98 Nasal Cannula 2.0 Intake and Output 10/10/17 10/11/17 19:00 07:00 Intake Total 604 ml 100 ml Output Total 850 ml 300 ml Balance -246 ml -200 ml Intake Oral 600 ml 100 ml IV Total 4 ml Output Urine Total 850 ml 300 ml # Voids 5 # Bowel Movements 1 Laboratory Tests Test 10/11/17 03:50 White Blood Count 11.2 K/UL (4.8-10.8) H Red Blood Count 3.44 M/UL (4.20-5.40) L Hemoglobin 9.4 G/DL (12.0-16.0) L Hematocrit 29.1 % (37.0-47.0) L Mean Corpuscular Volume 85 FL (80-99) Mean Corpuscular Hemoglobin 27.4 PG (27.0-31.0) Mean Corpuscular Hemoglobin Concent 32.5 G/DL (32.0-36.0) Red Cell Distribution Width 13.0 % (11.6-14.8) Platelet Count 199 K/UL (150-450) Mean Platelet Volume 8.3 FL (6.5-10.1) Neutrophils (%) (Auto) 61.3 % (45.0-75.0) Lymphocytes (%) (Auto) 27.4 % (20.0-45.0) Monocytes (%) (Auto) 8.0 % (1.0-10.0) Eosinophils (%) (Auto) 2.4 % (0.0-3.0) Basophils (%) (Auto) 0.9 % (0.0-2.0) Sodium Level 137 MMOL/L (136-145) Potassium Level 3.3 MMOL/L (3.5-5.1) L Chloride Level 100 MMOL/L (98-107) Carbon Dioxide Level 31 MMOL/L (21-32) Anion Gap 7 mmol/L (5-15) Blood Urea Nitrogen 36 mg/dL (7-18) H Creatinine 1.5 MG/DL (0.55-1.30) H Estimat Glomerular Filtration Rate mL/min (>60) Glucose Level 177 MG/DL (74-106) H Calcium Level 9.4 MG/DL (8.5-10.1) Total Bilirubin 0.3 MG/DL (0.2-1.0) Aspartate Amino Transf (AST/SGOT) 20 U/L (15-37) Alanine Aminotransferase (ALT/SGPT) 35 U/L (12-78) Alkaline Phosphatase 96 U/L (46-116) Pro-B-Type Natriuretic Peptide 63 pg/mL (0-125) Total Protein 7.2 G/DL (6.4-8.2) Albumin 3.1 G/DL (3.4-5.0) L Globulin 4.1 g/dL Albumin/Globulin Ratio 0.8 (1.0-2.7) L Objective HEAD AND NECK: No JVD LUNGS: Clear. CARDIOVASCULAR: Regular S1 and S2 with no gallop or murmur. ABDOMEN: Soft and nontender. EXTREMITIES: No pitting edema. Manolo Thompson MD October 11, 2017 10:07
--- NOTE | 2017-10-11 10:12 | Pulmonolgy Critical Care Note ---
Critical Care - Asmt/Plan Problems: (1) Atrial fibrillation (2) Lower GI bleed (3) Chronic anticoagulation (4) HTN (hypertension) (5) Diabetes Respiratory: monitor respiratory rate, adjust FIO2, CXR Cardiac: continue pressors, continue to monitor HR/BP Renal: F/U I&O, keep IV fluid Infectious Disease: check cultures Gastrointestinal: continue feedings/current rate Endocrine: monitor blood sugar, check TSH Hematologic: monitor H/H, transfuse if hgb<8.5 Neurologic: PRN Ativan, keep patient comfortable Prophylaxis: Protonix, Heparin Notes Reviewed: cardio Discussed with: nurses, consultants, case therapistfield insurance sales manager - Objective Last 24 Hour Vital Signs Date Time Temp Pulse Resp B/P (MAP) Pulse Ox O2 Delivery O2 Flow Rate FiO2 10/11/17 09:00 68 19 123/61 98 Room Air 10/11/17 08:14 73 107/54 10/11/17 08:00 98.2 73 19 107/54 97 Room Air 98.2 10/11/17 07:00 73 17 111/63 97 Room Air 10/11/17 06:01 72 108/83 10/11/17 06:00 70 14 119/58 97 Room Air 10/11/17 05:00 72 16 108/83 96 Room Air 10/11/17 04:00 98.5 71 19 110/60 98 Room Air 98.5 10/11/17 04:00 75 10/11/17 03:00 69 17 112/58 98 Room Air 10/11/17 02:00 77 16 114/65 98 Room Air 10/11/17 01:00 71 16 106/66 97 Room Air 10/11/17 00:00 98.2 74 21 113/72 97 Room Air 98.2 10/11/17 00:00 72 10/10/17 23:00 75 17 125/68 100 Room Air 10/10/17 22:00 75 15 110/58 100 Room Air 10/10/17 22:00 74 104/51 10/10/17 21:00 74 16 104/51 100 Room Air 10/10/17 20:10 75 109/60 10/10/17 20:00 98.9 75 14 83/45 100 Room Air 98.9 10/10/17 20:00 74 10/10/17 19:00 75 20 109/60 100 Room Air 10/10/17 18:00 79 19 100/62 100 Room Air 10/10/17 17:00 73 19 100/54 100 Room Air 10/10/17 16:40 70 128/67 10/10/17 16:00 69 10/10/17 16:00 98.5 70 19 128/67 100 Room Air 98.5 10/10/17 15:00 70 19 113/77 100 Room Air 10/10/17 14:00 70 19 113/80 100 Room Air 10/10/17 13:00 78 19 106/65 100 Room Air 10/10/17 12:00 74 10/10/17 12:00 98.6 74 19 122/51 100 Nasal Cannula 2.0 98.6 10/10/17 11:00 71 18 120/65 98 Nasal Cannula 2.0 Status: awake Condition: improving HEENT: atraumatic Neck: full ROM Lungs: clear Heart: HR/BP stable Abdomen: soft, non-tender, feeding tube Extremities: edema Decubiti: location Accucheck: 168 Critical Care - Subjective ROS Limited/Unobtainable: No Interval Events: back to sinus now Condition: critical, improving I&O: Intake and Output 10/10/17 10/11/17 19:00 07:00 Intake Total 604 ml 100 ml Output Total 850 ml 300 ml Balance -246 ml -200 ml Intake Oral 600 ml 100 ml IV Total 4 ml Output Urine Total 850 ml 300 ml # Voids 5 # Bowel Movements 1 CXR: no change Labs: Laboratory Tests Test 10/11/17 03:50 White Blood Count 11.2 K/UL (4.8-10.8) H Red Blood Count 3.44 M/UL (4.20-5.40) L Hemoglobin 9.4 G/DL (12.0-16.0) L Hematocrit 29.1 % (37.0-47.0) L Mean Corpuscular Volume 85 FL (80-99) Mean Corpuscular Hemoglobin 27.4 PG (27.0-31.0) Mean Corpuscular Hemoglobin Concent 32.5 G/DL (32.0-36.0) Red Cell Distribution Width 13.0 % (11.6-14.8) Platelet Count 199 K/UL (150-450) Mean Platelet Volume 8.3 FL (6.5-10.1) Neutrophils (%) (Auto) 61.3 % (45.0-75.0) Lymphocytes (%) (Auto) 27.4 % (20.0-45.0) Monocytes (%) (Auto) 8.0 % (1.0-10.0) Eosinophils (%) (Auto) 2.4 % (0.0-3.0) Basophils (%) (Auto) 0.9 % (0.0-2.0) Sodium Level 137 MMOL/L (136-145) Potassium Level 3.3 MMOL/L (3.5-5.1) L Chloride Level 100 MMOL/L (98-107) Carbon Dioxide Level 31 MMOL/L (21-32) Anion Gap 7 mmol/L (5-15) Blood Urea Nitrogen 36 mg/dL (7-18) H Creatinine 1.5 MG/DL (0.55-1.30) H Estimat Glomerular Filtration Rate mL/min (>60) Glucose Level 177 MG/DL (74-106) H Calcium Level 9.4 MG/DL (8.5-10.1) Total Bilirubin 0.3 MG/DL (0.2-1.0) Aspartate Amino Transf (AST/SGOT) 20 U/L (15-37) Alanine Aminotransferase (ALT/SGPT) 35 U/L (12-78) Alkaline Phosphatase 96 U/L (46-116) Pro-B-Type Natriuretic Peptide 63 pg/mL (0-125) Total Protein 7.2 G/DL (6.4-8.2) Albumin 3.1 G/DL (3.4-5.0) L Globulin 4.1 g/dL Albumin/Globulin Ratio 0.8 (1.0-2.7) L Beatrice Goodrich MD October 11, 2017 10:12
--- NOTE | 2017-10-11 10:20 | Cardiology Report ---
APPROVED REPORT EXAM: Two-dimensional and M-mode echocardiogram with Doppler and color Doppler. INDICATION Supraventricular Tachycardia M-Mode DIMENSIONS IVSd0.8 (0.7-1.1cm)Left Atrium (MM)3.1 (1.6-4.0cm) LVDd4.4 (3.5-5.6cm)Aortic Root2.6 (2.0-3.7cm) PWd1.0 (0.7-1.1cm)Aortic Cusp Exc.1.8 (1.5-2.0cm) LVDs2.9 (2.5-4.0cm) PWs1.1 cm Technically difficult study due to poor acoustic windows. Study quality precludes accurate assessment of regional wall motion. Normal left ventricular chamber size, systolic function and wall motion. Left ventricular ejection fraction estimated to be 55 %. No evidence of left ventricular hypertrophy. Anterior Echo-free space, may be due to pericardial fat or effusion. All other cardiac chamber sizes are within normal limits. Focal aortic valve sclerosis with adequate cusp excursion. Thickened mitral valve leaflets with normal excursion. Mild mitral annulus and aortic root calcification. Pulmonic valve not well visualized. Normal tricuspid valve structure. IVC is normal in size with physiological collapse. A color flow and spectral Doppler study was performed and revealed: No aortic insufficiency. Moderate mitral regurgitation. Mitral diastolic velocities suggest mild left ventricular diastolic dysfunction (Grade I). Mild tricuspid regurgitation. Tricuspid systolic velocities suggests peak right ventricular systolic pressure of 34 mmHg. No pulmonic regurgitation present.
--- NOTE | 2017-10-11 11:38 | Diagnostic Imaging Report ---
Indication: Dyspnea Comparison: 10/06/2017 A single view chest radiograph was obtained. Findings: No definite infiltrate or pulmonary vascular congestion identified. The heart is enlarged. The aorta is mildly enlarged consistent with atherosclerotic vascular disease. The bones are osteopenic. Impression: No acute disease
--- NOTE | 2017-10-11 14:25 | Cardiology Report ---
APPROVED REPORT EKG Measurement Heart [id number] Normal sinus rhythm Nonspecific T wave abnormality Prolonged QT Abnormal ECG
--- NOTE | 2017-10-11 14:53 | General Surgery Progress Note ---
General Surgery-Progress Note Subjective Symptoms: improved, pain absent, tolerating diet, passing flatus, BM Objective Last 24 Hour Vital Signs Date Time Temp Pulse Resp B/P (MAP) Pulse Ox O2 Delivery O2 Flow Rate FiO2 10/11/17 14:49 73 113/67 10/11/17 12:00 67 10/11/17 12:00 64 18 114/63 97 Room Air 10/11/17 11:00 64 18 102/68 97 Room Air 10/11/17 10:00 66 18 117/57 98 Room Air 10/11/17 09:00 68 19 123/61 98 Room Air 10/11/17 08:14 73 107/54 10/11/17 08:00 70 10/11/17 08:00 98.2 73 19 107/54 97 Room Air 98.2 10/11/17 07:00 73 17 111/63 97 Room Air 10/11/17 06:01 72 108/83 10/11/17 06:00 70 14 119/58 97 Room Air 10/11/17 05:00 72 16 108/83 96 Room Air 10/11/17 04:00 98.5 71 19 110/60 98 Room Air 98.5 10/11/17 04:00 75 10/11/17 03:00 69 17 112/58 98 Room Air 10/11/17 02:00 77 16 114/65 98 Room Air 10/11/17 01:00 71 16 106/66 97 Room Air 10/11/17 00:00 98.2 74 21 113/72 97 Room Air 98.2 10/11/17 00:00 72 10/10/17 23:00 75 17 125/68 100 Room Air 10/10/17 22:00 75 15 110/58 100 Room Air 10/10/17 22:00 74 104/51 10/10/17 21:00 74 16 104/51 100 Room Air 10/10/17 20:10 75 109/60 10/10/17 20:00 98.9 75 14 83/45 100 Room Air 98.9 10/10/17 20:00 74 10/10/17 19:00 75 20 109/60 100 Room Air 10/10/17 18:00 79 19 100/62 100 Room Air 10/10/17 17:00 73 19 100/54 100 Room Air 10/10/17 16:40 70 128/67 5/28/18 16:00 69 10/10/17 16:00 98.5 70 19 128/67 100 Room Air 98.5 10/10/17 15:00 70 19 113/77 100 Room Air I&O Intake and Output 10/10/17 10/11/17 19:00 07:00 Intake Total 604 ml 100 ml Output Total 850 ml 300 ml Balance -246 ml -200 ml Intake Oral 600 ml 100 ml IV Total 4 ml Output Urine Total 850 ml 300 ml # Voids 5 # Bowel Movements 1 Drains: none Cardiovascular: RSR Respiratory: clear Abdomen: soft, flat, non-tender, present bowel sounds Extremities: no edema, no tenderness, no cyanosis Laboratory Tests Test 10/11/17 03:50 White Blood Count 11.2 K/UL (4.8-10.8) H Red Blood Count 3.44 M/UL (4.20-5.40) L Hemoglobin 9.4 G/DL (12.0-16.0) L Hematocrit 29.1 % (37.0-47.0) L Mean Corpuscular Volume 85 FL (80-99) Mean Corpuscular Hemoglobin 27.4 PG (27.0-31.0) Mean Corpuscular Hemoglobin Concent 32.5 G/DL (32.0-36.0) Red Cell Distribution Width 13.0 % (11.6-14.8) Platelet Count 199 K/UL (150-450) Mean Platelet Volume 8.3 FL (6.5-10.1) Neutrophils (%) (Auto) 61.3 % (45.0-75.0) Lymphocytes (%) (Auto) 27.4 % (20.0-45.0) Monocytes (%) (Auto) 8.0 % (1.0-10.0) Eosinophils (%) (Auto) 2.4 % (0.0-3.0) Basophils (%) (Auto) 0.9 % (0.0-2.0) Sodium Level 137 MMOL/L (136-145) Potassium Level 3.3 MMOL/L (3.5-5.1) L Chloride Level 100 MMOL/L (98-107) Carbon Dioxide Level 31 MMOL/L (21-32) Anion Gap 7 mmol/L (5-15) Blood Urea Nitrogen 36 mg/dL (7-18) H Creatinine 1.5 MG/DL (0.55-1.30) H Estimat Glomerular Filtration Rate mL/min (>60) Glucose Level 177 MG/DL (74-106) H Calcium Level 9.4 MG/DL (8.5-10.1) Total Bilirubin 0.3 MG/DL (0.2-1.0) Aspartate Amino Transf (AST/SGOT) 20 U/L (15-37) Alanine Aminotransferase (ALT/SGPT) 35 U/L (12-78) Alkaline Phosphatase 96 U/L (46-116) Pro-B-Type Natriuretic Peptide 63 pg/mL (0-125) Total Protein 7.2 G/DL (6.4-8.2) Albumin 3.1 G/DL (3.4-5.0) L Globulin 4.1 g/dL Albumin/Globulin Ratio 0.8 (1.0-2.7) L Plan Problems: (1) Lower GI bleed Assessment & Plan: rectal bleeding; likely iatrogenic from recent procedure with urology. oozing venous blood and clots. fortunately h/h stable. Scope performed and rectal bleeding identified as end vessel which was controlled using clips. no longer bleeding. h/h stable. labs reviewed. no acute surgical intervention planned. successful hemostasis via GI okay for diet from surgical standpoint if h/h stable after 24hrs and no longer bleeding can d/c from surgical standpoint thank you for this consultation. will follow with Juan Miguel Hudson October 11, 2017 14:53
--- NOTE | 2017-10-11 14:59 | GI Progress Note ---
Assessment/Plan Problems: (1) Lower GI bleed ICD Codes: K92.2 - Gastrointestinal hemorrhage, unspecified SNOMED: 58029008 (2) S/P cholecystectomy ICD Codes: Z90.49 - Acquired absence of other specified parts of digestive tract SNOMED: 53526279, 88629110, 079611784 (3) Colonic polyp ICD Codes: K63.5 - Polyp of colon SNOMED: 98721004 (4) Diarrhea ICD Codes: R19.7 - Diarrhea, unspecified SNOMED: 87147765 (5) Anemia ICD Codes: D64.9 - Anemia, unspecified SNOMED: 121371563 Status: stable Status Narrative Discussed with Dr. Maynard. Assessment/Plan Assessment - GIB - Gastritis - Colon polyp - Rectal Dieulafoy - s/p Elisabeth - constipation - resolved Recommendations - Monitor H&H until stable, prn transfusions - po as tolerated - ICU care - fu labs Subjective Gastrointestinal/Abdominal: Reports: no symptoms Subjective had BM, brown and soft Objective Last 24 Hour Vital Signs Date Time Temp Pulse Resp B/P (MAP) Pulse Ox O2 Delivery O2 Flow Rate FiO2 10/11/17 14:49 73 113/67 10/11/17 14:00 74 17 104/60 98 Room Air 10/11/17 13:00 71 19 113/67 97 Room Air 10/11/17 12:00 67 10/11/17 12:00 64 18 114/63 97 Room Air 10/11/17 11:00 64 18 102/68 97 Room Air 10/11/17 10:00 66 18 117/57 98 Room Air 10/11/17 09:00 68 19 123/61 98 Room Air 10/11/17 08:14 73 107/54 10/11/17 08:00 70 10/11/17 08:00 98.2 73 19 107/54 97 Room Air 98.2 10/11/17 07:00 73 17 111/63 97 Room Air 10/11/17 06:01 72 108/83 10/11/17 06:00 70 14 119/58 97 Room Air 10/11/17 05:00 72 16 108/83 96 Room Air 10/11/17 04:00 98.5 71 19 110/60 98 Room Air 98.5 10/11/17 04:00 75 10/11/17 03:00 69 17 112/58 98 Room Air 10/11/17 02:00 77 16 114/65 98 Room Air 10/11/17 01:00 71 16 106/66 97 Room Air 10/11/17 00:00 98.2 74 21 113/72 97 Room Air 98.2 10/11/17 00:00 72 10/10/17 23:00 75 17 125/68 100 Room Air 10/10/17 22:00 75 15 110/58 100 Room Air 10/10/17 22:00 74 104/51 10/10/17 21:00 74 16 104/51 100 Room Air 10/10/17 20:10 75 109/60 10/10/17 20:00 98.9 75 14 83/45 100 Room Air 98.9 10/10/17 20:00 74 10/10/17 19:00 75 20 109/60 100 Room Air 10/10/17 18:00 79 19 100/62 100 Room Air 10/10/17 17:00 73 19 100/54 100 Room Air 10/10/17 16:40 70 128/67 10/10/17 16:00 69 10/10/17 16:00 98.5 70 19 128/67 100 Room Air 98.5 10/10/17 15:00 70 19 113/77 100 Room Air Intake and Output 10/10/17 10/11/17 19:00 07:00 Intake Total 604 ml 100 ml Output Total 850 ml 300 ml Balance -246 ml -200 ml Intake Oral 600 ml 100 ml IV Total 4 ml Output Urine Total 850 ml 300 ml # Voids 5 # Bowel Movements 1 Laboratory Tests Test 10/11/17 03:50 White Blood Count 11.2 K/UL (4.8-10.8) H Red Blood Count 3.44 M/UL (4.20-5.40) L Hemoglobin 9.4 G/DL (12.0-16.0) L Hematocrit 29.1 % (37.0-47.0) L Mean Corpuscular Volume 85 FL (80-99) Mean Corpuscular Hemoglobin 27.4 PG (27.0-31.0) Mean Corpuscular Hemoglobin Concent 32.5 G/DL (32.0-36.0) Red Cell Distribution Width 13.0 % (11.6-14.8) Platelet Count 199 K/UL (150-450) Mean Platelet Volume 8.3 FL (6.5-10.1) Neutrophils (%) (Auto) 61.3 % (45.0-75.0) Lymphocytes (%) (Auto) 27.4 % (20.0-45.0) Monocytes (%) (Auto) 8.0 % (1.0-10.0) Eosinophils (%) (Auto) 2.4 % (0.0-3.0) Basophils (%) (Auto) 0.9 % (0.0-2.0) Sodium Level 137 MMOL/L (136-145) Potassium Level 3.3 MMOL/L (3.5-5.1) L Chloride Level 100 MMOL/L (98-107) Carbon Dioxide Level 31 MMOL/L (21-32) Anion Gap 7 mmol/L (5-15) Blood Urea Nitrogen 36 mg/dL (7-18) H Creatinine 1.5 MG/DL (0.55-1.30) H Estimat Glomerular Filtration Rate mL/min (>60) Glucose Level 177 MG/DL (74-106) H Calcium Level 9.4 MG/DL (8.5-10.1) Total Bilirubin 0.3 MG/DL (0.2-1.0) Aspartate Amino Transf (AST/SGOT) 20 U/L (15-37) Alanine Aminotransferase (ALT/SGPT) 35 U/L (12-78) Alkaline Phosphatase 96 U/L (46-116) Pro-B-Type Natriuretic Peptide 63 pg/mL (0-125) Total Protein 7.2 G/DL (6.4-8.2) Albumin 3.1 G/DL (3.4-5.0) L Globulin 4.1 g/dL Albumin/Globulin Ratio 0.8 (1.0-2.7) L Height (Feet): 5 Height (Inches): 2.00 Weight (Pounds): 171 General Appearance: WD/WN, no apparent distress, alert Cardiovascular: normal rate Respiratory/Chest: normal breath sounds, no respiratory distress Abdominal Exam: normal bowel sounds, non tender, soft Extremities: normal range of motion, non-tender Lizy Kim NP October 11, 2017 14:59
[2017-10-11] MEDS ORDERED: Nitroglycerin Subl 0.4mg tab SL PRN (15:15)
[2017-10-11] MEDS ORDERED: Metoclopramide 10mg/2ml Inj IVP PRN (15:30)
[2017-10-11] MEDS ORDERED: Mylanta II UD 30ml ORAL PRN (15:30)
[2017-10-11] MEDS ORDERED: Miralax 17gm pkt ORAL PRN (20:00)
--- NOTE | 2017-10-11 21:45 | General Progress Note ---
Assessment/Plan Problem List: (1) S/P cholecystectomy ICD Codes: Z90.49 - Acquired absence of other specified parts of digestive tract SNOMED: 05071121, 72857849, 750944160 (2) Hyponatremia ICD Codes: E87.1 - Hypo-osmolality and hyponatremia SNOMED: 94134913 (3) Leukocytosis ICD Codes: D72.829 - Elevated white blood cell count, unspecified SNOMED: 468292087, 670399131 (4) Diabetes mellitus, type II ICD Codes: E11.9 - Type 2 diabetes mellitus without complications SNOMED: 39091177 (5) Acute kidney injury ICD Codes: N17.9 - Acute kidney failure, unspecified SNOMED: 76133989 (6) HTN (hypertension) ICD Codes: I10 - Essential (primary) hypertension SNOMED: 19728248 (7) Lower GI bleed ICD Codes: K92.2 - Gastrointestinal hemorrhage, unspecified SNOMED: 93926984 (8) Chronic diastolic (congestive) heart failure ICD Codes: I50.32 - Chronic diastolic (congestive) heart failure SNOMED: 69407864, 647118780 (9) Gastritis Assessment & Plan: s/p biopsies ICD Codes: K29.70 - Gastritis, unspecified, without bleeding SNOMED: 4881064 (10) Colonic polyp Assessment & Plan: s/p removal ICD Codes: K63.5 - Polyp of colon SNOMED: 54843511 (11) Rectal lesion Assessment & Plan: s/p hemoclip x 3 with colonoscopy for active bleeding ICD Codes: K62.9 - Disease of anus and rectum, unspecified SNOMED: 491266351, 315353308 (12) Atrial fibrillation with RVR ICD Codes: I48.91 - Unspecified atrial fibrillation SNOMED: 422649106421835 Status: stable, progressing Assessment/Plan - Knitting Demonstrator, Dr. Goodrich, consulted, appreciate rec's - GI, Dr. Maynard, consulted, appreciate rec's - General surgery, Dr. Ward, consulted, appreciate rec's - Cardiology, Dr. King, consulted for cardiac clearance for EgD, appreciate rec's - s/p cardizen gtt. now on PO cardizem, converted to NSR. Repeat EKG with NSR. okay to transfer out of ICU to [facility] for continued monitoring - s/p EgD and colonoscopy showing gastritis, colonic polyp s/p removal, and rectal lesion s/p hemoclip x 3 - f/u biopsy results - Protonix - IVF - monitor H/H. Transfuse prn Hgb < 7 - leukocytosis -- resolved. UA and CXR negative. Will dc abx at this time as no source of infection found. leukocytosis may have been reactive 2/2 urological procedure - resume home meds. hold xarelto. - check venous duplex. if negative, start SCDs - trend Cr 1.4 --> 1.2 - pain control and supportive care DVT Prophylaxis: SCD Code Status: Full Hospital Classification Declaration: Based on this initial evaluation, and depending on the patient's clinical course, I anticipate that this patient will require hospitalization for 2-3 days for GI bleed and close respiratory/ hemodynamic monitoring. Disposition: Once the patient is stable to leave the hospital, I anticipate the patient will likely be discharged to the following environment: home with HH I spent 32 minutes on this patient's case, and 22 minutes were dedicated to counseling and/or care coordination. Discussed with patient/family, nursing staff, SW/CM, cardiology and GI regarding clinical status, treatment course, and disposition planning. Time of note may not reflect time of encounter. Subjective Date patient seen: October 11, 2017 Time patient seen: 11:23 Allergies: Coded Allergies: CODEINE (Verified Allergy, Unknown, 10/23/11) PENICILLINS (Verified Allergy, Unknown, RASH/ITCH, 10/23/11) Subjective - patient continues to be in NSR. no overnight events - denies chest pain, sob - Hgb stable Objective Last 24 Hour Vital Signs Date Time Temp Pulse Resp B/P (MAP) Pulse Ox O2 Delivery O2 Flow Rate FiO2 10/11/17 20:33 78 107/65 10/11/17 20:00 98.3 78 19 107/65 96 Room Air 98.3 10/11/17 20:00 80 10/11/17 16:00 98.1 74 18 129/84 99 Room Air 98.1 10/11/17 16:00 75 10/11/17 14:49 73 113/67 10/11/17 14:00 74 17 104/60 98 Room Air 10/11/17 13:00 71 19 113/67 97 Room Air 10/11/17 12:00 67 10/11/17 12:00 64 18 114/63 97 Room Air 10/11/17 11:00 64 18 102/68 97 Room Air 10/11/17 10:00 66 18 117/57 98 Room Air 10/11/17 09:00 68 19 123/61 98 Room Air 10/11/17 08:14 73 107/54 10/11/17 08:00 70 10/11/17 08:00 98.2 73 19 107/54 97 Room Air 98.2 10/11/17 07:00 73 17 111/63 97 Room Air 10/11/17 06:01 72 108/83 10/11/17 06:00 70 14 119/58 97 Room Air 10/11/17 05:00 72 16 108/83 96 Room Air 10/11/17 04:00 98.5 71 19 110/60 98 Room Air 98.5 10/11/17 04:00 75 10/11/17 03:00 69 17 112/58 98 Room Air 10/11/17 02:00 77 16 114/65 98 Room Air 10/11/17 01:00 71 16 106/66 97 Room Air 10/11/17 00:00 98.2 74 21 113/72 97 Room Air 98.2 10/11/17 00:00 72 10/10/17 23:00 75 17 125/68 100 Room Air 10/10/17 22:00 75 15 110/58 100 Room Air 10/10/17 22:00 74 104/51 Intake and Output 10/10/17 10/11/17 19:00 07:00 Intake Total 604 ml 100 ml Output Total 850 ml 300 ml Balance -246 ml -200 ml Intake Oral 600 ml 100 ml IV Total 4 ml Output Urine Total 850 ml 300 ml # Voids 5 # Bowel Movements 1 Laboratory Tests 10/11/17 03:50: White Blood Count 11.2H, Red Blood Count 3.44L, Hemoglobin 9.4L, Hematocrit 29.1L, Mean Corpuscular Volume 85, Mean Corpuscular Hemoglobin 27.4, Mean Corpuscular Hemoglobin Concent 32.5, Red Cell Distribution Width 13.0, Platelet Count 199, Mean Platelet Volume 8.3, Neutrophils (%) (Auto) 61.3, Lymphocytes (% ) (Auto) 27.4, Monocytes (%) (Auto) 8.0, Eosinophils (%) (Auto) 2.4, Basophils ( %) (Auto) 0.9, Sodium Level 137, Potassium Level 3.3L, Chloride Level 100, Carbon Dioxide Level 31, Anion Gap 7, Blood Urea Nitrogen 36H, Creatinine 1.5H, Estimat Glomerular Filtration Rate , Glucose Level 177H, Calcium Level 9.4, Total Bilirubin 0.3, Aspartate Amino Transf (AST/SGOT) 20, Alanine Aminotransferase (ALT/SGPT) 35, Alkaline Phosphatase 96, Pro-B-Type Natriuretic Peptide 63, Total Protein 7.2, Albumin 3.1L, Globulin 4.1, Albumin/Globulin Ratio 0.8L Height (Feet): 5 Height (Inches): 2.00 Weight (Pounds): 171 General Appearance: no apparent distress, alert EENT: PERRL/EOMI, normal ENT inspection Neck: non-tender, normal alignment, supple Cardiovascular: normal peripheral pulses, normal rate, regular rhythm Respiratory/Chest: chest wall non-tender, lungs clear, normal breath sounds Abdomen: normal bowel sounds, non tender, soft Neurologic: skimmer II-XII grossly normal, no motor/sensory deficits, alert, oriented x 3 Skin: normal pigmentation, warm/dry Frances Maurice NP October 11, 2017 21:45
[2017-10-12] VITALS: BP 109/68
[2017-10-12 04:00] VITALS: BP 111/72
[2017-10-12] MEDS: dilTIAZem HCl 60mg tab ORAL SCH ×2 (05:30→14:13)
[2017-10-12] MEDS: NovoLOG Insulin Flexpen SUBQ SCH ×3 (06:06→17:43)
[2017-10-12 07:59] LABS: BASOPHILS % (AUTO) 0.7 % (0.0-2.0); EOSINOPHILS % (AUTO) 2.4 % (0.0-3.0); HEMATOCRIT 29.3 % (37.0-47.0); HEMOGLOBIN 9.5 G/DL (12.0-16.0); LYMPHOCYTES % (AUTO) 25.6 % (20.0-45.0); MEAN CORPUSCULAR VOLUME 85 FL (80-99); MONOCYTES % (AUTO) 8.4 % (1.0-10.0); PLATELET COUNT 209 K/UL (150-450); RED BLOOD COUNT 3.44 M/UL (4.20-5.40); WHITE BLOOD COUNT 9.2 K/UL (4.8-10.8)
[2017-10-12 08:00] VITALS: BP 127/68
[2017-10-12 08:03] LABS: INR 0.9 (0.9-1.1)
[2017-10-12 08:15] LABS: ALANINE AMINOTRANSFERASE 32 U/L (12-78); ALBUMIN/GLOBULIN RATIO 0.7 (1.0-2.7); ALKALINE PHOSPHATASE 97 U/L (46-116); ANION GAP 9 mmol/L (5-15); ASPARTATE AMINO TRANSFERASE 21 U/L (15-37); BILIRUBIN,TOTAL 0.4 MG/DL (0.2-1.0); BLOOD UREA NITROGEN 31 mg/dL (7-18); CARBON DIOXIDE 29 MMOL/L (21-32); CHLORIDE 100 MMOL/L (98-107); CREATININE 1.3 MG/DL (0.55-1.30); PHOSPHORUS 2.9 MG/DL (2.5-4.9); POTASSIUM 3.7 MMOL/L (3.5-5.1); SODIUM 138 MMOL/L (136-145)
[2017-10-12] MEDS: Sotalol 80mg tab ORAL SCH (08:32)
[2017-10-12] MEDS ORDERED: Pantoprazole Inj IVP SCH (09:00)
--- NOTE | 2017-10-12 11:27 | Pulmonology Progress Note ---
Assessment/Plan Problems: (1) Lower GI bleed (2) Chronic anticoagulation (3) Rectal lesion (4) HTN (hypertension) (5) Diabetes mellitus, type II Assessment/Plan heart rate controlled, sinus h/h stable no GI bleeding tolerating diet sliding scale dvt prophylaxis dc planning soon. Subjective ROS Limited/Unobtainable: No Constitutional: Reports: no symptoms HEENT: Repors: no symptoms Respiratory: Reports: no symptoms Allergies: Coded Allergies: CODEINE (Verified Allergy, Unknown, 10/23/11) PENICILLINS (Verified Allergy, Unknown, RASH/ITCH, 10/23/11) Objective Last 24 Hour Vital Signs Date Time Temp Pulse Resp B/P (MAP) Pulse Ox O2 Delivery O2 Flow Rate FiO2 10/12/17 08:32 84 127/68 10/12/17 08:00 98.2 84 21 127/68 96 Room Air 98.2 10/12/17 05:30 78 107/57 10/12/17 04:00 97.5 69 20 111/72 96 Room Air 97.5 10/12/17 04:00 74 10/12/17 00:00 81 10/12/17 00:00 97.7 65 19 109/68 95 Room Air 97.7 10/11/17 22:22 83 102/62 10/11/17 20:33 78 107/65 10/11/17 20:00 98.3 78 19 107/65 96 Room Air 98.3 10/11/17 20:00 80 10/11/17 16:00 98.1 74 18 129/84 99 Room Air 98.1 10/11/17 16:00 75 10/11/17 14:49 73 113/67 10/11/17 14:00 74 17 104/60 98 Room Air 10/11/17 13:00 71 19 113/67 97 Room Air 10/11/17 12:00 67 10/11/17 12:00 64 18 114/63 97 Room Air Intake and Output 10/11/17 10/12/17 19:00 07:00 Intake Total 0 ml Output Total 200 ml Balance -200 ml Intake Oral 0 ml Output Urine Total 200 ml # Voids 2 1 # Bowel Movements 3 General Appearance: WD/WN HEENT: normocephalic, anicteric Respiratory/Chest: no respiratory distress Cardiovascular: regularly irregular Abdomen: normal bowel sounds, soft, non tender, no organomegaly Genitourinary: normal external genitalia Skin: no rash, no ulcers Neurologic/Psychiatric: senior operator II-XII grossly normal, abnormal gait Laboratory Tests 10/12/17 06:05: White Blood Count 9.2, Red Blood Count 3.44L, Hemoglobin 9.5L, Hematocrit 29.3L , Mean Corpuscular Volume 85, Mean Corpuscular Hemoglobin 27.5, Mean Corpuscular Hemoglobin Concent 32.3, Red Cell Distribution Width 13.0, Platelet Count 209, Mean Platelet Volume 8.7, Neutrophils (%) (Auto) 63.0, Lymphocytes (% ) (Auto) 25.6, Monocytes (%) (Auto) 8.4, Eosinophils (%) (Auto) 2.4, Basophils ( %) (Auto) 0.7, Prothrombin Time 9.5, Prothromb Time International Ratio 0.9, Activated Partial Thromboplast Time 23, Sodium Level 138, Potassium Level 3.7, Chloride Level 100, Carbon Dioxide Level 29, Anion Gap 9, Blood Urea Nitrogen 31H, Creatinine 1.3, Estimat Glomerular Filtration Rate , Glucose Level 193H, Calcium Level 9.0, Phosphorus Level 2.9, Magnesium Level 2.0, Total Bilirubin 0.4, Aspartate Amino Transf (AST/SGOT) 21, Alanine Aminotransferase (ALT/SGPT) 32, Alkaline Phosphatase 97, Total Protein 7.2, Albumin 3.0L, Globulin 4.2, Albumin/Globulin Ratio 0.7L Current Medications Medications (Trade) Dose Ordered Sig/[place] Route PRN Reason Start Time Stop Time Status Last Admin Dose Admin Acetaminophen (Tylenol) 650 mg Q4H PRN ORAL T>100.5 10/11/17 15:30 11/04/17 15:29 Al Hydroxide/Mg Hydroxide (Mylanta II) 30 ml Q6H PRN ORAL dyspepsia 10/11/17 15:30 11/04/17 15:29 Dextrose (Dextrose 50%) 25 ml PRN IV Hypoglycemia 10/11/17 15:15 11/06/17 15:14 Dextrose (Dextrose 50%) 50 ml PRN IV hypoglycemia 10/11/17 15:15 11/06/17 15:14 Diltiazem HCl (Cardizem) 60 mg EVERY 8 HOURS ORAL 10/11/17 22:00 11/09/17 09:59 10/12/17 05:30 Diphenhydramine HCl (Benadryl) 25 mg Q6H PRN ORAL Itching/Pruritis 10/11/17 15:30 11/04/17 15:29 Gabapentin (Neurontin) 300 mg BEDTIME ORAL 10/11/17 21:00 11/05/17 20:59 10/11/17 20:33 Insulin Aspart (NovoLOG) BEFORE MEALS AND HS SUBQ 10/11/17 16:30 11/05/17 06:29 10/12/17 06:06 Metoclopramide HCl (Reglan) 10 mg Q8H PRN IVP Nausea & Vomiting 10/11/17 15:30 11/05/17 15:29 Nitroglycerin (Ntg) 0.4 mg Q5M X 3 DOSES PRN SL Prn Chest Pain 10/11/17 15:15 11/04/17 23:14 Ondansetron HCl (Zofran) 4 mg Q6H PRN IVP Nausea & Vomiting 10/11/17 15:30 11/04/17 15:29 Pantoprazole (Protonix) 40 mg DAILY IVP 10/12/17 09:00 11/06/17 08:59 10/12/17 08:31 Polyethylene Glycol (Miralax) 17 gm HSPRN PRN ORAL Constipation 10/11/17 20:00 11/04/17 19:59 Pravastatin Sodium (Pravachol) 20 mg BEDTIME ORAL 10/11/17 21:00 11/05/17 20:59 10/11/17 20:33 Sotalol HCl (Betapace) 80 mg Q12HR ORAL 10/11/17 21:00 11/06/17 08:59 10/12/17 08:32 Temazepam (Restoril) 15 mg HSPRN PRN ORAL Insomnia 10/11/17 21:00 10/12/17 20:59 10/11/17 22:21 Beatrice Goodrich MD October 12, 2017 11:27
--- NOTE | 2017-10-12 11:37 | GI Progress Note ---
Assessment/Plan Problems: (1) Lower GI bleed ICD Codes: K92.2 - Gastrointestinal hemorrhage, unspecified SNOMED: 25290177 (2) S/P cholecystectomy ICD Codes: Z90.49 - Acquired absence of other specified parts of digestive tract SNOMED: 94237600, 36590271, 125531165 (3) Colonic polyp ICD Codes: K63.5 - Polyp of colon SNOMED: 83846390 (4) Diarrhea ICD Codes: R19.7 - Diarrhea, unspecified SNOMED: 31456891 (5) Anemia ICD Codes: D64.9 - Anemia, unspecified SNOMED: 676046353 Status: stable Status Narrative Discussed with Dr. Maynard. Assessment/Plan Assessment - GIB >> resolved - Gastritis - Colon polyp - Rectal Dieulafoy - s/p Elisabeth - constipation - resolved Recommendations - Monitor H&H until stable, prn transfusions - po as tolerated - PT - fu labs The patient was seen and examined at bedside and all new and available data was reviewed in the patients chart. I agree with the above findings, impression and plan. (Patient seen earlier today. Signature stamp does not reflect patient encounter time.). - Lokesh Maynard MD Subjective Subjective had BM, brown and soft denies abdominal pain rectal bleeding resolved Objective Last 24 Hour Vital Signs Date Time Temp Pulse Resp B/P (MAP) Pulse Ox O2 Delivery O2 Flow Rate FiO2 10/12/17 08:32 84 127/68 10/12/17 08:00 98.2 84 21 127/68 96 Room Air 98.2 10/12/17 07:48 87 10/12/17 05:30 78 107/57 10/12/17 04:00 97.5 69 20 111/72 96 Room Air 97.5 10/12/17 04:00 74 10/12/17 00:00 81 10/12/17 00:00 97.7 65 19 109/68 95 Room Air 97.7 10/11/17 22:22 83 102/62 10/11/17 20:33 78 107/65 10/11/17 20:00 98.3 78 19 107/65 96 Room Air 98.3 10/11/17 20:00 80 10/11/17 16:00 98.1 74 18 129/84 99 Room Air 98.1 10/11/17 16:00 75 5/29/18 14:49 73 113/67 10/11/17 14:00 74 17 104/60 98 Room Air 10/11/17 13:00 71 19 113/67 97 Room Air 10/11/17 12:00 67 10/11/17 12:00 64 18 114/63 97 Room Air Intake and Output 10/11/17 10/12/17 19:00 07:00 Intake Total 0 ml Output Total 200 ml Balance -200 ml Intake Oral 0 ml Output Urine Total 200 ml # Voids 2 1 # Bowel Movements 3 Laboratory Tests Test 10/12/17 06:05 White Blood Count 9.2 K/UL (4.8-10.8) Red Blood Count 3.44 M/UL (4.20-5.40) L Hemoglobin 9.5 G/DL (12.0-16.0) L Hematocrit 29.3 % (37.0-47.0) L Mean Corpuscular Volume 85 FL (80-99) Mean Corpuscular Hemoglobin 27.5 PG (27.0-31.0) Mean Corpuscular Hemoglobin Concent 32.3 G/DL (32.0-36.0) Red Cell Distribution Width 13.0 % (11.6-14.8) Platelet Count 209 K/UL (150-450) Mean Platelet Volume 8.7 FL (6.5-10.1) Neutrophils (%) (Auto) 63.0 % (45.0-75.0) Lymphocytes (%) (Auto) 25.6 % (20.0-45.0) Monocytes (%) (Auto) 8.4 % (1.0-10.0) Eosinophils (%) (Auto) 2.4 % (0.0-3.0) Basophils (%) (Auto) 0.7 % (0.0-2.0) Prothrombin Time 9.5 SEC (9.30-11.50) Prothromb Time International Ratio 0.9 (0.9-1.1) Activated Partial Thromboplast Time 23 SEC (23-33) Sodium Level 138 MMOL/L (136-145) Potassium Level 3.7 MMOL/L (3.5-5.1) Chloride Level 100 MMOL/L (98-107) Carbon Dioxide Level 29 MMOL/L (21-32) Anion Gap 9 mmol/L (5-15) Blood Urea Nitrogen 31 mg/dL (7-18) H Creatinine 1.3 MG/DL (0.55-1.30) Estimat Glomerular Filtration Rate mL/min (>60) Glucose Level 193 MG/DL (74-106) H Calcium Level 9.0 MG/DL (8.5-10.1) Phosphorus Level 2.9 MG/DL (2.5-4.9) Magnesium Level 2.0 MG/DL (1.8-2.4) Total Bilirubin 0.4 MG/DL (0.2-1.0) Aspartate Amino Transf (AST/SGOT) 21 U/L (15-37) Alanine Aminotransferase (ALT/SGPT) 32 U/L (12-78) Alkaline Phosphatase 97 U/L (46-116) Total Protein 7.2 G/DL (6.4-8.2) Albumin 3.0 G/DL (3.4-5.0) L Globulin 4.2 g/dL Albumin/Globulin Ratio 0.7 (1.0-2.7) L Height (Feet): 5 Height (Inches): 2.00 Weight (Pounds): 172 General Appearance: WD/WN, no apparent distress, alert Cardiovascular: normal rate Respiratory/Chest: normal breath sounds, no respiratory distress Abdominal Exam: normal bowel sounds, non tender, soft Extremities: normal range of motion, non-tender Lizy Kim NP October 12, 2017 11:37
[2017-10-12 12:00] VITALS: BP 121/66
--- NOTE | 2017-10-12 13:03 | General Surgery Progress Note ---
General Surgery-Progress Note Subjective Symptoms: improved, tolerating diet, passing flatus, BM Objective Last 24 Hour Vital Signs Date Time Temp Pulse Resp B/P (MAP) Pulse Ox O2 Delivery O2 Flow Rate FiO2 10/12/17 12:00 97.0 74 20 121/66 95 Room Air 97.0 10/12/17 08:32 84 127/68 10/12/17 08:00 98.2 84 21 127/68 96 Room Air 98.2 10/12/17 07:48 87 10/12/17 05:30 78 107/57 10/12/17 04:00 97.5 69 20 111/72 96 Room Air 97.5 10/12/17 04:00 74 10/12/17 00:00 81 10/12/17 00:00 97.7 65 19 109/68 95 Room Air 97.7 10/11/17 22:22 83 102/62 10/11/17 20:33 78 107/65 10/11/17 20:00 98.3 78 19 107/65 96 Room Air 98.3 10/11/17 20:00 80 10/11/17 16:00 98.1 74 18 129/84 99 Room Air 98.1 10/11/17 16:00 75 10/11/17 14:49 73 113/67 10/11/17 14:00 74 17 104/60 98 Room Air I&O Intake and Output 10/11/17 10/12/17 19:00 07:00 Intake Total 0 ml Output Total 200 ml Balance -200 ml Intake Oral 0 ml Output Urine Total 200 ml # Voids 2 1 # Bowel Movements 3 Cardiovascular: RSR Respiratory: clear Abdomen: soft, flat, non-tender Extremities: no tenderness, no cyanosis Laboratory Tests Test 10/12/17 06:05 White Blood Count 9.2 K/UL (4.8-10.8) Red Blood Count 3.44 M/UL (4.20-5.40) L Hemoglobin 9.5 G/DL (12.0-16.0) L Hematocrit 29.3 % (37.0-47.0) L Mean Corpuscular Volume 85 FL (80-99) Mean Corpuscular Hemoglobin 27.5 PG (27.0-31.0) Mean Corpuscular Hemoglobin Concent 32.3 G/DL (32.0-36.0) Red Cell Distribution Width 13.0 % (11.6-14.8) Platelet Count 209 K/UL (150-450) Mean Platelet Volume 8.7 FL (6.5-10.1) Neutrophils (%) (Auto) 63.0 % (45.0-75.0) Lymphocytes (%) (Auto) 25.6 % (20.0-45.0) Monocytes (%) (Auto) 8.4 % (1.0-10.0) Eosinophils (%) (Auto) 2.4 % (0.0-3.0) Basophils (%) (Auto) 0.7 % (0.0-2.0) Prothrombin Time 9.5 SEC (9.30-11.50) Prothromb Time International Ratio 0.9 (0.9-1.1) Activated Partial Thromboplast Time 23 SEC (23-33) Sodium Level 138 MMOL/L (136-145) Potassium Level 3.7 MMOL/L (3.5-5.1) Chloride Level 100 MMOL/L (98-107) Carbon Dioxide Level 29 MMOL/L (21-32) Anion Gap 9 mmol/L (5-15) Blood Urea Nitrogen 31 mg/dL (7-18) H Creatinine 1.3 MG/DL (0.55-1.30) Estimat Glomerular Filtration Rate mL/min (>60) Glucose Level 193 MG/DL (74-106) H Calcium Level 9.0 MG/DL (8.5-10.1) Phosphorus Level 2.9 MG/DL (2.5-4.9) Magnesium Level 2.0 MG/DL (1.8-2.4) Total Bilirubin 0.4 MG/DL (0.2-1.0) Aspartate Amino Transf (AST/SGOT) 21 U/L (15-37) Alanine Aminotransferase (ALT/SGPT) 32 U/L (12-78) Alkaline Phosphatase 97 U/L (46-116) Total Protein 7.2 G/DL (6.4-8.2) Albumin 3.0 G/DL (3.4-5.0) L Globulin 4.2 g/dL Albumin/Globulin Ratio 0.7 (1.0-2.7) L Plan Problems: (1) Lower GI bleed Assessment & Plan: rectal bleeding; likely iatrogenic from recent procedure with urology. oozing venous blood and clots. fortunately h/h stable. Scope performed and rectal bleeding identified as end vessel which was controlled using clips. no longer bleeding. h/h stable. labs reviewed. no acute surgical intervention planned. successful hemostasis via GI okay for diet from surgical standpoint if h/h stable after 24hrs and no longer bleeding can d/c from surgical standpoint thank you for this consultation. will follow with Juan Miguel Hudson October 12, 2017 13:03
--- NOTE | 2017-10-12 15:12 | General Progress Note ---
Assessment/Plan Problem List: (1) S/P cholecystectomy ICD Codes: Z90.49 - Acquired absence of other specified parts of digestive tract SNOMED: 09352216, 39119889, 982015579 (2) Hyponatremia ICD Codes: E87.1 - Hypo-osmolality and hyponatremia SNOMED: 58756498 (3) Leukocytosis ICD Codes: D72.829 - Elevated white blood cell count, unspecified SNOMED: 277616684, 387948701 (4) Diabetes mellitus, type II ICD Codes: E11.9 - Type 2 diabetes mellitus without complications SNOMED: 57408647 (5) Acute kidney injury ICD Codes: N17.9 - Acute kidney failure, unspecified SNOMED: 88851690 (6) HTN (hypertension) ICD Codes: I10 - Essential (primary) hypertension SNOMED: 07002090 (7) Lower GI bleed ICD Codes: K92.2 - Gastrointestinal hemorrhage, unspecified SNOMED: 59924266 (8) Chronic diastolic (congestive) heart failure ICD Codes: I50.32 - Chronic diastolic (congestive) heart failure SNOMED: 41407947, 695396882 (9) Gastritis Assessment & Plan: s/p biopsies ICD Codes: K29.70 - Gastritis, unspecified, without bleeding SNOMED: 3336020 (10) Colonic polyp Assessment & Plan: s/p removal ICD Codes: K63.5 - Polyp of colon SNOMED: 12476742 (11) Rectal lesion Assessment & Plan: s/p hemoclip x 3 with colonoscopy for active bleeding ICD Codes: K62.9 - Disease of anus and rectum, unspecified SNOMED: 542042292, 854563492 (12) Atrial fibrillation with RVR ICD Codes: I48.91 - Unspecified atrial fibrillation SNOMED: 918380977363586 Status: stable, progressing Assessment/Plan - Rope Maker, Dr. Goodrich, consulted, appreciate rec's - GI, Dr. Maynard, consulted, appreciate rec's - General surgery, Dr. Ward, consulted, appreciate rec's - Cardiology, Dr. King, consulted for cardiac clearance for EgD, appreciate rec's - s/p cardizen gtt. now on PO cardizem, converted to NSR. Repeat EKG with NSR. okay to transfer out of ICU to [facility] for continued monitoring - continue sotalol and cardizem. - s/p EgD and colonoscopy showing gastritis, colonic polyp s/p removal, and rectal lesion s/p hemoclip x 3 - f/u biopsy results - Protonix - IVF - monitor H/H. Transfuse prn Hgb < 7 - leukocytosis -- resolved. UA and CXR negative. Will dc abx at this time as no source of infection found. leukocytosis may have been reactive 2/2 urological procedure - resume home meds. hold xarelto. - check venous duplex. if negative, start SCDs - trend Cr 1.4 --> 1.2 - pain control and supportive care DC TO HOME PENDING CARDIOLOGY CLEARANCE DVT Prophylaxis: SCD Code Status: Full Hospital Classification Declaration: Based on this initial evaluation, and depending on the patient's clinical course, I anticipate that this patient will require hospitalization for 2-3 days for GI bleed and close respiratory/ hemodynamic monitoring. Disposition: Once the patient is stable to leave the hospital, I anticipate the patient will likely be discharged to the following environment: home with HH I spent 32 minutes on this patient's case, and 22 minutes were dedicated to counseling and/or care coordination. Discussed with patient/family, nursing staff, SW/CM, cardiology and GI regarding clinical status, treatment course, and disposition planning. Time of note may not reflect time of encounter. Subjective Date patient seen: October 12, 2017 Time patient seen: 12:00 Allergies: Coded Allergies: CODEINE (Verified Allergy, Unknown, 10/23/11) PENICILLINS (Verified Allergy, Unknown, RASH/ITCH, 10/23/11) Subjective - patient continues to be in NSR. no overnight events - denies chest pain, sob - Hgb stable Objective Last 24 Hour Vital Signs Date Time Temp Pulse Resp B/P (MAP) Pulse Ox O2 Delivery O2 Flow Rate FiO2 10/12/17 14:13 74 121/66 10/12/17 12:00 97.0 74 20 121/66 95 Room Air 97.0 10/12/17 11:36 74 10/12/17 08:32 84 127/68 10/12/17 08:00 98.2 84 21 127/68 96 Room Air 98.2 10/12/17 07:48 87 10/12/17 05:30 78 107/57 10/12/17 04:00 97.5 69 20 111/72 96 Room Air 97.5 10/12/17 04:00 74 10/12/17 00:00 81 10/12/17 00:00 97.7 65 19 109/68 95 Room Air 97.7 10/11/17 22:22 83 102/62 10/11/17 20:33 78 107/65 10/11/17 20:00 98.3 78 19 107/65 96 Room Air 98.3 10/11/17 20:00 80 10/11/17 16:00 98.1 74 18 129/84 99 Room Air 98.1 10/11/17 16:00 75 Intake and Output 10/11/17 10/12/17 19:00 07:00 Intake Total 0 ml Output Total 200 ml Balance -200 ml Intake Oral 0 ml Output Urine Total 200 ml # Voids 2 1 # Bowel Movements 3 Laboratory Tests 10/12/17 06:05: White Blood Count 9.2, Red Blood Count 3.44L, Hemoglobin 9.5L, Hematocrit 29.3L , Mean Corpuscular Volume 85, Mean Corpuscular Hemoglobin 27.5, Mean Corpuscular Hemoglobin Concent 32.3, Red Cell Distribution Width 13.0, Platelet Count 209, Mean Platelet Volume 8.7, Neutrophils (%) (Auto) 63.0, Lymphocytes (% ) (Auto) 25.6, Monocytes (%) (Auto) 8.4, Eosinophils (%) (Auto) 2.4, Basophils ( %) (Auto) 0.7, Prothrombin Time 9.5, Prothromb Time International Ratio 0.9, Activated Partial Thromboplast Time 23, Sodium Level 138, Potassium Level 3.7, Chloride Level 100, Carbon Dioxide Level 29, Anion Gap 9, Blood Urea Nitrogen 31H, Creatinine 1.3, Estimat Glomerular Filtration Rate , Glucose Level 193H, Calcium Level 9.0, Phosphorus Level 2.9, Magnesium Level 2.0, Total Bilirubin 0.4, Aspartate Amino Transf (AST/SGOT) 21, Alanine Aminotransferase (ALT/SGPT) 32, Alkaline Phosphatase 97, Total Protein 7.2, Albumin 3.0L, Globulin 4.2, Albumin/Globulin Ratio 0.7L Height (Feet): 5 Height (Inches): 2.00 Weight (Pounds): 172 General Appearance: no apparent distress, alert EENT: PERRL/EOMI, normal ENT inspection Neck: non-tender, normal alignment, supple Cardiovascular: normal peripheral pulses, normal rate, regular rhythm Respiratory/Chest: chest wall non-tender, lungs clear, normal breath sounds Abdomen: normal bowel sounds, non tender, soft Extremities: normal range of motion, non-tender Frances Maurice NP October 12, 2017 15:12
--- NOTE | 2017-10-12 15:37 | Cardiac Electrophysiology PN ---
Assessment/Plan Assessment/Plan 1. Paroxysmal atrial fibrillation. In sinus rhythm on sotalol 80 mg b.i.d. and Cardizem 60 po tid. Off anticoagulation for GI bleed. ECG showed Long QTc 480 but stable. NO VT 2. Hypertension, on Lasix 40 mg daily, Dyazide, and sotalol. 3. GI bleed. S/p EGD and colonoscopy and clipping by Dr. Maynard. Gastritis, Colon polyp, Rectal Dieulafoy 4. Status post urological procedure. 5. Diabetes. 6. Hypokalemia. Replaced DW RN OK to DC Subjective Subjective Alert in NAD. Remained in SR. Objective Last 24 Hour Vital Signs Date Time Temp Pulse Resp B/P (MAP) Pulse Ox O2 Delivery O2 Flow Rate FiO2 10/12/17 14:13 74 121/66 10/12/17 12:00 97.0 74 20 121/66 95 Room Air 97.0 10/12/17 11:36 74 10/12/17 08:32 84 127/68 10/12/17 08:00 98.2 84 21 127/68 96 Room Air 98.2 10/12/17 07:48 87 10/12/17 05:30 78 107/57 10/12/17 04:00 97.5 69 20 111/72 96 Room Air 97.5 10/12/17 04:00 74 10/12/17 00:00 81 10/12/17 00:00 97.7 65 19 109/68 95 Room Air 97.7 10/11/17 22:22 83 102/62 10/11/17 20:33 78 107/65 10/11/17 20:00 98.3 78 19 107/65 96 Room Air 98.3 10/11/17 20:00 80 10/11/17 16:00 98.1 74 18 129/84 99 Room Air 98.1 10/11/17 16:00 75 Intake and Output 10/11/17 10/12/17 19:00 07:00 Intake Total 0 ml Output Total 200 ml Balance -200 ml Intake Oral 0 ml Output Urine Total 200 ml # Voids 2 1 # Bowel Movements 3 Laboratory Tests Test 10/12/17 06:05 White Blood Count 9.2 K/UL (4.8-10.8) Red Blood Count 3.44 M/UL (4.20-5.40) L Hemoglobin 9.5 G/DL (12.0-16.0) L Hematocrit 29.3 % (37.0-47.0) L Mean Corpuscular Volume 85 FL (80-99) Mean Corpuscular Hemoglobin 27.5 PG (27.0-31.0) Mean Corpuscular Hemoglobin Concent 32.3 G/DL (32.0-36.0) Red Cell Distribution Width 13.0 % (11.6-14.8) Platelet Count 209 K/UL (150-450) Mean Platelet Volume 8.7 FL (6.5-10.1) Neutrophils (%) (Auto) 63.0 % (45.0-75.0) Lymphocytes (%) (Auto) 25.6 % (20.0-45.0) Monocytes (%) (Auto) 8.4 % (1.0-10.0) Eosinophils (%) (Auto) 2.4 % (0.0-3.0) Basophils (%) (Auto) 0.7 % (0.0-2.0) Neutrophils % (Manual) Pending Lymphocytes % (Manual) Pending Platelet Estimate Pending Platelet Morphology Pending Reticulocyte Count Pending Haptoglobin Pending Prothrombin Time 9.5 SEC (9.30-11.50) Prothromb Time International Ratio 0.9 (0.9-1.1) Activated Partial Thromboplast Time 23 SEC (23-33) Fibrinogen Pending Sodium Level 138 MMOL/L (136-145) Potassium Level 3.7 MMOL/L (3.5-5.1) Chloride Level 100 MMOL/L (98-107) Carbon Dioxide Level 29 MMOL/L (21-32) Anion Gap 9 mmol/L (5-15) Blood Urea Nitrogen 31 mg/dL (7-18) H Creatinine 1.3 MG/DL (0.55-1.30) Estimat Glomerular Filtration Rate mL/min (>60) Glucose Level 193 MG/DL (74-106) H Calcium Level 9.0 MG/DL (8.5-10.1) Phosphorus Level 2.9 MG/DL (2.5-4.9) Magnesium Level 2.0 MG/DL (1.8-2.4) Iron Level Pending Unsaturated Iron Binding Pending Soluble Transferrin Receptor Pending Ferritin Pending Total Bilirubin 0.4 MG/DL (0.2-1.0) Aspartate Amino Transf (AST/SGOT) 21 U/L (15-37) Alanine Aminotransferase (ALT/SGPT) 32 U/L (12-78) Alkaline Phosphatase 97 U/L (46-116) Total Protein 7.2 G/DL (6.4-8.2) Albumin 3.0 G/DL (3.4-5.0) L Globulin 4.2 g/dL Albumin/Globulin Ratio 0.7 (1.0-2.7) L Vitamin B12 Level Pending Methylmalonic Acid Pending Folate Pending Thyroid Stimulating Hormone (TSH) Pending Objective HEAD AND NECK: No JVD LUNGS: Clear. CARDIOVASCULAR: Regular S1 and S2 with no gallop or murmur. ABDOMEN: Soft and nontender. EXTREMITIES: No pitting edema. Manolo Thompson MD October 12, 2017 15:37
[2017-10-12 15:57] LABS: FERRITIN 36 NG/ML (8-388)
[2017-10-12 16:00] VITALS: BP 136/68
[2017-10-12] MEDS ORDERED: SOTALOL80 M1 ORAL (16:19)
[2017-10-12] MEDS ORDERED: CARDIZEM60 MG ORAL (16:19)
--- NOTE | 2017-10-12 16:22 | Discharge Summary ---
Discharge Summary Hospital Course Date of Admission October 05, 2017 at 21:13 Date of Discharge 10/12/17 Admitting Diagnosis LOWER GI BLEED HPI Rosaura Burger is a 82 year old female who was admitted on October 05, 2017 at 21: 13 for Lower Gi Bleed 82 y/o with a PMH of DM, HTN, and A. fibb on xarelto presented to the ED last night for BRBPR since yesterday. Patient states that she had a urological procedure done yesterday at her urologist's office to diagnose why she has urinary incontinence and had a probe that was inserted into her bladder and rectum. Patient states that she did not hold the xarelto prior to the procedure. She states that after she went home, she started having lower right and left quadrant pain and subsequent bright red blood per rectum. Patient was admitted to the ICU for further monitoring. At this time, patient denies n/v, h/ o hemorrhoids. Denies dizziness, chest pain, sob, f/c, cough, headaches. Consultations general surgery, Dr. Ward GI, Dr. Maynard Chef & Owner, Dr. Goodrich Specialty Molder, Dr. King Procedures EgD/colonoscopy Hospital Course Patient was admitted to ICU and was transfused 2 units of pRBC. Patient hemoglobin was stable at 9. Patient was also started on IV vancomycin and zosyn per bakery sales clerk given leukocytosis and concern for rectal infection s/p rectal procedure vs reactive to procedure. CXR and UA were negative. Patient's leukocytosis resolved and antibiotics were discontinued. Patient was seen by a soapstoner, who cleared her for an EgD/colonoscopy. Patient underwent an EgD/ colonoscopy which showed gastritis and colonic polyp as well as a rectal lesion that was the likely source of the rectal bleed. Rectal lesion was hemoclipped x 3 and colonic polyp was removed. Patient's hemoglobin was monitored thereafter and hematechezia resolved. Patient was then noted to go into a.fibb with RVR and was started on IV cardizem. Patient converted and then was started on PO cardizem. Patient was also noted to have no QT prolongation and therefore was continued on sotalol and cardizem. Patient was monitored on telemetry for 48 hours and repeat EKG showed no prolonged QT. Patient was therefore stable for discharge per GI and cardiology and was advised to follow up with GI in 1-2 weeks. Pathology will also be followed up on from colonoscopy by GI. Discharge Medications New Medications: Diltiazem Hcl* (Cardizem*) 60 Mg Tablet 60 MG ORAL EVERY 8 HOURS for 30 Days, #90 TAB Sotalol Hcl (Sotalol*) 80 Mg Tablet 80 MG ORAL Q12HR for 30 Days, #60 TAB Continued Medications: Albuterol Sulfate (Ventolin Hfa) 18 Gm Hfa.aer.ad 1 PUFF INH EVERY 6 HOURS, #18 GM 0 Refills Esomeprazole Magnesium (Nexium) 40 Mg Capsule.dr 40 MG ORAL DAILY, CAP Fluticasone/Vilanterol (Breo Ellipta 100-25 Mcg INH) 1 Each Blst.w.dev 1 EACH IH for 30 Days, #60 EACH Furosemide* (Lasix*) 40 Mg Tablet 40 MG ORAL DAILY for 30 Days, #30 TAB Gabapentin* (Gabapentin*) 300 Mg Capsule 300 MG ORAL BEDTIME, CAP Glimepiride* (Glimepiride*) 4 Mg Tablet 4 MG ORAL BID, TAB Hydralazine Hcl* (Hydralazine Hcl*) 100 Mg Tablet 100 MG ORAL EVERY 8 HOURS, TAB Metformin Hcl* (Metformin Hcl*) 1,000 Mg Tablet 1000 MG ORAL DAILY, TAB Pravastatin Sod* (Pravastatin Sod*) 20 Mg Tablet 20 MG ORAL BEDTIME, TAB Rivaroxaban (Xarelto) 20 Mg Tablet 20 MG ORAL DAILY for 30 Days, #30 MG 2 Refills Triamterene/Hctz (Triamterene-Hctz 37.5-25 mg Cp) 1 Each Capsule 1 CAP ORAL DAILY, #10 CAP 0 Refills Umeclidinium [place] (Incruse Ellipta) 62.5 Mcg Blst.w.dev 62.5 MCG IH Discontinued Medications: Oseltamivir Phosphate (Tamiflu) 75 Mg Capsule 30 MG ORAL Q12HR, #7 CAP Sotalol Hcl* (Betapace*) 80 Mg Tablet 80 MG PO TID Discharge Condition Upon Discharge: stable Discharge Disposition Patient was discharged to home Discharge Diagnoses: (1) Atrial fibrillation (2) Diabetes (3) HTN (hypertension) (4) Lower GI bleed (5) Diabetes mellitus, type II (6) Hyponatremia (7) Leukocytosis (8) Acute kidney injury (9) Chronic diastolic (congestive) heart failure (10) Anemia (11) Atrial fibrillation with RVR (12) Rectal lesion (13) Gastritis (14) Colonic polyp (15) ANDRES (acute kidney injury) Franecs Maurice NP October 12, 2017 16:22
[2017-10-12 16:52] LABS: % IRON SATURATION 8 % (15-50); IRON 31 ug/dL (50-175); TOTAL IRON BINDING CAPACITY 367 ug/dL (250-450)
--- NOTE | 2017-10-13 01:45 | Consultation ---
DATE OF CONSULTATION: 10/12/2017 NOTE: POOR AUDIO HEMATOLOGY/ONCOLOGY CONSULTATION CONSULTING PHYSICIAN: Hernan Jackson M.D. REQUESTING PHYSICIAN: 1. 2. Nicole Jose M.D. REASON FOR CONSULTATION: Evaluation of ongoing anemia. IDENTIFYING DATA: Dear and Dr. Jose, Thank you for the courtesy of this consultation. The patient is a pleasant 82-year-old female with past medical history significant for diabetes mellitus, hypertension, and atrial fibrillation, on Xarelto, at this time, presents to the ER due to bright red blood per rectum since 10/05/2017. Initial urological procedure completed. into the bladder then the rectum. She did not hold throughout the operative procedure noted to have lower gastrointestinal bleed. No evidence of hemorrhoids. Denies any shortness of breath. She has been seen by multiple services including surgical and GI Service as well as Pulmonary team. The patient was noted to have gastritis and gastrointestinal bleed currently has resolved; however, continues to be anemic, therefore, Hematology service was consulted for further evaluation and treatment. She has been seen by surgical service, Dr. Ward, passing gas, and having bowel movements. No acute surgical intervention necessary. Hemostasis achieved via GI procedure. PAST MEDICAL HISTORY: Diabetes mellitus, hypertension, and atrial fibrillation. SURGICAL HISTORY: EGD. ALLERGIES: Penicillin. FAMILY HISTORY: Noncontributory. SOCIAL HISTORY: No alcohol, tobacco, or illicit drug use. REVIEW OF SYSTEMS: CONSTITUTIONAL: No fevers, chills, or night sweats. SKIN: No rashes, bumps, or itching. HEENT: No headache, hearing or vision changes. BREASTS: No lumps, pain, or discharge. PULMONARY: No cough, sputum, or shortness of breath. GASTROINTESTINAL: No nausea, vomiting, or diarrhea. GENITOURINARY: No dysuria, frequency, or urgency. MUSCULOSKELETAL: No joint swelling, muscle pain, or trauma. PHYSICAL EXAMINATION: VITAL SIGNS: Reviewed. GENERAL: No distress. PULMONARY: Decreased breath sounds. CARDIOVASCULAR: Regular rate. No S3 or S4. ABDOMEN: Soft, nontender, and nondistended. EXTREMITIES: No cyanosis, swelling, or edema. LABORATORY DATA: 31.3. INR of 0.9. WBC 9.2, hemoglobin 9.5, hematocrit 29, and platelet count 209,000. IMAGING: A 2D echo reviewed tricuspid regurgitation. Chest x-ray reviewed as well shows no acute disease noted. ASSESSMENT AND RECOMMENDATIONS: 1. Anemia due to underlying gastrointestinal bleed. Closely monitor. Anemia workup has been ordered. Hemoglobin goal is above 7. Closely monitor for improvement. It takes several days to weeks given potentially the patient is iron deficient. 2. Leukocytosis, likely reactive process, currently improved. 3. ultrasound several days ago . 4. due to anticoagulation. Currently, Xarelto has been on hold. 5. Lower gastrointestinal bleed, improving. 6. Diabetes mellitus type 2. monitored by Endocrinology. I appreciate the consultation. Hernan Jackson M.D. DR: ELBA JOB#: [id number] CC:
== END 2017-10-12 19:00 | disposition home or self-care (01) | DRG 394 ==
LOC: EMR 19:24 → ICU 21:13 → EDBEDREQ 22:16 → 2E 10-07 14:57 → ICU 10-09 14:02 → 2E 10-11 15:10
PROC: 30233N1 Transfusion of Nonautologous Red Blood Cells into Peripheral Vein, Percutaneous Approach (ICD-10-PCS; principal; 2017-10-05)
PROC: 0DBL8ZX Excision of Transverse Colon, Via Natural or Artificial Opening Endoscopic, Diagnostic (ICD-10-PCS; 2017-10-07 09:49)
PROC: 0DB78ZX Excision of Stomach, Pylorus, Via Natural or Artificial Opening Endoscopic, Diagnostic (ICD-10-PCS; 2017-10-07 09:49)
PROC: 0W3P8ZZ Control Bleeding in Gastrointestinal Tract, Via Natural or Artificial Opening Endoscopic (ICD-10-PCS; 2017-10-07 09:49)
DX: K63.81 Dieulafoy lesion of intestine (principal); I50.32 Chronic diastolic (congestive) heart failure; N17.9 Acute kidney failure, unspecified; E87.1 Hypo-osmolality and hyponatremia; R32 Unspecified urinary incontinence; I11.0 Hypertensive heart disease with heart failure; I48.0 Paroxysmal atrial fibrillation; Z79.01 Long term (current) use of anticoagulants; D72.829 Elevated white blood cell count, unspecified; Z90.49 Acquired absence of other specified parts of digestive tract; R00.2 Palpitations; K29.70 Gastritis, unspecified, without bleeding; D50.0 Iron deficiency anemia secondary to blood loss (chronic); E87.6 Hypokalemia; E83.42 Hypomagnesemia; K59.00 Constipation, unspecified
CPT/HCPCS: 36415; 71045; 80048; 80053; 81003; 82150; 82607; 82728; 82746; 82962; 83010; 83540; 83550; 83605; 83690; 83735; 83880; 83921; 84100; 84238; 84443; 85007; 85025; 85044; 85060; 85384; 85610; 85730; 86850; 86900; 86901; 87040; 87081; 93005; 93306; 93970; 94003; 94150; 99285; J1815; J2405; J2765; J8499

== ENCOUNTER 2017-10-27 13:57 | Outpatient (CLI) | payer MEDICARE, OTHER ==
[~2017-10-27 13:57] MED LIST changes: +CARDIZEM60 MG ORAL; +SOTALOL80 M1 ORAL
--- NOTE | 2017-10-27 16:36 | GI Initial Consult Note ---
History of Present Illness General Date patient seen: Oct 27, 2017 Time patient seen: 16:27 Reason for Consultation: FOLLOW UP INPATIENT COLONOSCOPY Present Illness HPI 82 year old female patient s/p EGD / colonoscopy approximately 2 weeks ago at [facility] which showed gastritis and colonic polyp as well as a rectal lesion that was the likely source of the rectal bleed. Rectal lesion was hemoclipped x 3 and colonic polyp was removed. Patient's hemoglobin was monitored thereafter and hematochezia resolved. Patient was therefore stable for discharge per GI and cardiology and was advised to follow up with GI in 1-2 weeks. Presents today in clinic with abdominal pain, pelvic pain and c/o of history of urological problems. See summary below. SUMMARY OF FINDINGS: 1. Gastritis, status post biopsy. 2. One colonic polyp removed, see above for details. 3. A rectal Dieulafoy lesion requiring three clips to stop the bleeding. Home Meds Active Scripts Sotalol Hcl (SOTALOL*) 80 Mg Tablet, 80 MG ORAL Q12HR for 30 Days, #60 TAB Prov:Frances Maurice NP 10/12/17 Diltiazem Hcl* (CARDIZEM*) 60 Mg Tablet, 60 MG ORAL EVERY 8 HOURS for 30 Days, # 90 TAB Prov:Frances Maurice NP 10/12/17 Furosemide* (LASIX*) 40 Mg Tablet, 40 MG ORAL DAILY for 30 Days, #30 TAB Prov:Jose Daniel Watts M.D. 05/11/17 Rivaroxaban (XARELTO) 20 Mg Tablet, 20 MG ORAL DAILY for 30 Days, #30 MG 2 Refills Prov:Jose Daniel Watts M.D. 11/15/16 Reported Medications Albuterol Sulfate (VENTOLIN HFA) 18 Gm Hfa.aer.ad, 1 PUFF INH EVERY 6 HOURS, # 18 GM 0 Refills 05/08/17 Umeclidinium [employer] [employer] (Incruse Ellipta) 62.5 Mcg Blst.w.dev, 62.5 MCG IH 05/08/17 Fluticasone/Vilanterol (Breo Ellipta 100-25 Mcg INH) 1 Each Blst.w.dev, 1 EACH IH for 30 Days, #60 EACH 05/08/17 Glimepiride* (GLIMEPIRIDE*) 4 Mg Tablet, 4 MG ORAL BID, TAB 05/08/17 Metformin Hcl* (METFORMIN HCL*) 1,000 Mg Tablet, 1000 MG ORAL DAILY, TAB 05/08/17 Esomeprazole Magnesium (NEXIUM) 40 Mg Capsule.dr, 40 MG ORAL DAILY, CAP 05/08/17 Triamterene/Hctz (Triamterene-Hctz 37.5-25 mg Cp) 1 Each Capsule, 1 CAP ORAL DAILY, #10 CAP 0 Refills 05/08/17 Gabapentin* (GABAPENTIN*) 300 Mg Capsule, 300 MG ORAL BEDTIME, CAP 05/08/17 Hydralazine Hcl* (HYDRALAZINE HCL*) 100 Mg Tablet, 100 MG ORAL EVERY 8 HOURS, TAB 11/11/16 Pravastatin Sod* (PRAVASTATIN SOD*) 20 Mg Tablet, 20 MG ORAL BEDTIME, TAB 03/02/15 Med list reviewed/reconciled: Yes Allergies: Coded Allergies: CODEINE (Verified Allergy, Unknown, 10/23/11) PENICILLINS (Verified Allergy, Unknown, RASH/ITCH, 10/23/11) Patient History History Provided By: Patient, Medical Record PMH Narrative Past Medical History: see triage record, DM, HTN, NE, CAD, CHF, AFib Social History: Denies: smoking, alcohol use, drug use Reviewed Nursing Documentation: PMH: Agreed; PSxH: Agreed Nursing Documentation-PMH Past Medical History: No History, Except For Hx Cardiac Problems: Yes - CHF Hx Hypertension: Yes Hx Pacemaker: No Hx Diabetes: Yes Hx Cancer: No Hx Gastrointestinal Problems: No Hx Neurological Problems: No Hx Vertigo: Yes Hx Dizziness: Yes Hx Weakness: Yes Past Surgical History: none Social History: Denies: smoking, alcohol use, drug use, other Review of Systems All Other Systems: negative except mentioned in HPI Physical Exam T 98.0 P 84 93 RA WT 179.8lbs Sp02 EP Interpretation: reviewed, normal General Appearance: well appearing, no apparent distress, alert Head: normocephalic EENT: PERRL/EOMI, normal ENT inspection Neck: supple Respiratory: normal breath sounds, no respiratory distress Cardiovascular: normal rate Gastrointestinal: normal inspection, non tender, soft, normal bowel sounds, non -distended Rectal: deferred Genitourinary: no CVA tenderness Musculoskeletal: normal inspection, back normal Neurologic: normal inspection, alert, oriented x3, responsive Psychiatric: normal inspection, judgement/insight normal, memory normal Skin: normal inspection, normal color, no rash, warm/dry, palpation normal, well hydrated Lymphatic: normal inspection, no adenopathy GI: Plan Problems: (1) Pelvic pain (2) Urologic disease (3) Rectal lesion (4) Diabetes Plan SUMMARY OF FINDINGS reviewed with patient: 1. Gastritis, status post biopsy. >> negative 2. One colonic polyp removed, see above for details. 3. A rectal Dieulafoy lesion requiring three clips to stop the bleeding. RECOMMENDATIONS: Rx Xifaxan Trial Ambien x 14 days HORSERADISH MAKER referral for pelvic pain Urology referral for history of urological disorder Seen with Dr. Maynard. Thank you for this patient referral. The patient was seen and examined at bedside and all new and available data was reviewed in the patients chart. I agree with the above findings, impression and plan. (Patient seen earlier today. Signature stamp does not reflect patient encounter time.). - MD Judy VicenteMountain Vista Medical CenterJonathan BROWNING PROCESSOR Oct 27, 2017 16:36
== END 2017-10-27 14:30 | disposition home or self-care (01) ==
LOC: PAN 13:57
DX: R10.2 Pelvic and perineal pain (principal); K63.9 Disease of intestine, unspecified; E11.9 Type 2 diabetes mellitus without complications; K63.5 Polyp of colon; K29.70 Gastritis, unspecified, without bleeding; I50.9 Heart failure, unspecified; Z88.0 Allergy status to penicillin; Z88.6 Allergy status to analgesic agent; I11.0 Hypertensive heart disease with heart failure; Z79.84 Long term (current) use of oral hypoglycemic drugs
CPT/HCPCS: 99202

== ENCOUNTER 2017-11-28 14:43 | Outpatient (CLI) | payer MEDICARE, OTHER ==
[2017-11-28 15:05] VITALS: BP 138/74
--- NOTE | 2017-11-28 15:11 | GI Progress Note ---
Assessment/Plan Problems: (1) Bloating ICD Codes: R14.0 - Abdominal distension (gaseous) SNOMED: 647804634 (2) Constipated ICD Codes: K59.00 - Constipation, unspecified SNOMED: 19982588 (3) Anemia ICD Codes: D64.9 - Anemia, unspecified SNOMED: 620094051 Status: stable Status Narrative Seen with Dr. Maynard. Assessment/Plan Had Xifaxan in the past trial amitiza vs trulance RTC x 1 month The patient was seen and examined at bedside and all new and available data was reviewed in the patients chart. I agree with the above findings, impression and plan. (Patient seen earlier today. Signature stamp does not reflect patient encounter time.). - Lokesh Maynard MD Subjective Subjective abdominal bloating constipation Objective Last 24 Hour Vital Signs Date Time Temp Pulse Resp B/P (MAP) Pulse Ox O2 Delivery O2 Flow Rate FiO2 11/28/17 15:05 98.2 83 18 138/74 96 98.2 General Appearance: WD/WN, no apparent distress, alert Cardiovascular: normal rate Respiratory/Chest: normal breath sounds, no respiratory distress Abdominal Exam: normal bowel sounds, non tender, soft Extremities: normal range of motion, non-tender Liyz Kim REAL ESTATE CLERK Nov 28, 2017 15:11
== END 2017-11-28 16:43 | disposition home or self-care (01) ==
LOC: PAN 14:43
DX: R14.0 Abdominal distension (gaseous) (principal); K59.00 Constipation, unspecified; D64.9 Anemia, unspecified
CPT/HCPCS: 99212

== ENCOUNTER 2018-02-26 20:45 | Inpatient (IN) | payer MEDICARE, OTHER ==
[2018-02-26] VITALS (8 sets, daily range): BP systolic 135–157; BP diastolic 90–118
[~2018-02-26] VITALS: Ht 157.5 cm; Wt 85.3 kg
[2018-02-26] MEDS ORDERED: NS 250 ML IVPB ONE (21:15)
[2018-02-26] MEDS ORDERED: Metoprolol 5mg/5ml Inj IVP ONE (21:15)
[2018-02-26] MEDS ORDERED: dilTIAZem HCl 25mg/5ml Inj IVP ONE (21:45)
[2018-02-26 22:36] LABS: INR 0.9 (0.9-1.1)
[2018-02-26 22:39] LABS: BASOPHILS % (AUTO) 0.7 % (0.0-2.0); EOSINOPHILS % (AUTO) 3.6 % (0.0-3.0); HEMATOCRIT 39.5 % (37.0-47.0); HEMOGLOBIN 12.9 G/DL (12.0-16.0); LYMPHOCYTES % (AUTO) 14.7 % (20.0-45.0); MEAN CORPUSCULAR VOLUME 84 FL (80-99); MONOCYTES % (AUTO) 6.1 % (1.0-10.0); NEUTROPHILS % (AUTO) 74.8 % (45.0-75.0); PLATELET COUNT 251 K/UL (150-450); RED BLOOD COUNT 4.73 M/UL (4.20-5.40); WHITE BLOOD COUNT 9.4 K/UL (4.8-10.8)
[2018-02-26 22:40] LABS: ANION GAP 12 mmol/L (5-15); BLOOD UREA NITROGEN 11 mg/dL (7-18); CALCIUM 9.5 MG/DL (8.5-10.1); CARBON DIOXIDE 24 MMOL/L (21-32); CHLORIDE 98 MMOL/L (98-107); CREATININE 1.2 MG/DL (0.55-1.30); POTASSIUM 3.8 MMOL/L (3.5-5.1); SODIUM 134 MMOL/L (136-145)
[2018-02-26 22:53] LABS: ALANINE AMINOTRANSFERASE 23 U/L (12-78); ALBUMIN 3.5 G/DL (3.4-5.0); ALBUMIN/GLOBULIN RATIO 0.8 (1.0-2.7); ALKALINE PHOSPHATASE 133 U/L (46-116); ASPARTATE AMINO TRANSFERASE 21 U/L (15-37); BILIRUBIN,TOTAL 0.4 MG/DL (0.2-1.0); CKMB 0.7 NG/ML (0.0-3.6); CREATINE KINASE 68 U/L (26-308)
--- NOTE | 2018-02-26 22:54 | Emergency Room Report ---
History of Present Illness General Chief Complaint: Dyspnea/Respdistress Source: Patient Present Illness HPI 82-year-old female presents ED complaining of shortness of breath, nausea times one day. Daughter at bedside states patient has history of A. fib. States she' s been compliant with her medications. Denies chest pain. States shortness of breath is been getting progressively worse over several weeks now. Now she is short of breath at rest. Denies chest pain. Denies fevers or chills. Denies cough. No other aggravating relieving factors. Denies any other associated symptoms Allergies: Coded Allergies: CODEINE (Verified Allergy, Unknown, 10/23/11) PENICILLINS (Verified Allergy, Unknown, RASH/ITCH, 10/23/11) Patient History Past Medical History: DM, HTN, AFib, asthma Past Surgical History: none Pertinent Family History: none Social History: Denies: smoking, alcohol use, drug use Now: No Immunizations: UTD Reviewed Nursing Documentation: PMH: Agreed; PSxH: Agreed Nursing Documentation-PMH Hx Cardiac Problems: Yes Hx Hypertension: Yes Hx Pacemaker: No Hx Asthma: Yes Hx Diabetes: Yes Hx Cancer: No Hx Gastrointestinal Problems: Yes Hx Neurological Problems: No Hx Vertigo: Yes Hx Dizziness: Yes Hx Weakness: Yes Review of Systems All Other Systems: negative except mentioned in HPI Physical Exam Vital Signs Date Time Temp Pulse Resp B/P (MAP) Pulse Ox O2 Delivery O2 Flow Rate FiO2 02/26/18 20:54 98.4 157 16 177/119 99 Room Air 98.4 02/26/18 21:25 98 Sp02 EP Interpretation: reviewed, normal General Appearance: no apparent distress, alert, GCS 15, non-toxic, obese Head: normocephalic, atraumatic Eyes: bilateral eye normal inspection, bilateral eye PERRL ENT: hearing grossly normal, normal pharynx, no angioedema, normal voice Neck: full range of motion, supple/symm/no masses Respiratory: chest non-tender, lungs clear, normal breath sounds, speaking full sentences Cardiovascular #1: no edema, tachycardia Cardiovascular #2: 2+ carotid (R), 2+ carotid (L), 2+ radial (R), 2+ radial (L) , 2+ dorsalis pedis (R), 2+ dorsalis pedis (L) Gastrointestinal: normal bowel sounds, non tender, soft, non-distended, no guarding, no rebound Rectal: deferred Genitourinary: normal inspection, no CVA tenderness Musculoskeletal: back normal, gait/station normal, normal range of motion, non- tender Neurologic: alert, oriented x3, responsive, motor strength/tone normal, sensory intact, speech normal Psychiatric: judgement/insight normal, memory normal, mood/affect normal, no suicidal/homicidal ideation Reflexes: 3+ bicep (R), 3+ bicep (L), 3+ tricep (R), 3+ tricep (L), 3+ knee (R) , 3+ knee (L) Skin: normal color, no rash, warm/dry, well hydrated Lymphatic: no adenopathy Procedures Critical Care Time Critical Care Time i. I feel this is a highly complex case requiring extensive working including EKG/Rhythm strip, Xray/CT/US, Blood/urine lab work, repeat exams while in ED, and administration of strong opiates/narcotics for pain control, admission to hospital or close patient follow up. Total time: 30 min bedside evaluation and treatment excludes procedures (EKG). Reason for critical care: afib wtih RVR Possible complications: hypotension, hypertension, PR, shock, arrhythmias, metabolic acidosis, end organ damage, respiratory failure. Interventions: labs, IVFS, EKG, CXR. cardizem drip. consutlation with cardiology. Course: Patient presenting with shortness of breath, tachycardic. History of A. fib. EKG shows A. fib with RVR to the 160s. Patient started on Cardizem drip. Discussed with Dr. King (cardiology). patient will be admitted to ICU Consultations: nursing staff, EMS, family Performed by: Dr Santos Tolerated well condition = critical j. because of unstable vital signs this patient had a condition that could potentially threaten life or limb. I feel this is a critical patient who required my full attention while patient was considered critical. Total Critical Care Time excluding procedures was greater than 35 minutes Medical Decision Making Diagnostic Impression: Primary Impression: Atrial fibrillation with rapid ventricular response Additional Impressions: HTN (hypertension) Qualified Codes: I10 - Essential (primary) hypertension Diabetes Qualified Codes: E13.9 - Other specified diabetes mellitus without complications ER Course Hospital Course 82-year-old F presents ED complaining of SOB, tachycardia Differential diagnoses include: PR/unstable angina, contusion, muscle strain, PTX, rib fracture, pneumonia, Clinical course Patient placed on stretcher. on secured entrance monitor which shows A. fib with RVR. After initial history and physical I ordered labs, EKG, chest x-ray, IVFs discussed with pricer Dr King; he knows this patient well. recommends cardizem drip labs reviewed- no leukocytosis, hemoglobin/hematocrit ok, glucose > 300 no evidence of DKA, troponins 0.08 EKG - afib with RVR, no acute ischemic changes interpreted by me Chest x-ray- cardiomegaly given aspirin. tachycardia slowly improving with IVFs, cardizem drip Case discussed with Dr. Aguilar and he agreed to accept the patient to his service for further care and support I. I feel this is a highly complex case requiring extensive working including EKG/Rhythm strip, Xray/CT/US, Blood/urine lab work, repeat exams while in ED, and administration of strong opiates/narcotics for pain control, admission to hospital or close patient follow up. Diagnosis - afib with RVR, hypertension, diabetes admitted to ICU in critical condition Labs Test 02/26/18 21:35 White Blood Count 9.4 K/UL (4.8-10.8) Red Blood Count 4.73 M/UL (4.20-5.40) Hemoglobin 12.9 G/DL (12.0-16.0) Hematocrit 39.5 % (37.0-47.0) Mean Corpuscular Volume 84 FL (80-99) Mean Corpuscular Hemoglobin 27.3 PG (27.0-31.0) Mean Corpuscular Hemoglobin Concent 32.7 G/DL (32.0-36.0) Red Cell Distribution Width 15.0 % (11.6-14.8) Platelet Count 251 K/UL (150-450) Mean Platelet Volume 8.4 FL (6.5-10.1) Neutrophils (%) (Auto) 74.8 % (45.0-75.0) Lymphocytes (%) (Auto) 14.7 % (20.0-45.0) Monocytes (%) (Auto) 6.1 % (1.0-10.0) Eosinophils (%) (Auto) 3.6 % (0.0-3.0) Basophils (%) (Auto) 0.7 % (0.0-2.0) Prothrombin Time 10.0 SEC (9.30-11.50) Prothromb Time International Ratio 0.9 (0.9-1.1) Activated Partial Thromboplast Time 26 SEC (23-33) Sodium Level 134 MMOL/L (136-145) Potassium Level 3.8 MMOL/L (3.5-5.1) Chloride Level 98 MMOL/L (98-107) Carbon Dioxide Level 24 MMOL/L (21-32) Anion Gap 12 mmol/L (5-15) Blood Urea Nitrogen 11 mg/dL (7-18) Creatinine 1.2 MG/DL (0.55-1.30) Estimat Glomerular Filtration Rate mL/min (>60) Glucose Level 372 MG/DL (74-106) Calcium Level 9.5 MG/DL (8.5-10.1) Total Bilirubin 0.4 MG/DL (0.2-1.0) Aspartate Amino Transf (AST/SGOT) 21 U/L (15-37) Alanine Aminotransferase (ALT/SGPT) 23 U/L (12-78) Alkaline Phosphatase 133 U/L (46-116) Total Creatine Kinase 68 U/L (26-308) Creatine Kinase MB 0.7 NG/ML (0.0-3.6) Creatine Kinase MB Relative Index 1.0 Troponin I 0.088 ng/mL (0.000-0.056) Pro-B-Type Natriuretic Peptide 803 pg/mL (0-125) Total Protein 7.9 G/DL (6.4-8.2) Albumin 3.5 G/DL (3.4-5.0) Globulin 4.4 g/dL Albumin/Globulin Ratio 0.8 (1.0-2.7) EKG Diagnostic Results Rate: tachycardiac Rhythm: other - afib ST Segments: no acute changes Rhythm Strip Diag. Results EP Interpretation: yes Rhythm: no PVC's, no ectopy Chest X-Ray Diagnostic Results Chest X-Ray Diagnostic Results : Chest X-Ray Ordered: Yes # of Views/Limited/Complete: 1 View Indication: Shortness of Breath EP Interpretation: Yes Interpretation: no consolidation, no effusion, no pneumothorax, no acute cardiopulmonary disease Impression: Other - cardiomegaly Electronically Signed by: Electronically signed by Noman Santos MD Last Vital Signs Date Time Temp Pulse Resp B/P (MAP) Pulse Ox O2 Delivery O2 Flow Rate FiO2 02/26/18 22:45 149 135/90 02/26/18 22:31 16 98 Room Air 02/26/18 22:00 98.0 98.0 02/26/18 21:25 98 Status: improved Disposition: ADMITTED INPATIENT Condition: Critical Referrals: NON PHYSICIAN (PCP) Noman Santos MD Feb 26, 2018 22:54
[2018-02-27] VITALS (19 sets, daily range): BP systolic 100–153; BP diastolic 64–100
[2018-02-27] MEDS ORDERED: Sodium Chloride 500ML 550 ML IV SCH (01:45)
[2018-02-27 05:17] LABS: BASOPHILS % (AUTO) 0.7 % (0.0-2.0); EOSINOPHILS % (AUTO) 3.5 % (0.0-3.0); HEMATOCRIT 38.2 % (37.0-47.0); HEMOGLOBIN 12.6 G/DL (12.0-16.0); LYMPHOCYTES % (AUTO) 24.5 % (20.0-45.0); MEAN CORPUSCULAR VOLUME 83 FL (80-99); MONOCYTES % (AUTO) 7.9 % (1.0-10.0); NEUTROPHILS % (AUTO) 63.4 % (45.0-75.0); PLATELET COUNT 219 K/UL (150-450); RED BLOOD COUNT 4.58 M/UL (4.20-5.40); RED CELL DISTRIBUTION WIDTH 15.6 % (11.6-14.8); WHITE BLOOD COUNT 7.4 K/UL (4.8-10.8)
[2018-02-27 05:23] LABS: ANION GAP 9 mmol/L (5-15); BLOOD UREA NITROGEN 9 mg/dL (7-18); CALCIUM 8.5 MG/DL (8.5-10.1); CARBON DIOXIDE 25 MMOL/L (21-32); CHLORIDE 102 MMOL/L (98-107); CREATININE 1.1 MG/DL (0.55-1.30); POTASSIUM 3.8 MMOL/L (3.5-5.1); SODIUM 136 MMOL/L (136-145)
[2018-02-27] MEDS ORDERED: HydrALAZINE 50mg tab ORAL SCH (06:00)
[2018-02-27] MEDS: NovoLOG Insulin Flexpen SUBQ SCH ×4 (06:08→22:06)
[2018-02-27] MEDS ORDERED: dilTIAZem HCl 60mg tab ORAL SCH ×2 (07:02→12:00)
[2018-02-27] MEDS ORDERED: Furosemide 40mg tab ORAL SCH (09:00)
[2018-02-27] MEDS ORDERED: Pantoprazole Inj IVP SCH (09:00)
--- NOTE | 2018-02-27 09:23 | History and Physical ---
History of Present Illness General Date patient seen: Feb 27, 2018 Time patient seen: 08:45 Reason for Hospitalization: Dyspnea/Respdistress Present Illness HPI Pt is a 82 yo F w PMH of Afib on Xarelto, HTN, DM and she presents for worsening shortness of breath and racing heart which she states started at 3 pm yesterday. She was watching TV at the time. Pt states this has happened to her many times before, and she usually ends up in the hospital. She states she has been compliant w/ all her medication. She denies worsening edema or chest pain. Pt states she follows w/ Cardiology but cannot recall the physician name. Pt also states she has had a cardiac cath years ago, cannot recall the results but denies any stents or surgical intervention. Pt denies any thyroid disease. Pt lives at home w/ daughter and son. Daughter # [phone] Allergies: Coded Allergies: CODEINE (Verified Allergy, Unknown, 10/23/11) PENICILLINS (Verified Allergy, Unknown, RASH/ITCH, 10/23/11) Medication History Scheduled Albuterol Sulfate (Ventolin Hfa), 1 PUFF INH EVERY 6 HOURS, (Reported) Diltiazem Hcl* (Cardizem*), 60 MG ORAL EVERY 8 HOURS Esomeprazole Magnesium (Nexium), 40 MG ORAL DAILY, (Reported) Furosemide* (Lasix*), 40 MG ORAL DAILY Gabapentin* (Gabapentin*), 300 MG ORAL BEDTIME, (Reported) Glimepiride* (Glimepiride*), 4 MG ORAL BID, (Reported) Hydralazine Hcl* (Hydralazine Hcl*), 100 MG ORAL EVERY 8 HOURS, (Reported) Metformin Hcl* (Metformin Hcl*), 1,000 MG ORAL DAILY, (Reported) Pravastatin Sod* (Pravastatin Sod*), 20 MG ORAL BEDTIME, (Reported) Rivaroxaban (Xarelto), 20 MG ORAL DAILY Sotalol Hcl (Sotalol*), 80 MG ORAL Q12HR Triamterene/Hctz (Triamterene-Hctz 37.5-25 mg Cp), 1 CAP ORAL DAILY, (Reported) Miscellaneous Medications Fluticasone/Vilanterol (Breo Ellipta 100-25 Mcg INH), 1 EACH IH, (Reported) Umeclidinium [place] (Incruse Ellipta), 62.5 MCG IH, (Reported) Patient History Healthcare decision maker kaden faustin Resuscitation status Full Code Advanced Directive on File No Past Medical/Surgical History Past Medical/Surgical History: (1) Atrial fibrillation (2) HTN (hypertension) (3) Diabetes mellitus, type II (4) Paroxysmal atrial fibrillation Family History Family History: Patient reports no known family medical history. Review of Systems Constitutional: Reports: weakness; Denies: fever, malaise Eye: Denies: eye pain, blurred vision, double vision, acuity changes Respiratory: Reports: shortness of breath, PARHAM; Denies: orthopnea, wheezing Cardiovascular: Reports: palpitations; Denies: chest pain, edema, syncope Gastrointestinal: Reports: abdominal pain, diarrhea, nausea; Denies: vomiting, hematemesis Genitourinary: Denies: frequency, hematuria, pain, retention Musculoskeletal: Reports: muscle pain, muscle stiffness; Denies: gout, joint pain, joint swelling Skin: Denies: rash, change in hair/nails, dryness, lesions Psychiatric: Denies: anxiety, depressed feelings, emotional problems Neurological: Reports: dizziness; Denies: headache, numbness, paresthesia, seizure Hematologic/Lymphatic: Denies: easy bleeding - prior history of GI bleed Physical Exam General Appearance: no apparent distress, obese HEENT: normocephalic, atraumatic, PERRL, pharynx normal Neck: non-tender, normal inspection Respiratory/Chest: chest wall non-tender, normal breath sounds, no accessory muscle use Cardiovascular/Chest: normal peripheral pulses, normal rate, regular rhythm Abdomen: normal bowel sounds, non tender, soft Extremities: normal range of motion, non-tender, normal inspection, no edema Skin Exam: normal pigmentation, warm/dry Neurologic: no motor/sensory deficits, alert, oriented x 3, responsive Last 24 Hour Vital Signs Date Time Temp Pulse Resp B/P (MAP) Pulse Ox O2 Delivery O2 Flow Rate FiO2 02/27/18 07:00 82 16 127/71 (89) 98 02/27/18 06:05 133/74 02/27/18 06:00 81 17 133/74 (93) 98 02/27/18 05:30 85 20 116/100 (105) 98 02/27/18 05:30 83 02/27/18 05:00 78 18 125/95 (105) 96 10/15/18 04:30 82 19 135/82 (99) 99 02/27/18 04:00 Room Air 02/27/18 04:00 83 02/27/18 04:00 98.3 114 19 132/86 (101) 97 98.3 02/27/18 03:30 117 17 141/83 (102) 100 02/27/18 03:00 113 17 127/93 (104) 100 02/27/18 02:30 114 17 128/82 (97) 100 02/27/18 02:00 117 17 118/85 (96) 100 02/27/18 01:45 108 141/97 02/27/18 01:30 130 17 137/94 (108) 100 02/27/18 01:16 98.0 112 140/100 02/27/18 01:00 Room Air 02/27/18 01:00 98.0 123 17 123/83 (96) 100 98.0 02/27/18 01:00 Room Air 02/27/18 01:00 128 02/26/18 23:57 130 16 153/107 95 Room Air 02/26/18 23:14 118 15 140/118 99 02/26/18 22:59 137 16 141/114 98 02/26/18 22:45 149 135/90 02/26/18 22:31 157 16 147/100 98 Room Air 02/26/18 22:15 150 149/90 02/26/18 22:00 98.0 157 16 157/96 99 Room Air 98.0 02/26/18 21:59 158 153/97 02/26/18 21:45 110 144/92 02/26/18 21:25 150 16 Room Air 98 02/26/18 21:20 98.1 150 16 150/90 98 Room Air 98.1 02/26/18 21:11 98.4 02/26/18 20:54 98.4 157 16 177/119 99 Room Air 98.4 Intake and Output 02/26/18 02/27/18 19:00 07:00 Intake Total 1535 ml Output Total 390 ml Balance 1145 ml Intake Oral 50 ml IV Total 1485 ml Output Urine Total 390 ml # Voids 3 Laboratory Tests Test 02/26/18 21:35 02/27/18 05:00 White Blood Count 9.4 K/UL (4.8-10.8) 7.4 K/UL (4.8-10.8) Red Blood Count 4.73 M/UL (4.20-5.40) 4.58 M/UL (4.20-5.40) Hemoglobin 12.9 G/DL (12.0-16.0) 12.6 G/DL (12.0-16.0) Hematocrit 39.5 % (37.0-47.0) 38.2 % (37.0-47.0) Mean Corpuscular Volume 84 FL (80-99) 83 FL (80-99) Mean Corpuscular Hemoglobin 27.3 PG (27.0-31.0) 27.5 PG (27.0-31.0) Mean Corpuscular Hemoglobin Concent 32.7 G/DL (32.0-36.0) 33.0 G/DL (32.0-36.0) Red Cell Distribution Width 15.0 % (11.6-14.8) H 15.6 % (11.6-14.8) H Platelet Count 251 K/UL (150-450) 219 K/UL (150-450) Mean Platelet Volume 8.4 FL (6.5-10.1) 8.4 FL (6.5-10.1) Neutrophils (%) (Auto) 74.8 % (45.0-75.0) 63.4 % (45.0-75.0) Lymphocytes (%) (Auto) 14.7 % (20.0-45.0) L 24.5 % (20.0-45.0) Monocytes (%) (Auto) 6.1 % (1.0-10.0) 7.9 % (1.0-10.0) Eosinophils (%) (Auto) 3.6 % (0.0-3.0) H 3.5 % (0.0-3.0) H Basophils (%) (Auto) 0.7 % (0.0-2.0) 0.7 % (0.0-2.0) Prothrombin Time 10.0 SEC (9.30-11.50) Prothromb Time International Ratio 0.9 (0.9-1.1) Activated Partial Thromboplast Time 26 SEC (23-33) Sodium Level 134 MMOL/L (136-145) L 136 MMOL/L (136-145) Potassium Level 3.8 MMOL/L (3.5-5.1) 3.8 MMOL/L (3.5-5.1) Chloride Level 98 MMOL/L (98-107) 102 MMOL/L (98-107) Carbon Dioxide Level 24 MMOL/L (21-32) 25 MMOL/L (21-32) Anion Gap 12 mmol/L (5-15) 9 mmol/L (5-15) Blood Urea Nitrogen 11 mg/dL (7-18) 9 mg/dL (7-18) Creatinine 1.2 MG/DL (0.55-1.30) 1.1 MG/DL (0.55-1.30) Estimat Glomerular Filtration Rate mL/min (>60) mL/min (>60) Glucose Level 372 MG/DL (74-106) H 315 MG/DL (74-106) H Calcium Level 9.5 MG/DL (8.5-10.1) 8.5 MG/DL (8.5-10.1) Total Bilirubin 0.4 MG/DL (0.2-1.0) Aspartate Amino Transf (AST/SGOT) 21 U/L (15-37) Alanine Aminotransferase (ALT/SGPT) 23 U/L (12-78) Alkaline Phosphatase 133 U/L (46-116) H Total Creatine Kinase 68 U/L (26-308) Creatine Kinase MB 0.7 NG/ML (0.0-3.6) Creatine Kinase MB Relative Index 1.0 Troponin I 0.088 ng/mL (0.000-0.056) Pro-B-Type Natriuretic Peptide 803 pg/mL (0-125) H Total Protein 7.9 G/DL (6.4-8.2) Albumin 3.5 G/DL (3.4-5.0) Globulin 4.4 g/dL Albumin/Globulin Ratio 0.8 (1.0-2.7) L Height (Feet): 5 Height (Inches): 2.00 Weight (Pounds): 171 Medications Current Medications Medications (Trade) Dose Ordered Sig/[place] Route PRN Reason Start Time Stop Time Status Last Admin Dose Admin Aspirin (ASA) 325 mg DAILY ORAL 02/27/18 09:00 03/29/18 08:59 02/26/18 23:43 Atorvastatin Calcium (Lipitor) 20 mg BEDTIME ORAL 02/27/18 21:00 03/29/18 20:59 Dextrose (Dextrose 50%) 25 ml Q30M PRN IV Hypoglycemia 02/27/18 02:00 03/29/18 01:59 Dextrose (Dextrose 50%) 50 ml Q30M PRN IV Hypoglycemia 02/27/18 02:00 03/29/18 01:59 Diltiazem HCl (Cardizem) 60 mg EVERY 6 HOURS ORAL 02/27/18 12:00 03/29/18 11:59 Furosemide (Lasix) 40 mg DAILY ORAL 02/27/18 09:00 03/29/18 08:59 Gabapentin (Neurontin) 300 mg BEDTIME ORAL 02/27/18 21:00 03/29/18 20:59 Hydralazine HCl (Apresoline) 100 mg Q8HR ORAL 02/27/18 06:00 03/29/18 05:59 02/27/18 06:05 Insulin Aspart (NovoLOG) BEFORE MEALS AND HS SUBQ 02/27/18 06:30 03/29/18 06:29 02/27/18 06:08 Ondansetron HCl (Zofran) 4 mg Q6H PRN IVP Nausea & Vomiting 02/27/18 01:45 03/29/18 01:44 Pantoprazole (Protonix) 40 mg DAILY IVP 02/27/18 09:00 03/29/18 08:59 Sodium Chloride 550 ml @ 75 mls/hr Q7H20M IV 02/27/18 01:45 03/29/18 01:44 02/27/18 01:45 Sodium Chloride 1,000 ml @ 100 mls/hr Q10H IV 02/26/18 21:45 03/28/18 21:44 02/26/18 21:45 Assessment/Plan Problem List: (1) Atrial fibrillation with RVR ICD Codes: I48.91 - Unspecified atrial fibrillation SNOMED: 852427922570249 (2) HTN (hypertension) ICD Codes: I10 - Essential (primary) hypertension SNOMED: 44619897 Qualifiers: Qualified Codes: I10 - Essential (primary) hypertension (3) Diabetes ICD Codes: E11.9 - Type 2 diabetes mellitus without complications SNOMED: 65342754 Qualifiers: Qualified Codes: E13.9 - Other specified diabetes mellitus without complications Assessment/Plan Atrial Fibrillation w/ RVR s/p Cardizem drip switched to oral per cardio trend troponin will defer to cardio for further w/u Diarrhea/abdominal pain will r/o Cdiff, d/w nursing no recent abx exposure HTN pt stable, pt on cardizem will c/w home meds DM f/u HA1C currently will continue insulin sliding scale discussed case w/ nurse and ICU director Gene Almeida D.O. Feb 27, 2018 09:23
--- NOTE | 2018-02-27 10:13 | Diagnostic Imaging Report ---
Indication: Dyspnea Comparison: 10/11/2017 A single view chest radiograph was obtained. Findings: No definite infiltrate or pulmonary vascular congestion identified. The heart is enlarged. The aorta is mildly enlarged consistent with atherosclerotic vascular disease. The bones are osteopenic. Endplate osteophytes noted throughout the thoracic spine. Impression: No acute disease
[2018-02-27] MEDS: Sodium Chloride 500ML 550 ML IV SCH ×2 (13:18→22:08)
[2018-02-27] MEDS: HydrALAZINE 50mg tab ORAL SCH ×2 (13:42→21:47)
[2018-02-27] MEDS: Levemir Flexpen SUBQ SCH ×2 (17:29→22:07)
[2018-02-27] MEDS: dilTIAZem HCl 60mg tab ORAL SCH ×2 (18:00→23:45)
[2018-02-27] MEDS ORDERED: Zolpidem 5mg tab ORAL PRN (19:00)
[2018-02-27] MEDS ORDERED: Atorvastatin 20mg tab ORAL SCH ×2 (21:00)
[2018-02-28] VITALS (37 sets, daily range): BP systolic 69–138; BP diastolic 51–99
[2018-02-28] MEDS: Sodium Chloride 500ML 550 ML IV SCH ×4 (04:21→22:03)
[2018-02-28] MEDS: HydrALAZINE 50mg tab ORAL SCH (05:16)
[2018-02-28] MEDS: dilTIAZem HCl 60mg tab ORAL SCH (05:16)
[2018-02-28] MEDS: NovoLOG Insulin Flexpen SUBQ SCH ×4 (06:43→20:32)
[2018-02-28] MEDS ORDERED: Pantoprazole Inj IVP SCH (09:00)
[2018-02-28] MEDS ORDERED: Furosemide 40mg tab ORAL SCH (09:00)
[2018-02-28] MEDS: Pantoprazole Inj IVP SCH (09:16)
[2018-02-28] MEDS: Furosemide 40mg tab ORAL SCH (09:17)
[2018-02-28] MEDS ORDERED: Digoxin 0.5mg/2ml Inj IVP SCH ×2 (12:37→15:29)
--- NOTE | 2018-02-28 14:31 | General Progress Note ---
Assessment/Plan Problem List: (1) Atrial fibrillation with RVR ICD Codes: I48.91 - Unspecified atrial fibrillation SNOMED: 337968206929662 (2) HTN (hypertension) ICD Codes: I10 - Essential (primary) hypertension SNOMED: 39880711 Qualifiers: Qualified Codes: I10 - Essential (primary) hypertension (3) Diabetes ICD Codes: E11.9 - Type 2 diabetes mellitus without complications SNOMED: 63115664 Qualifiers: Qualified Codes: E13.9 - Other specified diabetes mellitus without complications Assessment/Plan Atrial Fibrillation w/ RVR back to cardizem drip will defer to cardio for further w/u Plan per Cardiology Diarrhea/abdominal pain will r/o Cdiff, d/w nursing no recent abx exposure HTN pt stable, pt on cardizem will c/w home meds DM HA1C 9+ c/w levemir daily, check blood glucose currently will continue insulin sliding scale discussed case w/ nurse and ICU director Gene Stanton DO Subjective Date patient seen: Feb 28, 2018 Time patient seen: 11:00 Constitutional: Reports: fever Allergies: Coded Allergies: CODEINE (Verified Allergy, Unknown, 10/23/11) PENICILLINS (Verified Allergy, Unknown, RASH/ITCH, 10/23/11) Subjective Pt seen and examined. New issues overnight, pt went back into Afib w/ rapid response. Moved back to ICU. Objective Last 24 Hour Vital Signs Date Time Temp Pulse Resp B/P (MAP) Pulse Ox O2 Delivery O2 Flow Rate FiO2 02/28/18 13:45 120 22 95/62 (73) 99 02/28/18 13:30 126 22 132/75 (94) 98 02/28/18 13:15 115 22 116/80 (92) 98 02/28/18 13:08 126 02/28/18 13:00 124 22 116/80 (92) 98 02/28/18 12:30 141 22 110/70 (83) 98 02/28/18 12:00 Nasal Cannula 2.0 02/28/18 12:00 138 02/28/18 12:00 98.7 136 24 69/99 (89) 98 98.7 02/28/18 11:30 134 22 112/72 (85) 98 02/28/18 11:00 140 23 109/59 (76) 98 02/28/18 10:00 139 23 124/79 (94) 98 02/28/18 09:45 143 22 118/99 (105) 98 02/28/18 09:30 143 22 118/99 (105) 98 02/28/18 09:15 149 22 112/69 (83) 98 02/28/18 09:00 142 22 112/69 (83) 98 02/28/18 08:47 149 110/78 02/28/18 08:30 152 22 102/84 (90) 98 02/28/18 08:00 164 02/28/18 08:00 Nasal Cannula 2.0 02/28/18 08:00 97.6 108 23 112/73 (86) 94 97.6 02/28/18 07:00 Room Air 02/28/18 05:16 130/78 02/28/18 05:16 120 130/78 02/28/18 04:00 98.1 108 23 130/78 (95) 94 98.1 02/28/18 04:00 91 02/28/18 00:00 97.9 104 20 112/54 (73) 97 97.9 02/28/18 00:00 106 02/27/18 23:45 134 112/54 02/27/18 21:47 110/64 02/27/18 20:00 93 02/27/18 20:00 98.2 90 20 110/64 (79) 96 98.2 02/27/18 18:00 92 100/72 02/27/18 16:00 Room Air 02/27/18 16:00 92 02/27/18 16:00 97.5 97 20 100/72 (81) 97 97.5 Intake and Output 02/27/18 02/28/18 19:00 07:00 Intake Total 810 ml 365 ml Output Total 500 ml 0 ml Balance 310 ml 365 ml Intake Oral 300 ml IV Total 510 ml 365 ml Output Urine Total 500 ml 0 ml # Voids 1 # Bowel Movements 2 Height (Feet): 5 Height (Inches): 2.00 Weight (Pounds): 182 General Appearance: no apparent distress, alert EENT: PERRL/EOMI, normal ENT inspection Neck: non-tender, normal alignment, supple Cardiovascular: normal peripheral pulses, regularly irregular, tachycardia Respiratory/Chest: chest wall non-tender, lungs clear, normal breath sounds, no respiratory distress Abdomen: normal bowel sounds, non tender, soft, no organomegaly Extremities: normal range of motion, non-tender, normal inspection, normal capillary refill Edema: no edema noted Arm (L), no edema noted Arm (R), no edema noted Leg (L), no edema noted Leg (R) Neurologic: no motor/sensory deficits, alert, oriented x 3 Skin: normal pigmentation, warm/dry Gene Stanton D.O. Feb 28, 2018 14:31
--- NOTE | 2018-02-28 15:33 | Cardiac Electrophysiology PN ---
Subjective Subjective [id number] Objective Last 24 Hour Vital Signs Date Time Temp Pulse Resp B/P (MAP) Pulse Ox O2 Delivery O2 Flow Rate FiO2 02/28/18 13:45 120 22 95/62 (73) 99 02/28/18 13:30 126 22 132/75 (94) 98 02/28/18 13:15 115 22 116/80 (92) 98 02/28/18 13:08 126 02/28/18 13:00 124 22 116/80 (92) 98 02/28/18 12:30 141 22 110/70 (83) 98 02/28/18 12:00 Nasal Cannula 2.0 02/28/18 12:00 138 02/28/18 12:00 98.7 136 24 69/99 (89) 98 98.7 02/28/18 11:30 134 22 112/72 (85) 98 02/28/18 11:00 140 23 109/59 (76) 98 02/28/18 10:00 139 23 124/79 (94) 98 02/28/18 09:45 143 22 118/99 (105) 98 02/28/18 09:30 143 22 118/99 (105) 98 02/28/18 09:15 149 22 112/69 (83) 98 02/28/18 09:00 142 22 112/69 (83) 98 02/28/18 08:47 149 110/78 02/28/18 08:30 152 22 102/84 (90) 98 02/28/18 08:00 164 02/28/18 08:00 Nasal Cannula 2.0 02/28/18 08:00 97.6 108 23 112/73 (86) 94 97.6 02/28/18 07:00 Room Air 02/28/18 05:16 130/78 02/28/18 05:16 120 130/78 02/28/18 04:00 98.1 108 23 130/78 (95) 94 98.1 02/28/18 04:00 91 02/28/18 00:00 97.9 104 20 112/54 (73) 97 97.9 02/28/18 00:00 106 02/27/18 23:45 134 112/54 02/27/18 21:47 110/64 02/27/18 20:00 93 02/27/18 20:00 98.2 90 20 110/64 (79) 96 98.2 02/27/18 18:00 92 100/72 02/27/18 16:00 Room Air 02/27/18 16:00 92 02/27/18 16:00 97.5 97 20 100/72 (81) 97 97.5 Intake and Output 02/27/18 02/28/18 19:00 07:00 Intake Total 810 ml 365 ml Output Total 500 ml 0 ml Balance 310 ml 365 ml Intake Oral 300 ml IV Total 510 ml 365 ml Output Urine Total 500 ml 0 ml # Voids 1 # Bowel Movements 2 Microbiology Date/Time Source Procedure Growth Status 02/27/18 18:50 Stool Clostridium difficile Toxin Assay - Final Complete Manolo Thompson MD Feb 28, 2018 15:33
[2018-02-28] MEDS: Xarelto 10mg tab ORAL SCH (16:47)
[2018-02-28] MEDS: Zolpidem 5mg tab ORAL PRN (20:29)
[2018-02-28] MEDS: Atorvastatin 20mg tab ORAL SCH (20:30)
[2018-02-28] MEDS: Levemir Flexpen SUBQ SCH (20:34)
[2018-03-01] VITALS (48 sets, daily range): BP systolic 94–144; BP diastolic 50–98
--- NOTE | 2018-03-01 00:45 | Consultation ---
DATE OF CONSULTATION: 02/28/2018 CONSULTING PHYSICIAN: Manolo Thompson M.D. REFERRING PHYSICIAN: Nicole Jose M.D. REASON FOR CONSULTATION: Atrial fibrillation with rapid ventricular response. HISTORY OF PRESENT ILLNESS: The patient is an 82-year-old lady with history of hypertension, paroxysmal atrial fibrillation, and diabetes, who has been on Xarelto even though the niece says that she has been taking it for about a month now. The patient presented with increased shortness of breath and palpitation that is around 3 p.m. today before the admission while she was watching TV at home. The patient has had recurrent episodes similar to this before. The patient said that apparently she had a cardiac catheterization years ago, but does not remember whether had any blockage or any stent was done. The patient denies any coronary artery bypass graft or pacemaker placement. The patient was found to be in atrial fibrillation with rapid ventricular response with heart rates up to 170s and on my order, the patient was then transferred to intensive care unit and was started on Cardizem drip. Despite maximum dose of Cardizem drip, the patient was still tachycardic, so given an extra dose of 0.5 mg IV digoxin. At the time of my evaluation, heart rate is slightly better. She denies any chest pain. REVIEW OF SYSTEMS: Review of systems was negative other than what was mentioned in the history of present illness. PAST MEDICAL HISTORY: 1. Hypertension. 2. Diabetes. 3. Paroxysmal atrial fibrillation. FAMILY HISTORY: Noncontributory. SOCIAL HISTORY: She lives at home. Does not smoke or drink alcohol. PHYSICAL EXAMINATION: VITAL SIGNS: Blood pressure is 95/62, pulse is 120, respirations 20, and she is afebrile. HEAD AND NECK: Mild JVD. LUNGS: Coarse rhonchi. CARDIOVASCULAR: Irregular S1 and S2 with no gallop or murmur. ABDOMEN: Soft and nontender. EXTREMITIES: No pitting edema. LABORATORY AND DIAGNOSTIC DATA: Her echocardiogram showed EF of 55%. Her EKG from 02/26/2018 showed atrial fibrillation with rapid ventricular response, rate of 151 beats per minute. Her telemetry strip showed that she was in sinus rhythm. ASSESSMENT AND PLAN: 1. Paroxysmal atrial fibrillation with rapid ventricular response. The patient is alreadymaximuon m dose of Cardizem drip as well as digoxin. We will complete digoxin and we will get a digoxin level in the morning. It is of note that her laboratories show normal white count, hemoglobin and hematocrit, and chemistry showed normal BUN and creatinine. INR of 1.1. 2. Troponin leak, 0.088 and 0.065, could be related to atrial fibrillation with rapid ventricular response. Echocardiogram showed normal left ventricular systolic function. EKG showed no acute ischemic changes. The patient is already on aspirin and resume Xarelto. 3. Diabetes, on insulin. 4. Hyperlipidemia, on Lipitor. 5. Hypertension. The patient is on Cardizem as well as Lasix 20 mg p.o. daily, but I would stop the Lasix at this time. Thank you very much, Dr. Jose, for allowing me to participate in the care of this patient. Please do not hesitate to contact me for any questions regarding my evaluation. Manolo Thompson M.D. DR: CATIA JOB#: [id number] CC:
[2018-03-01] MEDS: NovoLOG Insulin Flexpen SUBQ SCH ×4 (06:26→21:29)
[2018-03-01] MEDS: Sodium Chloride 500ML 550 ML IV SCH ×3 (06:26→21:42)
[2018-03-01] MEDS: Pantoprazole Inj IVP SCH (08:17)
[2018-03-01] MEDS: Furosemide 40mg tab ORAL SCH (08:18)
--- NOTE | 2018-03-01 08:47 | Cardiology Report ---
APPROVED REPORT EXAM: Two-dimensional and M-mode echocardiogram with Doppler and color Doppler. INDICATION Atrial Fibrillation M-Mode DIMENSIONS IVSd1.3 (0.7-1.1cm)Left Atrium (MM)3.0 (1.6-4.0cm) LVDd4.8 (3.5-5.6cm)Aortic Root2.7 (2.0-3.7cm) PWd1.0 (0.7-1.1cm)Aortic Cusp Exc.1.8 (1.5-2.0cm) LVDs2.5 (2.5-4.0cm) PWs1.9 cm Technically difficult study due to poor acoustic windows. Study quality precludes accurate assessment of regional wall motion. Normal left ventricular chamber size, systolic function and wall motion. Left ventricular ejection fraction estimated to be 55 %. Mild left ventricular hypertrophy. Anterior Echo-free space, may be due to pericardial fat or effusion. All other cardiac chamber sizes are within normal limits. Mild focal aortic valve sclerosis with adequate cusp excursion. Mildly thickened mitral valve leaflets with normal excursion. Mild mitral annulus and aortic root calcification. Pulmonic valve not well visualized. Normal tricuspid valve structure. IVC is normal in size with physiological collapse. A color flow and spectral Doppler study was performed and revealed: No aortic insufficiency. Mild mitral regurgitation. Normal left ventricular diastolic function. Mild tricuspid regurgitation. Tricuspid systolic velocities suggests peak right ventricular systolic pressure of 35 mmHg, consistent with mild pulmonary hypertension. Mild pulmonic regurgitation present.
--- NOTE | 2018-03-01 10:24 | General Progress Note ---
Assessment/Plan Problem List: (1) Atrial fibrillation with RVR ICD Codes: I48.91 - Unspecified atrial fibrillation SNOMED: 507368937114560 (2) HTN (hypertension) ICD Codes: I10 - Essential (primary) hypertension SNOMED: 29770186 Qualifiers: Qualified Codes: I10 - Essential (primary) hypertension (3) Diabetes ICD Codes: E11.9 - Type 2 diabetes mellitus without complications SNOMED: 20857324 Qualifiers: Qualified Codes: E13.9 - Other specified diabetes mellitus without complications Assessment/Plan Atrial Fibrillation w/ RVR max on cardizem yesterday still not controlled then digoxin given will defer to cardio for further guidance Plan per Cardiology Diarrhea/abdominal pain Cdiff neg no recent abx exposure HTN pt stable, pt on cardizem will c/w home meds, lasix held per cardio DM HA1C 9+ c/w levemir daily, check blood glucose currently will continue insulin sliding scale discussed case w/ nurse, appreciate cardio input Gene Maximino DO Subjective Allergies: Coded Allergies: CODEINE (Verified Allergy, Unknown, 10/23/11) PENICILLINS (Verified Allergy, Unknown, RASH/ITCH, 10/23/11) Subjective Pt seen and examined. Pt states she feels okay, no complaints. Per nursing, heart rate has been better controlled. Objective Last 24 Hour Vital Signs Date Time Temp Pulse Resp B/P (MAP) Pulse Ox O2 Delivery O2 Flow Rate FiO2 03/01/18 09:30 105 12 122/88 (99) 100 03/01/18 09:00 101 12 120/89 (99) 100 03/01/18 08:30 97 15 107/64 (78) 100 03/01/18 08:00 Nasal Cannula 2.0 03/01/18 08:00 90 03/01/18 08:00 90 13 105/65 (78) 100 03/01/18 07:30 97.8 87 15 113/63 (80) 100 97.8 03/01/18 07:00 88 15 97/62 (74) 100 03/01/18 06:30 93 17 126/80 (95) 100 03/01/18 06:00 95 17 105/70 (82) 99 03/01/18 05:30 91 17 116/64 (81) 99 03/01/18 05:00 98 17 129/74 (92) 96 03/01/18 04:30 102 21 123/69 (87) 96 03/01/18 04:00 123 03/01/18 04:00 Nasal Cannula 2.0 03/01/18 04:00 97.9 123 19 124/78 (93) 97 97.9 03/01/18 03:30 88 18 123/84 (97) 99 03/01/18 03:00 85 17 101/60 (74) 96 03/01/18 02:30 83 17 94/55 (68) 96 03/01/18 02:00 83 17 98/50 (66) 96 03/01/18 01:43 81 103/53 03/01/18 01:30 84 18 103/53 (70) 98 84 03/01/18 01:00 85 17 107/63 (78) 98 03/01/18 00:30 93 20 125/72 (89) 98 03/01/18 00:00 98.3 100 21 118/62 (80) 98 98.3 03/01/18 00:00 100 03/01/18 00:00 Nasal Cannula 2.0 02/28/18 23:30 83 18 125/62 (83) 98 02/28/18 23:00 82 18 101/68 (79) 98 02/28/18 22:30 87 18 112/67 (82) 99 02/28/18 22:00 90 18 96/55 (69) 99 02/28/18 21:30 89 19 111/51 (71) 98 02/28/18 21:16 98 Nasal Cannula 2.0 98 02/28/18 21:16 Nasal Cannula 2.0 98 02/28/18 21:00 87 19 126/70 (88) 98 02/28/18 20:30 89 19 128/84 (99) 99 02/28/18 20:00 98.6 93 20 126/72 (90) 98 98.6 02/28/18 20:00 93 02/28/18 20:00 Nasal Cannula 2.0 02/28/18 19:30 93 22 128/69 (88) 98 02/28/18 19:00 93 20 132/69 (90) 98 18 18:30 99 20 133/71 (91) 98 02/28/18 18:00 98 21 138/75 (96) 98 02/28/18 17:30 98 20 138/95 (109) 98 02/28/18 17:00 97 20 134/75 (94) 100 02/28/18 16:47 95 113/63 02/28/18 16:30 98 20 134/75 (94) 100 02/28/18 16:00 98.5 96 20 113/63 (80) 98 98.5 02/28/18 16:00 Nasal Cannula 2.0 02/28/18 16:00 103 02/28/18 15:37 100 02/28/18 15:30 99 21 128/73 (91) 98 02/28/18 15:00 104 22 126/53 (77) 98 02/28/18 14:30 110 22 103/79 (87) 98 02/28/18 14:00 110 20 126/65 (85) 98 02/28/18 13:45 120 22 95/62 (73) 99 02/28/18 13:30 126 22 132/75 (94) 98 02/28/18 13:15 115 22 116/80 (92) 98 02/28/18 13:08 126 02/28/18 13:00 124 22 116/80 (92) 98 02/28/18 12:30 141 22 110/70 (83) 98 02/28/18 12:00 Nasal Cannula 2.0 02/28/18 12:00 138 02/28/18 12:00 98.7 136 24 69/99 (89) 98 98.7 02/28/18 11:30 134 22 112/72 (85) 98 02/28/18 11:00 140 23 109/59 (76) 98 Intake and Output 02/28/18 03/01/18 19:00 07:00 Intake Total 1482.50 ml 1210 ml Output Total 640 ml 600 ml Balance 842.50 ml 610 ml Intake Oral 710 ml 250 ml IV Total 772.50 ml 960 ml Output Urine Total 640 ml 600 ml # Voids 3 Laboratory Tests 03/01/18 03:30: Troponin I 0.071H, Pro-B-Type Natriuretic Peptide 608H, Thyroid Stimulating Hormone (TSH) 0.901, Free Thyroxine 1.23, Digoxin Level 1.6 Height (Feet): 5 Height (Inches): 2.00 Weight (Pounds): 172 General Appearance: no apparent distress, alert EENT: PERRL/EOMI, normal ENT inspection Neck: non-tender, normal alignment, supple, normal inspection Cardiovascular: normal peripheral pulses, normal rate, regularly irregular Respiratory/Chest: lungs clear, normal breath sounds, no respiratory distress Abdomen: normal bowel sounds, non tender, soft Extremities: normal range of motion, non-tender, normal inspection, no calf tenderness Neurologic: no motor/sensory deficits, alert, oriented x 3, responsive Skin: normal pigmentation, warm/dry Gene Stanton D.O. Mar 01, 2018 10:24
--- NOTE | 2018-03-01 14:52 | Cardiac Electrophysiology PN ---
Assessment/Plan Assessment/Plan 1. Paroxysmal atrial fibrillation with rapid ventricular response. Converted to SR but goes in and out of atrial fib with RVR. Decrease Cardizem drip to 10 mg/hr. Dig level 1.6. Add Digoxin 0.125 mg daily and Amiodarone 400 bid. 2. Troponin leak, 0.088 and 0.065, could be related to atrial fibrillation with rapid ventricular response. Echocardiogram showed normal left ventricular systolic function. EKG showed no acute ischemic changes. The patient is already on aspirin and resume Xarelto. 3. Diabetes, on insulin. 4. Hyperlipidemia, on Lipitor. 5. Hypertension. On Cardizem. DC Louis SCHOFIELD RN Subjective Subjective In ICU on Cardizem drip 10 mg/hr. Alert in NAD. Objective Last 24 Hour Vital Signs Date Time Temp Pulse Resp B/P (MAP) Pulse Ox O2 Delivery O2 Flow Rate FiO2 03/01/18 13:00 98.8 106 13 140/77 (98) 100 98.8 03/01/18 12:30 88 14 122/68 (86) 100 03/01/18 12:00 89 03/01/18 12:00 89 13 126/71 (89) 100 03/01/18 12:00 Nasal Cannula 2.0 03/01/18 11:30 100 13 122/75 (91) 100 03/01/18 11:00 101 13 125/80 (95) 100 03/01/18 10:30 102 13 115/85 (95) 100 03/01/18 10:00 100 13 118/86 (97) 100 03/01/18 09:30 105 12 122/88 (99) 100 03/01/18 09:00 101 12 120/89 (99) 100 03/01/18 08:30 97 15 107/64 (78) 100 03/01/18 08:00 Nasal Cannula 2.0 03/01/18 08:00 90 03/01/18 08:00 90 13 105/65 (78) 100 03/01/18 07:30 97.8 87 15 113/63 (80) 100 97.8 03/01/18 07:00 88 15 97/62 (74) 100 03/01/18 06:30 93 17 126/80 (95) 100 03/01/18 06:00 95 17 105/70 (82) 99 03/01/18 05:30 91 17 116/64 (81) 99 03/01/18 05:00 98 17 129/74 (92) 96 03/01/18 04:30 102 21 123/69 (87) 96 03/01/18 04:00 123 03/01/18 04:00 Nasal Cannula 2.0 03/01/18 04:00 97.9 123 19 124/78 (93) 97 97.9 03/01/18 03:30 88 18 123/84 (97) 99 03/01/18 03:00 85 17 101/60 (74) 96 03/01/18 02:30 83 17 94/55 (68) 96 03/01/18 02:00 83 17 98/50 (66) 96 03/01/18 01:43 81 103/53 03/01/18 01:30 84 18 103/53 (70) 98 84 03/01/18 01:00 85 17 107/63 (78) 98 03/01/18 00:30 93 20 125/72 (89) 98 03/01/18 00:00 98.3 100 21 118/62 (80) 98 98.3 03/01/18 00:00 100 03/01/18 00:00 Nasal Cannula 2.0 02/28/18 23:30 83 18 125/62 (83) 98 02/28/18 23:00 82 18 101/68 (79) 98 02/28/18 22:30 87 18 112/67 (82) 99 02/28/18 22:00 90 18 96/55 (69) 99 02/28/18 21:30 89 19 111/51 (71) 98 02/28/18 21:16 98 Nasal Cannula 2.0 98 02/28/18 21:16 Nasal Cannula 2.0 98 02/28/18 21:00 87 19 126/70 (88) 98 02/28/18 20:30 89 19 128/84 (99) 99 02/28/18 20:00 98.6 93 20 126/72 (90) 98 98.6 02/28/18 20:00 93 02/28/18 20:00 Nasal Cannula 2.0 02/28/18 19:30 93 22 128/69 (88) 98 02/28/18 19:00 93 20 132/69 (90) 98 02/28/18 18:30 99 20 133/71 (91) 98 02/28/18 18:00 98 21 138/75 (96) 98 02/28/18 17:30 98 20 138/95 (109) 98 02/28/18 17:00 97 20 134/75 (94) 100 02/28/18 16:47 95 113/63 02/28/18 16:30 98 20 134/75 (94) 100 02/28/18 16:00 98.5 96 20 113/63 (80) 98 98.5 02/28/18 16:00 Nasal Cannula 2.0 02/28/18 16:00 103 02/28/18 15:37 100 02/28/18 15:30 99 21 128/73 (91) 98 02/28/18 15:00 104 22 126/53 (77) 98 Intake and Output 02/28/18 03/01/18 19:00 07:00 Intake Total 1482.50 ml 1210 ml Output Total 640 ml 600 ml Balance 842.50 ml 610 ml Intake Oral 710 ml 250 ml IV Total 772.50 ml 960 ml Output Urine Total 640 ml 600 ml # Voids 3 Laboratory Tests Test 03/01/18 03:30 Troponin I 0.071 ng/mL (0.000-0.056) Pro-B-Type Natriuretic Peptide 608 pg/mL (0-125) H Thyroid Stimulating Hormone (TSH) 0.901 uiU/mL (0.358-3.740) Free Thyroxine 1.23 NG/DL (0.76-1.46) Digoxin Level 1.6 NG/ML (0.9-2.0) Microbiology Date/Time Source Procedure Growth Status 02/27/18 03:00 Nasal Nares MRSA Culture - Final NO METHICILLIN RESISTANT STAPH AUREUS... Complete 02/27/18 18:50 Stool Clostridium difficile Toxin Assay - Final Complete 02/27/18 03:00 Rectum VRE Culture - Final Enterococcus Faecalis - Vre Complete Objective HEAD AND NECK: Mild JVD. LUNGS: Coarse rhonchi. CARDIOVASCULAR: Regular S1 and S2 with no gallop or murmur. ABDOMEN: Soft and nontender. EXTREMITIES: No pitting edema. Manolo Thompson MD Mar 01, 2018 14:51
[2018-03-01] MEDS: Xarelto 10mg tab ORAL SCH (16:30)
[2018-03-01] MEDS: Amiodarone 200mg tab ORAL SCH (21:26)
[2018-03-01] MEDS: Zolpidem 5mg tab ORAL PRN (21:27)
[2018-03-01] MEDS: Atorvastatin 20mg tab ORAL SCH (21:27)
[2018-03-01] MEDS: Levemir Flexpen SUBQ SCH (21:28)
[2018-03-02] VITALS (27 sets, daily range): BP systolic 94–148; BP diastolic 60–113
[2018-03-02] MEDS: Sodium Chloride 500ML 550 ML IV SCH (05:34)
[2018-03-02] MEDS: NovoLOG Insulin Flexpen SUBQ SCH ×4 (06:28→21:00)
[2018-03-02] MEDS: Amiodarone 200mg tab ORAL SCH (08:31)
[2018-03-02] MEDS: Pantoprazole Inj IVP SCH (08:31)
[2018-03-02] MEDS ORDERED: Digoxin 0.125mg tab ORAL SCH (09:00)
[2018-03-02 10:01] LABS: BASOPHILS % (AUTO) 0.8 % (0.0-2.0); EOSINOPHILS % (AUTO) 6.1 % (0.0-3.0); HEMATOCRIT 35.6 % (37.0-47.0); HEMOGLOBIN 11.4 G/DL (12.0-16.0); LYMPHOCYTES % (AUTO) 18.3 % (20.0-45.0); MEAN CORPUSCULAR VOLUME 84 FL (80-99); MONOCYTES % (AUTO) 7.9 % (1.0-10.0); PLATELET COUNT 191 K/UL (150-450); RED BLOOD COUNT 4.24 M/UL (4.20-5.40); RED CELL DISTRIBUTION WIDTH 15.1 % (11.6-14.8); WHITE BLOOD COUNT 8.6 K/UL (4.8-10.8)
[2018-03-02 10:44] LABS: ANION GAP 8 mmol/L (5-15); BLOOD UREA NITROGEN 6 mg/dL (7-18); CALCIUM 8.6 MG/DL (8.5-10.1); CARBON DIOXIDE 27 MMOL/L (21-32); CHLORIDE 104 MMOL/L (98-107); CREATININE 1.1 MG/DL (0.55-1.30); POTASSIUM 3.6 MMOL/L (3.5-5.1); SODIUM 139 MMOL/L (136-145)
--- NOTE | 2018-03-02 10:48 | Cardiac Electrophysiology PN ---
Assessment/Plan Assessment/Plan 1. Paroxysmal atrial fibrillation with rapid ventricular response. Converted to SR . DC Cardizem drip. Dig level 1.6. Continue Digoxin 0.125 mg daily and Amiodarone 400 bid. Add Cardizem CD 180 daily 2. Troponin leak, 0.088 and 0.065, could be related to atrial fibrillation with rapid ventricular response. Echocardiogram showed normal left ventricular systolic function. EKG showed no acute ischemic changes. The patient is already on aspirin and Xarelto. 3. Diabetes, on insulin. 4. Hyperlipidemia, on Lipitor. 5. Hypertension. On Cardizem. KANWAL RN Subjective Subjective In ICU on Cardizem drip 5 mg/hr in SR on Amiodarone. Alert in NAD. Objective Last 24 Hour Vital Signs Date Time Temp Pulse Resp B/P (MAP) Pulse Ox O2 Delivery O2 Flow Rate FiO2 03/02/18 10:09 82 148/75 03/02/18 10:00 72 20 148/75 (99) 100 03/02/18 09:30 84 19 136/71 (92) 98 03/02/18 09:00 80 19 135/70 (91) 100 03/02/18 08:31 81 03/02/18 08:30 80 20 144/81 (102) 100 03/02/18 08:02 100 03/02/18 08:00 98.1 83 19 143/75 (97) 100 98.1 03/02/18 08:00 Nasal Cannula 2.0 03/02/18 07:30 83 19 128/113 (118) 98 03/02/18 07:00 96 16 124/69 (87) 98 03/02/18 06:30 80 17 94/77 (83) 97 03/02/18 06:00 78 17 124/75 (91) 97 03/02/18 06:00 Nasal Cannula 2.0 03/02/18 05:30 98.6 81 17 133/80 (97) 97 98.6 03/02/18 05:00 98.6 81 17 133/80 (97) 97 98.6 03/02/18 04:00 98.6 95 17 140/68 (92) 97 98.6 03/02/18 04:00 Nasal Cannula 2.0 03/02/18 04:00 103 03/02/18 03:53 100 138/68 10/18/18 03:30 101 17 138/68 (91) 97 18 03:00 101 16 120/70 (87) 95 18 02:30 101 16 122/70 (87) 95 18 02:00 102 16 116/68 (84) 95 18 01:30 102 16 124/66 (85) 96 18 01:00 104 16 117/62 (80) 97 18 00:30 102 16 113/60 (77) 99 18 00:00 98.4 106 17 116/63 (80) 99 98.4 18 00:00 90 03/02/18 00:00 Nasal Cannula 2.0 03/01/18 23:30 106 17 112/58 (76) 99 18 23:00 88 17 122/57 (78) 99 18 22:30 107 17 144/70 (94) 99 18 22:00 104 17 144/86 (105) 99 18 21:30 106 19 133/98 (110) 99 03/01/18 21:00 107 20 120/86 (97) 99 18 20:30 105 20 120/80 (93) 98 18 20:00 105 18 20:00 98.0 110 22 96/79 (85) 98 98.0 18 20:00 Nasal Cannula 2.0 18 19:30 107 20 140/71 (94) 100 18 19:22 99 Nasal Cannula 2.0 98 18 19:22 Nasal Cannula 2.0 28 18 19:00 102 13 135/71 (92) 100 17/18 18:30 101 18 133/70 (91) 99 18 18:00 98.9 105 13 144/74 (97) 100 98.9 03/01/18 17:30 100 18 135/72 (93) 99 18 17:00 105 18 135/72 (93) 99 03/01/18 16:30 100 18 130/70 (90) 99 18 16:09 102 135/68 18 16:00 101 18 132/73 (92) 99 03/01/18 16:00 Nasal Cannula 2.0 03/01/18 16:00 98 03/01/18 15:30 98 17 133/70 (91) 99 03/01/18 15:00 103 17 136/72 (93) 99 03/01/18 14:30 100 17 135/66 (89) 99 03/01/18 14:00 102 17 144/69 (94) 99 03/01/18 13:53 105 122/68 03/01/18 13:30 93 18 140/74 (96) 100 03/01/18 13:00 98.8 106 13 140/77 (98) 100 98.8 03/01/18 12:30 88 14 122/68 (86) 100 03/01/18 12:00 89 03/01/18 12:00 89 13 126/71 (89) 100 03/01/18 12:00 Nasal Cannula 2.0 03/01/18 11:30 100 13 122/75 (91) 100 03/01/18 11:00 101 13 125/80 (95) 100 Intake and Output 03/01/18 03/02/18 19:00 07:00 Intake Total 630 ml 1545 ml Output Total 460 ml 790 ml Balance 170 ml 755 ml Intake Oral 110 ml 510 ml IV Total 520 ml 1035 ml Output Urine Total 460 ml 790 ml # Voids 4 5 Laboratory Tests Test 03/02/18 09:35 White Blood Count 8.6 K/UL (4.8-10.8) Red Blood Count 4.24 M/UL (4.20-5.40) Hemoglobin 11.4 G/DL (12.0-16.0) L Hematocrit 35.6 % (37.0-47.0) L Mean Corpuscular Volume 84 FL (80-99) Mean Corpuscular Hemoglobin 27.0 PG (27.0-31.0) Mean Corpuscular Hemoglobin Concent 32.1 G/DL (32.0-36.0) Red Cell Distribution Width 15.1 % (11.6-14.8) H Platelet Count 191 K/UL (150-450) Mean Platelet Volume 8.3 FL (6.5-10.1) Neutrophils (%) (Auto) 67.0 % (45.0-75.0) Lymphocytes (%) (Auto) 18.3 % (20.0-45.0) L Monocytes (%) (Auto) 7.9 % (1.0-10.0) Eosinophils (%) (Auto) 6.1 % (0.0-3.0) H Basophils (%) (Auto) 0.8 % (0.0-2.0) Sodium Level Pending Potassium Level Pending Chloride Level Pending Carbon Dioxide Level Pending Blood Urea Nitrogen Pending Creatinine Pending Estimat Glomerular Filtration Rate Pending Glucose Level Pending Calcium Level Pending Troponin I 0.109 ng/mL (0.000-0.056) Microbiology Date/Time Source Procedure Growth Status 02/27/18 18:50 Stool Clostridium difficile Toxin Assay - Final Complete Objective HEAD AND NECK: Mild JVD. LUNGS: Coarse rhonchi. CARDIOVASCULAR: Regular S1 and S2 with no gallop or murmur. ABDOMEN: Soft and nontender. EXTREMITIES: No pitting edema. Manolo Thompson MD Mar 02, 2018 10:48
[2018-03-02] MEDS ORDERED: dilTIAZem HCl CD 180mg cap ORAL SCH (11:00)
--- NOTE | 2018-03-02 11:30 | General Progress Note ---
Assessment/Plan Problem List: (1) Atrial fibrillation with RVR ICD Codes: I48.91 - Unspecified atrial fibrillation SNOMED: 397057303185402 (2) HTN (hypertension) ICD Codes: I10 - Essential (primary) hypertension SNOMED: 46804366 Qualifiers: Qualified Codes: I10 - Essential (primary) hypertension (3) Diabetes ICD Codes: E11.9 - Type 2 diabetes mellitus without complications SNOMED: 76070853 Qualifiers: Qualified Codes: E13.9 - Other specified diabetes mellitus without complications Assessment/Plan Atrial Fibrillation w/ RVR titrating down on cardizem drip, amiodarone started per will defer to cardio for further guidance Diarrhea/abdominal pain Cdiff neg no recent abx exposure resolved diarrhea, normal bm HTN pt stable, pt on cardizem will c/w home meds, lasix held per cardio DM HA1C 9+ c/w levemir daily, check blood glucose currently will continue insulin sliding scale discussed case w/ nurse, appreciate cardio input Gene Stanton DO Subjective Date patient seen: Mar 02, 2018 Time patient seen: 11:28 Allergies: Coded Allergies: CODEINE (Verified Allergy, Unknown, 10/23/11) PENICILLINS (Verified Allergy, Unknown, RASH/ITCH, 10/23/11) Subjective Pt seen and examined. Pt states she feels well today. Heart rate is normal and back to sinus per nursing. Pt tolerated amiodarone okay. Objective Last 24 Hour Vital Signs Date Time Temp Pulse Resp B/P (MAP) Pulse Ox O2 Delivery O2 Flow Rate FiO2 03/02/18 11:08 82 148/75 03/02/18 10:09 82 148/75 03/02/18 10:00 72 20 148/75 (99) 100 03/02/18 09:30 84 19 136/71 (92) 98 03/02/18 09:00 80 19 135/70 (91) 100 03/02/18 08:31 81 03/02/18 08:30 80 20 144/81 (102) 100 03/02/18 08:02 100 03/02/18 08:00 98.1 83 19 143/75 (97) 100 98.1 03/02/18 08:00 Nasal Cannula 2.0 03/02/18 07:30 83 19 128/113 (118) 98 03/02/18 07:00 96 16 124/69 (87) 98 03/02/18 06:30 80 17 94/77 (83) 97 03/02/18 06:00 78 17 124/75 (91) 97 03/02/18 06:00 Nasal Cannula 2.0 03/02/18 05:30 98.6 81 17 133/80 (97) 97 98.6 03/02/18 05:00 98.6 81 17 133/80 (97) 97 98.6 03/02/18 04:00 98.6 95 17 140/68 (92) 97 98.6 03/02/18 04:00 Nasal Cannula 2.0 03/02/18 04:00 103 03/02/18 03:53 100 138/68 03/02/18 03:30 101 17 138/68 (91) 97 03/02/18 03:00 101 16 120/70 (87) 95 03/02/18 02:30 101 16 122/70 (87) 95 03/02/18 02:00 102 16 116/68 (84) 95 03/02/18 01:30 102 16 124/66 (85) 96 03/02/18 01:00 104 16 117/62 (80) 97 03/02/18 00:30 102 16 113/60 (77) 99 03/02/18 00:00 98.4 106 17 116/63 (80) 99 98.4 03/02/18 00:00 90 03/02/18 00:00 Nasal Cannula 2.0 03/01/18 23:30 106 17 112/58 (76) 99 03/01/18 23:00 88 17 122/57 (78) 99 03/01/18 22:30 107 17 144/70 (94) 99 03/01/18 22:00 104 17 144/86 (105) 99 03/01/18 21:30 106 19 133/98 (110) 99 03/01/18 21:00 107 20 120/86 (97) 99 03/01/18 20:30 105 20 120/80 (93) 98 18 20:00 105 18 20:00 98.0 110 22 96/79 (85) 98 98.0 03/01/18 20:00 Nasal Cannula 2.0 03/01/18 19:30 107 20 140/71 (94) 100 03/01/18 19:22 99 Nasal Cannula 2.0 98 03/01/18 19:22 Nasal Cannula 2.0 28 03/01/18 19:00 102 13 135/71 (92) 100 03/01/18 18:30 101 18 133/70 (91) 99 03/01/18 18:00 98.9 105 13 144/74 (97) 100 98.9 03/01/18 17:30 100 18 135/72 (93) 99 03/01/18 17:00 105 18 135/72 (93) 99 03/01/18 16:30 100 18 130/70 (90) 99 03/01/18 16:09 102 135/68 03/01/18 16:00 101 18 132/73 (92) 99 03/01/18 16:00 Nasal Cannula 2.0 03/01/18 16:00 98 03/01/18 15:30 98 17 133/70 (91) 99 03/01/18 15:00 103 17 136/72 (93) 99 03/01/18 14:30 100 17 135/66 (89) 99 03/01/18 14:00 102 17 144/69 (94) 99 03/01/18 13:53 105 122/68 03/01/18 13:30 93 18 140/74 (96) 100 03/01/18 13:00 98.8 106 13 140/77 (98) 100 98.8 03/01/18 12:30 88 14 122/68 (86) 100 03/01/18 12:00 89 03/01/18 12:00 89 13 126/71 (89) 100 03/01/18 12:00 Nasal Cannula 2.0 03/01/18 11:30 100 13 122/75 (91) 100 Intake and Output 03/01/18 03/02/18 19:00 07:00 Intake Total 630 ml 1545 ml Output Total 460 ml 790 ml Balance 170 ml 755 ml Intake Oral 110 ml 510 ml IV Total 520 ml 1035 ml Output Urine Total 460 ml 790 ml # Voids 4 5 Laboratory Tests 03/02/18 09:35: White Blood Count 8.6, Red Blood Count 4.24, Hemoglobin 11.4L, Hematocrit 35.6L , Mean Corpuscular Volume 84, Mean Corpuscular Hemoglobin 27.0, Mean Corpuscular Hemoglobin Concent 32.1, Red Cell Distribution Width 15.1H, Platelet Count 191, Mean Platelet Volume 8.3, Neutrophils (%) (Auto) 67.0, Lymphocytes (%) (Auto) 18.3L, Monocytes (%) (Auto) 7.9, Eosinophils (%) (Auto) 6.1H, Basophils (%) (Auto) 0.8, Sodium Level 139, Potassium Level 3.6, Chloride Level 104, Carbon Dioxide Level 27, Anion Gap 8, Blood Urea Nitrogen 6L, Creatinine 1.1, Estimat Glomerular Filtration Rate , Glucose Level 271H, Calcium Level 8.6, Troponin I 0.109H Height (Feet): 5 Height (Inches): 2.00 Weight (Pounds): 176 General Appearance: no apparent distress, alert EENT: PERRL/EOMI Neck: non-tender, normal alignment, supple Cardiovascular: normal peripheral pulses, normal rate, regular rhythm Respiratory/Chest: chest wall non-tender, lungs clear, normal breath sounds, no respiratory distress Abdomen: normal bowel sounds, non tender, soft, no organomegaly Extremities: normal range of motion, non-tender, normal inspection Edema: no edema noted Arm (L), no edema noted Arm (R), no edema noted Leg (L), no edema noted Leg (R) Skin: normal pigmentation, warm/dry Gene Stanton D.O. Mar 02, 2018 11:30
[2018-03-02] MEDS: Xarelto 10mg tab ORAL SCH (16:50)
[2018-03-02] MEDS ORDERED: Zolpidem 5mg tab ORAL PRN (19:00)
[2018-03-02] MEDS: Atorvastatin 20mg tab ORAL SCH (20:58)
[2018-03-02] MEDS: Levemir Flexpen SUBQ SCH (20:59)
[2018-03-02] MEDS ORDERED: Levemir Flexpen SUBQ SCH (21:00)
[2018-03-02] MEDS ORDERED: Atorvastatin 20mg tab ORAL SCH (21:00)
[2018-03-02] MEDS ORDERED: NovoLOG Insulin Flexpen SUBQ SCH (21:00)
[2018-03-02] MEDS: Zolpidem 5mg tab ORAL PRN (21:03)
[2018-03-03] VITALS: BP 131/76
[2018-03-03 04:00] VITALS: BP 143/71
[2018-03-03] MEDS: NovoLOG Insulin Flexpen SUBQ SCH ×4 (06:49→20:26)
[2018-03-03 08:00] VITALS: BP 149/93
[2018-03-03] MEDS ORDERED: Digoxin 0.125mg tab ORAL SCH ×2 (09:00→11:30)
[2018-03-03] MEDS ORDERED: dilTIAZem HCl CD 180mg cap ORAL SCH (09:00)
[2018-03-03] MEDS ORDERED: Pantoprazole Inj IVP SCH ×2 (09:00)
[2018-03-03] MEDS ORDERED: Amiodarone 200mg tab ORAL SCH ×3 (09:00→11:15)
[2018-03-03] MEDS ORDERED: NS 500ML ONE ×2 (10:24→10:46)
[2018-03-03] MEDS ORDERED: Tubing IV Secondary IV ONE (10:44)
--- NOTE | 2018-03-03 10:49 | General Progress Note ---
Assessment/Plan Problem List: (1) Atrial fibrillation with RVR ICD Codes: I48.91 - Unspecified atrial fibrillation SNOMED: 802638724299029 (2) HTN (hypertension) ICD Codes: I10 - Essential (primary) hypertension SNOMED: 07229155 Qualifiers: Qualified Codes: I10 - Essential (primary) hypertension (3) Diabetes ICD Codes: E11.9 - Type 2 diabetes mellitus without complications SNOMED: 04858239 Qualifiers: Qualified Codes: E13.9 - Other specified diabetes mellitus without complications Assessment/Plan Atrial Fibrillation w/ RVR after transfer from ICU, meds were not transferred and therefore now pt's heartrate is uncontrolled resumed dig, amio, cardizem this am will defer to cardio for further guidance Diarrhea/abdominal pain Cdiff neg no recent abx exposure resolved diarrhea, normal bm Constipation now pt is constipated, I explained to her that this can be normal after a bout of diarrhea, if she is significantly uncomfortable we can try a stool softener HTN pt stable, pt on cardizem and dig will c/w home meds, lasix held per cardio DM HA1C 9+ c/w levemir daily, check blood glucose currently will continue insulin sliding scale discussed case w/ nurse, appreciate cardio input Dispo: hope to continue to have heart rate control, discharge planning Gene Stanton DO Subjective Date patient seen: Mar 03, 2018 Time patient seen: 10:44 Allergies: Coded Allergies: CODEINE (Verified Allergy, Unknown, 10/23/11) PENICILLINS (Verified Allergy, Unknown, RASH/ITCH, 10/23/11) Subjective Pt seen and examined. Pt states she is constipated today. Per nursing, all of the medications from ICU fell off and had to be restarted and pt's heart rate went uncontrolled today into the 120s. Objective Last 24 Hour Vital Signs Date Time Temp Pulse Resp B/P (MAP) Pulse Ox O2 Delivery O2 Flow Rate FiO2 03/03/18 09:34 Nasal Cannula 2.0 03/03/18 08:00 97.5 110 18 149/93 (111) 96 97.5 03/03/18 08:00 117 03/03/18 07:02 98 Nasal Cannula 2.0 28 03/03/18 07:02 Nasal Cannula 2.0 28 03/03/18 04:00 Nasal Cannula 2.0 03/03/18 04:00 79 10/19/18 04:00 97.7 87 18 143/71 (95) 96 97.7 03/03/18 00:00 96.8 81 20 131/76 (94) 96 96.8 03/03/18 00:00 Nasal Cannula 2.0 03/03/18 00:00 79 03/02/18 22:06 84 03/02/18 20:00 98.2 80 18 145/73 (97) 97 98.2 03/02/18 20:00 Nasal Cannula 2.0 03/02/18 16:41 80 03/02/18 16:00 83 20 141/74 (96) 99 03/02/18 16:00 Nasal Cannula 2.0 03/02/18 15:00 83 20 144/75 (98) 99 03/02/18 14:00 84 22 122/83 (96) 97 03/02/18 13:00 83 20 147/76 (99) 97 03/02/18 12:38 82 03/02/18 12:00 97.9 77 19 147/76 (99) 98 97.9 03/02/18 12:00 Nasal Cannula 2.0 03/02/18 12:00 88 03/02/18 11:08 82 148/75 03/02/18 11:00 80 19 143/73 (96) 100 Intake and Output 03/02/18 03/03/18 19:00 07:00 Intake Total 829.5 ml 1000 ml Output Total 560 ml Balance 269.5 ml 1000 ml Intake Oral 150 ml 100 ml IV Total 679.5 ml 900 ml Output Urine Total 560 ml # Voids 1 2 Height (Feet): 5 Height (Inches): 2.00 Weight (Pounds): 186 General Appearance: no apparent distress, alert EENT: PERRL/EOMI, normal ENT inspection Neck: non-tender, normal alignment, supple, normal inspection Cardiovascular: normal peripheral pulses, regularly irregular, tachycardia Respiratory/Chest: chest wall non-tender, lungs clear, normal breath sounds, no respiratory distress Abdomen: normal bowel sounds, non tender, soft, no organomegaly Extremities: normal range of motion, non-tender, normal inspection, no calf tenderness Neurologic: no motor/sensory deficits, alert, oriented x 3, responsive Gene Stanton D.O. Mar 03, 2018 10:49
[2018-03-03] MEDS: dilTIAZem HCl CD 180mg cap ORAL SCH (11:13)
[2018-03-03 12:00] VITALS: BP 145/91
--- NOTE | 2018-03-03 12:41 | Cardiac Electrophysiology PN ---
Assessment/Plan Assessment/Plan 1. Paroxysmal atrial fibrillation with rapid ventricular response. Converted to SR but still in and out of fib with RVR. Continue Digoxin 0.125 mg daily and Amiodarone 400 bid, Cardizem CD 180 daily and Xarelto 2. Troponin leak, 0.088 and 0.065, could be related to atrial fibrillation with rapid ventricular response. Echocardiogram showed normal left ventricular systolic function. EKG showed no acute ischemic changes. The patient is already on aspirin 3. Diabetes, on insulin. 4. Hyperlipidemia, on Lipitor. 5. Hypertension. On Cardizem. KANWAL RN Subjective Subjective Out of ICU on Amiodarone in and out of atrial fib. Alert in NAD. Objective Last 24 Hour Vital Signs Date Time Temp Pulse Resp B/P (MAP) Pulse Ox O2 Delivery O2 Flow Rate FiO2 03/03/18 12:00 98.1 115 18 145/91 (109) 96 98.1 03/03/18 11:13 117 149/93 03/03/18 11:12 124 03/03/18 09:34 Nasal Cannula 2.0 03/03/18 08:00 97.5 110 18 149/93 (111) 96 97.5 03/03/18 08:00 117 03/03/18 07:02 98 Nasal Cannula 2.0 28 03/03/18 07:02 Nasal Cannula 2.0 28 03/03/18 04:00 Nasal Cannula 2.0 03/03/18 04:00 79 03/03/18 04:00 97.7 87 18 143/71 (95) 96 97.7 03/03/18 00:00 96.8 81 20 131/76 (94) 96 96.8 03/03/18 00:00 Nasal Cannula 2.0 03/03/18 00:00 79 03/02/18 22:06 84 03/02/18 20:00 98.2 80 18 145/73 (97) 97 98.2 03/02/18 20:00 Nasal Cannula 2.0 03/02/18 16:41 80 03/02/18 16:00 83 20 141/74 (96) 99 03/02/18 16:00 Nasal Cannula 2.0 03/02/18 15:00 83 20 144/75 (98) 99 03/02/18 14:00 84 22 122/83 (96) 97 03/02/18 13:00 83 20 147/76 (99) 97 Intake and Output 03/02/18 03/03/18 18:59 06:59 Intake Total 909.5 ml 925 ml Output Total 560 ml Balance 349.5 ml 925 ml Intake Oral 150 ml 100 ml IV Total 759.5 ml 825 ml Output Urine Total 560 ml # Voids 1 2 Objective HEAD AND NECK: Mild JVD. LUNGS: Coarse rhonchi. CARDIOVASCULAR: Regular S1 and S2 with no gallop or murmur. ABDOMEN: Soft and nontender. EXTREMITIES: No pitting edema. Manolo Thompson MD Mar 03, 2018 12:41
[2018-03-03] MEDS ORDERED: Docusate 100mg cap ORAL PRN (13:00)
[2018-03-03 16:11] VITALS: BP 151/83
[2018-03-03] MEDS ORDERED: Xarelto 15mg tab ORAL SCH (16:30)
[2018-03-03] MEDS ORDERED: Xarelto 10mg tab ORAL SCH (16:30)
[2018-03-03 20:00] VITALS: BP 148/89
[2018-03-03] MEDS: Amiodarone 200mg tab ORAL SCH (20:23)
[2018-03-03] MEDS: Atorvastatin 20mg tab ORAL SCH (20:24)
[2018-03-03] MEDS: Levemir Flexpen SUBQ SCH (20:25)
[2018-03-03] MEDS: Zolpidem 5mg tab ORAL PRN (20:30)
[2018-03-04] VITALS: BP 125/77
[2018-03-04 04:00] VITALS: BP 132/74
[2018-03-04] MEDS: NovoLOG Insulin Flexpen SUBQ SCH ×2 (06:40→12:08)
[2018-03-04 08:00] VITALS: BP 142/80
[2018-03-04 08:02] LABS: ANION GAP 6 mmol/L (5-15); BLOOD UREA NITROGEN 13 mg/dL (7-18); CALCIUM 8.7 MG/DL (8.5-10.1); CARBON DIOXIDE 29 MMOL/L (21-32); CHLORIDE 107 MMOL/L (98-107); CREATININE 1.1 MG/DL (0.55-1.30); POTASSIUM 3.8 MMOL/L (3.5-5.1); SODIUM 142 MMOL/L (136-145)
[2018-03-04] MEDS: dilTIAZem HCl CD 180mg cap ORAL SCH (08:37)
[2018-03-04] MEDS: Amiodarone 200mg tab ORAL SCH (08:38)
[2018-03-04] MEDS ORDERED: Digoxin 0.125mg tab ORAL SCH (09:00)
--- NOTE | 2018-03-04 10:14 | General Progress Note ---
Assessment/Plan Problem List: (1) Paroxysmal atrial fibrillation ICD Codes: I48.0 - Paroxysmal atrial fibrillation SNOMED: 323183205 (2) Chronic anticoagulation ICD Codes: Z79.01 - prison (current) use of anticoagulants SNOMED: 308369034 (3) Diabetes ICD Codes: E11.9 - Type 2 diabetes mellitus without complications SNOMED: 33318180 Qualifiers: Qualified Codes: E13.9 - Other specified diabetes mellitus without complications (4) HTN (hypertension) ICD Codes: I10 - Essential (primary) hypertension SNOMED: 86563942 Qualifiers: Qualified Codes: I10 - Essential (primary) hypertension Assessment/Plan Paroxysmal afib, s/p RVR - patient currently is NSR - continue medications - titrate off amio outpatient - discharge home today - appreciate cards reqs - echo EF 55% HTN - controlled - goal , 140/80 DM A1c 9.3 - continue home medications on d/c Subjective Date patient seen: Mar 04, 2018 ROS Limited/Unobtainable: No Allergies: Coded Allergies: CODEINE (Verified Allergy, Unknown, 10/23/11) PENICILLINS (Verified Allergy, Unknown, RASH/ITCH, 10/23/11) All Systems: reviewed and negative except above Subjective Patient no longer feels unwell. She denies heart palpitations, chest pain, dizziness, N and V. No events overnight. Objective Last 24 Hour Vital Signs Date Time Temp Pulse Resp B/P (MAP) Pulse Ox O2 Delivery O2 Flow Rate FiO2 03/04/18 08:38 74 03/04/18 08:37 74 142/80 03/04/18 08:00 97.1 74 18 142/80 (100) 100 97.1 03/04/18 04:00 97.7 77 20 132/74 (93) 100 97.7 03/04/18 04:00 74 03/04/18 00:00 98.1 103 20 125/77 (93) 99 98.1 03/04/18 00:00 91 03/03/18 21:00 Nasal Cannula 2.0 03/03/18 20:10 97 Nasal Cannula 2.0 28 03/03/18 20:10 Nasal Cannula 2.0 28 03/03/18 20:00 98.8 97 20 148/89 (108) 96 98.8 03/03/18 20:00 96 03/03/18 16:11 96.5 87 18 151/83 (105) 96 96.5 03/03/18 16:00 94 03/03/18 12:00 128 03/03/18 12:00 98.1 115 18 145/91 (109) 96 98.1 03/03/18 11:13 117 149/93 03/03/18 11:12 124 Intake and Output 03/03/18 03/04/18 19:00 07:00 Intake Total 1290 ml 200 ml Balance 1290 ml 200 ml Intake Oral 840 ml 200 ml IV Total 450 ml # Voids 6 Laboratory Tests 03/04/18 06:15: Sodium Level 142, Potassium Level 3.8, Chloride Level 107, Carbon Dioxide Level 29, Anion Gap 6, Blood Urea Nitrogen 13, Creatinine 1.1, Estimat Glomerular Filtration Rate , Glucose Level 114H, Calcium Level 8.7 Height (Feet): 5 Height (Inches): 2.00 Weight (Pounds): 188 General Appearance: WD/WN, no apparent distress, alert EENT: PERRL/EOMI, normal ENT inspection, TMs normal Neck: non-tender, normal alignment, supple, normal inspection Cardiovascular: normal peripheral pulses, normal rate, regular rhythm, regularly irregular, no gallop/murmur - patient currently in normal sinus rhythm Respiratory/Chest: chest wall non-tender, lungs clear, normal breath sounds, no respiratory distress, no accessory muscle use Abdomen: normal bowel sounds, non tender, soft, no organomegaly, no mass Extremities: normal range of motion, non-tender, normal inspection, no calf tenderness Edema: no edema noted Arm (L), no edema noted Arm (R), no edema noted Leg (L), no edema noted Leg (R), no edema noted Pedal (L), no edema noted Pedal (R), no edema noted 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
[2018-03-04] MEDS ORDERED: Digoxin ORAL (10:18)
[2018-03-04] MEDS ORDERED: PACERONE200 MG ORAL (10:18)
[2018-03-04] MEDS ORDERED: CARDIZEM CD180 MG ORAL (10:18)
--- NOTE | 2018-03-04 10:24 | Discharge Summary ---
Discharge Summary Hospital Course Date of Admission Feb 26, 2018 at 21:45 Date of Discharge 03/04/18 Admitting Diagnosis atrial fibrillation, shortness of breath HPI Rosaura Burger is a 82 year old female who was admitted on Feb 26, 2018 at 21: 45 for Atrial Fibrilation/Shortness Of Breath Consultations Cardiology: [facility] Course Pt is a 82 yo F w PMH of Afib on Xarelto, HTN, DM and she presented for worsening shortness of breath and racing heart. She was watching TV at the time. Pt states this has happened to her many times before, and she usually ends up in the hospital. She states she has been compliant w/ all her medication. She denies worsening edema or chest pain. Pt states she follows w/ Cardiology but cannot recall the physician name. Pt also states she has had a cardiac cath years ago, cannot recall the results but denies any stents or surgical intervention. Pt denies any thyroid disease. Pt lives at home w/ daughter and son. Patient was admitted for Afib with RVR requiring cardizem gtt and admitted to ICU initially. Once patient was converted to PO meds and transferred out of ICU she did not receive her medications and proceeded to go into Afib with RVR once more. Once her medications were appropriately restarted her HR was controlled and patient converted to NSR. Cardiology followed patient as well and recommended current medication regimen. See echo report (EF 55%). Troponins elevated to max of 0.18 and deemed 2/2 to troponin leak. Patient denies chest pain and EKG non-consistent with ACS. See med req on d/c ECHO: Discharge Condition Upon Discharge: stable Discharge Disposition Patient was discharged to home Discharge Diagnoses: (1) Paroxysmal atrial fibrillation (2) HTN (hypertension) (3) Diabetes (4) Chronic anticoagulation Lenka Saldivar DO Mar 04, 2018 10:24
[2018-03-04] MEDS ORDERED: NS 500ML ONE (10:28)
[2018-03-04 11:52] VITALS: BP 149/83
--- NOTE | 2018-03-04 14:50 | Cardiac Electrophysiology PN ---
Assessment/Plan Assessment/Plan 1. Paroxysmal atrial fibrillation with rapid ventricular response. Converted to SR but still in and out of fib with RVR. Continue Digoxin 0.125 mg geo,Amiodarone 400 bid, Cardizem CD 180 daily and Xarelto 2. Troponin leak, 0.088 and 0.065, could be related to atrial fibrillation with rapid ventricular response. Echocardiogram showed normal left ventricular systolic function. EKG showed no acute ischemic changes. 3. Diabetes, on insulin. 4. Hyperlipidemia, on Lipitor. 5. Hypertension. On Cardizem. Subjective Subjective In SR on Amiodarone in NAD. Objective Last 24 Hour Vital Signs Date Time Temp Pulse Resp B/P (MAP) Pulse Ox O2 Delivery O2 Flow Rate FiO2 03/04/18 12:00 80 03/04/18 11:52 97.7 82 18 149/83 (105) 100 97.7 03/04/18 10:28 Room Air 03/04/18 08:38 74 03/04/18 08:37 74 142/80 03/04/18 08:00 75 03/04/18 08:00 97.1 74 18 142/80 (100) 100 97.1 03/04/18 04:00 97.7 77 20 132/74 (93) 100 97.7 03/04/18 04:00 74 03/04/18 00:00 98.1 103 20 125/77 (93) 99 98.1 03/04/18 00:00 91 03/03/18 21:00 Nasal Cannula 2.0 03/03/18 20:10 97 Nasal Cannula 2.0 28 03/03/18 20:10 Nasal Cannula 2.0 28 03/03/18 20:00 98.8 97 20 148/89 (108) 96 98.8 03/03/18 20:00 96 03/03/18 16:11 96.5 87 18 151/83 (105) 96 96.5 03/03/18 16:00 94 Intake and Output 03/03/18 03/04/18 18:59 06:59 Intake Total 1365 ml 200 ml Balance 1365 ml 200 ml Intake Oral 840 ml 200 ml IV Total 525 ml # Voids 6 Laboratory Tests Test 03/04/18 06:15 Sodium Level 142 MMOL/L (136-145) Potassium Level 3.8 MMOL/L (3.5-5.1) Chloride Level 107 MMOL/L (98-107) Carbon Dioxide Level 29 MMOL/L (21-32) Anion Gap 6 mmol/L (5-15) Blood Urea Nitrogen 13 mg/dL (7-18) Creatinine 1.1 MG/DL (0.55-1.30) Estimat Glomerular Filtration Rate mL/min (>60) Glucose Level 114 MG/DL (74-106) H Calcium Level 8.7 MG/DL (8.5-10.1) Objective HEAD AND NECK: Mild JVD. LUNGS: Coarse rhonchi. CARDIOVASCULAR: Regular S1 and S2 with no gallop or murmur. ABDOMEN: Soft and nontender. EXTREMITIES: No pitting edema. Manolo Thompson MD Mar 04, 2018 14:50
== END 2018-03-04 14:11 | disposition home or self-care (01) | DRG 310 ==
LOC: EMR 21:00 → EDBEDREQSVC 21:41 → EDBEDREQTM 21:41 → EDBEDREQ 21:41 → ICU 21:45 → EDBEDREQ 22:05 → 2E 02-27 12:52 → ICU 02-28 08:07 → 2E 03-02 18:15
DX: I48.0 Paroxysmal atrial fibrillation (principal); I10 Essential (primary) hypertension; E11.9 Type 2 diabetes mellitus without complications; Z79.01 Long term (current) use of anticoagulants; Z79.4 Long term (current) use of insulin; Z88.6 Allergy status to analgesic agent; Z88.0 Allergy status to penicillin; E78.5 Hyperlipidemia, unspecified
CPT/HCPCS: 36415; 71045; 80048; 80053; 80162; 82550; 82553; 82962; 83036; 83880; 84439; 84443; 84484; 85025; 85610; 85730; 87081; 87324; 93005; 93306; 94760; 96361; 96374; 96375; 99291; J1815; J2405; J8499; S5561